=== PATIENT | male | born 1935 | race Caucasian/White ===

== ENCOUNTER 2016-12-24 08:21 | Inpatient (IN) | payer MEDICARE, BC ==
[2016-12-24] MEDS ORDERED: Lactated Ringers 1,000 ML IV ONE (09:10)
--- NOTE | 2016-12-24 09:19 | EDM.PDOC ---
ED HISTORY OF PRESENT ILLNESS - General Chief Complaint: Respiratory Problem Stated Complaint: dizzy weak Time Seen by Provider: 12/24/16 09:05 Source: Reports: Patient, RN notes reviewed History Limitations: Reports: No limitations - History of Present Illness INITIAL COMMENTS - FREE TEXT/NARRATIVE: 81-year-old gentleman presents emergency department with a complaint of shortness of breath, states this particular event has been going on for the last week or so however he was ill earlier in the month those symptoms resolved after 5 or 6 days he did well for a few days and then starting getting ill again , he denies any overt fever at home but has felt feverish with chills has not noticed any weight gain no chest pain no difficulty swallowing he does produce green yellow sputum no difficulty with bowel movements, also had a syncopal event this morning he had gotten up to a glass water felt very weak the next thing he recalls is awakening on the floor he is complaining of no pain - Related Data Allergies/ADRs: Allergies Allergy/AdvReac Type Severity Reaction Status Date / Time levofloxacin [From Levaquin] Allergy Unknown Muscle Verified 12/24/16 08:43 Weakness meropenem Allergy Swelling Verified 12/24/16 08:43 propoxyphene napsylate AdvReac Nausea and Verified 12/24/16 08:43 [From Darvocet-N] Vomiting Home Meds: Home Meds Calcium Carbonate [Tums] 200 mg PO ASDIRECTED PRN 04/17/14 [History] Omeprazole 20 mg PO BIDAC 04/17/14 [History] Past Medical History 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 Respiratory History: Reports: Pneumonia, recurrent Gastrointestinal History: Reports: Gastritis Musculoskeletal History: Reports: Fracture, Osteoarthritis Other Musculoskeletal History: ankle Oncologic (Cancer) History: Reports: Other (see below) 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[place] - Infectious Disease History Infectious Disease History: Reports: Chicken pox, Measles, Mumps - Past Surgical History HEENT Surgical History: Reports: Cataract surgery GI Surgical History: Reports: Appendectomy, Cholecystectomy Oncologic Surgical History: Reports: Other (see below) Other Oncologic Surgeries/Procedures: surgery on penis Social & Family History - Tobacco Use Smoking Status *Q: Never Smoker Years of Tobacco use: 40 Used Tobacco, but Quit: Yes Month Tobacco Last Used: 10-28-1998 Second Hand Smoke Exposure: No - Caffeine Use Caffeine Use: Reports: Soda - Alcohol Use Days Per Week of Alcohol Use: 0 - Recreational Drug Use Recreational Drug Use: No ED ROS GENERAL - Review of Systems Review Of Systems: See Below Constitutional: Reports: fever, chills HEENT: Reports: No symptoms Respiratory: Reports: shortness of breath, cough, sputum. Denies: wheezing Cardiovascular: Reports: Dyspnea on exertion. Denies: Chest pain GI/Abdominal: Reports: No symptoms : Reports: no symptoms Musculoskeletal: Reports: no symptoms Skin: Reports: no symptoms ED EXAM, GENERAL - Physical Exam Exam: See Below Free Text/Narrative:: General: Male, not in any distress, alert and oriented x3 HEENT: head is atraumatic normocephalic, eyes pupils equal round reactive to light and accommodation sclera clear no conjunctivitis appreciated. Ears blocked by cerumen bilaterally. Nose no septal deviation, nares are clear, no blood present. Mouth mucosa is dry and pink no erythema or exudate noted in soft palate, tongue is midline uvula is midline, dentition is intact. Neck: Supple no thyromegaly no tracheal deviation. Nodes: Cervical nodes subclavicular nodes nontender no palpable lymphadenopathy noted. Lungs: Breath sounds are distant, a faint expiratory wheeze can be appreciated right upper lung reyes CV: Regular rate and rhythm S1 and S2 appreciated no murmurs rubs or gallops noted. Abdomen: Soft, nontender, no palpable masses or organomegaly appreciated, no distention no guarding bowel sounds are present, . Neuro: Cranial nerves II through XII grossly intact Skin: Warm and dry, intact Extremities: No lower extremity edema appreciated, Course - Vital Signs Last Recorded V/S: Last Vital Signs Temp 98.4 F 12/24/16 09:50 Pulse 102 H 12/24/16 09:50 Resp 20 12/24/16 09:50 BP 80/59 L 12/24/16 09:50 Pulse Ox 92 L 12/24/16 09:50 - Orders/Labs/Meds Orders: Active Orders 24 hr Category Date Time Status EKG Documentation Completion [RC] ASDIRECTED Care 12/24/16 08:50 Active Peripheral IV Care [RC] . DIRECTED Care 12/24/16 09:12 Active CULTURE BLOOD [BC] Urgent Lab 12/24/16 10:25 Ordered CULTURE BLOOD [BC] Urgent Lab 12/24/16 10:25 Ordered UA W/MICROSCOPIC [URIN] Urgent Lab 12/24/16 09:10 Uncollected Azithromycin [Zithromax] 500 mg Med 12/24/16 10:25 Active Sodium Chloride 0.9% [Normal Saline] 250 ml IV ONETIME Lactated Ringers [Ringers, Lactated] 1,000 ml Med 12/24/16 09:10 Active IV ASDIRECTED Sodium Chloride 0.9% [Saline Flush] Med 12/24/16 09:10 Active 10 ml FLUSH ASDIRECTED PRN cefTRIAXone [Rocephin] 1 gm Med 12/24/16 10:25 Active Sodium Chloride 0.9% [Normal Saline] 50 ml IV ONETIME Blood Culture x2 Reflex Set [OM.PC] Urgent Oth 12/24/16 10:25 Ordered Peripheral IV Insertion Adult [OM.PC] Urgent Oth 12/24/16 09:10 Ordered EKG 12 Lead [EK] Stat Ther 12/24/16 08:50 Ordered Medication Orders Lactated Ringer's (Ringers, Lactated) 1,000 mls @ 500 mls/hr IV ASDIRECTED ONE Stop: 12/24/16 11:09 Last Admin: 12/24/16 09:28 Dose: 500 mls/hr Azithromycin 500 mg/ Sodium (Chloride) 250 mls @ 250 mls/hr IV ONETIME ONE Stop: 12/24/16 11:24 Ceftriaxone Sodium 1 gm/ (Sodium Chloride) 50 mls @ 100 mls/hr IV ONETIME ONE Stop: 12/24/16 10:54 Sodium Chloride (Saline Flush) 10 ml FLUSH ASDIRECTED PRN PRN Reason: Keep Vein Open Last Admin: 12/24/16 09:24 Dose: 10 ml Labs: Laboratory Tests 12/24/16 12/24/16 12/24/16 Range/Units 09:20 09:20 09:20 WBC 8.6 (4.5-11.0) K/uL RBC 4.94 (4.30-5.90) M/uL Hgb 15.6 H D (12.0-15.0) g/dL Hct 47.4 (40.0-54.0) % MCV 96 (80-98) fL MCH 32 H (27-31) pg MCHC 33 (32-36) % Plt Count 301 (150-400) K/uL Neut % (Auto) 74 H (36-66) % Lymph % (Auto) 11 L (24-44) % [place] % (Auto) 14 H (2-6) % Eos % (Auto) 1 L (2-4) % Baso % (Auto) 0 (0-1) % Sodium 137 L (140-148) mmol/L Potassium 4.3 (3.6-5.2) mmol/L Chloride 101 (100-108) mmol/L Carbon Dioxide 20 L (21-32) mmol/L Anion Gap 20.3 H (5.0-14.0) mmol/L BUN 30 H D (7-18) mg/dL Creatinine 1.9 H D (0.8-1.3) mg/dL Est Cr Clr Drug Dosing 32.48 mL/min Estimated GFR (MDRD) 34 L (>60) Glucose 124 H (74-106) mg/dL Calcium 9.2 (8.5-10.1) mg/dL Total Bilirubin 0.5 (0.2-1.0) mg/dL AST 59 H (15-37) U/L ALT 39 (12-78) U/L Alkaline Phosphatase 97 (46-116) U/L Troponin I < 0.017 (0.000-0.056) ng/mL Zaw-[id number]-Hufwgwznipj Pept 39 (5-450) pg/mL Total Protein 8.1 (6.4-8.2) g/dL Albumin 3.6 (3.4-5.0) g/dL Globulin 4.5 H (2.3-3.5) g/dL Albumin/Globulin Ratio 0.8 L (1.2-2.2) Meds: Medications Generic Name Dose Route Start Last Admin Trade Name Freq PRN Reason Stop Dose Admin Lactated Ringer's 1,000 mls @ 500 mls/hr 12/24/16 09:10 12/24/16 09:28 Ringers, Lactated IV 12/24/16 11:09 500 mls/hr ASDIRECTED ONE Administration Azithromycin 500 mg/ Sodium 250 mls @ 250 mls/hr 12/24/16 10:25 Chloride IV 12/24/16 11:24 ONETIME ONE Ceftriaxone Sodium 1 gm/ 50 mls @ 100 mls/hr 12/24/16 10:25 Sodium Chloride IV 12/24/16 10:54 ONETIME ONE Sodium Chloride 10 ml 12/24/16 09:10 12/24/16 09:24 Saline Flush FLUSH 10 ml ASDIRECTED PRN Administration Keep Vein Open Departure - Departure Time of Disposition: 10:30 Disposition: Admitted As Inpatient 66 Condition: fair Clinical Impression: Pneumonia Qualifiers: Pneumonia type: due to unspecified organism Laterality: left Lung location: lower lobe of lung Qualified Code(s): J18.1 - Lobar pneumonia, unspecified organism Forms: ED Department Discharge - My Orders Last 24 Hours: My Active Orders 12/24/16 08:50 EKG Documentation Completion [RC] ASDIRECTED EKG 12 Lead [EK] Stat 12/24/16 09:10 UA W/MICROSCOPIC [URIN] Urgent Lactated Ringers [Ringers, Lactated] 1,000 ml IV ASDIRECTED Sodium Chloride 0.9% [Saline Flush] 10 ml FLUSH ASDIRECTED PRN Peripheral IV Insertion Adult [OM.PC] Urgent 12/24/16 09:12 Peripheral IV Care [RC] . DIRECTED 12/24/16 10:25 CULTURE BLOOD [BC] Urgent CULTURE BLOOD [BC] Urgent Azithromycin [Zithromax] 500 mg Sodium Chloride 0.9% [Normal Saline] 250 ml IV ONETIME cefTRIAXone [Rocephin] 1 gm Sodium Chloride 0.9% [Normal Saline] 50 ml IV ONETIME Blood Culture x2 Reflex Set [OM.PC] Urgent - Assessment/Plan Last 24 Hours: My Active Orders 12/24/16 08:50 EKG Documentation Completion [RC] ASDIRECTED EKG 12 Lead [EK] Stat 12/24/16 09:10 UA W/MICROSCOPIC [URIN] Urgent Lactated Ringers [Ringers, Lactated] 1,000 ml IV ASDIRECTED Sodium Chloride 0.9% [Saline Flush] 10 ml FLUSH ASDIRECTED PRN Peripheral IV Insertion Adult [OM.PC] Urgent 12/24/16 09:12 Peripheral IV Care [RC] . DIRECTED 12/24/16 10:25 CULTURE BLOOD [BC] Urgent CULTURE BLOOD [BC] Urgent Azithromycin [Zithromax] 500 mg Sodium Chloride 0.9% [Normal Saline] 250 ml IV ONETIME cefTRIAXone [Rocephin] 1 gm Sodium Chloride 0.9% [Normal Saline] 50 ml IV ONETIME Blood Culture x2 Reflex Set [OM.PC] Urgent Plan: Assessment Acuity = acute Site and laterality = community acquired pneumonia with syncope probably related to hypotension complicated patient with recurrent pneumonias Etiology = suspicious for bacterial cause Manifestations = dyspnea Location of injury = home Lab values = CURB-65 score equal to 3, CBC unremarkable, sodium low at 137 consistent hyponatremia, BUN elevated at 30 and creatinine elevated at 1.9 consistent with a stage GIII B. acute renal failure AST elevated at 59 consistent elevated liver enzymes, troponin is negative, BNP normal at 39 chest x-ray shows questionable infiltrate in the left side official read radiology is pending EKG demonstrates a sinus rhythm Q waves appreciated in 3 and aVF Plan Call and discussed the case with hospitalist workers compensation coordinator he agreed to come and evaluate this 84 admission Patient was in agreement with the plan all questions were answered, This note was dictated using [employer] voice recognition software please call with any questions.
[2016-12-24] MEDS: Sodium Chloride 0.9% 10 ML Syringe FLUSH PRN ×2 (09:24→12:19)
--- NOTE | 2016-12-24 10:08 | CR ---
Chest 2V HISTORY: Shortness of breath COMPARISON: 04/17/2014. FINDINGS: Mild cardiomegaly. Small hiatal hernia. No acute congestive change. No dense focal infiltr ates.
[2016-12-24] MEDS ORDERED: Azithromycin 500 MG in Sodium Chloride 0.9% 250 ML IV ONE (10:25)
[2016-12-24] MEDS ORDERED: cefTRIAXone 1 GM in Sodium Chloride 0.9% 50 ML IV ONE (10:25)
--- NOTE | 2016-12-24 11:44 | PCM.HP ---
H&P History of Present Illness - General Date of Service: 12/24/16 Admit Problem/Dx: Admission Diagnosis/Problem Admission Diagnosis/Problem Pneumonia Source of Information: Patient, Provider History Limitations: Reports: No limitations - History of Present Illness Initial Comments - Free Text/Narative: Ernst presents to the emergency room today with 2 days of worsening cough with green sputum production and shortness of breath. This morning he reports that he was walking into the kitchen to get a drink of water and the next thing he remembers is laying on the floor afterwards. No report of dizziness before or after the event. He doesn't think that he lost consciousness for more than a couple of seconds. No injuries from the fall. No report of fevers or chills at home. He has noticed a decline in his energy as well as his appetite. He is now short of breath after half a flight of stairs which is much different than his baseline. No complaints of chest pain or pain with inspiration. He has had a couple of days of diarrhea as well. No complaints of abdominal pain. No change in bladder habits. No lower extremity edema or orthopnea. He does report that about 3 weeks ago he had a cough and runny nose and symptoms were getting better after a couple weeks before symptoms returned to this time his symptoms feel different with the cough and sputum as mentioned above. No complaints of sore throat at this time. he has not had much to drink in the last couple of days either. Workup in the emergency room revealed a low blood pressure, acute kidney injury and probable evidence for subtle left lung pneumonia. He'll be admitted for management of pneumonia. 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 Respiratory History: Reports: Pneumonia, recurrent Gastrointestinal History: Reports: Gastritis Musculoskeletal History: Reports: Fracture, Osteoarthritis Other Musculoskeletal History: ankle Oncologic (Cancer) History: Reports: Other (see below) 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[place] - Infectious Disease History Infectious Disease History: Reports: Chicken pox, Measles, Mumps - Past Surgical History HEENT Surgical History: Reports: Cataract surgery GI Surgical History: Reports: Appendectomy, Cholecystectomy Oncologic Surgical History: Reports: Other (see below) Other Oncologic Surgeries/Procedures: surgery on penis Social & Family History - Family History Neurological: Reports: Alzheimers disease (mother) - Tobacco Use Smoking Status *Q: Never Smoker Years of Tobacco use: 40 Used Tobacco, but Quit: Yes Month Tobacco Last Used: 10-28-1998 Second Hand Smoke Exposure: No - Caffeine Use Caffeine Use: Reports: Soda - Alcohol Use Days Per Week of Alcohol Use: 0 - Recreational Drug Use Recreational Drug Use: No H&P Review of Systems - Review of Systems: Review Of Systems: See Below Free Text/Narrative: A complete 12 point review of systems was obtained. Pertinent positives and negatives are noted in the history of present illness. All other systems were reviewed and were negative except as noted. Exam - Exam Exam: See Below - Vital Signs Vital Signs: Last Vital Signs Temp 36.9 C 12/24/16 10:50 Pulse 89 12/24/16 10:50 Resp 21 H 12/24/16 10:50 BP 80/59 L 12/24/16 09:50 Pulse Ox 92 L 12/24/16 09:50 Weight: 104 kg - Exam Quality Assessment: No: supplemental oxygen, urinary catheter General: alert, oriented, cooperative. No: mild distress HEENT: Posterior pharynx clear. No: Mucosa moist & pink (dry), Scleral icterus Neck: supple, trachea midline. No: lymphadenopathy, thyromegaly Lungs: Clear to auscultation, Normal respiratory effort, Rales (rare left lower lateral chest) Cardiovascular: regular rhythm, tachycardia. No: systolic murmur Abdomen: normal bowel sounds, soft. No: distention, tenderness Back Exam: normal inspection, full range of motion Extremities: normal inspection, normal pulses. No: cyanosis, edema Peripheral Pulses: 1+: dorsalis pedis (L), 2+: dorsalis pedis (R) Skin: warm, dry, intact Neuro Extensive - Mental Status: alert, oriented x3 Neuro Extensive - Motor, Sensory, Reflexes: CN II-XII intact. No: dysarthria, abnormal motor, tremor Psychiatric: alert, normal affect - Patient Data Lab Results last 24 hrs: Laboratory Results - last 24 hr 12/24/16 12/24/16 12/24/16 Range/Units 09:20 09:20 09:20 WBC 8.6 (4.5-11.0) K/uL RBC 4.94 (4.30-5.90) M/uL Hgb 15.6 H D (12.0-15.0) g/dL Hct 47.4 (40.0-54.0) % MCV 96 (80-98) fL MCH 32 H (27-31) pg MCHC 33 (32-36) % Plt Count 301 (150-400) K/uL Neut % (Auto) 74 H (36-66) % Lymph % (Auto) 11 L (24-44) % [place] % (Auto) 14 H (2-6) % Eos % (Auto) 1 L (2-4) % Baso % (Auto) 0 (0-1) % Sodium 137 L (140-148) mmol/L Potassium 4.3 (3.6-5.2) mmol/L Chloride 101 (100-108) mmol/L Carbon Dioxide 20 L (21-32) mmol/L Anion Gap 20.3 H (5.0-14.0) mmol/L BUN 30 H D (7-18) mg/dL Creatinine 1.9 H D (0.8-1.3) mg/dL Est Cr Clr Drug Dosing 32.48 mL/min Estimated GFR (MDRD) 34 L (>60) Glucose 124 H (74-106) mg/dL Calcium 9.2 (8.5-10.1) mg/dL Total Bilirubin 0.5 (0.2-1.0) mg/dL AST 59 H (15-37) U/L ALT 39 (12-78) U/L Alkaline Phosphatase 97 (46-116) U/L Troponin I < 0.017 (0.000-0.056) ng/mL Ojf-T-Rnnmiipdwua Pept 39 (5-450) pg/mL Total Protein 8.1 (6.4-8.2) g/dL Albumin 3.6 (3.4-5.0) g/dL Globulin 4.5 H (2.3-3.5) g/dL Albumin/Globulin Ratio 0.8 L (1.2-2.2) Result Diagrams: 12/24/16 09:20 12/24/16 09:20 Navin Results last 24 hrs: Microbiology 12/24/16 09:36 Influenza Type A Antigen Screen - Final Nasopharyngeal Swab - Nare, Left NEGATIVE INFLUENZA A VIRUS AG Influenza Type B Antigen Screen - Final NEGATIVE INFLUENZA B VIRUS AG Imaging Impressions last 24 hrs: chest x-ray - images personally reviewed - possible subtle left lung infiltrate with a mild change compared to most recent chest x-ray EKG INTERPRETATION EKG Date: 12/24/16 Rhythm: NSR Rate (beats/min): 88 [place]: normal P-wave: present QRS: normal ST-T: normal QT: normal *Q Meaningful Use (ADM) - VTE *Q VTE Criteria *Q: - Stroke *Q Stroke Criteria *Q: - AMI *Q AMI Criteria *Q: - Problem List (1) Pneumonia SNOMED Code(s): 667999129 ICD Code: J18.9 - PNEUMONIA, UNSPECIFIED ORGANISM Status: Acute Current Visit: Yes Qualifiers: Pneumonia type: due to unspecified organism Laterality: left Lung location: lower lobe of lung Qualified Code(s): J18.1 - Lobar pneumonia, unspecified organism (2) Acute kidney injury SNOMED Code(s): 85009056 ICD Code: N17.9 - ACUTE KIDNEY FAILURE, UNSPECIFIED Status: Acute Current Visit: Yes (3) Syncope SNOMED Code(s): 032020472 ICD Code: R55 - SYNCOPE AND COLLAPSE Status: Acute Current Visit: Yes Qualifiers: Syncope type: unspecified Qualified Code(s): R55 - Syncope and collapse Problem List Initiated/Reviewed/Updated: Yes Orders Last 24hrs: Active Orders 24 hr Category Date Time Status Patient Status Manage Transfer [TRANSFER] Routine ADT 12/24/16 11:35 Ordered EKG Documentation Completion [RC] ASDIRECTED Care 12/24/16 08:50 Active Peripheral IV Care [RC] . DIRECTED Care 12/24/16 09:12 Active CULTURE BLOOD [BC] Urgent Lab 12/24/16 10:44 Received CULTURE BLOOD [BC] Urgent Lab 12/24/16 10:44 Received UA W/MICROSCOPIC [URIN] Urgent Lab 12/24/16 09:10 Uncollected Sodium Chloride 0.9% [Saline Flush] Med 12/24/16 09:10 Active 10 ml FLUSH ASDIRECTED PRN Blood Culture x2 Reflex Set [OM.PC] Urgent Oth 12/24/16 10:25 Ordered Peripheral IV Insertion Adult [OM.PC] Urgent Oth 12/24/16 09:10 Ordered Resuscitation Status Routine Resus Stat 12/24/16 11:36 Ordered EKG 12 Lead [EK] Stat Ther 12/24/16 08:50 Ordered Medication Orders Sodium Chloride (Saline Flush) 10 ml FLUSH ASDIRECTED PRN PRN Reason: Keep Vein Open Last Admin: 12/24/16 09:24 Dose: 10 ml Assessment/Plan Comment:: Assessment and plan - Probable left lung pneumonia - subtle infiltrate with compatible symptoms. Examination with a few crackles in this area as well. Blood pressure is on the low side but I think this is more a component of dehydration without other strong evidence for sepsis. Could be post viral pneumonia with upper respiratory symptoms 3 weeks ago. -ceftriaxone and azithromycin -IV fluid -Nebulizers -Sputum culture if able -Supplement oxygen if needed Syncope - probably a result of dehydration and infection. No recent suspect alternative diagnosis based on history. -Cardiac Monitoring -Repeat labs in the morning after IV fluids Acute kidney injury - creatinine almost doubled from baseline. Probably related to dehydration. -IV fluids overnight and labs in the morning Maintenance issues - - DVT prophylaxis - mechanical - GI prophylaxis - PPI - Nutrition - regular diet as tolerated - Wolf catheter - not indicated CODE STATUS - full code Admission justification - This patient will be admitted for inpatient services and is medically appropriate meeting medical necessity for inpatient admission as outlined in my documentation. I reasonably expect the patient will require inpatient services that span a period time over 2 midnights. I reasonably expect this patient to be discharged or transferred within 96 hours [facility]. Disposition - anticipate discharge home after the hospital stay Victorino Kellogg M.D.
[2016-12-24] MEDS ORDERED: Ibuprofen 600 MG Tab PO PRN (13:18)
[2016-12-24] MEDS ORDERED: Acetaminophen 325 MG Tab PO PRN (13:18)
[2016-12-24] MEDS ORDERED: Ondansetron 4 MG Tab.DIS PO PRN (13:18)
[2016-12-24] MEDS ORDERED: Albuterol 0.083% 2.5 MG/3 ML Neb Soln NEB PRN (13:18)
[2016-12-24] MEDS: Pantoprazole 20 MG Tab, Delayed Release PO SCH (15:48)
[2016-12-24] MEDS ORDERED: Pantoprazole 40 MG Tab.CR PO SCH (16:30)
[2016-12-24] MEDS: Sodium Chloride 0.9% 1,000 ML IV SCH (22:00)
[2016-12-25] MEDS: Sodium Chloride 0.9% 1,000 ML IV SCH (06:00)
[2016-12-25] MEDS: Pantoprazole 20 MG Tab, Delayed Release PO SCH ×2 (07:49→17:19)
[2016-12-25] MEDS: Azithromycin 250 MG Tab PO SCH (08:46)
[2016-12-25] MEDS: cefTRIAXone 1 GM in Sodium Chloride 0.9% 50 ML IV SCH (10:50)
--- NOTE | 2016-12-25 12:53 | PCM.PN ---
- General Info Date of Service: 12/25/16 Functional Status: Reports: pain controlled, tolerating diet - Review of Systems General: Reports: fever, weakness Pulmonary: Reports: cough Systems Review Comment:: no acute events overnight. Still has a dry cough but shortness of breath has been improving. No recurrence of his syncope but has not been up and moving around. No abnormalities on cardiac monitoring overnight. No fevers. Appetite is improving. In general he is feeling better today. - Patient Data Vitals - most recent: Last Vital Signs Temp 37.0 C 12/25/16 10:29 Pulse 70 12/25/16 10:29 Resp 18 12/25/16 10:29 BP 119/70 12/25/16 10:29 Pulse Ox 90 L 12/25/16 10:29 Weight - most recent: 103.873 kg I&O - last 24 hours: Intake & Output 12/24/16 12/25/16 12/25/16 22:59 06:59 14:59 Intake Total 645 1492 410 Output Total 400 300 950 Balance 245 1192 -540 Lab Results last 24 hrs: Laboratory Results - last 24 hr 12/24/16 12/25/16 12/25/16 Range/Units 14:23 05:11 05:11 WBC 4.8 (4.5-11.0) K/uL RBC 4.41 (4.30-5.90) M/uL Hgb 13.6 D (12.0-15.0) g/dL Hct 42.7 (40.0-54.0) % MCV 97 (80-98) fL MCH 31 (27-31) pg MCHC 32 (32-36) % Plt Count 221 (150-400) K/uL Sodium 142 (140-148) mmol/L Potassium 3.9 (3.6-5.2) mmol/L Chloride 108 (100-108) mmol/L Carbon Dioxide 23 (21-32) mmol/L Anion Gap 11.0 (5.0-14.0) mmol/L BUN 25 H (7-18) mg/dL Creatinine 1.5 H (0.8-1.3) mg/dL Est Cr Clr Drug Dosing 39.88 mL/min Estimated GFR (MDRD) 45 L (>60) Glucose 97 (74-106) mg/dL Calcium 8.0 L (8.5-10.1) mg/dL Urine Color Yellow Urine Appearance Slightly cloudy Urine pH 5.0 (4.5-8.0) Ur Specific Rudolph 1.025 (1.008-1.030) Urine Protein 30 H (NEGATIVE) mg/dL Urine Glucose (UA) Normal (NEGATIVE) mg/dL Urine Ketones Negative (NEGATIVE) mg/dL Urine Occult Blood Moderate (NEGATIVE) Urine Nitrite Negative (NEGAITVE) Urine Bilirubin Small (NEGATIVE) Urine Urobilinogen Normal (NORMAL) mg/dL Ur Leukocyte Esterase Moderate (NEGATIVE) Urine RBC 5-10 H (0-5) Urine WBC 10-20 H (0-5) Ur Epithelial Cells Many Amorphous Sediment Not seen Urine Bacteria Many Urine Mucus Moderate Urine Other Med Orders - Current: Current Medications Acetaminophen (Tylenol) 650 mg PO Q4H PRN PRN Reason: Pain (Mild 1-3)/fever Albuterol (Proventil Neb Soln) 2.5 mg NEB Q4H PRN PRN Reason: Shortness Of Breath/wheezing Azithromycin (Zithromax) 500 mg PO DAILY [facility] Last Admin: 12/25/16 08:46 Dose: 500 mg Ceftriaxone Sodium 1 gm/ (Sodium Chloride) 50 mls @ 100 mls/hr IV Q24H [facility] Last Admin: 12/25/16 10:50 Dose: 100 mls/hr Ibuprofen (Motrin) 600 mg PO Q6H PRN PRN Reason: Pain/Fever Ondansetron HCl (Zofran Odt) 4 mg PO Q6H PRN PRN Reason: Nausea able to take PO Pantoprazole Sodium (Pantoprazole) 20 mg PO BIDAC [facility] Last Admin: 12/25/16 07:49 Dose: 20 mg Sodium Chloride (Saline Flush) 10 ml FLUSH ASDIRECTED PRN PRN Reason: Keep Vein Open Last Admin: 12/24/16 12:19 Dose: 10 ml Discontinued Medications Lactated Ringer's (Ringers, Lactated) 1,000 mls @ 500 mls/hr IV ASDIRECTED ONE Stop: 12/24/16 11:09 Last Admin: 12/24/16 09:28 Dose: 500 mls/hr Azithromycin 500 mg/ Sodium (Chloride) 250 mls @ 250 mls/hr IV ONETIME ONE Stop: 12/24/16 11:24 Last Admin: 12/24/16 10:40 Dose: 250 mls/hr Ceftriaxone Sodium 1 gm/ (Sodium Chloride) 50 mls @ 100 mls/hr IV ONETIME ONE Stop: 12/24/16 10:54 Last Admin: 12/24/16 11:15 Dose: 100 mls/hr Sodium Chloride (Normal Saline) 1,000 mls @ 125 mls/hr IV ASDIRECTED [facility] Last Admin: 12/25/16 06:00 Dose: 125 mls/hr - Exam Quality Assessment: No: supplemental oxygen General: alert, oriented, cooperative, no acute distress Neck: supple Lungs: Clear to auscultation, Normal respiratory effort, Rales (rare left lung base) Cardiovascular: regular rate, regular rhythm Abdomen: soft, no distension Extremities: no edema, normal pulses Skin: warm, dry - Problem List & Annotations (1) Pneumonia SNOMED Code(s): 373405577 Code(s): J18.9 - PNEUMONIA, UNSPECIFIED ORGANISM Status: Acute Current Visit: Yes Qualifiers: Pneumonia type: due to unspecified organism Laterality: left Lung location: lower lobe of lung Qualified Code(s): J18.1 - Lobar pneumonia, unspecified organism (2) Acute kidney injury SNOMED Code(s): 34042322 Code(s): N17.9 - ACUTE KIDNEY FAILURE, UNSPECIFIED Status: Acute Current Visit: Yes (3) Syncope SNOMED Code(s): 338726526 Code(s): R55 - SYNCOPE AND COLLAPSE Status: Acute Current Visit: Yes Qualifiers: Syncope type: unspecified Qualified Code(s): R55 - Syncope and collapse - Problem List Review Problem List Initiated/Reviewed/Updated: Yes - My Orders Last 24 Hours: My Active Orders 12/24/16 13:18 Patient Status [ADT] Routine Intake and Output [RC] QSHIFT Notify Provider Vital Signs [RC] ASDIRECTED Oxygen Therapy [RC] PRN RT Aerosol Therapy [RC] ASDIRECTED Up With Assistance [RC] ASDIRECTED VTE/DVT Education [RC] Per Unit Routine Vital Signs [RC] Q4H CULTURE RESPIRATORY + SMEAR [RM] Routine Acetaminophen [Tylenol] 650 mg PO Q4H PRN Albuterol [Proventil Neb Soln] 2.5 mg NEB Q4H PRN Ibuprofen [Motrin] 600 mg PO Q6H PRN Ondansetron [Zofran ODT] 4 mg PO Q6H PRN Sequential Compression Device [OM.PC] Per Unit Routine 12/24/16 16:30 Pantoprazole 20 mg PO BIDAC 12/24/16 Lunch Regular Diet [DIET] 12/25/16 09:00 Azithromycin [Zithromax] 500 mg PO DAILY 12/25/16 11:00 cefTRIAXone [Rocephin] 1 gm Sodium Chloride 0.9% [Normal Saline] 50 ml IV Q24H 12/25/16 12:51 Discontinue Telemetry Monitoring [Cardiac Monitoring Discontinue] [RC] Click to Edit Convert IV to Saline Lock [OM.PC] Routine 12/26/16 05:00 BASIC METABOLIC PANEL,BMP [CHEM] Timed - Plan Plan:: Assessment and plan - Probable left lung pneumonia - still coughing but otherwise doing better. Cultures are pending. Not requiring supplemental oxygen but is weak. -ceftriaxone and azithromycin -saline lock IV -Nebulizers -Sputum culture if able -Supplement oxygen if needed Syncope - probably a result of dehydration and infection. no recurrence.telemetry monitoring normal. Vital signs stable. -discontinue Cardiac Monitoring Acute kidney injury - creatinine almost doubled from baseline, level improving with hydration. -repeat labs in the morning Maintenance issues - - DVT prophylaxis - mechanical - GI prophylaxis - PPI - Nutrition - regular diet as tolerated Disposition - anticipate discharge home after the hospital stay. I I plan to increase his activity today and if he is stable and does well overnight he should be able to go home tomorrow assuming his labs continue to improve. Victorino Kellogg M.D.
[2016-12-26] MEDS: Pantoprazole 20 MG Tab, Delayed Release PO SCH (07:37)
[2016-12-26] MEDS: Azithromycin 250 MG Tab PO SCH (09:30)
[2016-12-26] MEDS: cefTRIAXone 1 GM in Sodium Chloride 0.9% 50 ML IV SCH (10:33)
--- NOTE | 2016-12-26 10:37 | PCM.DCSUM1 ---
Discharge Summary - Hospital Course Brief History: healthy 81-year-old male who presented with syncope, weakness and cough and was admitted for management of left lung pneumonia. - Discharge Data Discharge Date: 12/26/16 Discharge Disposition: Home, Self-Care 01 Condition: Good - Discharge Diagnosis/Problem(s) (1) Pneumonia SNOMED Code(s): 061601565 ICD Code: J18.9 - PNEUMONIA, UNSPECIFIED ORGANISM Status: Acute Qualifiers: Pneumonia type: due to unspecified organism Laterality: left Lung location: lower lobe of lung Qualified Code(s): J18.1 - Lobar pneumonia, unspecified organism (2) Acute kidney injury SNOMED Code(s): 99430373 ICD Code: N17.9 - ACUTE KIDNEY FAILURE, UNSPECIFIED Status: Acute (3) Syncope SNOMED Code(s): 879687781 ICD Code: R55 - SYNCOPE AND COLLAPSE Status: Acute Qualifiers: Syncope type: unspecified Qualified Code(s): R55 - Syncope and collapse - Patient Summary/Data Hospital Course: Ernst presented to the emergency room after an episode of syncope. Workup in the emergency room revealed evidence for left lung pneumonia, dehydration, acute kidney injury. He was admitted to the hospital for management and hydration. Broad spectrum antibiotics were initiated for the pneumonia and he received IV fluids. By the morning after admission his strength and energy have improved some. Blood pressure has normalized after being on the low side of normal during the initial part of the hospital stay. He has had low-grade temperature elevations but no true fevers. He tolerated his antibiotics well. He continues to cough a fair amount but has not been hypoxic. There has not been recurrence of syncope. Over the second 24 hours of the hospital stay he made additional impressive improvement. He's been able to improve his strength and functional status rather quickly. Appetite has returned to normal. He has not required supplemental oxygen in the past 24 hours. Cultures have all been negative. I believe at this point he safe her hospital discharge. He will continue his current antibiotics with 2 additional days of azithromycin and 4 additional days of cefdinir. Kidney function has returned to baseline. He should followup if symptoms do not continue to improve or if they get worse. - Patient Instructions Diet: Regular Diet as Tolerated Activity: As Tolerated Driving: May Drive Today Showering/Bathing: May Shower Notify Provider of: Fever, Increased Pain, Nausea and/or Vomiting Other/Special Instructions: 1. You were in the hospital for management of left lung pneumonia. I recommend 2 additional days of azithromycin taken once daily in the morning and cefdinir 300 mg taken twice daily. Your first dose for both of these medications will be due tomorrow morning. 2. Please seek medical attention if you develop fever greater than 101, worsening of shortness of breath, or chest pain. 3. Follow that if your symptoms do not continue to get better or they get worse. - Discharge Plan Prescriptions/Med Rec: Azithromycin 500 mg PO DAILY #2 tablet Cefdinir 300 mg PO BID #8 capsule Codeine/guaiFENesin [Robitussin AC] 10 ml PO Q4H #2 bottle Home Medications: Home Meds Calcium Carbonate [Tums] 200 mg PO ASDIRECTED PRN 04/17/14 [History] Omeprazole 20 mg PO BIDAC 04/17/14 [History] Azithromycin 500 mg PO DAILY #2 tablet 12/26/16 [Rx] Cefdinir 300 mg PO BID #8 capsule 12/26/16 [Rx] Codeine/guaiFENesin [Robitussin AC] 10 ml PO Q4H #2 bottle 12/26/16 [Rx] Patient Handouts: Community-Acquired Pneumonia, Adult Referrals: PCP,None [Primary Care Provider] - (followup with your primary care provider if things do not continue to get better or they get worse) - Discharge Summary/Plan Comment DC Time >30 min.: No (25) - Patient Data Vitals - Most Recent: Last Vital Signs Temp 36.9 C 12/26/16 07:40 Pulse 77 12/26/16 07:40 Resp 20 12/26/16 07:40 BP 115/87 12/26/16 07:40 Pulse Ox 91 L 12/26/16 07:40 Weight - Most Recent: 103.873 kg I&O - Last 24 hours: Intake & Output 12/25/16 12/26/16 12/26/16 22:59 06:59 14:59 Intake Total 600 480 120 Output Total 350 Balance 600 130 120 Lab Results - Last 24 hrs: Laboratory Results - last 24 hr 12/26/16 Range/Units 05:00 Sodium 141 (140-148) mmol/L Potassium 4.0 (3.6-5.2) mmol/L Chloride 108 (100-108) mmol/L Carbon Dioxide 23 (21-32) mmol/L Anion Gap 10.0 (5.0-14.0) mmol/L BUN 20 H (7-18) mg/dL Creatinine 1.3 (0.8-1.3) mg/dL Est Cr Clr Drug Dosing 46.01 mL/min Estimated GFR (MDRD) 53 L (>60) Glucose 101 (74-106) mg/dL Calcium 8.3 L (8.5-10.1) mg/dL Med Orders - Current: Current Medications Acetaminophen (Tylenol) 650 mg PO Q4H PRN PRN Reason: Pain (Mild 1-3)/fever Albuterol (Proventil Neb Soln) 2.5 mg NEB Q4H PRN PRN Reason: Shortness Of Breath/wheezing Azithromycin (Zithromax) 500 mg PO DAILY [facility] Last Admin: 12/26/16 09:30 Dose: 500 mg Ceftriaxone Sodium 1 gm/ (Sodium Chloride) 50 mls @ 100 mls/hr IV Q24H [facility] Last Admin: 12/26/16 10:33 Dose: 100 mls/hr Ibuprofen (Motrin) 600 mg PO Q6H PRN PRN Reason: Pain/Fever Ondansetron HCl (Zofran Odt) 4 mg PO Q6H PRN PRN Reason: Nausea able to take PO Pantoprazole Sodium (Pantoprazole) 20 mg PO BIDAC [facility] Last Admin: 12/26/16 07:37 Dose: 20 mg Sodium Chloride (Saline Flush) 10 ml FLUSH ASDIRECTED PRN PRN Reason: Keep Vein Open Last Admin: 12/24/16 12:19 Dose: 10 ml Discontinued Medications Lactated Ringer's (Ringers, Lactated) 1,000 mls @ 500 mls/hr IV ASDIRECTED ONE Stop: 12/24/16 11:09 Last Admin: 12/24/16 09:28 Dose: 500 mls/hr Azithromycin 500 mg/ Sodium (Chloride) 250 mls @ 250 mls/hr IV ONETIME ONE Stop: 12/24/16 11:24 Last Admin: 12/24/16 10:40 Dose: 250 mls/hr Ceftriaxone Sodium 1 gm/ (Sodium Chloride) 50 mls @ 100 mls/hr IV ONETIME ONE Stop: 12/24/16 10:54 Last Admin: 12/24/16 11:15 Dose: 100 mls/hr Sodium Chloride (Normal Saline) 1,000 mls @ 125 mls/hr IV ASDIRECTED [facility] Last Admin: 12/25/16 06:00 Dose: 125 mls/hr *Q Meaningful Use (DIS) - VTE *Q VTE Criteria *Q: - Stroke *Q Stroke Criteria *Q: - AMI *Q AMI Criteria *Q:
[2016-12-26 11:10] VITALS: BP 112/90
== END 2016-12-26 13:45 | disposition home or self-care (01) | DRG 194 ==
LOC: JP.ED 08:21 → JP.MS 11:35 → UNDOADMIN 11:35
PROVIDERS: ADMIT Internal Medicine; ATTEND Internal Medicine
DX: J18.9 Pneumonia, unspecified organism (principal); N17.9 Acute kidney failure, unspecified; R55 Syncope and collapse; E86.0 Dehydration; Z87.891 Personal history of nicotine dependence; W18.39XA Other fall on same level, initial encounter; Y93.01 Activity, walking, marching and hiking; Y92.009 Unspecified place in unspecified non-institutional (private) residence as the place of occurrence of the external cause; Z87.01 Personal history of pneumonia (recurrent); H54.7 Unspecified visual loss; Z88.1 Allergy status to other antibiotic agents; Z85.49 Personal history of malignant neoplasm of other male genital organs
CPT/HCPCS: 36415; 71020 ×2; 80053; 83880; 84484; 85025; 87040 ×2; 87804 ×2; 93005; 96361; 96365; 96368; 99285; J0456; J0696; J7050 ×3; J7120; 80048; 81001; 85027; 93010; A9270-GY; J7040

== ENCOUNTER 2017-05-24 08:37 | Emergency (ER) | payer MEDICARE, BC ==
[2017-05-24 08:49] VITALS: BP 142/75
[2017-05-24] MEDS ORDERED: Cyclobenzaprine 10 MG Tab PO ONE (09:13)
[2017-05-24] MEDS ORDERED: Ketorolac 30 MG/ML SDV IM ONE (09:13)
--- NOTE | 2017-05-24 09:15 | EDM.PDOC ---
ED HPI GENERAL MEDICAL PROBLEM - General Chief Complaint: Back Pain or Injury Stated Complaint: PAIN FROM BACK DOWN RT LEG Time Seen by Provider: 05/24/17 09:09 Source of Information: Reports: Patient, RN Notes Reviewed History Limitations: Reports: No Limitations - History of Present Illness INITIAL COMMENTS - FREE TEXT/NARRATIVE: 81-year-old gentleman presents emergency department day complaint of low back pain, he states is been going on for a couple weeks however today he was progressively worse pain was so severe was difficult for him to ambulate he denies any loss of bowel or bladder he does admit to some overexertion was painting a floor - Related Data Allergies Allergy/AdvReac Type Severity Reaction Status Date / Time meropenem Allergy Swelling Verified 12/24/16 08:43 levofloxacin [From Levaquin] AdvReac Unknown Muscle Verified 12/24/16 13:22 Weakness propoxyphene napsylate AdvReac Nausea and Verified 12/24/16 08:43 [From Darvocet-N] Vomiting Home Meds: Home Meds Omeprazole 20 mg PO BIDAC 04/17/14 [History] Past Medical History HEENT History: Reports: Impaired Vision Respiratory History: Reports: Pneumonia, Recurrent Gastrointestinal History: Reports: Gastritis Musculoskeletal History: Reports: Fracture, Osteoarthritis Other Musculoskeletal History: ankle Oncologic (Cancer) History: Reports: Other (See Below) 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[place] - Infectious Disease History Infectious Disease History: Reports: Chicken Pox, Measles, Mumps - Past Surgical History HEENT Surgical History: Reports: Cataract Surgery GI Surgical History: Reports: Appendectomy, Cholecystectomy Oncologic Surgical History: Reports: Other (See Below) Social & Family History - Family History Family Medical History: Noncontributory Neurological: Reports: Alzheimers Disease - Tobacco Use Smoking Status *Q: Never Smoker Years of Tobacco use: 40 Packs/Tins Daily: 1 Used Tobacco, but Quit: Yes Month Tobacco Last Used: 10-28-1998 Second Hand Smoke Exposure: No - Caffeine Use Caffeine Use: Reports: Soda - Alcohol Use Days Per Week of Alcohol Use: 0 - Recreational Drug Use Recreational Drug Use: No ED ROS GENERAL - Review of Systems Review Of Systems: See Below Constitutional: Reports: No Symptoms Respiratory: Reports: No Symptoms Cardiovascular: Reports: No Symptoms GI/Abdominal: Reports: No Symptoms : Reports: No Symptoms Musculoskeletal: Reports: Back Pain Neurological: Reports: Other (Shooting pain down the right leg) ED EXAM,LOWER BACK PAIN/INJURY - Physical Exam Exam: See Below Exam Limited By: No Limitations General Appearance: Alert, WD/WN, No Apparent Distress Respiratory/Chest: No Respiratory Distress Back Exam: Normal Inspection, Decreased Range of Motion, Muscle Spasm, Paraspinal Tenderness. No: CVA Tenderness (R), CVA Tenderness (L), Vertebral Tenderness Neurological: Difficulty Walking. No: Straight Leg Raise (L), Straight Leg Raise (R) Course - Vital Signs Last Recorded V/S: Last Vital Signs Temp 96.8 F 05/24/17 09:01 Pulse 66 05/24/17 09:01 Resp 15 05/24/17 09:01 BP 142/75 H 05/24/17 09:01 Pulse Ox 94 L 05/24/17 09:01 - Orders/Labs/Meds Meds: Medications Discontinued Medications Generic Name Dose Route Start Last Admin Trade Name Reginaldo PRN Reason Stop Dose Admin Cyclobenzaprine HCl 10 mg 05/24/17 09:13 05/24/17 09:30 Flexeril PO 05/24/17 09:14 10 mg ONETIME ONE Administration Ketorolac Tromethamine 30 mg 05/24/17 09:13 05/24/17 09:30 Toradol IM 05/24/17 09:14 30 mg ONETIME ONE Administration Departure - Departure Time of Disposition: 10:50 Disposition: Home, Self-Care 01 Condition: Good Clinical Impression: Back pain Qualifiers: Back pain location: low back pain Chronicity: acute Back pain laterality: right Sciatica presence: without sciatica Qualified Code(s): M54.5 - Low back pain - Discharge Information Forms: ED Department Discharge Additional Instructions: Physical therapy will call you with an appointment time, use the hydrocodone as needed in combination with ibuprofen for low back pain, call or return to the emergency department worsening of symptoms - Assessment/Plan Plan: Assessment Acuity = acute Site and laterality = low back pain Etiology = possibly related to muscle skeletal strain Manifestations = none Location of injury = Home Lab values = none Plan He had some improvement with the Toradol injection provided as well as Flexeril to try hydrocodone No. 10 with a physical therapy referral Patient was in agreement with the plan all questions were answered, they were instructed to return to the emergency department or call for worsening symptoms. This note was dictated using [employer] voice recognition software please call with any questions.
== END 2017-05-24 11:10 | disposition home or self-care (01) ==
LOC: JP.ED 08:37
DX: M54.5 Low back pain (principal); M19.90 Unspecified osteoarthritis, unspecified site; Z98.49 Cataract extraction status, unspecified eye; Z90.49 Acquired absence of other specified parts of digestive tract; Z98.890 Other specified postprocedural states; Z87.01 Personal history of pneumonia (recurrent); Z85.49 Personal history of malignant neoplasm of other male genital organs; Z88.1 Allergy status to other antibiotic agents; Z88.8 Allergy status to other drugs, medicaments and biological substances
CPT/HCPCS: 96372; 99283; A9270; J1885

== ENCOUNTER 2021-09-10 09:08 | Emergency (ER) | payer MEDICARE ==
[2021-09-10] MEDS ORDERED: Ondansetron 4 MG Tab.DIS PO ONE (09:13)
[2021-09-10] MEDS ORDERED: Bisacodyl 10 MG Supp RECTAL ONE (10:38)
[2021-09-10] MEDS ORDERED: Sodium Chloride 0.9% 10 ML Syringe FLUSH PRN (10:38)
--- NOTE | 2021-09-10 10:43 | EDM.PDOC ---
ED HPI GENERAL MEDICAL PROBLEM - General Chief Complaint: Gastrointestinal Problem Stated Complaint: CONSTIPATION/VOMITTING Time Seen by Provider: 09/10/21 10:30 Source of Information: Reports: Patient, Old Records History Limitations: Reports: No Limitations - History of Present Illness INITIAL COMMENTS - FREE TEXT/NARRATIVE: 85 yo male here with nausea and constipation. No vomiting or fever. Had a small BM yesterday otherwise none for several days. Has intermittent LLQ pain. Can't tell me the color of his urine. Has not eaten or drank today. Onset: Gradual Duration: Day(s):, Getting Worse Location: Reports: Abdomen Quality: Reports: Other (crampy, intermittently) Severity: Moderate Improves with: Reports: Other (unsure) Worsens with: Reports: Other (time) Context: Reports: Other (See HPI) Associated Symptoms: Reports: Loss of Appetite, Nausea/Vomiting (no emesis). 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) - Related Data Allergies Allergy/AdvReac Type Severity Reaction Status Date / Time meropenem Allergy Swelling Verified 09/10/21 10:25 levofloxacin [From Levaquin] AdvReac Unknown Muscle Verified 09/10/21 10:25 Weakness propoxyphene napsylate AdvReac Nausea and Verified 09/10/21 10:25 [From Darvocet-N] Vomiting Home Meds: Home Meds Omeprazole 20 mg PO BIDAC 04/17/14 [History] Ondansetron [Zofran ODT] 4 mg PO Q6H PRN #6 tab.dis 09/10/21 [Rx] Past Medical History HEENT History: Reports: Impaired Vision Respiratory History: Reports: Pneumonia, Recurrent Gastrointestinal History: Reports: Gastritis Musculoskeletal History: Reports: Fracture, Osteoarthritis Other Musculoskeletal History: ankle Oncologic (Cancer) History: Reports: Other (See Below) 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[place] - Infectious Disease History Infectious Disease History: Reports: Chicken Pox, Measles, Mumps - Past Surgical History HEENT Surgical History: Reports: Cataract Surgery GI Surgical History: Reports: Appendectomy, Cholecystectomy Oncologic Surgical History: Reports: Other (See Below) Other Oncologic Surgeries/Procedures: surgery on penis Social & Family History - Family History Family Medical History: No Pertinent Family History Neurological: Reports: Alzheimers Disease - Tobacco Use Tobacco Use Status *Q: Former Tobacco User Years of Tobacco use: 45 Packs/Tins Daily: 1 Used Tobacco, but Quit: Yes Month/Year Tobacco Last Used: 1998 Second Hand Smoke Exposure: No - Caffeine Use Caffeine Use: Reports: Soda Other Caffeine Use: 2 sodas per day - Recreational Drug Use Recreational Drug Use: No ED ROS GENERAL - Review of Systems Review Of Systems: See Below Constitutional: Reports: Malaise, Weakness, Decreased Appetite. Denies: Fever HEENT: Reports: No Symptoms Respiratory: Reports: No Symptoms Cardiovascular: Reports: No Symptoms GI/Abdominal: Reports: Abdominal Pain (intermittent LLQ), Constipation, Nausea. Denies: Black Stool, Bloody Stool, Diarrhea, Hematochezia, Melena, Vomiting : Reports: No Symptoms Musculoskeletal: Reports: No Symptoms Skin: Reports: No Symptoms Neurological: Reports: No Symptoms ED EXAM, GI/ABD - Physical Exam Exam: See Below Exam Limited By: No Limitations General Appearance: Alert, WD/WN, No Apparent Distress Eyes: Bilateral: Normal Appearance Ears: Normal External Exam, Normal Canal, Hearing Grossly Normal Nose: Normal Inspection, No Blood Throat/Mouth: Normal Inspection, Normal Lips, Normal Oropharynx, Normal Voice, No Airway Compromise Head: Atraumatic, Normocephalic Neck: Normal Inspection Respiratory/Chest: No Respiratory Distress, Lungs Clear, Normal Breath Sounds, No Accessory Muscle Use Cardiovascular: Regular Rate, Rhythm, No Edema GI/Abdominal Exam: Normal Bowel Sounds, Soft, Non-Tender, No Distention. No: Distended Back Exam: Normal Inspection. No: CVA Tenderness (R), CVA Tenderness (L) Extremities: Normal Inspection, Normal Range of Motion, Non-Tender, No Pedal Edema Neurological: Alert, Oriented, CN II-XII Intact, Normal Cognition, No Motor/Sensory Deficits Psychiatric: Normal Affect, Normal Mood Skin Exam: Warm, Dry, Intact, Normal Color, No Rash Course - Vital Signs Last Recorded V/S: Last Vital Signs Temp 36.3 C 09/10/21 10:26 Pulse 68 09/10/21 13:17 Resp 22 H 09/10/21 10:26 BP 121/45 L 09/10/21 13:17 Pulse Ox 91 L 09/10/21 10:26 - Orders/Labs/Meds Orders: Active Orders 24 hr Category Date Time Status Enema [RC] ASDIRECTED Care 09/10/21 12:35 Active UA W/MICROSCOPIC [URIN] Stat Lab 09/10/21 10:38 Ordered Sodium Chloride 0.9% [Saline Flush] Med 09/10/21 10:38 Active 10 ml FLUSH ASDIRECTED PRN Saline Lock Insert [OM.PC] Routine Oth 09/10/21 10:38 Ordered Medication Orders Sodium Chloride (Sodium Chloride 0.9% 10 Ml Syringe) 10 ml FLUSH ASDIRECTED PRN PRN Reason: Keep Vein Open Last Admin: 09/10/21 10:45 Dose: 10 ml Documented by: PATTI Labs: Laboratory Tests 09/10/21 09/10/21 Range/Units 10:45 10:45 WBC 6.5 (4.5-11.0) K/uL RBC 4.71 (4.30-5.90) M/uL Hgb 14.9 (12.0-15.0) g/dL Hct 45.3 (40.0-54.0) % MCV 96 (80-98) fL MCH 32 H (27-31) pg MCHC 33 (32-36) % Plt Count 165 (150-400) K/uL Sodium 142 (140-148) mmol/L Potassium 4.2 (3.6-5.2) mmol/L Chloride 106 (100-108) mmol/L Carbon Dioxide 26 (21-32) mmol/L Anion Gap 10.1 (5.0-14.0) mmol/L BUN 22 H (7-18) mg/dL Creatinine 1.7 H (0.8-1.3) mg/dL Est Cr Clr Drug Dosing 31.77 mL/min Estimated GFR (MDRD) 38 L (>60) Glucose 122 H (74-106) mg/dL Calcium 8.6 (8.5-10.1) mg/dL Meds: Medications Generic Name Dose Route Start Last Admin Trade Name Freq PRN Reason Stop Dose Admin Sodium Chloride 10 ml 09/10/21 10:38 09/10/21 10:45 Sodium Chloride 0.9% 10 Ml Syringe FLUSH 10 ml ASDIRECTED PRN Administration Keep Vein Open Discontinued Medications Generic Name Dose Route Start Last Admin Trade Name Freq PRN Reason Stop Dose Admin Bisacodyl 10 mg 09/10/21 10:38 09/10/21 10:45 Bisacodyl 10 Mg Supp RECTAL 09/10/21 10:39 10 mg ONETIME ONE Administration Lactated Ringer's 1,000 mls @ 1,000 mls/hr 09/10/21 12:22 09/10/21 12:35 Ringers, Lactated IV 09/10/21 13:21 1,000 mls/hr BOLUS ONE Administration Ondansetron HCl 4 mg 09/10/21 09:13 09/10/21 10:24 Ondansetron 4 Mg Tab.Dis PO 09/10/21 09:14 4 mg ONETIME ONE Administration Polyethylene Glycol 34 gm 09/10/21 13:45 Polyethylene Glycol 3350 Powder 17 Gm Packet PO 09/10/21 13:46 ONETIME ONE Departure - Departure Time of Disposition: 13:50 Disposition: Home, Self-Care 01 Condition: Fair Clinical Impression: Nausea, Mild dehydration Constipation Qualifiers: Constipation type: slow transit constipation Qualified Code(s): K59.01 - Slow transit constipation - Discharge Information *PRESCRIPTION DRUG MONITORING PROGRAM REVIEWED*: Not Applicable *COPY OF PRESCRIPTION DRUG MONITORING REPORT IN PATIENT HOLLIS: Not Applicable Prescriptions: Ondansetron [Zofran ODT] 4 mg PO Q6H PRN #6 tab.dis PRN Reason: Nausea Instructions: Constipation, Adult, [id number] Referrals: PCP,None [Primary Care Provider] - Forms: ED Department Discharge Additional Instructions: Use Zofran as needed for nausea control(Leydi). Drink ample fluids. Take a dose of Miralax every 12 hrs, morning and night, to keep your bowels moving and soft. Recheck with your provider as needed. Sepsis Event Note (ED) - Evaluation Sepsis Screening Result: No Definite Risk - Focused Exam Vital Signs: Vital Signs Temp Pulse Resp BP Pulse Ox 09/10/21 13:17 68 121/45 L 09/10/21 10:26 36.3 C 73 22 H 98/71 91 L - My Orders Last 24 Hours: My Active Orders 09/10/21 10:38 UA W/MICROSCOPIC [URIN] Stat Sodium Chloride 0.9% [Saline Flush] 10 ml FLUSH ASDIRECTED PRN Saline Lock Insert [OM.PC] Routine 09/10/21 12:35 Enema [RC] ASDIRECTED - Assessment/Plan Last 24 Hours: My Active Orders 09/10/21 10:38 UA W/MICROSCOPIC [URIN] Stat Sodium Chloride 0.9% [Saline Flush] 10 ml FLUSH ASDIRECTED PRN Saline Lock Insert [OM.PC] Routine 09/10/21 12:35 Enema [RC] ASDIRECTED
[2021-09-10] MEDS ORDERED: Lactated Ringers 1,000 ML IV ONE (12:22)
[2021-09-10 13:17] VITALS: BP 121/45; PULSE 68
[2021-09-10] MEDS ORDERED: Polyethylene Glycol 3350 Powder 17 GM Packet PO ONE (13:45)
== END 2021-09-10 14:15 | disposition home or self-care (01) ==
LOC: JP.ED 09:08
DX: E86.0 Dehydration (principal); K59.01 Slow transit constipation; Z87.891 Personal history of nicotine dependence; Z88.1 Allergy status to other antibiotic agents; Z88.8 Allergy status to other drugs, medicaments and biological substances; Z79.899 Other long term (current) drug therapy
CPT/HCPCS: 36415; 80048; 85027; 99283; A9270; J7120

== ENCOUNTER 2021-09-14 17:23 | Inpatient (IN) | payer MEDICARE ==
--- NOTE | 2021-09-14 18:10 | EDM.PDOC ---
ED HPI GENERAL MEDICAL PROBLEM - General Chief Complaint: General Stated Complaint: VERTIGO [facility]IA [facility] Time Seen by Provider: 09/14/21 18:00 Source of Information: Reports: Patient, EMS History Limitations: Reports: No Limitations - History of Present Illness INITIAL COMMENTS - FREE TEXT/NARRATIVE: 85-year-old male brought in by EMS because of persistent recurring vertigo and perceived weakness generalized. No pain, no fever. He is fully vaccinated for Covid, however he is mildly hypoxic. He has no headache but he has intermittent double vision. No recent trauma, no falls. Denies nausea or vomiting, chest pain, despite hypoxia he denies shortness of breath and "just a little bit" cough. He was evaluated in the emergency room just a few days ago with some abdominal complaints. Onset: Unknown/Unsure Location: Reports: Generalized Associated Symptoms: Reports: Malaise, Weakness. Denies: Chest Pain, Cough - Related Data Allergies Allergy/AdvReac Type Severity Reaction Status Date / Time meropenem Allergy Swelling Verified 09/14/21 17:46 levofloxacin [From Levaquin] AdvReac Unknown Muscle Verified 09/14/21 17:46 Weakness propoxyphene napsylate AdvReac Nausea and Verified 09/14/21 17:46 [From Darvocet-N] Vomiting Home Meds: Home Meds Omeprazole 20 mg PO BIDAC 04/17/14 [History] Ondansetron [Zofran ODT] 4 mg PO Q6H PRN #6 tab.dis 09/10/21 [Rx] Tamsulosin [Flomax] 0.4 mg PO BEDTIME 09/14/21 [History] Past Medical History HEENT History: Reports: Impaired Vision Respiratory History: Reports: Pneumonia, Recurrent Gastrointestinal History: Reports: Gastritis Musculoskeletal History: Reports: Fracture, Osteoarthritis Other Musculoskeletal History: ankle Oncologic (Cancer) History: Reports: Other (See Below) 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[place] - Infectious Disease History Infectious Disease History: Reports: Chicken Pox, Measles, Mumps - Past Surgical History HEENT Surgical History: Reports: Cataract Surgery GI Surgical History: Reports: Appendectomy, Cholecystectomy Oncologic Surgical History: Reports: Other (See Below) Other Oncologic Surgeries/Procedures: surgery on penis Social & Family History - Family History Family Medical History: No Pertinent Family History Neurological: Reports: Alzheimers Disease - Tobacco Use Tobacco Use Status *Q: Never Tobacco User - Caffeine Use Caffeine Use: Reports: Soda Other Caffeine Use: 2 sodas per day - Recreational Drug Use Recreational Drug Use: No ED ROS GENERAL - Review of Systems Review Of Systems: See Below Constitutional: Reports: Malaise. Denies: Fever, Chills HEENT: Reports: Vision Change (Intermittent double and blurry vision) Respiratory: Denies: Shortness of Breath Cardiovascular: Denies: Chest Pain, Palpitations GI/Abdominal: Denies: Abdominal Pain, Nausea, Vomiting : Reports: No Symptoms Musculoskeletal: Reports: No Symptoms (Denies any musculoskeletal pain) Neurological: Reports: Dizziness, Weakness, Gait Disturbance. Denies: Headache Psychiatric: Reports: No Symptoms ED EXAM, GENERAL - Physical Exam Exam: See Below Exam Limited By: No Limitations General Appearance: Alert, No Apparent Distress, Other (Somewhat unkempt, but stable appearing patient) Eye Exam: Bilateral Eye: EOMI Head: Atraumatic Neck: Supple, Non-Tender Respiratory/Chest: No Respiratory Distress, Crackles (Chronic sounding basilar crackles, no wheezing and overall good air movement) Cardiovascular: Regular Rate, Rhythm, Extra Beats (Frequent ectopic beats are heard, monitor shows bigeminy) GI/Abdominal: Soft, Non-Tender Extremities: Normal Inspection. No: Pedal Edema Neurological: Alert, Oriented, No Motor/Sensory Deficits (I cannot reproduce any neurologic deficits of the extremities, he can lift his legs and hold against gravity, grasp strength is equal) Psychiatric: Flat Affect, Other (Hard of hearing) Skin Exam: Warm, Dry Course - Vital Signs Last Recorded V/S: Last Vital Signs Temp 98.2 F 09/14/21 17:51 Pulse 76 09/14/21 20:37 Resp 18 09/14/21 20:37 BP 135/74 09/14/21 20:37 Pulse Ox 89 L 09/14/21 21:22 - Orders/Labs/Meds Orders: Active Orders 24 hr Category Date Time Status Cardiac Monitoring [RC] .As Directed Care 09/14/21 19:27 Active Positioning, Patient [RC] ASDIRECTED Care 09/14/21 19:28 Active Chest 1V Frontal [CR] Stat Exams 09/14/21 19:30 Taken CULTURE BLOOD [BC] Stat Lab 09/14/21 19:45 Received Acetaminophen [TylenoL] Med 09/14/21 19:27 Active 650 mg PO Q4H PRN Remdesivir 100 mg Med 09/15/21 09:00 Active Sodium Chloride 0.9% [Normal Saline] 100 ml IV Q24H dexAMETHasone [Decadron] Med 09/14/21 19:30 Active 6 mg IVPUSH DAILY Isolation [COMM] Stat Oth 09/14/21 19:27 Ordered Medication Orders Acetaminophen (Acetaminophen 325 Mg Tab) 650 mg PO Q4H PRN PRN Reason: Fever Greater Than 101 Bisacodyl (Bisacodyl 5 Mg Tab) 5 mg PO DAILY PRN PRN Reason: Constipation Dexamethasone (Dexamethasone 4 Mg/Ml Sdv) 6 mg IVPUSH DAILY [facility] Stop: 09/23/21 09:01 Docusate Sodium (Docusate Sodium 100 Mg Cap) 100 mg PO BID PRN PRN Reason: Constipation Enoxaparin Sodium (Enoxaparin 40 Mg/0.4 Ml Syringe) 40 mg SUBCUT DAILY [facility] Last Admin: 09/14/21 21:31 Dose: 40 mg Documented by: ARNOL Remdesivir 100 mg/ Sodium (Chloride) 100 mls @ 100 mls/hr IV Q24H [facility] Stop: 09/18/21 09:59 Lorazepam (Lorazepam 2 Mg/Ml Sdv) 1 mg IV Q6H PRN PRN Reason: Nausea/Vomiting Morphine Sulfate (Morphine 2 Mg/Ml Syringe) 2 mg IVPUSH Q2H PRN PRN Reason: Pain (severe 7-10) Ondansetron HCl (Ondansetron 4 Mg Tab.Dis) 4 mg PO Q6H PRN PRN Reason: Nausea able to take PO Oxycodone HCl (Oxycodone 5 Mg Tab) 5 mg PO Q4H PRN PRN Reason: Pain (moderate 4-6) Pantoprazole Sodium (Pantoprazole 40 Mg Vial) 40 mg IVPUSH DAILY [facility] Sodium Chloride (Sodium Chloride 0.9% 10 Ml Syringe) 10 ml FLUSH ASDIRECTED PRN PRN Reason: Keep Vein Open Tamsulosin HCl (Tamsulosin 0.4 Mg Cap.Er) 0.4 mg PO BEDTIME [facility] Labs: Laboratory Tests 09/14/21 09/14/21 09/14/21 Range/Units 18:08 18:17 18:17 WBC (4.5-11.0) K/uL RBC (4.30-5.90) M/uL Hgb (12.0-15.0) g/dL Hct (40.0-54.0) % MCV (80-98) fL MCH (27-31) pg MCHC (32-36) % Plt Count (150-400) K/uL Neut % (Auto) (36-66) % Lymph % (Auto) (24-44) % [place] % (Auto) (2-6) % Eos % (Auto) (2-4) % Baso % (Auto) (0-1) % PT (9.2-10.6) sec INR D-Dimer, Quantitative 943.48 H (0.0-500.0) ng/mL Sodium (140-148) mmol/L Potassium (3.6-5.2) mmol/L Chloride (100-108) mmol/L Carbon Dioxide (21-32) mmol/L Anion Gap (5.0-14.0) mmol/L BUN (7-18) mg/dL Creatinine (0.8-1.3) mg/dL Est Cr Clr Drug Dosing mL/min Estimated GFR (MDRD) (>60) Glucose (74-106) mg/dL Lactic Acid (0.4-2.0) mmol/L Calcium (8.5-10.1) mg/dL Ferritin 1780 H (8-388) ng/ml Total Bilirubin (0.2-1.0) mg/dL Direct Bilirubin (0.0-0.2) mg/dL Indirect Bilirubin AST (15-37) U/L ALT (12-78) U/L Alkaline Phosphatase (46-116) U/L Lactate Dehydrogenase (85-227) U/L Creatine Kinase (39-308) U/L C-Reactive Protein (0.0-0.3) mg/dL Total Protein (6.4-8.2) g/dL Albumin (3.4-5.0) g/dL Globulin (2.3-3.5) g/dL Albumin/Globulin Ratio (1.2-2.2) Procalcitonin ng/mL Influenza Type A RNA Negative (NEGATIVE) RSV RNA (INAAT) Negative (NEGATIVE) Influenza Type B RNA Negative (NEGATIVE) SARS-CoV-2 RNA (NAEL) Positive H (NEGATIVE) 1109/14/21 09/14/21 Range/Units 18:17 18:17 18:17 WBC (4.5-11.0) K/uL RBC (4.30-5.90) M/uL Hgb (12.0-15.0) g/dL Hct (40.0-54.0) % MCV (80-98) fL MCH (27-31) pg MCHC (32-36) % Plt Count (150-400) K/uL Neut % (Auto) (36-66) % Lymph % (Auto) (24-44) % [place] % (Auto) (2-6) % Eos % (Auto) (2-4) % Baso % (Auto) (0-1) % PT (9.2-10.6) sec INR D-Dimer, Quantitative (0.0-500.0) ng/mL Sodium (140-148) mmol/L Potassium (3.6-5.2) mmol/L Chloride (100-108) mmol/L Carbon Dioxide (21-32) mmol/L Anion Gap (5.0-14.0) mmol/L BUN (7-18) mg/dL Creatinine (0.8-1.3) mg/dL Est Cr Clr Drug Dosing mL/min Estimated GFR (MDRD) (>60) Glucose (74-106) mg/dL Lactic Acid 2.8 H (0.4-2.0) mmol/L Calcium (8.5-10.1) mg/dL Ferritin (8-388) ng/ml Total Bilirubin (0.2-1.0) mg/dL Direct Bilirubin (0.0-0.2) mg/dL Indirect Bilirubin AST (15-37) U/L ALT (12-78) U/L Alkaline Phosphatase (46-116) U/L Lactate Dehydrogenase 316 H (85-227) U/L Creatine Kinase 251 (39-308) U/L C-Reactive Protein 14.94 H (0.0-0.3) mg/dL Total Protein (6.4-8.2) g/dL Albumin (3.4-5.0) g/dL Globulin (2.3-3.5) g/dL Albumin/Globulin Ratio (1.2-2.2) Procalcitonin 0.26 ng/mL Influenza Type A RNA (NEGATIVE) RSV RNA (INAAT) (NEGATIVE) Influenza Type B RNA (NEGATIVE) SARS-CoV-2 RNA (NAEL) (NEGATIVE) 09/14/21 09/14/21 09/14/21 Range/Units 18:17 18:19 18:19 WBC 8.9 (4.5-11.0) K/uL RBC 4.79 (4.30-5.90) M/uL Hgb 15.1 H (12.0-15.0) g/dL Hct 45.8 (40.0-54.0) % MCV 96 (80-98) fL MCH 32 H (27-31) pg MCHC 33 (32-36) % Plt Count 183 (150-400) K/uL Neut % (Auto) 85.2 H (36-66) % Lymph % (Auto) 6.2 L (24-44) % [place] % (Auto) 8.4 H (2-6) % Eos % (Auto) 0.0 L (2-4) % Baso % (Auto) 0.2 (0-1) % PT 11.8 H (9.2-10.6) sec INR 1.2 D-Dimer, Quantitative (0.0-500.0) ng/mL Sodium 144 (140-148) mmol/L Potassium 4.3 (3.6-5.2) mmol/L Chloride 104 (100-108) mmol/L Carbon Dioxide 29 (21-32) mmol/L Anion Gap 11.3 (5.0-14.0) mmol/L BUN 30 H (7-18) mg/dL Creatinine 1.7 H (0.8-1.3) mg/dL Est Cr Clr Drug Dosing 31.77 mL/min Estimated GFR (MDRD) 38 L (>60) Glucose 124 H (74-106) mg/dL Lactic Acid (0.4-2.0) mmol/L Calcium 8.6 (8.5-10.1) mg/dL Ferritin (8-388) ng/ml Total Bilirubin 1.1 H D (0.2-1.0) mg/dL Direct Bilirubin (0.0-0.2) mg/dL Indirect Bilirubin AST 70 H (15-37) U/L ALT 44 (12-78) U/L Alkaline Phosphatase 139 H (46-116) U/L Lactate Dehydrogenase (85-227) U/L Creatine Kinase (39-308) U/L C-Reactive Protein (0.0-0.3) mg/dL Total Protein 6.7 (6.4-8.2) g/dL Albumin 2.7 L (3.4-5.0) g/dL Globulin 4.0 H (2.3-3.5) g/dL Albumin/Globulin Ratio 0.7 L (1.2-2.2) Procalcitonin ng/mL Influenza Type A RNA (NEGATIVE) RSV RNA (INAAT) (NEGATIVE) Influenza Type B RNA (NEGATIVE) SARS-CoV-2 RNA (NAEL) (NEGATIVE) 09/14/21 Range/Units 19:45 WBC (4.5-11.0) K/uL RBC (4.30-5.90) M/uL Hgb (12.0-15.0) g/dL Hct (40.0-54.0) % MCV (80-98) fL MCH (27-31) pg MCHC (32-36) % Plt Count (150-400) K/uL Neut % (Auto) (36-66) % Lymph % (Auto) (24-44) % [place] % (Auto) (2-6) % Eos % (Auto) (2-4) % Baso % (Auto) (0-1) % PT (9.2-10.6) sec INR D-Dimer, Quantitative (0.0-500.0) ng/mL Sodium (140-148) mmol/L Potassium (3.6-5.2) mmol/L Chloride (100-108) mmol/L Carbon Dioxide (21-32) mmol/L Anion Gap (5.0-14.0) mmol/L BUN (7-18) mg/dL Creatinine (0.8-1.3) mg/dL Est Cr Clr Drug Dosing mL/min Estimated GFR (MDRD) (>60) Glucose (74-106) mg/dL Lactic Acid (0.4-2.0) mmol/L Calcium (8.5-10.1) mg/dL Ferritin (8-388) ng/ml Total Bilirubin 1.2 H (0.2-1.0) mg/dL Direct Bilirubin 0.51 H (0.0-0.2) mg/dL Indirect Bilirubin 0.69 AST 73 H (15-37) U/L ALT 46 (12-78) U/L Alkaline Phosphatase 144 H (46-116) U/L Lactate Dehydrogenase (85-227) U/L Creatine Kinase (39-308) U/L C-Reactive Protein (0.0-0.3) mg/dL Total Protein 6.8 (6.4-8.2) g/dL Albumin 2.7 L (3.4-5.0) g/dL Globulin 4.1 H (2.3-3.5) g/dL Albumin/Globulin Ratio 0.7 L (1.2-2.2) Procalcitonin ng/mL Influenza Type A RNA (NEGATIVE) RSV RNA (INAAT) (NEGATIVE) Influenza Type B RNA (NEGATIVE) SARS-CoV-2 RNA (NAEL) (NEGATIVE) Meds: Medications Generic Name Dose Route Start Last Admin Trade Name Freq PRN Reason Stop Dose Admin Acetaminophen 650 mg 09/14/21 19:27 Acetaminophen 325 Mg Tab PO Q4H PRN Fever Greater Than 101 Bisacodyl 5 mg 09/14/21 20:45 Bisacodyl 5 Mg Tab PO DAILY PRN Constipation Dexamethasone 6 mg 09/14/21 19:30 Dexamethasone 4 Mg/Ml Sdv IVPUSH 09/23/21 09:01 DAILY [facility] Docusate Sodium 100 mg 09/14/21 20:45 Docusate Sodium 100 Mg Cap PO BID PRN Constipation Enoxaparin Sodium 40 mg 09/14/21 20:45 09/14/21 21:31 Enoxaparin 40 Mg/0.4 Ml Syringe SUBCUT 40 mg DAILY [facility] Administration Remdesivir 100 mg/ Sodium 100 mls @ 100 mls/hr 09/15/21 09:00 Chloride IV 09/18/21 09:59 Q24H [facility] Lorazepam 1 mg 09/14/21 20:45 Lorazepam 2 Mg/Ml Sdv IV Q6H PRN Nausea/Vomiting Morphine Sulfate 2 mg 09/14/21 20:45 Morphine 2 Mg/Ml Syringe IVPUSH Q2H PRN Pain (severe 7-10) Ondansetron HCl 4 mg 09/14/21 20:45 Ondansetron 4 Mg Tab.Dis PO Q6H PRN Nausea able to take PO Oxycodone HCl 5 mg 09/14/21 20:45 Oxycodone 5 Mg Tab PO Q4H PRN Pain (moderate 4-6) Pantoprazole Sodium 40 mg 09/14/21 20:45 Pantoprazole 40 Mg Vial IVPUSH DAILY [facility] Sodium Chloride 10 ml 09/14/21 20:45 Sodium Chloride 0.9% 10 Ml Syringe FLUSH ASDIRECTED PRN Keep Vein Open Tamsulosin HCl 0.4 mg 09/14/21 21:00 Tamsulosin 0.4 Mg Cap.Er PO BEDTIME [facility] Discontinued Medications Generic Name Dose Route Start Last Admin Trade Name Freq PRN Reason Stop Dose Admin Remdesivir 200 mg/ Sodium 250 mls @ 250 mls/hr 09/14/21 19:27 09/14/21 21:31 Chloride IV 09/14/21 19:28 250 mls/hr ONETIME ONE Administration - Re-Assessments/Exams Free Text/Narrative Re-Assessment/Exam: 09/14/21 19:12 CBC and CMP is stable from previous levels, white count is normal. Covid however is positive despite him being vaccinated. CT the head showed atrophy, no formal report is available yet. 09/14/21 19:19 Impression: No acute intracranial hemorrhage or mass. Ethmoid sinus disease. Above findings and was discussed with the hospitalist service, he will be evaluated for admission to treat for breakthrough Covid infection with weakness, hypoxia, and inability to care for himself at home. Departure - Departure Time of Disposition: 20:16 Disposition: Admitted As Inpatient 66 Clinical Impression: COVID, Hypoxia, Weakness - Discharge Information Sepsis Event Note (ED) - Evaluation Sepsis Screening Result: No Definite Risk - Focused Exam Vital Signs: Vital Signs Temp Pulse Resp BP Pulse Ox 09/14/21 18:47 84 22 H 125/72 93 L 09/14/21 18:37 43 L 26 H 129/67 94 L 09/14/21 17:51 98.2 F 85 17 125/67 93 L
[2021-09-14 18:56] LABS: CORONAVIRUS COVID-19 NAA POSITIVE (NEGATIVE)
--- NOTE | 2021-09-14 19:16 | CRLCT ---
For Patients: As a result of the Century Cures Act, medical imaging exams and procedure reports are released immediately into your electronic medical record. You may view this report before your referring provider. If you have questions, please contact your health care provider. Indication: Vertigo Technique: Noncontrast head CT Comparison: No comparison Findings: Axial noncontrast images through the brain parenchyma demonstrates generalized parenchymal volume with periventricular hypo lucencies likely reflecting chronic small vessel ischemic change. No acute intracranial hemorrhage or mass. No midline shift. No abnormal extra-axial air collections are seen. Partial opacification of the ethmoid air cells. Paranasal sinuses mastoid air cells, skull and scalp otherwise appears unremarkable. Impression: No acute intracranial hemorrhage or mass. Ethmoid sinus disease. Please note that all CT scans at this facility use dose modulation, iterative reconstruction, and/or weight-based dosing when appropriate to reduce radiation dose to as low as reasonably achievable. Dictated by Kiki Mcclain MD @ 09/14/2021 7:15:35 PM (Electronically Signed)
[2021-09-14] MEDS ORDERED: Acetaminophen 325 MG Tab PO PRN (19:27)
[2021-09-14] MEDS ORDERED: REMDESIVIR 200 MG in Sodium Chloride 0.9% 250 ML IV ONE (19:27)
[2021-09-14] MEDS ORDERED: Dexamethasone 4 MG/ML SDV IVPUSH SCH (19:30)
--- NOTE | 2021-09-14 19:58 | PCM.HP.2 ---
H&P History of Present Illness - General Date of Service: 09/14/21 Admit Problem/Dx: Admission Diagnosis/Problem Admission Diagnosis/Problem Weakness Source of Information: Patient, EMS, Provider, RN History Limitations: Reports: No Limitations - History of Present Illness Initial Comments - Free Text/Narative: copy from ER note: 85-year-old male brought in by EMS because of persistent recurring vertigo and perceived weakness generalized. No pain, no fever. He is fully vaccinated for Covid, however he is mildly hypoxic. He has no headache but he has intermittent double vision. No recent trauma, no falls. Denies nausea or vomiting, chest pain, despite hypoxia he denies shortness of breath and "just a little bit" cough. He was evaluated in the emergency room just a few days ago with some abdominal complaints. Onset: Saturday-7 days ago, last meal Saturday - 6 days ago- due to weakness-lack of appetite Location: Reports: Generalized Associated Symptoms: Reports: Malaise, Weakness. Denies: Chest Pain, Cough ER work-up includes Head CT which is negative, CBC-wbc 15.1, hgb 15.1, plts 18.3, Chemistries Na+144, K+ 4.3, Cl 104, Anion gap 11.3, BUN 30, cr 1.7, G lucose 1.7, Co2 29, alk phos 139, total protein 6.7, albumin 2.7, glob 4.0, albumin 0.7, SARS positive, urine pending. Plan- due to new diagnosis of Covid-19 with weakness, will plan to admit for [facility] care and treatment. Onset of Symptoms: Reports: Gradual Symptom Onset Date: 09/08/21 Duration of Symptoms: Reports: Getting Worse Location: Reports: Generalized Quality: Reports: Other (WEAKNESS) Severity: Moderate Improves with: Reports: Rest Worsens with: Reports: None Context: Reports: Other (Covid-19) Associated Symptoms: Reports: Cough, Loss of Appetite, Malaise, Weakness. Denies: Chest Pain, Fever/Chills, Headaches, Nausea/Vomiting, Shortness of Breath - Related Data Allergies/Adverse Reactions: Allergies Allergy/AdvReac Type Severity Reaction Status Date / Time meropenem Allergy Swelling Verified 09/14/21 17:46 levofloxacin [From Levaquin] AdvReac Unknown Muscle Verified 09/14/21 17:46 Weakness propoxyphene napsylate AdvReac Nausea and Verified 09/14/21 17:46 [From Yesy] Vomiting Home Medications: Home Meds Omeprazole 20 mg PO BIDAC 04/17/14 [History] Ondansetron [Zofran ODT] 4 mg PO Q6H PRN #6 tab.dis 09/10/21 [Rx] Tamsulosin [Flomax] 0.4 mg PO BEDTIME 09/14/21 [History] Past Medical History HEENT History: Reports: Impaired Vision Respiratory History: Reports: Pneumonia, Recurrent Gastrointestinal History: Reports: Gastritis Musculoskeletal History: Reports: Fracture, Osteoarthritis Other Musculoskeletal History: ankle Oncologic (Cancer) History: Reports: Other (See Below) 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[place] - Infectious Disease History Infectious Disease History: Reports: Chicken Pox, Measles, Mumps - Past Surgical History HEENT Surgical History: Reports: Cataract Surgery GI Surgical History: Reports: Appendectomy, Cholecystectomy Oncologic Surgical History: Reports: Other (See Below) Other Oncologic Surgeries/Procedures: surgery on penis Social & Family History - Family History Family Medical History: No Pertinent Family History Neurological: Reports: Alzheimers Disease - Tobacco Use Tobacco Use Status *Q: Never Tobacco User - Caffeine Use Caffeine Use: Reports: Soda Other Caffeine Use: 2 sodas per day - Recreational Drug Use Recreational Drug Use: No - Living Situation & Occupation Living situation: Reports: (lives alone in [place], [place]. 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) Musculoskeletal: Reports: No Symptoms Skin: Reports: No Symptoms Neurological: Reports: Dizziness, Pre-Existing Deficit (Alzheimers disease), Weakness Hematologic/Lymphatic: Reports: No Symptoms Immunologic: Reports: No Symptoms Exam - Exam Exam: See Below - Vital Signs Vital Signs: Last Vital Signs Temp 98.2 F 09/14/21 17:51 Pulse 84 09/14/21 18:47 Resp 22 H 09/14/21 18:47 BP 125/72 09/14/21 18:47 Pulse Ox 93 L 09/14/21 18:47 Weight: 228 lb - Exam Quality Assessment: Supplemental Oxygen, DVT Prophylaxis General: Alert, Oriented, Cooperative, Mild Distress, Other (elderly gentleman, pleasant and cooperative.) HEENT: PERRLA, Conjunctiva Clear, Nares Patent, Glasses. No: Mucosa Moist & [place] (mouth is dry) Neck: Supple, Trachea Midline, 2 Lungs: Clear to Auscultation, Normal Respiratory Effort, Decreased Breath Sounds Cardiovascular: Regular Rate, Regular Rhythm, Normal S1, Normal S2 GI/Abdominal Exam: Normal Bowel Sounds, Soft, Non-Tender, No Distention (Male) Exam: Deferred Rectal (Males) Exam: Deferred Back Exam: Normal Inspection, Full Range of Motion, NT Extremities: Normal Inspection, Normal Range of Motion, Non-Tender, No Pedal Edema, Normal Capillary Refill Peripheral Pulses: 1+: Radial (L), Radial (R), Dorsalis Pedis (L), Dorsalis Pedis (R) Skin: Warm, Dry, Intact, Cool (feet) Neurological: Cranial Nerves Intact, Reflexes Equal Bilateral, Strength Equal Bilateral Neuro Extensive - Mental Status: Alert, Oriented x3, Normal Mood/Affect, Normal Cognition, Memory Intact Neuro Extensive - Motor, Sensory, Reflexes: Other (weakness with walking since being ill.) Psychiatric: Alert, Normal Affect, Normal Mood - Patient Data Lab Results Last 24 hrs: Laboratory Results - last 24 hr 09/14/21 09/14/21 09/14/21 Range/Units 18:08 18:19 18:19 WBC 8.9 (4.5-11.0) K/uL RBC 4.79 (4.30-5.90) M/uL Hgb 15.1 H (12.0-15.0) g/dL Hct 45.8 (40.0-54.0) % MCV 96 (80-98) fL MCH 32 H (27-31) pg MCHC 33 (32-36) % Plt Count 183 (150-400) K/uL Neut % (Auto) 85.2 H (36-66) % Lymph % (Auto) 6.2 L (24-44) % Russell % (Auto) 8.4 H (2-6) % Eos % (Auto) 0.0 L (2-4) % Baso % (Auto) 0.2 (0-1) % Sodium 144 (140-148) mmol/L Potassium 4.3 (3.6-5.2) mmol/L Chloride 104 (100-108) mmol/L Carbon Dioxide 29 (21-32) mmol/L Anion Gap 11.3 (5.0-14.0) mmol/L BUN 30 H (7-18) mg/dL Creatinine 1.7 H (0.8-1.3) mg/dL Est Cr Clr Drug Dosing 31.77 mL/min Estimated GFR (MDRD) 38 L (>60) Glucose 124 H (74-106) mg/dL Calcium 8.6 (8.5-10.1) mg/dL Total Bilirubin 1.1 H D (0.2-1.0) mg/dL AST 70 H (15-37) U/L ALT 44 (12-78) U/L Alkaline Phosphatase 139 H (46-116) U/L Total Protein 6.7 (6.4-8.2) g/dL Albumin 2.7 L (3.4-5.0) g/dL Globulin 4.0 H (2.3-3.5) g/dL Albumin/Globulin Ratio 0.7 L (1.2-2.2) Influenza Type A RNA Negative (NEGATIVE) RSV RNA (INAAT) Negative (NEGATIVE) Influenza Type B RNA Negative (NEGATIVE) SARS-CoV-2 RNA (NAEL) Positive H (NEGATIVE) Result Diagrams: 09/14/21 18:19 09/14/21 18:19 Sepsis Event Note - Evaluation Sepsis Screening Result: No Definite Risk - Focused Exam Vital Signs: Vital Signs Temp Pulse Resp BP Pulse Ox 09/14/21 18:47 84 22 H 125/72 93 L 09/14/21 18:37 43 L 26 H 129/67 94 L 09/14/21 17:51 98.2 F 85 17 125/67 93 L - Problem List (1) COVID SNOMED Code(s): 847195443 ICD Code: U07.1 - COVID-19 Status: Acute Priority: High Current Visit: Yes (2) Weakness SNOMED Code(s): 59421074 ICD Code: R53.1 - WEAKNESS Status: Acute Priority: High Current Visit: Yes (3) History of penile cancer SNOMED Code(s): 322119315 ICD Code: Z85.49 - PERSONAL HISTORY OF MALIG NEOPLASM OF MALE GENITAL ORGANS Status: Acute Priority: Low Current Visit: Yes (4) Alzheimers disease SNOMED Code(s): 14617860 ICD Code: G30.9 - ALZHEIMER'S DISEASE, UNSPECIFIED; F02.80 - DEMENTIA IN OTH DISEASES CLASSD ELSWHR W/O BEHAVRL DISTURB Status: Acute Current Visit: Yes Problem List Initiated/Reviewed/Updated: Yes Orders Last 24hrs: Active Orders 24 hr Category Date Time Status Patient Status Manage Transfer [TRANSFER] Routine ADT 09/14/21 19:49 Ordered Cardiac Monitoring [RC] .As Directed Care 09/14/21 19:27 Active Nurse Communication: Isolation [RC] ASDIRECTED Care 09/14/21 19:28 Active Positioning, Patient [RC] ASDIRECTED Care 09/14/21 19:28 Active Chest 1V Frontal [CR] Stat Exams 09/14/21 19:30 Ordered BLOOD GAS ARTERIAL [BG] Urgent Lab 09/14/21 19:27 Ordered C-REACTIVE PROTEIN [CHEM] Stat Lab 09/14/21 18:17 Received CREATINE KINASE,CK [CHEM] Stat Lab 09/14/21 18:17 Received CULTURE BLOOD [BC] Stat Lab 09/14/21 19:45 Received D-DIMER QUANTITATIVE [COAG] Stat Lab 09/14/21 18:17 Received FERRITIN [CHEM] Routine Lab 09/14/21 18:17 Received HEPATIC FUNCTION PANEL,HFP [CHEM] Stat Lab 09/14/21 19:45 Received INR,PT,PROTHROMBIN TIME [COAG] Routine Lab 09/14/21 18:17 Received LACTATE DEHYDROGENASE,LDH [CHEM] Stat Lab 09/14/21 18:17 Received LACTIC ACID [CHEM] Stat Lab 09/14/21 18:17 Received PROCALCITONIN [CHEM] Stat Lab 09/14/21 18:17 Received Acetaminophen [TylenoL] Med 09/14/21 19:27 Active 650 mg PO Q4H PRN Remdesivir 100 mg Med 09/15/21 09:00 Active Sodium Chloride 0.9% [Normal Saline] 100 ml IV Q24H dexAMETHasone [Decadron] Med 09/14/21 19:30 Active 6 mg IVPUSH DAILY Isolation [COMM] Stat Oth 09/14/21 19:27 Ordered Resuscitation Status Routine Resus Stat 09/14/21 19:51 Ordered Medication Orders Acetaminophen (Acetaminophen 325 Mg Tab) 650 mg PO Q4H PRN PRN Reason: Fever Greater Than 101 Dexamethasone (Dexamethasone 4 Mg/Ml Sdv) 6 mg IVPUSH DAILY RAMÍREZ Stop: 09/23/21 09:01 Remdesivir 100 mg/ Sodium (Chloride) 100 mls @ 100 mls/hr IV Q24H RAMÍREZ Stop: 09/18/21 09:59 Assessment/Plan Comment:: ASSESSMENT AND PLAN - COVID-19 WITH WEAKNESS 85-year-old male brought in by EMS because of persistent recurring vertigo and perceived weakness generalized. No pain, no fever. He is fully vaccinated for Covid, however he is mildly hypoxic. He has no headache but he has intermittent double vision. No recent trauma, no falls. Denies nausea or vomiting, chest pain, despite hypoxia he denies shortness of breath and "just a little bit" cough. He was evaluated in the emergency room just a few days ago with some abdominal complaints. Onset: Saturday-7 days ago, last meal Saturday - 6 days ago- due to weakness-lack of appetite Location: Reports: Generalized Associated Symptoms: Reports: Malaise, Weakness. Denies: Chest Pain, Cough ER work-up includes Head CT which is negative, CBC-wbc 15.1, hgb 15.1, plts 18.3, Chemistries Na+144, K+ 4.3, Cl 104, Anion gap 11.3, BUN 30, cr 1.7, Glucose 1.7, Co2 29, alk phos 139, total protein 6.7, albumin 2.7, glob 4.0, albumin 0.7, SARS positive, pending-ABGS, procalcitonin, lactic acid, urine, blood culture, inr, pt , ptt Plan- admit Covid-19 with weakness for further care and treatment. COVID-19 with weakness -supplemental oxygen, currently at 2 L/min via nasal cannula -Covid precautions and isolation -Prone ventilation as possible -Dexamethasone 6 mg po daily (day 6) -Lovenox 40 mg subcut. Every 24 hours -Albuterol inhaler 2 puffs every 4 hours as needed for shortness of breath -IV Remdesivir x5 days, completed -oxygen therapy to keep oxygen saturation >90% -Intake and Output -ua pending -Repeat labs including CBC,BMP, HEPATIC, CRP and D-dimer in the morning History of Penile Cancer- 10 years ago -Flomax 0.4 mg at bedtime Alzheimers disease -fall risk -needs reminders Maintenance issues - - DVT prophylaxis - Lovenox 40 mg subcut. every 24 hours - GI prophylaxis -PPI - Nutrition - regular diet -Spiritual consult for prayers CODE STATUS - FULL Admission justification -this patient will be admitted for inpatient services and is medically appropriate meeting medical necessity for inpatient admission as outlined in my documentation. I reasonably expect the patient will require inpatient services that span a period time over 2 midnights. I reasonably expect this patient to be discharged or transferred within 96 hours [facility]. Disposition -home with family Primary care physician - no Primary Care noted Hospital - Dr. Victorino Kellogg - Mortality Measure Prognosis:: Good
[2021-09-14] MEDS ORDERED: Sodium Chloride 0.9% 10 ML Syringe FLUSH PRN (20:45)
[2021-09-14] MEDS ORDERED: LORazepam 2 MG/ML SDV IV PRN (20:45)
[2021-09-14] MEDS ORDERED: Enoxaparin 40 MG/0.4 ML Syringe SUBCUT SCH (20:45)
[2021-09-14] MEDS ORDERED: Morphine 2 MG/ML SYRINGE IVPUSH PRN (20:45)
[2021-09-14] MEDS ORDERED: oxyCODONE 5 MG Tab PO PRN (20:45)
[2021-09-14] MEDS ORDERED: Ondansetron 4 MG Tab.DIS PO PRN (20:45)
[2021-09-14] MEDS ORDERED: Pantoprazole 40 MG Vial IVPUSH SCH (20:45)
[2021-09-14] MEDS: Tamsulosin 0.4 MG Cap.ER PO SCH (22:13)
[2021-09-15] MEDS: Tamsulosin 0.4 MG Cap.ER PO SCH ×2 (03:01→20:36)
[2021-09-15] MEDS ORDERED: guaiFENesin/Dextromethorphan 100-10 MG/5 ML Soln 10 ML Cup PO PRN (08:13)
[2021-09-15] MEDS ORDERED: Benzonatate 100 MG Cap PO PRN (08:13)
[2021-09-15] MEDS ORDERED: REMDESIVIR 100 MG in Sodium Chloride 0.9% 100 ML IV SCH (09:00)
--- NOTE | 2021-09-15 09:15 | CR ---
CHEST: Portable 09/14/2020 10 8:07 PM CLINICAL HISTORY:Respiratory failure COMPARISON:2017 FINDINGS: Study is limited due to less than optimal inspiration. There is a diffuse right lung infiltrate in both upper and lower lobes. There is a left lower lobe infiltrate. Heart size and pulmonary vascularity are normal. There are atherosclerotic changes in the aorta.. IMPRESSION: Limited study Diffuse bilateral lateral pulmonary infiltrates, right greater than left.
--- NOTE | 2021-09-15 11:34 | PCM.PN ---
- General Info Date of Service: 09/15/21 Subjective Update: No acute events overnight. Patient reports that he does feel moderately short of breath but this is a little better than last night. He feels weak and fatigued. No myalgias. No fevers. No nausea or diarrhea. Supplemental oxygen requirements have increased overnight and he is now up to 15 L of supplemental oxygen. He is in good spirits. Appetite is not very good. Functional Status: Reports: Pain Controlled, Tolerating Diet - Review of Systems General: Reports: Weakness Pulmonary: Reports: Shortness of Breath - Patient Data Vitals - Most Recent: Last Vital Signs Temp 517.5 C H 09/15/21 11:07 Pulse 57 L 09/15/21 07:10 Resp 18 09/15/21 11:07 BP 133/64 09/15/21 11:07 Pulse Ox 93 L 09/15/21 11:07 Weight - Most Recent: 103.419 kg I&O - Last 24 Hours: Intake & Output 09/14/21 09/15/21 09/15/21 22:59 06:59 14:59 Intake Total 500 180 Output Total 100 Balance 500 80 Lab Results Last 24 Hours: Laboratory Results - last 24 hr 09/14/21 09/14/21 09/14/21 Range/Units 18:08 18:17 18:17 WBC (4.5-11.0) K/uL RBC (4.30-5.90) M/uL Hgb (12.0-15.0) g/dL Hct (40.0-54.0) % MCV (80-98) fL MCH (27-31) pg MCHC (32-36) % Plt Count (150-400) K/uL Neut % (Auto) (36-66) % Lymph % (Auto) (24-44) % Leake % (Auto) (2-6) % Eos % (Auto) (2-4) % Baso % (Auto) (0-1) % PT (9.2-10.6) sec INR D-Dimer, Quantitative 943.48 H (0.0-500.0) ng/mL Puncture Site ABG pH (7.350-7.450) ABG pCO2 (35.0-42.0) mmHg ABG pO2 (75.0-100.0) mmHg ABG HCO3 (22.0-26.0) mmol/L ABG Total CO2 (23.0-27.0) mmol/L ABG O2 Saturation (95.0-98.0) % ABG O2 Content (15.0-23.0) %vol ABG Base Excess mm/L ABG Hemoglobin (13.5-18.0) g/dL ABG Oxyhemoglobin % ABG Carboxyhemoglobin (0.0-1.6) % ABG Methemoglobin % Kin Test O2 Delivery Device Oxygen Flow Rate L Sodium (140-148) mmol/L Potassium (3.6-5.2) mmol/L Chloride (100-108) mmol/L Carbon Dioxide (21-32) mmol/L Anion Gap (5.0-14.0) mmol/L BUN (7-18) mg/dL Creatinine (0.8-1.3) mg/dL Est Cr Clr Drug Dosing mL/min Estimated GFR (MDRD) (>60) Glucose (74-106) mg/dL Lactic Acid (0.4-2.0) mmol/L Calcium (8.5-10.1) mg/dL Ferritin 1780 H (8-388) ng/ml Total Bilirubin (0.2-1.0) mg/dL Direct Bilirubin (0.0-0.2) mg/dL Indirect Bilirubin AST (15-37) U/L ALT (12-78) U/L Alkaline Phosphatase (46-116) U/L Lactate Dehydrogenase (85-227) U/L Creatine Kinase (39-308) U/L C-Reactive Protein (0.0-0.3) mg/dL Total Protein (6.4-8.2) g/dL Albumin (3.4-5.0) g/dL Globulin (2.3-3.5) g/dL Albumin/Globulin Ratio (1.2-2.2) Procalcitonin ng/mL Influenza Type A RNA Negative (NEGATIVE) RSV RNA (INAAT) Negative (NEGATIVE) Influenza Type B RNA Negative (NEGATIVE) SARS-CoV-2 RNA (NAEL) Positive H (NEGATIVE) 09/14/21 09/14/21 09/14/21 Range/Units 18:17 18:17 18:17 WBC (4.5-11.0) K/uL RBC (4.30-5.90) M/uL Hgb (12.0-15.0) g/dL Hct (40.0-54.0) % MCV (80-98) fL MCH (27-31) pg MCHC (32-36) % Plt Count (150-400) K/uL Neut % (Auto) (36-66) % Lymph % (Auto) (24-44) % Leake % (Auto) (2-6) % Eos % (Auto) (2-4) % Baso % (Auto) (0-1) % PT (9.2-10.6) sec INR D-Dimer, Quantitative (0.0-500.0) ng/mL Puncture Site ABG pH (7.350-7.450) ABG pCO2 (35.0-42.0) mmHg ABG pO2 (75.0-100.0) mmHg ABG HCO3 (22.0-26.0) mmol/L ABG Total CO2 (23.0-27.0) mmol/L ABG O2 Saturation (95.0-98.0) % ABG O2 Content (15.0-23.0) %vol ABG Base Excess mm/L ABG Hemoglobin (13.5-18.0) g/dL ABG Oxyhemoglobin % ABG Carboxyhemoglobin (0.0-1.6) % ABG Methemoglobin % Kin Test O2 Delivery Device Oxygen Flow Rate L Sodium (140-148) mmol/L Potassium (3.6-5.2) mmol/L Chloride (100-108) mmol/L Carbon Dioxide (21-32) mmol/L Anion Gap (5.0-14.0) mmol/L BUN (7-18) mg/dL Creatinine (0.8-1.3) mg/dL Est Cr Clr Drug Dosing mL/min Estimated GFR (MDRD) (>60) Glucose (74-106) mg/dL Lactic Acid 2.8 H (0.4-2.0) mmol/L Calcium (8.5-10.1) mg/dL Ferritin (8-388) ng/ml Total Bilirubin (0.2-1.0) mg/dL Direct Bilirubin (0.0-0.2) mg/dL Indirect Bilirubin AST (15-37) U/L ALT (12-78) U/L Alkaline Phosphatase (46-116) U/L Lactate Dehydrogenase 316 H (85-227) U/L Creatine Kinase 251 (39-308) U/L C-Reactive Protein 14.94 H (0.0-0.3) mg/dL Total Protein (6.4-8.2) g/dL Albumin (3.4-5.0) g/dL Globulin (2.3-3.5) g/dL Albumin/Globulin Ratio (1.2-2.2) Procalcitonin 0.26 ng/mL Influenza Type A RNA (NEGATIVE) RSV RNA (INAAT) (NEGATIVE) Influenza Type B RNA (NEGATIVE) SARS-CoV-2 RNA (NAEL) (NEGATIVE) 09/14/21 09/14/21 09/14/21 Range/Units 18:17 18:19 18:19 WBC 8.9 (4.5-11.0) K/uL RBC 4.79 (4.30-5.90) M/uL Hgb 15.1 H (12.0-15.0) g/dL Hct 45.8 (40.0-54.0) % MCV 96 (80-98) fL MCH 32 H (27-31) pg MCHC 33 (32-36) % Plt Count 183 (150-400) K/uL Neut % (Auto) 85.2 H (36-66) % Lymph % (Auto) 6.2 L (24-44) % Leake % (Auto) 8.4 H (2-6) % Eos % (Auto) 0.0 L (2-4) % Baso % (Auto) 0.2 (0-1) % PT 11.8 H (9.2-10.6) sec INR 1.2 D-Dimer, Quantitative (0.0-500.0) ng/mL Puncture Site ABG pH (7.350-7.450) ABG pCO2 (35.0-42.0) mmHg ABG pO2 (75.0-100.0) mmHg ABG HCO3 (22.0-26.0) mmol/L ABG Total CO2 (23.0-27.0) mmol/L ABG O2 Saturation (95.0-98.0) % ABG O2 Content (15.0-23.0) %vol ABG Base Excess mm/L ABG Hemoglobin (13.5-18.0) g/dL ABG Oxyhemoglobin % ABG Carboxyhemoglobin (0.0-1.6) % ABG Methemoglobin % Kin Test O2 Delivery Device Oxygen Flow Rate L Sodium 144 (140-148) mmol/L Potassium 4.3 (3.6-5.2) mmol/L Chloride 104 (100-108) mmol/L Carbon Dioxide 29 (21-32) mmol/L Anion Gap 11.3 (5.0-14.0) mmol/L BUN 30 H (7-18) mg/dL Creatinine 1.7 H (0.8-1.3) mg/dL Est Cr Clr Drug Dosing 31.77 mL/min Estimated GFR (MDRD) 38 L (>60) Glucose 124 H (74-106) mg/dL Lactic Acid (0.4-2.0) mmol/L Calcium 8.6 (8.5-10.1) mg/dL Ferritin (8-388) ng/ml Total Bilirubin 1.1 H D (0.2-1.0) mg/dL Direct Bilirubin (0.0-0.2) mg/dL Indirect Bilirubin AST 70 H (15-37) U/L ALT 44 (12-78) U/L Alkaline Phosphatase 139 H (46-116) U/L Lactate Dehydrogenase (85-227) U/L Creatine Kinase (39-308) U/L C-Reactive Protein (0.0-0.3) mg/dL Total Protein 6.7 (6.4-8.2) g/dL Albumin 2.7 L (3.4-5.0) g/dL Globulin 4.0 H (2.3-3.5) g/dL Albumin/Globulin Ratio 0.7 L (1.2-2.2) Procalcitonin ng/mL Influenza Type A RNA (NEGATIVE) RSV RNA (INAAT) (NEGATIVE) Influenza Type B RNA (NEGATIVE) SARS-CoV-2 RNA (NAEL) (NEGATIVE) 09/14/21 09/14/21 09/15/21 Range/Units 19:45 19:55 05:35 WBC 9.7 (4.5-11.0) K/uL RBC 4.58 (4.30-5.90) M/uL Hgb 14.6 (12.0-15.0) g/dL Hct 43.7 (40.0-54.0) % MCV 95 (80-98) fL MCH 32 H (27-31) pg MCHC 33 (32-36) % Plt Count 161 (150-400) K/uL Neut % (Auto) 89.5 H (36-66) % Lymph % (Auto) 4.6 L (24-44) % Leake % (Auto) 5.7 (2-6) % Eos % (Auto) 0.1 L (2-4) % Baso % (Auto) 0.1 (0-1) % PT (9.2-10.6) sec INR D-Dimer, Quantitative (0.0-500.0) ng/mL Puncture Site Lt radial ABG pH 7.485 H (7.350-7.450) ABG pCO2 30.4 L (35.0-42.0) mmHg ABG pO2 54.1 L (75.0-100.0) mmHg ABG HCO3 22.7 (22.0-26.0) mmol/L ABG Total CO2 19.3 L (23.0-27.0) mmol/L ABG O2 Saturation 88.7 L (95.0-98.0) % ABG O2 Content 18.4 (15.0-23.0) %vol ABG Base Excess 0.6 mm/L ABG Hemoglobin 15.1 (13.5-18.0) g/dL ABG Oxyhemoglobin 86.7 % ABG Carboxyhemoglobin 1.3 (0.0-1.6) % ABG Methemoglobin 0.9 % Kin Test Pass O2 Delivery Device Nasal cannula Oxygen Flow Rate 2.0 L Sodium (140-148) mmol/L Potassium (3.6-5.2) mmol/L Chloride (100-108) mmol/L Carbon Dioxide (21-32) mmol/L Anion Gap (5.0-14.0) mmol/L BUN (7-18) mg/dL Creatinine (0.8-1.3) mg/dL Est Cr Clr Drug Dosing mL/min Estimated GFR (MDRD) (>60) Glucose (74-106) mg/dL Lactic Acid (0.4-2.0) mmol/L Calcium (8.5-10.1) mg/dL Ferritin (8-388) ng/ml Total Bilirubin 1.2 H (0.2-1.0) mg/dL Direct Bilirubin 0.51 H (0.0-0.2) mg/dL Indirect Bilirubin 0.69 AST 73 H (15-37) U/L ALT 46 (12-78) U/L Alkaline Phosphatase 144 H (46-116) U/L Lactate Dehydrogenase (85-227) U/L Creatine Kinase (39-308) U/L C-Reactive Protein (0.0-0.3) mg/dL Total Protein 6.8 (6.4-8.2) g/dL Albumin 2.7 L (3.4-5.0) g/dL Globulin 4.1 H (2.3-3.5) g/dL Albumin/Globulin Ratio 0.7 L (1.2-2.2) Procalcitonin ng/mL Influenza Type A RNA (NEGATIVE) RSV RNA (INAAT) (NEGATIVE) Influenza Type B RNA (NEGATIVE) SARS-CoV-2 RNA (NAEL) (NEGATIVE) 09/15/21 09/15/21 Range/Units 05:35 05:35 WBC (4.5-11.0) K/uL RBC (4.30-5.90) M/uL Hgb (12.0-15.0) g/dL Hct (40.0-54.0) % MCV (80-98) fL MCH (27-31) pg MCHC (32-36) % Plt Count (150-400) K/uL Neut % (Auto) (36-66) % Lymph % (Auto) (24-44) % Leake % (Auto) (2-6) % Eos % (Auto) (2-4) % Baso % (Auto) (0-1) % PT 11.2 H (9.2-10.6) sec INR 1.1 D-Dimer, Quantitative (0.0-500.0) ng/mL Puncture Site ABG pH (7.350-7.450) ABG pCO2 (35.0-42.0) mmHg ABG pO2 (75.0-100.0) mmHg ABG HCO3 (22.0-26.0) mmol/L ABG Total CO2 (23.0-27.0) mmol/L ABG O2 Saturation (95.0-98.0) % ABG O2 Content (15.0-23.0) %vol ABG Base Excess mm/L ABG Hemoglobin (13.5-18.0) g/dL ABG Oxyhemoglobin % ABG Carboxyhemoglobin (0.0-1.6) % ABG Methemoglobin % Kin Test O2 Delivery Device Oxygen Flow Rate L Sodium 145 (140-148) mmol/L Potassium 4.5 (3.6-5.2) mmol/L Chloride 107 (100-108) mmol/L Carbon Dioxide 27 (21-32) mmol/L Anion Gap 11.5 (5.0-14.0) mmol/L BUN 30 H (7-18) mg/dL Creatinine 1.5 H (0.8-1.3) mg/dL Est Cr Clr Drug Dosing 36.00 mL/min Estimated GFR (MDRD) 44 L (>60) Glucose 116 H (74-106) mg/dL Lactic Acid (0.4-2.0) mmol/L Calcium 8.2 L (8.5-10.1) mg/dL Ferritin (8-388) ng/ml Total Bilirubin 0.7 (0.2-1.0) mg/dL Direct Bilirubin 0.37 H (0.0-0.2) mg/dL Indirect Bilirubin 0.33 AST 64 H (15-37) U/L ALT 42 (12-78) U/L Alkaline Phosphatase 134 H (46-116) U/L Lactate Dehydrogenase (85-227) U/L Creatine Kinase 217 (39-308) U/L C-Reactive Protein 16.68 H (0.0-0.3) mg/dL Total Protein 5.7 L (6.4-8.2) g/dL Albumin 2.5 L (3.4-5.0) g/dL Globulin 3.2 (2.3-3.5) g/dL Albumin/Globulin Ratio 0.8 L (1.2-2.2) Procalcitonin ng/mL Influenza Type A RNA (NEGATIVE) RSV RNA (INAAT) (NEGATIVE) Influenza Type B RNA (NEGATIVE) SARS-CoV-2 RNA (NAEL) (NEGATIVE) Med Orders - Current: Current Medications Acetaminophen (Acetaminophen 325 Mg Tab) 650 mg PO Q4H PRN PRN Reason: Fever Greater Than 101 Benzonatate (Benzonatate 100 Mg Cap) 100 mg PO Q8H PRN PRN Reason: Cough Bisacodyl (Bisacodyl 5 Mg Tab) 5 mg PO DAILY PRN PRN Reason: Constipation Dexamethasone (Dexamethasone 4 Mg/Ml Sdv) 6 mg IVPUSH BEDTIME COUNT INCLUDES THE [facility] Stop: 09/23/21 21:01 Docusate Sodium (Docusate Sodium 100 Mg Cap) 100 mg PO BID PRN PRN Reason: Constipation Enoxaparin Sodium (Enoxaparin 40 Mg/0.4 Ml Syringe) 40 mg SUBCUT BEDTIME COUNT INCLUDES THE [facility] Guaifenesin/Dextromethorphan (Guaifenesin/Dextromethorphan 100-10 Mg/5 Ml Soln 10 Ml Cup) 10 ml PO Q4H PRN PRN Reason: Cough Remdesivir 100 mg/ Sodium (Chloride) 100 mls @ 100 mls/hr IV BEDTIME COUNT INCLUDES THE [facility] Stop: 09/18/21 21:59 Lorazepam (Lorazepam 2 Mg/Ml Sdv) 1 mg IV Q6H PRN PRN Reason: Nausea/Vomiting Morphine Sulfate (Morphine 2 Mg/Ml Syringe) 2 mg IVPUSH Q2H PRN PRN Reason: Pain (severe 7-10) Ondansetron HCl (Ondansetron 4 Mg Tab.Dis) 4 mg PO Q6H PRN PRN Reason: Nausea able to take PO Oxycodone HCl (Oxycodone 5 Mg Tab) 5 mg PO Q4H PRN PRN Reason: Pain (moderate 4-6) Pantoprazole Sodium (Pantoprazole 40 Mg Tab.Cr) 40 mg PO BEDTIME COUNT INCLUDES THE [facility] Sodium Chloride (Sodium Chloride 0.9% 10 Ml Syringe) 10 ml FLUSH ASDIRECTED PRN PRN Reason: Keep Vein Open Tamsulosin HCl (Tamsulosin 0.4 Mg Cap.Er) 0.4 mg PO BEDTIME COUNT INCLUDES THE [facility] Last Admin: 09/15/21 03:01 Dose: Not Given Documented by: Discontinued Medications Dexamethasone (Dexamethasone 4 Mg/Ml Sdv) 6 mg IVPUSH DAILY COUNT INCLUDES THE [facility] Stop: 09/23/21 09:01 Last Admin: 09/14/21 22:13 Dose: 6 mg Documented by: Enoxaparin Sodium (Enoxaparin 40 Mg/0.4 Ml Syringe) 40 mg SUBCUT DAILY COUNT INCLUDES THE [facility] Last Admin: 09/14/21 21:31 Dose: 40 mg Documented by: Remdesivir 200 mg/ Sodium (Chloride) 250 mls @ 250 mls/hr IV ONETIME ONE Stop: 09/14/21 19:28 Last Admin: 09/14/21 21:31 Dose: 250 mls/hr Documented by: Remdesivir 100 mg/ Sodium (Chloride) 100 mls @ 100 mls/hr IV Q24H RAMÍREZ Stop: 09/18/21 09:59 Influenza Virus Vaccine (Pharmacy To Dose - Influenza Vaccine) 1 each IM ONETIME ONE Stop: 09/14/21 21:57 Influenza Virus Vaccine (Flu Vacc [id number](65yr Up)/Pf 240 Mcg/0.7 Ml Syringe) 240 mcg IM .ONCE ONE Stop: 09/15/21 10:01 Last Admin: 09/15/21 10:52 Dose: Not Given Documented by: Pantoprazole Sodium (Pantoprazole 40 Mg Vial) 40 mg IVPUSH DAILY COUNT INCLUDES THE [facility] Last Admin: 09/14/21 22:13 Dose: 40 mg Documented by: - Exam Quality Assessment: Supplemental Oxygen General: Alert, Oriented, Cooperative, No Acute Distress Lungs: Normal Respiratory Effort, Crackles (few on the left, moderate right mid and lower lung ) Cardiovascular: Regular Rate, Regular Rhythm GI/Abdominal Exam: Soft, No Distention Extremities: No Pedal Edema. No: Increased Warmth Skin: Warm, Dry Psy/Mental Status: Alert, Normal Affect - Patient Data Lab Results Last 24 hrs: Laboratory Results - last 24 hr 09/14/21 09/14/21 09/14/21 Range/Units 18:08 18:17 18:17 WBC (4.5-11.0) K/uL RBC (4.30-5.90) M/uL Hgb (12.0-15.0) g/dL Hct (40.0-54.0) % MCV (80-98) fL MCH (27-31) pg MCHC (32-36) % Plt Count (150-400) K/uL Neut % (Auto) (36-66) % Lymph % (Auto) (24-44) % Leake % (Auto) (2-6) % Eos % (Auto) (2-4) % Baso % (Auto) (0-1) % PT (9.2-10.6) sec INR D-Dimer, Quantitative 943.48 H (0.0-500.0) ng/mL Puncture Site ABG pH (7.350-7.450) ABG pCO2 (35.0-42.0) mmHg ABG pO2 (75.0-100.0) mmHg ABG HCO3 (22.0-26.0) mmol/L ABG Total CO2 (23.0-27.0) mmol/L ABG O2 Saturation (95.0-98.0) % ABG O2 Content (15.0-23.0) %vol ABG Base Excess mm/L ABG Hemoglobin (13.5-18.0) g/dL ABG Oxyhemoglobin % ABG Carboxyhemoglobin (0.0-1.6) % ABG Methemoglobin % Kin Test O2 Delivery Device Oxygen Flow Rate L Sodium (140-148) mmol/L Potassium (3.6-5.2) mmol/L Chloride (100-108) mmol/L Carbon Dioxide (21-32) mmol/L Anion Gap (5.0-14.0) mmol/L BUN (7-18) mg/dL Creatinine (0.8-1.3) mg/dL Est Cr Clr Drug Dosing mL/min Estimated GFR (MDRD) (>60) Glucose (74-106) mg/dL Lactic Acid (0.4-2.0) mmol/L Calcium (8.5-10.1) mg/dL Ferritin 1780 H (8-388) ng/ml Total Bilirubin (0.2-1.0) mg/dL Direct Bilirubin (0.0-0.2) mg/dL Indirect Bilirubin AST (15-37) U/L ALT (12-78) U/L Alkaline Phosphatase (46-116) U/L Lactate Dehydrogenase (85-227) U/L Creatine Kinase (39-308) U/L C-Reactive Protein (0.0-0.3) mg/dL Total Protein (6.4-8.2) g/dL Albumin (3.4-5.0) g/dL Globulin (2.3-3.5) g/dL Albumin/Globulin Ratio (1.2-2.2) Procalcitonin ng/mL Influenza Type A RNA Negative (NEGATIVE) RSV RNA (INAAT) Negative (NEGATIVE) Influenza Type B RNA Negative (NEGATIVE) SARS-CoV-2 RNA (NAEL) Positive H (NEGATIVE) 09/14/21 09/14/21 09/14/21 Range/Units 18:17 18:17 18:17 WBC (4.5-11.0) K/uL RBC (4.30-5.90) M/uL Hgb (12.0-15.0) g/dL Hct (40.0-54.0) % MCV (80-98) fL MCH (27-31) pg MCHC (32-36) % Plt Count (150-400) K/uL Neut % (Auto) (36-66) % Lymph % (Auto) (24-44) % Leake % (Auto) (2-6) % Eos % (Auto) (2-4) % Baso % (Auto) (0-1) % PT (9.2-10.6) sec INR D-Dimer, Quantitative (0.0-500.0) ng/mL Puncture Site ABG pH (7.350-7.450) ABG pCO2 (35.0-42.0) mmHg ABG pO2 (75.0-100.0) mmHg ABG HCO3 (22.0-26.0) mmol/L ABG Total CO2 (23.0-27.0) mmol/L ABG O2 Saturation (95.0-98.0) % ABG O2 Content (15.0-23.0) %vol ABG Base Excess mm/L ABG Hemoglobin (13.5-18.0) g/dL ABG Oxyhemoglobin % ABG Carboxyhemoglobin (0.0-1.6) % ABG Methemoglobin % Kin Test O2 Delivery Device Oxygen Flow Rate L Sodium (140-148) mmol/L Potassium (3.6-5.2) mmol/L Chloride (100-108) mmol/L Carbon Dioxide (21-32) mmol/L Anion Gap (5.0-14.0) mmol/L BUN (7-18) mg/dL Creatinine (0.8-1.3) mg/dL Est Cr Clr Drug Dosing mL/min Estimated GFR (MDRD) (>60) Glucose (74-106) mg/dL Lactic Acid 2.8 H (0.4-2.0) mmol/L Calcium (8.5-10.1) mg/dL Ferritin (8-388) ng/ml Total Bilirubin (0.2-1.0) mg/dL Direct Bilirubin (0.0-0.2) mg/dL Indirect Bilirubin AST (15-37) U/L ALT (12-78) U/L Alkaline Phosphatase (46-116) U/L Lactate Dehydrogenase 316 H (85-227) U/L Creatine Kinase 251 (39-308) U/L C-Reactive Protein 14.94 H (0.0-0.3) mg/dL Total Protein (6.4-8.2) g/dL Albumin (3.4-5.0) g/dL Globulin (2.3-3.5) g/dL Albumin/Globulin Ratio (1.2-2.2) Procalcitonin 0.26 ng/mL Influenza Type A RNA (NEGATIVE) RSV RNA (INAAT) (NEGATIVE) Influenza Type B RNA (NEGATIVE) SARS-CoV-2 RNA (NAEL) (NEGATIVE) 09/14/21 09/14/21 09/14/21 Range/Units 18:17 18:19 18:19 WBC 8.9 (4.5-11.0) K/uL RBC 4.79 (4.30-5.90) M/uL Hgb 15.1 H (12.0-15.0) g/dL Hct 45.8 (40.0-54.0) % MCV 96 (80-98) fL MCH 32 H (27-31) pg MCHC 33 (32-36) % Plt Count 183 (150-400) K/uL Neut % (Auto) 85.2 H (36-66) % Lymph % (Auto) 6.2 L (24-44) % Leake % (Auto) 8.4 H (2-6) % Eos % (Auto) 0.0 L (2-4) % Baso % (Auto) 0.2 (0-1) % PT 11.8 H (9.2-10.6) sec INR 1.2 D-Dimer, Quantitative (0.0-500.0) ng/mL Puncture Site ABG pH (7.350-7.450) ABG pCO2 (35.0-42.0) mmHg ABG pO2 (75.0-100.0) mmHg ABG HCO3 (22.0-26.0) mmol/L ABG Total CO2 (23.0-27.0) mmol/L ABG O2 Saturation (95.0-98.0) % ABG O2 Content (15.0-23.0) %vol ABG Base Excess mm/L ABG Hemoglobin (13.5-18.0) g/dL ABG Oxyhemoglobin % ABG Carboxyhemoglobin (0.0-1.6) % ABG Methemoglobin % Kin Test O2 Delivery Device Oxygen Flow Rate L Sodium 144 (140-148) mmol/L Potassium 4.3 (3.6-5.2) mmol/L Chloride 104 (100-108) mmol/L Carbon Dioxide 29 (21-32) mmol/L Anion Gap 11.3 (5.0-14.0) mmol/L BUN 30 H (7-18) mg/dL Creatinine 1.7 H (0.8-1.3) mg/dL Est Cr Clr Drug Dosing 31.77 mL/min Estimated GFR (MDRD) 38 L (>60) Glucose 124 H (74-106) mg/dL Lactic Acid (0.4-2.0) mmol/L Calcium 8.6 (8.5-10.1) mg/dL Ferritin (8-388) ng/ml Total Bilirubin 1.1 H D (0.2-1.0) mg/dL Direct Bilirubin (0.0-0.2) mg/dL Indirect Bilirubin AST 70 H (15-37) U/L ALT 44 (12-78) U/L Alkaline Phosphatase 139 H (46-116) U/L Lactate Dehydrogenase (85-227) U/L Creatine Kinase (39-308) U/L C-Reactive Protein (0.0-0.3) mg/dL Total Protein 6.7 (6.4-8.2) g/dL Albumin 2.7 L (3.4-5.0) g/dL Globulin 4.0 H (2.3-3.5) g/dL Albumin/Globulin Ratio 0.7 L (1.2-2.2) Procalcitonin ng/mL Influenza Type A RNA (NEGATIVE) RSV RNA (INAAT) (NEGATIVE) Influenza Type B RNA (NEGATIVE) SARS-CoV-2 RNA (NAEL) (NEGATIVE) 09/14/21 09/14/21 09/15/21 Range/Units 19:45 19:55 05:35 WBC 9.7 (4.5-11.0) K/uL RBC 4.58 (4.30-5.90) M/uL Hgb 14.6 (12.0-15.0) g/dL Hct 43.7 (40.0-54.0) % MCV 95 (80-98) fL MCH 32 H (27-31) pg MCHC 33 (32-36) % Plt Count 161 (150-400) K/uL Neut % (Auto) 89.5 H (36-66) % Lymph % (Auto) 4.6 L (24-44) % Leake % (Auto) 5.7 (2-6) % Eos % (Auto) 0.1 L (2-4) % Baso % (Auto) 0.1 (0-1) % PT (9.2-10.6) sec INR D-Dimer, Quantitative (0.0-500.0) ng/mL Puncture Site Lt radial ABG pH 7.485 H (7.350-7.450) ABG pCO2 30.4 L (35.0-42.0) mmHg ABG pO2 54.1 L (75.0-100.0) mmHg ABG HCO3 22.7 (22.0-26.0) mmol/L ABG Total CO2 19.3 L (23.0-27.0) mmol/L ABG O2 Saturation 88.7 L (95.0-98.0) % ABG O2 Content 18.4 (15.0-23.0) %vol ABG Base Excess 0.6 mm/L ABG Hemoglobin 15.1 (13.5-18.0) g/dL ABG Oxyhemoglobin 86.7 % ABG Carboxyhemoglobin 1.3 (0.0-1.6) % ABG Methemoglobin 0.9 % Kin Test Pass O2 Delivery Device Nasal cannula Oxygen Flow Rate 2.0 L Sodium (140-148) mmol/L Potassium (3.6-5.2) mmol/L Chloride (100-108) mmol/L Carbon Dioxide (21-32) mmol/L Anion Gap (5.0-14.0) mmol/L BUN (7-18) mg/dL Creatinine (0.8-1.3) mg/dL Est Cr Clr Drug Dosing mL/min Estimated GFR (MDRD) (>60) Glucose (74-106) mg/dL Lactic Acid (0.4-2.0) mmol/L Calcium (8.5-10.1) mg/dL Ferritin (8-388) ng/ml Total Bilirubin 1.2 H (0.2-1.0) mg/dL Direct Bilirubin 0.51 H (0.0-0.2) mg/dL Indirect Bilirubin 0.69 AST 73 H (15-37) U/L ALT 46 (12-78) U/L Alkaline Phosphatase 144 H (46-116) U/L Lactate Dehydrogenase (85-227) U/L Creatine Kinase (39-308) U/L C-Reactive Protein (0.0-0.3) mg/dL Total Protein 6.8 (6.4-8.2) g/dL Albumin 2.7 L (3.4-5.0) g/dL Globulin 4.1 H (2.3-3.5) g/dL Albumin/Globulin Ratio 0.7 L (1.2-2.2) Procalcitonin ng/mL Influenza Type A RNA (NEGATIVE) RSV RNA (INAAT) (NEGATIVE) Influenza Type B RNA (NEGATIVE) SARS-CoV-2 RNA (NAEL) (NEGATIVE) 09/15/21 09/15/21 Range/Units 05:35 05:35 WBC (4.5-11.0) K/uL RBC (4.30-5.90) M/uL Hgb (12.0-15.0) g/dL Hct (40.0-54.0) % MCV (80-98) fL MCH (27-31) pg MCHC (32-36) % Plt Count (150-400) K/uL Neut % (Auto) (36-66) % Lymph % (Auto) (24-44) % Leake % (Auto) (2-6) % Eos % (Auto) (2-4) % Baso % (Auto) (0-1) % PT 11.2 H (9.2-10.6) sec INR 1.1 D-Dimer, Quantitative (0.0-500.0) ng/mL Puncture Site ABG pH (7.350-7.450) ABG pCO2 (35.0-42.0) mmHg ABG pO2 (75.0-100.0) mmHg ABG HCO3 (22.0-26.0) mmol/L ABG Total CO2 (23.0-27.0) mmol/L ABG O2 Saturation (95.0-98.0) % ABG O2 Content (15.0-23.0) %vol ABG Base Excess mm/L ABG Hemoglobin (13.5-18.0) g/dL ABG Oxyhemoglobin % ABG Carboxyhemoglobin (0.0-1.6) % ABG Methemoglobin % Kin Test O2 Delivery Device Oxygen Flow Rate L Sodium 145 (140-148) mmol/L Potassium 4.5 (3.6-5.2) mmol/L Chloride 107 (100-108) mmol/L Carbon Dioxide 27 (21-32) mmol/L Anion Gap 11.5 (5.0-14.0) mmol/L BUN 30 H (7-18) mg/dL Creatinine 1.5 H (0.8-1.3) mg/dL Est Cr Clr Drug Dosing 36.00 mL/min Estimated GFR (MDRD) 44 L (>60) Glucose 116 H (74-106) mg/dL Lactic Acid (0.4-2.0) mmol/L Calcium 8.2 L (8.5-10.1) mg/dL Ferritin (8-388) ng/ml Total Bilirubin 0.7 (0.2-1.0) mg/dL Direct Bilirubin 0.37 H (0.0-0.2) mg/dL Indirect Bilirubin 0.33 AST 64 H (15-37) U/L ALT 42 (12-78) U/L Alkaline Phosphatase 134 H (46-116) U/L Lactate Dehydrogenase (85-227) U/L Creatine Kinase 217 (39-308) U/L C-Reactive Protein 16.68 H (0.0-0.3) mg/dL Total Protein 5.7 L (6.4-8.2) g/dL Albumin 2.5 L (3.4-5.0) g/dL Globulin 3.2 (2.3-3.5) g/dL Albumin/Globulin Ratio 0.8 L (1.2-2.2) Procalcitonin ng/mL Influenza Type A RNA (NEGATIVE) RSV RNA (INAAT) (NEGATIVE) Influenza Type B RNA (NEGATIVE) SARS-CoV-2 RNA (NAEL) (NEGATIVE) Result Diagrams: 09/15/21 05:35 09/15/21 05:35 Sepsis Event Note - Evaluation Sepsis Screening Result: Possible Sepsis Risk - Focused Exam Vital Signs: Vital Signs Temp Pulse Resp BP Pulse Ox Pulse Ox 09/15/21 11:07 517.5 C H 18 133/64 93 L 09/15/21 07:28 90 L 09/15/21 07:10 35.4 C L 57 L 18 117/46 L 92 L 09/15/21 04:11 90 L 09/15/21 04:10 90 L 09/15/21 04:00 36.0 C L 73 18 104/62 87 L 09/15/21 01:00 88 L 09/15/21 00:45 68 90 L - Problem List Review Problem List Initiated/Reviewed/Updated: Yes - My Orders Last 24 Hours: My Active Orders 09/15/21 08:13 Discontinue Telemetry Monitoring [Cardiac Monitoring Discontinue] [RC] Click to Edit Benzonatate [Tessalon Perles] 100 mg PO Q8H PRN Dextromethorphan/guaiFENesin [Robitussin DM] 10 ml PO Q4H PRN 09/15/21 11:45 Baricitinib [Olumiant] 2 mg PO DAILY 09/16/21 05:00 COMPREHENSIVE METABOLIC PN,CMP [CHEM] Timed CRP [C-REACTIVE PROTEIN] [CHEM] Timed D-DIMER QUANTITATIVE [COAG] Timed - Plan Plan:: ASSESSMENT AND PLAN - COVID-19 pneumonia-complicated by acute respiratory failure with hypoxia and weakness. Progressive oxygen requirements overnight. Moderate elevation of CRP and D-dimer. -supplemental oxygen, he may need to transition to heated/high flow -Covid precautions and isolation -Prone ventilation as possible -Dexamethasone 6 mg po daily (day 2) -Start baricitinib (day 1) -Enoxaparin 40 mg subcut. Every 24 hours -Albuterol inhaler 2 puffs every 4 hours as needed for shortness of breath -IV Remdesivir x5 days -Labs every couple of days -oxygen therapy to keep oxygen saturation >90% -Goal of negative fluid balance CKD 3-kidney function slightly better than at the time of admission. Evidence for dehydration based on urinalysis. 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 -fall risk -needs reminders Maintenance issues - - DVT prophylaxis - Lovenox 40 mg subcut. every 24 hours - GI prophylaxis -PPI - Nutrition - regular diet Disposition -anticipate discharge home with family unless he requires subacute rehab Victorino Kellogg MD
[2021-09-15] MEDS: Pantoprazole 40 MG Tab.CR PO SCH (20:36)
[2021-09-15] MEDS: Dexamethasone 4 MG/ML SDV IVPUSH SCH (20:36)
[2021-09-15] MEDS: Enoxaparin 40 MG/0.4 ML Syringe SUBCUT SCH (20:36)
[2021-09-15] MEDS: REMDESIVIR 100 MG in Sodium Chloride 0.9% 100 ML IV SCH (20:37)
--- NOTE | 2021-09-16 11:53 | PCM.PN ---
- General Info Date of Service: 09/16/21 Subjective Update: No acute events overnight. No fevers. Symptomatically he is feeling better with less shortness of breath. Appetite is improving. Intermittent cough. Weak and requiring assistance. No confusion. Still requiring 15 L of oxygen at this level has been stable. D-dimer and CRP have decreased in the past 48 hours. Functional Status: Reports: Pain Controlled, Tolerating Diet - Review of Systems General: Reports: Weakness - Patient Data Vitals - Most Recent: Last Vital Signs Temp 35.4 C L 09/16/21 10:24 Pulse 80 09/16/21 10:24 Resp 18 09/16/21 10:24 BP 97/56 L 09/16/21 10:24 Pulse Ox 91 L 09/16/21 10:24 Weight - Most Recent: 103.419 kg I&O - Last 24 Hours: Intake & Output 09/15/21 09/16/21 09/16/21 22:59 06:59 14:59 Intake Total 100 120 Output Total 350 200 Balance -250 -200 120 Lab Results Last 24 Hours: Laboratory Results - last 24 hr 09/16/21 09/16/21 Range/Units 04:15 04:15 D-Dimer, Quantitative 907.31 H (0.0-500.0) ng/mL Sodium 146 (140-148) mmol/L Potassium 4.9 (3.6-5.2) mmol/L Chloride 108 (100-108) mmol/L Carbon Dioxide 29 (21-32) mmol/L Anion Gap 9.0 (5.0-14.0) mmol/L BUN 36 H (7-18) mg/dL Creatinine 1.4 H (0.8-1.3) mg/dL Est Cr Clr Drug Dosing 38.58 mL/min Estimated GFR (MDRD) 48 L (>60) Glucose 117 H (74-106) mg/dL Calcium 8.6 (8.5-10.1) mg/dL Total Bilirubin 0.5 (0.2-1.0) mg/dL AST 52 H (15-37) U/L ALT 36 (12-78) U/L Alkaline Phosphatase 125 H (46-116) U/L C-Reactive Protein 13.52 H (0.0-0.3) mg/dL Total Protein 6.0 L (6.4-8.2) g/dL Albumin 2.3 L (3.4-5.0) g/dL Globulin 3.7 H (2.3-3.5) g/dL Albumin/Globulin Ratio 0.6 L (1.2-2.2) Navin Results Last 24 Hours: Microbiology 09/14/21 19:45 Aerobic Blood Culture - Preliminary Blood - Arm, Left NO GROWTH AFTER 1 DAY Anaerobic Blood Culture - Preliminary NO GROWTH AFTER 1 DAY Med Orders - Current: Current Medications Acetaminophen (Acetaminophen 325 Mg Tab) 650 mg PO Q4H PRN PRN Reason: Fever Greater Than 101 Baricitinib (Baricitinib 2 Mg Tab) 2 mg PO DAILY [facility] Stop: 09/28/21 09:01 Last Admin: 09/16/21 09:56 Dose: 2 mg Documented by: Benzonatate (Benzonatate 100 Mg Cap) 100 mg PO Q8H PRN PRN Reason: Cough Bisacodyl (Bisacodyl 5 Mg Tab) 5 mg PO DAILY PRN PRN Reason: Constipation Dexamethasone (Dexamethasone 4 Mg/Ml Sdv) 6 mg IVPUSH BEDTIME [facility] Stop: 09/23/21 21:01 Last Admin: 09/15/21 20:36 Dose: 6 mg Documented by: Docusate Sodium (Docusate Sodium 100 Mg Cap) 100 mg PO BID PRN PRN Reason: Constipation Enoxaparin Sodium (Enoxaparin 40 Mg/0.4 Ml Syringe) 40 mg SUBCUT BEDTIME [facility] Last Admin: 09/15/21 20:36 Dose: 40 mg Documented by: Guaifenesin/Dextromethorphan (Guaifenesin/Dextromethorphan 100-10 Mg/5 Ml Soln 10 Ml Cup) 10 ml PO Q4H PRN PRN Reason: Cough Remdesivir 100 mg/ Sodium (Chloride) 100 mls @ 100 mls/hr IV BEDTIME [facility] Stop: 09/18/21 21:59 Last Admin: 09/15/21 20:37 Dose: 100 mls/hr Documented by: Lorazepam (Lorazepam 2 Mg/Ml Sdv) 1 mg IV Q6H PRN PRN Reason: Nausea/Vomiting Morphine Sulfate (Morphine 2 Mg/Ml Syringe) 2 mg IVPUSH Q2H PRN PRN Reason: Pain (severe 7-10) Ondansetron HCl (Ondansetron 4 Mg Tab.Dis) 4 mg PO Q6H PRN PRN Reason: Nausea able to take PO Oxycodone HCl (Oxycodone 5 Mg Tab) 5 mg PO Q4H PRN PRN Reason: Pain (moderate 4-6) Pantoprazole Sodium (Pantoprazole 40 Mg Tab.Cr) 40 mg PO BEDTIME [facility] Last Admin: 09/15/21 20:36 Dose: 40 mg Documented by: Sodium Chloride (Sodium Chloride 0.9% 10 Ml Syringe) 10 ml FLUSH ASDIRECTED PRN PRN Reason: Keep Vein Open Tamsulosin HCl (Tamsulosin 0.4 Mg Cap.Er) 0.4 mg PO BEDTIME [facility] Last Admin: 09/15/21 20:36 Dose: 0.4 mg Documented by: Discontinued Medications Dexamethasone (Dexamethasone 4 Mg/Ml Sdv) 6 mg IVPUSH DAILY [facility] Stop: 09/23/21 09:01 Last Admin: 09/14/21 22:13 Dose: 6 mg Documented by: Enoxaparin Sodium (Enoxaparin 40 Mg/0.4 Ml Syringe) 40 mg SUBCUT DAILY [facility] Last Admin: 09/14/21 21:31 Dose: 40 mg Documented by: Remdesivir 200 mg/ Sodium (Chloride) 250 mls @ 250 mls/hr IV ONETIME ONE Stop: 09/14/21 19:28 Last Admin: 09/14/21 21:31 Dose: 250 mls/hr Documented by: Remdesivir 100 mg/ Sodium (Chloride) 100 mls @ 100 mls/hr IV Q24H [facility] Stop: 09/18/21 09:59 Influenza Virus Vaccine (Pharmacy To Dose - Influenza Vaccine) 1 each IM ONETIME ONE Stop: 09/14/21 21:57 Influenza Virus Vaccine (Flu Vacc [id number](65yr Up)/Pf 240 Mcg/0.7 Ml Syringe) 240 mcg IM .ONCE ONE Stop: 09/15/21 10:01 Last Admin: 09/15/21 10:52 Dose: Not Given Documented by: Pantoprazole Sodium (Pantoprazole 40 Mg Vial) 40 mg IVPUSH DAILY [facility] Last Admin: 09/14/21 22:13 Dose: 40 mg Documented by: - Exam Quality Assessment: Supplemental Oxygen General: Alert, Oriented, Cooperative, No Acute Distress Lungs: Normal Respiratory Effort. No: Wheezing GI/Abdominal Exam: Soft, No Distention Extremities: No Pedal Edema. No: Increased Warmth Psy/Mental Status: Alert, Normal Affect - Patient Data Lab Results Last 24 hrs: Laboratory Results - last 24 hr 09/16/21 09/16/21 Range/Units 04:15 04:15 D-Dimer, Quantitative 907.31 H (0.0-500.0) ng/mL Sodium 146 (140-148) mmol/L Potassium 4.9 (3.6-5.2) mmol/L Chloride 108 (100-108) mmol/L Carbon Dioxide 29 (21-32) mmol/L Anion Gap 9.0 (5.0-14.0) mmol/L BUN 36 H (7-18) mg/dL Creatinine 1.4 H (0.8-1.3) mg/dL Est Cr Clr Drug Dosing 38.58 mL/min Estimated GFR (MDRD) 48 L (>60) Glucose 117 H (74-106) mg/dL Calcium 8.6 (8.5-10.1) mg/dL Total Bilirubin 0.5 (0.2-1.0) mg/dL AST 52 H (15-37) U/L ALT 36 (12-78) U/L Alkaline Phosphatase 125 H (46-116) U/L C-Reactive Protein 13.52 H (0.0-0.3) mg/dL Total Protein 6.0 L (6.4-8.2) g/dL Albumin 2.3 L (3.4-5.0) g/dL Globulin 3.7 H (2.3-3.5) g/dL Albumin/Globulin Ratio 0.6 L (1.2-2.2) Result Diagrams: 09/15/21 05:35 09/16/21 04:15 Navin Results Last 24 hrs: Microbiology 09/14/21 19:45 Aerobic Blood Culture - Preliminary Blood - Arm, Left NO GROWTH AFTER 1 DAY Anaerobic Blood Culture - Preliminary NO GROWTH AFTER 1 DAY Sepsis Event Note - Evaluation Sepsis Screening Result: No Definite Risk - Focused Exam Vital Signs: Vital Signs Temp Pulse Resp BP Pulse Ox 09/16/21 10:24 35.4 C L 80 18 97/56 L 91 L 09/16/21 07:14 90 L 09/16/21 06:00 35.4 C L 59 L 18 103/56 L 93 L 09/16/21 02:03 36.8 C 66 18 128/56 L 92 L - Problem List Review Problem List Initiated/Reviewed/Updated: Yes - My Orders Last 24 Hours: My Active Orders 09/15/21 11:45 Baricitinib [Olumiant] 2 mg PO DAILY 09/16/21 11:52 Up With Assistance [RC] ASDIRECTED 09/17/21 05:00 CBC W/O DIFF,HEMOGRAM [HEME] Timed (1) COMPREHENSIVE METABOLIC PN,CMP [CHEM] Timed - Plan Plan:: ASSESSMENT AND PLAN - COVID-19 pneumonia-complicated by acute respiratory failure with hypoxia and weakness. Supplemental oxygen requirements stable over the past 24 hours. CRP and D-dimer have improved some since they were last checked couple of days ago. Symptomatically feeling better. -supplemental oxygen, he may need to transition to heated/high flow -Covid precautions and isolation -Prone ventilation as possible -Dexamethasone 6 mg po daily (day 3) -Continue baricitinib (day 2) -Enoxaparin 40 mg every 24 hours -Albuterol inhaler 2 puffs every 4 hours as needed for shortness of breath -IV Remdesivir x5 days -Labs every couple of days -oxygen therapy to keep oxygen saturation >90% -Goal of negative fluid balance CKD 3-kidney function slowly improving. 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 -fall risk -Melatonin at bedtime Maintenance issues - - DVT prophylaxis - Lovenox 40 mg subcut. every 24 hours - GI prophylaxis -PPI - Nutrition - regular diet Disposition -anticipate discharge home with family unless he requires subacute rehab Victorino Kellogg MD
[2021-09-16] MEDS: REMDESIVIR 100 MG in Sodium Chloride 0.9% 100 ML IV SCH (20:09)
[2021-09-16] MEDS: Dexamethasone 4 MG/ML SDV IVPUSH SCH (20:09)
[2021-09-16] MEDS: Tamsulosin 0.4 MG Cap.ER PO SCH (20:11)
[2021-09-16] MEDS: Enoxaparin 40 MG/0.4 ML Syringe SUBCUT SCH (20:11)
[2021-09-16] MEDS: Pantoprazole 40 MG Tab.CR PO SCH (20:12)
[2021-09-16] MEDS: Melatonin 3 MG Tab PO SCH (20:12)
--- NOTE | 2021-09-17 15:15 | PCM.PN ---
- General Info Date of Service: 09/17/21 Subjective Update: No acute events overnight. Patient reports that he feels better today. Appetite is improving. He feels a little less short of breath today. No significant cough. No abdominal pain or nausea. No fevers. Tolerating medications well so far. Weak and requires assistance just to get from laying to sitting in bed. Functional Status: Reports: Pain Controlled, Tolerating Diet - Review of Systems General: Reports: Weakness - Patient Data Vitals - Most Recent: Last Vital Signs Temp 35.3 C L 09/17/21 14:36 Pulse 63 09/17/21 14:36 Resp 18 09/17/21 14:36 BP 114/51 L 09/17/21 14:36 Pulse Ox 90 L 09/17/21 14:36 Weight - Most Recent: 103.419 kg I&O - Last 24 Hours: Intake & Output 09/17/21 09/17/21 09/17/21 06:59 14:59 22:59 Intake Total 240 Output Total 450 150 Balance -450 90 Lab Results Last 24 Hours: Laboratory Results - last 24 hr 09/17/21 09/17/21 Range/Units 04:10 04:10 WBC 6.8 (4.5-11.0) K/uL RBC 4.43 (4.30-5.90) M/uL Hgb 14.2 (12.0-15.0) g/dL Hct 42.7 (40.0-54.0) % MCV 96 (80-98) fL MCH 32 H (27-31) pg MCHC 33 (32-36) % Plt Count 187 (150-400) K/uL Sodium 142 (140-148) mmol/L Potassium 4.6 (3.6-5.2) mmol/L Chloride 108 (100-108) mmol/L Carbon Dioxide 25 (21-32) mmol/L Anion Gap 9.4 (5.0-14.0) mmol/L BUN 37 H (7-18) mg/dL Creatinine 1.2 (0.8-1.3) mg/dL Est Cr Clr Drug Dosing 45.01 mL/min Estimated GFR (MDRD) 58 L (>60) Glucose 120 H (74-106) mg/dL Calcium 8.4 L (8.5-10.1) mg/dL Total Bilirubin 0.5 (0.2-1.0) mg/dL AST 61 H (15-37) U/L ALT 41 (12-78) U/L Alkaline Phosphatase 128 H (46-116) U/L Total Protein 5.8 L (6.4-8.2) g/dL Albumin 2.2 L (3.4-5.0) g/dL Globulin 3.6 H (2.3-3.5) g/dL Albumin/Globulin Ratio 0.6 L (1.2-2.2) Navin Results Last 24 Hours: Microbiology 09/14/21 19:45 Aerobic Blood Culture - Preliminary Blood - Arm, Left NO GROWTH AFTER 2 DAYS Anaerobic Blood Culture - Preliminary NO GROWTH AFTER 2 DAYS Med Orders - Current: Current Medications Acetaminophen (Acetaminophen 325 Mg Tab) 650 mg PO Q4H PRN PRN Reason: Fever Greater Than 101 Baricitinib (Baricitinib 2 Mg Tab) 2 mg PO DAILY [facility] Stop: 09/28/21 09:01 Last Admin: 09/17/21 08:23 Dose: 2 mg Documented by: Benzonatate (Benzonatate 100 Mg Cap) 100 mg PO Q8H PRN PRN Reason: Cough Bisacodyl (Bisacodyl 5 Mg Tab) 5 mg PO DAILY PRN PRN Reason: Constipation Dexamethasone (Dexamethasone 4 Mg/Ml Sdv) 6 mg IVPUSH BEDTIME [facility] Stop: 09/23/21 21:01 Last Admin: 09/16/21 20:09 Dose: 6 mg Documented by: Docusate Sodium (Docusate Sodium 100 Mg Cap) 100 mg PO BID PRN PRN Reason: Constipation Enoxaparin Sodium (Enoxaparin 40 Mg/0.4 Ml Syringe) 40 mg SUBCUT BEDTIME [facility] Last Admin: 09/16/21 20:11 Dose: 40 mg Documented by: Guaifenesin/Dextromethorphan (Guaifenesin/Dextromethorphan 100-10 Mg/5 Ml Soln 10 Ml Cup) 10 ml PO Q4H PRN PRN Reason: Cough Remdesivir 100 mg/ Sodium (Chloride) 100 mls @ 100 mls/hr IV BEDTIME [facility] Stop: 09/18/21 21:59 Last Admin: 09/16/21 20:09 Dose: 100 mls/hr Documented by: Lorazepam (Lorazepam 2 Mg/Ml Sdv) 1 mg IV Q6H PRN PRN Reason: Nausea/Vomiting Melatonin (Melatonin 3 Mg Tab) 9 mg PO BEDTIME [facility] Last Admin: 09/16/21 20:12 Dose: 9 mg Documented by: Morphine Sulfate (Morphine 2 Mg/Ml Syringe) 2 mg IVPUSH Q2H PRN PRN Reason: Pain (severe 7-10) Ondansetron HCl (Ondansetron 4 Mg Tab.Dis) 4 mg PO Q6H PRN PRN Reason: Nausea able to take PO Oxycodone HCl (Oxycodone 5 Mg Tab) 5 mg PO Q4H PRN PRN Reason: Pain (moderate 4-6) Pantoprazole Sodium (Pantoprazole 40 Mg Tab.Cr) 40 mg PO BEDTIME [facility] Last Admin: 09/16/21 20:12 Dose: 40 mg Documented by: Sodium Chloride (Sodium Chloride 0.9% 10 Ml Syringe) 10 ml FLUSH ASDIRECTED PRN PRN Reason: Keep Vein Open Tamsulosin HCl (Tamsulosin 0.4 Mg Cap.Er) 0.4 mg PO BEDTIME [facility] Last Admin: 09/16/21 20:11 Dose: 0.4 mg Documented by: Discontinued Medications Dexamethasone (Dexamethasone 4 Mg/Ml Sdv) 6 mg IVPUSH DAILY [facility] Stop: 09/23/21 09:01 Last Admin: 09/14/21 22:13 Dose: 6 mg Documented by: Enoxaparin Sodium (Enoxaparin 40 Mg/0.4 Ml Syringe) 40 mg SUBCUT DAILY [facility] Last Admin: 09/14/21 21:31 Dose: 40 mg Documented by: Remdesivir 200 mg/ Sodium (Chloride) 250 mls @ 250 mls/hr IV ONETIME ONE Stop: 09/14/21 19:28 Last Admin: 09/14/21 21:31 Dose: 250 mls/hr Documented by: Remdesivir 100 mg/ Sodium (Chloride) 100 mls @ 100 mls/hr IV Q24H [facility] Stop: 09/18/21 09:59 Influenza Virus Vaccine (Pharmacy To Dose - Influenza Vaccine) 1 each IM O NETIME ONE Stop: 09/14/21 21:57 Influenza Virus Vaccine (Flu Vacc [id number](65yr Up)/Pf 240 Mcg/0.7 Ml Syringe) 240 mcg IM .ONCE ONE Stop: 09/15/21 10:01 Last Admin: 09/15/21 10:52 Dose: Not Given Documented by: Pantoprazole Sodium (Pantoprazole 40 Mg Vial) 40 mg IVPUSH DAILY [facility] Last Admin: 09/14/21 22:13 Dose: 40 mg Documented by: - Exam Quality Assessment: Supplemental Oxygen General: Alert, Oriented, Cooperative, No Acute Distress Lungs: Clear to Auscultation, Normal Respiratory Effort Cardiovascular: Regular Rate, Regular Rhythm GI/Abdominal Exam: Soft, No Distention Extremities: No Pedal Edema. No: Increased Warmth Skin: Warm, Dry Psy/Mental Status: Alert, Normal Affect - Patient Data Lab Results Last 24 hrs: Laboratory Results - last 24 hr 09/17/21 09/17/21 Range/Units 04:10 04:10 WBC 6.8 (4.5-11.0) K/uL RBC 4.43 (4.30-5.90) M/uL Hgb 14.2 (12.0-15.0) g/dL Hct 42.7 (40.0-54.0) % MCV 96 (80-98) fL MCH 32 H (27-31) pg MCHC 33 (32-36) % Plt Count 187 (150-400) K/uL Sodium 142 (140-148) mmol/L Potassium 4.6 (3.6-5.2) mmol/L Chloride 108 (100-108) mmol/L Carbon Dioxide 25 (21-32) mmol/L Anion Gap 9.4 (5.0-14.0) mmol/L BUN 37 H (7-18) mg/dL Creatinine 1.2 (0.8-1.3) mg/dL Est Cr Clr Drug Dosing 45.01 mL/min Estimated GFR (MDRD) 58 L (>60) Glucose 120 H (74-106) mg/dL Calcium 8.4 L (8.5-10.1) mg/dL Total Bilirubin 0.5 (0.2-1.0) mg/dL AST 61 H (15-37) U/L ALT 41 (12-78) U/L Alkaline Phosphatase 128 H (46-116) U/L Total Protein 5.8 L (6.4-8.2) g/dL Albumin 2.2 L (3.4-5.0) g/dL Globulin 3.6 H (2.3-3.5) g/dL Albumin/Globulin Ratio 0.6 L (1.2-2.2) Result Diagrams: 09/17/21 04:10 09/17/21 04:10 Navin Results Last 24 hrs: Microbiology 09/14/21 19:45 Aerobic Blood Culture - Preliminary Blood - Arm, Left NO GROWTH AFTER 2 DAYS Anaerobic Blood Culture - Preliminary NO GROWTH AFTER 2 DAYS Sepsis Event Note - Evaluation Sepsis Screening Result: Sepsis Risk - Focused Exam Vital Signs: Vital Signs Temp Pulse Resp BP Pulse Ox 09/17/21 14:36 35.3 C L 63 18 114/51 L 90 L 09/17/21 12:55 93 L 09/17/21 10:57 35.6 C L 60 18 112/63 92 L 09/17/21 07:02 98 09/17/21 06:23 35.9 C L 59 L 18 109/63 87 L - Problem List Review Problem List Initiated/Reviewed/Updated: Yes - My Orders Last 24 Hours: My Active Orders 09/16/21 21:00 Melatonin 9 mg PO BEDTIME 09/18/21 05:00 COMPREHENSIVE METABOLIC PN,CMP [CHEM] Timed CRP [C-REACTIVE PROTEIN] [CHEM] Timed D-DIMER QUANTITATIVE [COAG] Timed - Plan Plan:: ASSESSMENT AND PLAN - COVID-19 pneumonia-complicated by acute respiratory failure with hypoxia and weakness. Supplemental oxygen requirements stable but requiring 15 L via high flow nasal cannula. Symptomatically feeling better. -supplemental oxygen as needed, wean as able -Covid precautions and isolation -Prone ventilation as possible -Dexamethasone 6 mg po daily (day 4) -Continue baricitinib (day 3) -Enoxaparin 40 mg every 24 hours -Albuterol inhaler 2 puffs every 4 hours as needed for shortness of breath -IV Remdesivir x5 days -Labs every couple of days -oxygen therapy to keep oxygen saturation >90% -Goal of negative fluid balance CKD 3-kidney function slowly improving. 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 -fall risk -Melatonin at bedtime Maintenance issues - - DVT prophylaxis -enoxaparin - GI prophylaxis -PPI - Nutrition - regular diet Disposition -anticipate discharge to subacute rehab after the hospital stay Victorino Kellogg MD
[2021-09-17] MEDS: Dexamethasone 4 MG/ML SDV IVPUSH SCH (20:17)
[2021-09-17] MEDS: Melatonin 3 MG Tab PO SCH (20:17)
[2021-09-17] MEDS: Pantoprazole 40 MG Tab.CR PO SCH (20:17)
[2021-09-17] MEDS: Tamsulosin 0.4 MG Cap.ER PO SCH (20:17)
[2021-09-17] MEDS: Enoxaparin 40 MG/0.4 ML Syringe SUBCUT SCH (20:20)
[2021-09-17] MEDS: REMDESIVIR 100 MG in Sodium Chloride 0.9% 100 ML IV SCH (20:20)
--- NOTE | 2021-09-18 16:48 | PCM.PN ---
- General Info Date of Service: 09/18/21 Subjective Update: Mr. Woods has remained stable since yesterday, still requires 15 L of oxygen per minute via high flow nasal cannula. Oxygen requirements have been stable ov er the past few days. Still feels very weak and lethargic, appetite seems to be improving. Functional Status: Reports: Tolerating Diet, Urinating. Denies: Ambulating - Review of Systems General: Reports: Weakness, Fatigue. Denies: Fever, Chills Pulmonary: Reports: Shortness of Breath, Cough. Denies: Pleuritic Chest Pain, Sputum, Hemoptysis, Wheezing Cardiovascular: Reports: Dyspnea on Exertion. Denies: Chest Pain, Palpitations, Orthopnea, PND, Edema, Lightheadedness Gastrointestinal: Reports: No Symptoms Genitourinary: Reports: No Symptoms - Patient Data Vitals - Most Recent: Last Vital Signs Temp 96.8 F L 09/18/21 16:38 Pulse 65 09/18/21 16:38 Resp 20 09/18/21 16:38 BP 131/60 09/18/21 16:38 Pulse Ox 91 L 09/18/21 16:38 Weight - Most Recent: 228 lb I&O - Last 24 Hours: Intake & Output 09/18/21 09/18/21 09/18/21 06:59 14:59 22:59 Intake Total 570 Output Total 350 575 Balance -350 -5 Lab Results Last 24 Hours: Laboratory Results - last 24 hr 09/18/21 09/18/21 Range/Units 04:40 04:40 D-Dimer, Quantitative 1246.92 H (0.0-500.0) ng/mL Sodium 144 (140-148) mmol/L Potassium 4.5 (3.6-5.2) mmol/L Chloride 108 (100-108) mmol/L Carbon Dioxide 28 (21-32) mmol/L Anion Gap 7.6 (5.0-14.0) mmol/L BUN 37 H (7-18) mg/dL Creatinine 1.2 (0.8-1.3) mg/dL Est Cr Clr Drug Dosing 45.01 mL/min Estimated GFR (MDRD) 58 L (>60) Glucose 123 H (74-106) mg/dL Calcium 8.3 L (8.5-10.1) mg/dL Total Bilirubin 0.6 (0.2-1.0) mg/dL AST 65 H (15-37) U/L ALT 50 (12-78) U/L Alkaline Phosphatase 128 H (46-116) U/L C-Reactive Protein 3.41 H (0.0-0.3) mg/dL Total Protein 5.6 L (6.4-8.2) g/dL Albumin 2.2 L (3.4-5.0) g/dL Globulin 3.4 (2.3-3.5) g/dL Albumin/Globulin Ratio 0.7 L (1.2-2.2) Navin Results Last 24 Hours: Microbiology 09/14/21 19:45 Aerobic Blood Culture - Preliminary Blood - Arm, Left NO GROWTH AFTER 3 DAYS Anaerobic Blood Culture - Preliminary NO GROWTH AFTER 3 DAYS Med Orders - Current: Current Medications Acetaminophen (Acetaminophen 325 Mg Tab) 650 mg PO Q4H PRN PRN Reason: Fever Greater Than 101 Baricitinib (Baricitinib 2 Mg Tab) 2 mg PO DAILY [facility] Stop: 09/28/21 09:01 Last Admin: 09/18/21 08:19 Dose: 2 mg Documented by: Benzonatate (Benzonatate 100 Mg Cap) 100 mg PO Q8H PRN PRN Reason: Cough Bisacodyl (Bisacodyl 5 Mg Tab) 5 mg PO DAILY PRN PRN Reason: Constipation Dexamethasone (Dexamethasone 4 Mg/Ml Sdv) 6 mg IVPUSH BEDTIME [facility] Stop: 09/23/21 21:01 Last Admin: 09/17/21 20:17 Dose: 6 mg Documented by: Docusate Sodium (Docusate Sodium 100 Mg Cap) 100 mg PO BID PRN PRN Reason: Constipation Enoxaparin Sodium (Enoxaparin 40 Mg/0.4 Ml Syringe) 40 mg SUBCUT BEDTIME [facility] Last Admin: 09/17/21 20:20 Dose: 40 mg Documented by: Guaifenesin/Dextromethorphan (Guaifenesin/Dextromethorphan 100-10 Mg/5 Ml Soln 10 Ml Cup) 10 ml PO Q4H PRN PRN Reason: Cough Remdesivir 100 mg/ Sodium (Chloride) 100 mls @ 100 mls/hr IV BEDTIME [facility] Stop: 09/18/21 21:59 Last Admin: 09/17/21 20:20 Dose: 100 mls/hr Documented by: Lorazepam (Lorazepam 2 Mg/Ml Sdv) 1 mg IV Q6H PRN PRN Reason: Nausea/Vomiting Melatonin (Melatonin 3 Mg Tab) 9 mg PO BEDTIME [facility] Last Admin: 09/17/21 20:17 Dose: 9 mg Documented by: Morphine Sulfate (Morphine 2 Mg/Ml Syringe) 2 mg IVPUSH Q2H PRN PRN Reason: Pain (severe 7-10) Ondansetron HCl (Ondansetron 4 Mg Tab.Dis) 4 mg PO Q6H PRN PRN Reason: Nausea able to take PO Oxycodone HCl (Oxycodone 5 Mg Tab) 5 mg PO Q4H PRN PRN Reason: Pain (moderate 4-6) Pantoprazole Sodium (Pantoprazole 40 Mg Tab.Cr) 40 mg PO BEDTIME [facility] Last Admin: 09/17/21 20:17 Dose: 40 mg Documented by: Sodium Chloride (Sodium Chloride 0.9% 10 Ml Syringe) 10 ml FLUSH ASDIRECTED PRN PRN Reason: Keep Vein Open Tamsulosin HCl (Tamsulosin 0.4 Mg Cap.Er) 0.4 mg PO BEDTIME [facility] Last Admin: 09/17/21 20:17 Dose: 0.4 mg Documented by: Discontinued Medications Dexamethasone (Dexamethasone 4 Mg/Ml Sdv) 6 mg IVPUSH DAILY [facility] Stop: 09/23/21 09:01 Last Admin: 09/14/21 22:13 Dose: 6 mg Documented by: Enoxaparin Sodium (Enoxaparin 40 Mg/0.4 Ml Syringe) 40 mg SUBCUT DAILY [facility] Last Admin: 09/14/21 21:31 Dose: 40 mg Documented by: Remdesivir 200 mg/ Sodium (Chloride) 250 mls @ 250 mls/hr IV ONETIME ONE Stop: 09/14/21 19:28 Last Admin: 09/14/21 21:31 Dose: 250 mls/hr Documented by: Remdesivir 100 mg/ Sodium (Chloride) 100 mls @ 100 mls/hr IV Q24H [facility] Stop: 09/18/21 09:59 Influenza Virus Vaccine (Pharmacy To Dose - Influenza Vaccine) 1 each IM ONETIME ONE Stop: 09/14/21 21:57 Influenza Virus Vaccine (Flu Vacc [id number](65yr Up)/Pf 240 Mcg/0.7 Ml Syringe) 240 mcg IM .ONCE ONE Stop: 09/15/21 10:01 Last Admin: 09/15/21 10:52 Dose: Not Given Documented by: Pantoprazole Sodium (Pantoprazole 40 Mg Vial) 40 mg IVPUSH DAILY [facility] Last Admin: 09/14/21 22:13 Dose: 40 mg Documented by: - Exam Quality Assessment: Supplemental Oxygen, DVT Prophylaxis General: Alert, Oriented, Cooperative, Moderate Distress Lungs: Decreased Breath Sounds, Crackles. No: Rales, Rhonchi, Wheezing Cardiovascular: Regular Rate, Regular Rhythm, No Murmurs GI/Abdominal Exam: Soft, Non-Tender, No Organomegaly, No Distention Extremities: Non-Tender, No Pedal Edema - Patient Data Lab Results Last 24 hrs: Laboratory Results - last 24 hr 09/18/21 09/18/21 Range/Units 04:40 04:40 D-Dimer, Quantitative 1246.92 H (0.0-500.0) ng/mL Sodium 144 (140-148) mmol/L Potassium 4.5 (3.6-5.2) mmol/L Chloride 108 (100-108) mmol/L Carbon Dioxide 28 (21-32) mmol/L Anion Gap 7.6 (5.0-14.0) mmol/L BUN 37 H (7-18) mg/dL Creatinine 1.2 (0.8-1.3) mg/dL Est Cr Clr Drug Dosing 45.01 mL/min Estimated GFR (MDRD) 58 L (>60) Glucose 123 H (74-106) mg/dL Calcium 8.3 L (8.5-10.1) mg/dL Total Bilirubin 0.6 (0.2-1.0) mg/dL AST 65 H (15-37) U/L ALT 50 (12-78) U/L Alkaline Phosphatase 128 H (46-116) U/L C-Reactive Protein 3.41 H (0.0-0.3) mg/dL Total Protein 5.6 L (6.4-8.2) g/dL Albumin 2.2 L (3.4-5.0) g/dL Globulin 3.4 (2.3-3.5) g/dL Albumin/Globulin Ratio 0.7 L (1.2-2.2) Result Diagrams: 09/17/21 04:10 09/18/21 04:40 Navin Results Last 24 hrs: Microbiology 09/14/21 19:45 Aerobic Blood Culture - Preliminary Blood - Arm, Left NO GROWTH AFTER 3 DAYS Anaerobic Blood Culture - Preliminary NO GROWTH AFTER 3 DAYS Sepsis Event Note - Evaluation Sepsis Screening Result: No Definite Risk - Focused Exam Vital Signs: Vital Signs Temp Temp Pulse Resp BP Pulse Ox 09/18/21 16:38 96.8 F L 65 20 131/60 91 L 09/18/21 14:28 90 L 09/18/21 11:11 95.4 F L 61 18 120/70 94 L 09/18/21 07:45 91 L 09/18/21 07:25 95.6 F L 63 18 123/73 90 L - Problem List Review Problem List Initiated/Reviewed/Updated: Yes - Plan Plan:: ASSESSMENT AND PLAN - COVID-19 pneumonia-complicated by acute respiratory failure with hypoxia and weakness. Supplemental oxygen requirements stable but requiring 15 L via high flow nasal cannula. Symptomatically feeling better. -supplemental oxygen as needed, wean as able -Covid precautions and isolation -Prone ventilation as possible -Dexamethasone 6 mg po daily (day 5) -Continue baricitinib (day 4) -Enoxaparin 40 mg every 24 hours -Albuterol inhaler 2 puffs every 4 hours as needed for shortness of breath -IV Remdesivir x5 days -Labs every couple of days -oxygen therapy to keep oxygen saturation >90% -Goal of negative fluid balance CKD 3-kidney function slowly improving. 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 -fall risk -Melatonin at bedtime Maintenance issues - - DVT prophylaxis -enoxaparin - GI prophylaxis -PPI - Nutrition - regular diet Disposition -anticipate discharge to subacute rehab after the hospital stay
[2021-09-18] MEDS: REMDESIVIR 100 MG in Sodium Chloride 0.9% 100 ML IV SCH (22:21)
[2021-09-18] MEDS: Tamsulosin 0.4 MG Cap.ER PO SCH (22:22)
[2021-09-18] MEDS: Dexamethasone 4 MG/ML SDV IVPUSH SCH (22:22)
[2021-09-18] MEDS: Melatonin 3 MG Tab PO SCH (22:22)
[2021-09-18] MEDS: Enoxaparin 40 MG/0.4 ML Syringe SUBCUT SCH (22:22)
[2021-09-18] MEDS: Pantoprazole 40 MG Tab.CR PO SCH (22:23)
--- NOTE | 2021-09-19 14:59 | PCM.PN ---
- General Info Date of Service: 09/19/21 Subjective Update: Mr. Woods stable since yesterday. Continues to require 15 L/min of oxygen via high flow nasal cannula. Subjectively does feel improved with less shortness of breath and improved energy level. Functional Status: Reports: Tolerating Diet, Urinating - Review of Systems General: Reports: Weakness, Fatigue. Denies: Fever, Chills Pulmonary: Reports: Shortness of Breath, Cough. Denies: Pleuritic Chest Pain, Sputum, Hemoptysis, Wheezing Cardiovascular: Reports: Dyspnea on Exertion. Denies: Chest Pain, Palpitations, Orthopnea, PND, Edema, Lightheadedness Gastrointestinal: Reports: No Symptoms Genitourinary: Reports: No Symptoms - Patient Data Vitals - Most Recent: Last Vital Signs Temp 97.7 F 09/19/21 14:37 Pulse 82 09/19/21 14:37 Resp 20 09/19/21 14:37 BP 131/70 09/19/21 14:37 Pulse Ox 92 L 09/19/21 14:37 Weight - Most Recent: 228 lb I&O - Last 24 Hours: Intake & Output 09/18/21 09/19/21 09/19/21 22:59 06:59 14:59 Intake Total 390 100 300 Output Total 200 700 350 Balance 190 -600 -50 Navin Results Last 24 Hours: Microbiology 09/14/21 19:45 Aerobic Blood Culture - Preliminary Blood - Arm, Left NO GROWTH AFTER 4 DAYS Anaerobic Blood Culture - Preliminary NO GROWTH AFTER 4 DAYS Med Orders - Current: Current Medications Acetaminophen (Acetaminophen 325 Mg Tab) 650 mg PO Q4H PRN PRN Reason: Fever Greater Than 101 Baricitinib (Baricitinib 2 Mg Tab) 2 mg PO DAILY [facility] Stop: 09/28/21 09:01 Last Admin: 09/19/21 08:29 Dose: 2 mg Documented by: Benzonatate (Benzonatate 100 Mg Cap) 100 mg PO Q8H PRN PRN Reason: Cough Bisacodyl (Bisacodyl 5 Mg Tab) 5 mg PO DAILY PRN PRN Reason: Constipation Dexamethasone (Dexamethasone 4 Mg/Ml Sdv) 6 mg IVPUSH BEDTIME [facility] Stop: 09/23/21 21:01 Last Admin: 09/18/21 22:22 Dose: 6 mg Documented by: Docusate Sodium (Docusate Sodium 100 Mg Cap) 100 mg PO BID PRN PRN Reason: Constipation Enoxaparin Sodium (Enoxaparin 40 Mg/0.4 Ml Syringe) 40 mg SUBCUT BEDTIME [facility] Last Admin: 09/18/21 22:22 Dose: 40 mg Documented by: Guaifenesin/Dextromethorphan (Guaifenesin/Dextromethorphan 100-10 Mg/5 Ml Soln 10 Ml Cup) 10 ml PO Q4H PRN PRN Reason: Cough Lorazepam (Lorazepam 2 Mg/Ml Sdv) 1 mg IV Q6H PRN PRN Reason: Nausea/Vomiting Melatonin (Melatonin 3 Mg Tab) 9 mg PO BEDTIME [facility] Last Admin: 09/18/21 22:22 Dose: 9 mg Documented by: Morphine Sulfate (Morphine 2 Mg/Ml Syringe) 2 mg IVPUSH Q2H PRN PRN Reason: Pain (severe 7-10) Ondansetron HCl (Ondansetron 4 Mg Tab.Dis) 4 mg PO Q6H PRN PRN Reason: Nausea able to take PO Oxycodone HCl (Oxycodone 5 Mg Tab) 5 mg PO Q4H PRN PRN Reason: Pain (moderate 4-6) Pantoprazole Sodium (Pantoprazole 40 Mg Tab.Cr) 40 mg PO BEDTIME [facility] Last Admin: 09/18/21 22:23 Dose: 40 mg Documented by: Sodium Chloride (Sodium Chloride 0.9% 10 Ml Syringe) 10 ml FLUSH ASDIRECTED PRN PRN Reason: Keep Vein Open Tamsulosin HCl (Tamsulosin 0.4 Mg Cap.Er) 0.4 mg PO BEDTIME [facility] Last Admin: 09/18/21 22:22 Dose: 0.4 mg Documented by: Discontinued Medications Dexamethasone (Dexamethasone 4 Mg/Ml Sdv) 6 mg IVPUSH DAILY [facility] Stop: 09/23/21 09:01 Last Admin: 09/14/21 22:13 Dose: 6 mg Documented by: Enoxaparin Sodium (Enoxaparin 40 Mg/0.4 Ml Syringe) 40 mg SUBCUT DAILY [facility] Last Admin: 09/14/21 21:31 Dose: 40 mg Documented by: Remdesivir 200 mg/ Sodium (Chloride) 250 mls @ 250 mls/hr IV ONETIME ONE Stop: 09/14/21 19:28 Last Admin: 09/14/21 21:31 Dose: 250 mls/hr Documented by: Remdesivir 100 mg/ Sodium (Chloride) 100 mls @ 100 mls/hr IV Q24H [facility] Stop: 09/18/21 09:59 Remdesivir 100 mg/ Sodium (Chloride) 100 mls @ 100 mls/hr IV BEDTIME [facility] Stop: 09/18/21 21:59 Last Admin: 09/18/21 22:21 Dose: 100 mls/hr Documented by: Influenza Virus Vaccine (Pharmacy To Dose - Influenza Vaccine) 1 each IM ONETIME ONE Stop: 09/14/21 21:57 Influenza Virus Vaccine (Flu Vacc [id number](65yr Up)/Pf 240 Mcg/0.7 Ml Syringe) 240 mcg IM .ONCE ONE Stop: 09/15/21 10:01 Last Admin: 09/15/21 10:52 Dose: Not Given Documented by: Pantoprazole Sodium (Pantoprazole 40 Mg Vial) 40 mg IVPUSH DAILY [facility] Last Admin: 09/14/21 22:13 Dose: 40 mg Documented by: - Exam Quality Assessment: Supplemental Oxygen, DVT Prophylaxis General: Alert, Oriented, Cooperative, Moderate Distress Lungs: Decreased Breath Sounds, Crackles. No: Rales, Rhonchi, Wheezing Cardiovascular: Regular Rate, Regular Rhythm, No Murmurs GI/Abdominal Exam: Soft, Non-Tender, No Organomegaly, No Distention Extremities: Non-Tender, No Pedal Edema - Patient Data Result Diagrams: 09/17/21 04:10 09/18/21 04:40 Navin Results Last 24 hrs: Microbiology 09/14/21 19:45 Aerobic Blood Culture - Preliminary Blood - Arm, Left NO GROWTH AFTER 4 DAYS Anaerobic Blood Culture - Preliminary NO GROWTH AFTER 4 DAYS Sepsis Event Note - Evaluation Sepsis Screening Result: No Definite Risk - Focused Exam Vital Signs: Vital Signs Temp Pulse Resp BP Pulse Ox 09/19/21 14:37 97.7 F 82 20 131/70 92 L 09/19/21 11:00 97.5 F 56 L 20 136/64 90 L 09/19/21 07:00 98.7 F 55 L 20 130/64 92 L - Problem List Review Problem List Initiated/Reviewed/Updated: Yes - My Orders Last 24 Hours: My Active Orders 09/20/21 05:00 CBC WITH AUTO DIFF [HEME] Timed COMPREHENSIVE METABOLIC PN,CMP [CHEM] Timed 09/20/21 05:11 CRP [C-REACTIVE PROTEIN] [CHEM] AM D Dimer [D-DIMER QUANTITATIVE] [COAG] AM - Plan Plan:: ASSESSMENT AND PLAN - COVID-19 pneumonia-complicated by acute respiratory failure with hypoxia and weakness. Supplemental oxygen requirements stable but requiring 15 L via high flow nasal cannula. Symptomatically feeling better. -supplemental oxygen as needed, wean as able -Covid precautions and isolation -Prone ventilation as possible -Dexamethasone 6 mg po daily (day 6) -Continue baricitinib (day 5) -Enoxaparin 40 mg every 24 hours -Albuterol inhaler 2 puffs every 4 hours as needed for shortness of breath -IV Remdesivir x5 days, completed -Labs every couple of days -oxygen therapy to keep oxygen saturation >90% -Goal of negative fluid balance CKD 3-kidney function slowly improving. 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 -fall risk -Melatonin at bedtime Maintenance issues - - DVT prophylaxis -enoxaparin - GI prophylaxis -PPI - Nutrition - regular diet Disposition -anticipate discharge to subacute rehab after the hospital stay
[2021-09-19] MEDS: Dexamethasone 4 MG/ML SDV IVPUSH SCH (20:43)
[2021-09-19] MEDS: Enoxaparin 40 MG/0.4 ML Syringe SUBCUT SCH (20:43)
[2021-09-19] MEDS: Tamsulosin 0.4 MG Cap.ER PO SCH (20:43)
[2021-09-19] MEDS: Melatonin 3 MG Tab PO SCH (20:44)
[2021-09-19] MEDS: Pantoprazole 40 MG Tab.CR PO SCH (20:44)
--- NOTE | 2021-09-20 14:04 | PCM.PN ---
- General Info Date of Service: 09/20/21 Subjective Update: Mr. Woods has remained stable since yesterday continues to require high flow oxygen at 15 L/min. Respiratory status has not changed significantly over the p ast several days. He feels modestly stronger and reports that his appetite is slightly improved. CRP has improved significantly over the past few days, D- dimer stable from last check. Functional Status: Reports: Tolerating Diet, Urinating. Denies: Ambulating - Review of Systems General: Reports: Weakness, Fatigue. Denies: Fever, Chills Pulmonary: Reports: Shortness of Breath, Cough. Denies: Pleuritic Chest Pain, Sputum, Hemoptysis, Wheezing Cardiovascular: Reports: Dyspnea on Exertion. Denies: Chest Pain, Palpitations, Orthopnea, PND, Edema, Lightheadedness Gastrointestinal: Reports: No Symptoms Genitourinary: Reports: No Symptoms - Patient Data Vitals - Most Recent: Last Vital Signs Temp 95.4 F L 09/20/21 10:27 Pulse 101 H 09/20/21 10:27 Resp 18 09/20/21 10:27 BP 126/65 09/20/21 10:27 Pulse Ox 93 L 09/20/21 10:27 Weight - Most Recent: 228 lb I&O - Last 24 Hours: Intake & Output 09/19/21 09/20/21 09/20/21 22:59 06:59 14:59 Intake Total 250 300 Output Total 225 300 250 Balance 25 -300 50 Lab Results Last 24 Hours: Laboratory Results - last 24 hr 09/20/21 09/20/21 09/20/21 Range/Units 04:42 04:42 04:42 WBC 6.8 (4.5-11.0) K/uL RBC 4.51 (4.30-5.90) M/uL Hgb 14.6 (12.0-15.0) g/dL Hct 42.9 (40.0-54.0) % MCV 95 (80-98) fL MCH 32 H (27-31) pg MCHC 34 (32-36) % Plt Count 218 (150-400) K/uL Neut % (Auto) 85.3 H (36-66) % Lymph % (Auto) 4.8 L (24-44) % [place] % (Auto) 9.7 H (2-6) % Eos % (Auto) 0.1 L (2-4) % Baso % (Auto) 0.1 (0-1) % D-Dimer, Quantitative 1242.11 H (0.0-500.0) ng/mL Sodium 143 (140-148) mmol/L Potassium 4.9 (3.6-5.2) mmol/L Chloride 108 (100-108) mmol/L Carbon Dioxide 27 (21-32) mmol/L Anion Gap 7.9 (5.0-14.0) mmol/L BUN 30 H (7-18) mg/dL Creatinine 1.1 (0.8-1.3) mg/dL Est Cr Clr Drug Dosing 49.10 mL/min Estimated GFR (MDRD) > 60 (>60) Glucose 137 H (74-106) mg/dL Calcium 8.3 L (8.5-10.1) mg/dL Total Bilirubin 0.9 (0.2-1.0) mg/dL AST 43 H (15-37) U/L ALT 43 (12-78) U/L Alkaline Phosphatase 135 H (46-116) U/L C-Reactive Protein (0.0-0.3) mg/dL Total Protein 5.6 L (6.4-8.2) g/dL Albumin 2.3 L (3.4-5.0) g/dL Globulin 3.3 (2.3-3.5) g/dL Albumin/Globulin Ratio 0.7 L (1.2-2.2) 09/20/21 Range/Units 04:42 WBC (4.5-11.0) K/uL RBC (4.30-5.90) M/uL Hgb (12.0-15.0) g/dL Hct (40.0-54.0) % MCV (80-98) fL MCH (27-31) pg MCHC (32-36) % Plt Count (150-400) K/uL Neut % (Auto) (36-66) % Lymph % (Auto) (24-44) % [place] % (Auto) (2-6) % Eos % (Auto) (2-4) % Baso % (Auto) (0-1) % D-Dimer, Quantitative (0.0-500.0) ng/mL Sodium (140-148) mmol/L Potassium (3.6-5.2) mmol/L Chloride (100-108) mmol/L Carbon Dioxide (21-32) mmol/L Anion Gap (5.0-14.0) mmol/L BUN (7-18) mg/dL Creatinine (0.8-1.3) mg/dL Est Cr Clr Drug Dosing mL/min Estimated GFR (MDRD) (>60) Glucose (74-106) mg/dL Calcium (8.5-10.1) mg/dL Total Bilirubin (0.2-1.0) mg/dL AST (15-37) U/L ALT (12-78) U/L Alkaline Phosphatase (46-116) U/L C-Reactive Protein 1.82 H (0.0-0.3) mg/dL Total Protein (6.4-8.2) g/dL Albumin (3.4-5.0) g/dL Globulin (2.3-3.5) g/dL Albumin/Globulin Ratio (1.2-2.2) Navin Results Last 24 Hours: Microbiology 09/14/21 19:45 Aerobic Blood Culture - Final Blood - Arm, Left NO GROWTH AFTER 5 DAYS Anaerobic Blood Culture - Final NO GROWTH AFTER 5 DAYS Med Orders - Current: Current Medications Acetaminophen (Acetaminophen 325 Mg Tab) 650 mg PO Q4H PRN PRN Reason: Fever Greater Than 101 Baricitinib (Baricitinib 2 Mg Tab) 2 mg PO DAILY [facility] Stop: 09/28/21 09:01 Last Admin: 09/20/21 09:12 Dose: 2 mg Documented by: Benzonatate (Benzonatate 100 Mg Cap) 100 mg PO Q8H PRN PRN Reason: Cough Bisacodyl (Bisacodyl 5 Mg Tab) 5 mg PO DAILY PRN PRN Reason: Constipation Dexamethasone (Dexamethasone 4 Mg/Ml Sdv) 6 mg IVPUSH BEDTIME [facility] Stop: 09/23/21 21:01 Last Admin: 09/19/21 20:43 Dose: 6 mg Documented by: Docusate Sodium (Docusate Sodium 100 Mg Cap) 100 mg PO BID PRN PRN Reason: Constipation Enoxaparin Sodium (Enoxaparin 40 Mg/0.4 Ml Syringe) 40 mg SUBCUT BEDTIME [facility] Last Admin: 09/19/21 20:43 Dose: 40 mg Documented by: Guaifenesin/Dextromethorphan (Guaifenesin/Dextromethorphan 100-10 Mg/5 Ml Soln 10 Ml Cup) 10 ml PO Q4H PRN PRN Reason: Cough Lorazepam (Lorazepam 2 Mg/Ml Sdv) 1 mg IV Q6H PRN PRN Reason: Nausea/Vomiting Melatonin (Melatonin 3 Mg Tab) 9 mg PO BEDTIME [facility] Last Admin: 09/19/21 20:44 Dose: 9 mg Documented by: Morphine Sulfate (Morphine 2 Mg/Ml Syringe) 2 mg IVPUSH Q2H PRN PRN Reason: Pain (severe 7-10) Ondansetron HCl (Ondansetron 4 Mg Tab.Dis) 4 mg PO Q6H PRN PRN Reason: Nausea able to take PO Oxycodone HCl (Oxycodone 5 Mg Tab) 5 mg PO Q4H PRN PRN Reason: Pain (moderate 4-6) Pantoprazole Sodium (Pantoprazole 40 Mg Tab.Cr) 40 mg PO BEDTIME [facility] Last Admin: 09/19/21 20:44 Dose: 40 mg Documented by: Sodium Chloride (Sodium Chloride 0.9% 10 Ml Syringe) 10 ml FLUSH ASDIRECTED PRN PRN Reason: Keep Vein Open Tamsulosin HCl (Tamsulosin 0.4 Mg Cap.Er) 0.4 mg PO BEDTIME [facility] Last Admin: 09/19/21 20:43 Dose: 0.4 mg Documented by: Discontinued Medications Dexamethasone (Dexamethasone 4 Mg/Ml Sdv) 6 mg IVPUSH DAILY [facility] Stop: 09/23/21 09:01 Last Admin: 09/14/21 22:13 Dose: 6 mg Documented by: Enoxaparin Sodium (Enoxaparin 40 Mg/0.4 Ml Syringe) 40 mg SUBCUT DAILY [facility] Last Admin: 09/14/21 21:31 Dose: 40 mg Documented by: Remdesivir 200 mg/ Sodium (Chloride) 250 mls @ 250 mls/hr IV ONETIME ONE Stop: 09/14/21 19:28 Last Admin: 09/14/21 21:31 Dose: 250 mls/hr Documented by: Remdesivir 100 mg/ Sodium (Chloride) 100 mls @ 100 mls/hr IV Q24H [facility] Stop: 09/18/21 09:59 Remdesivir 100 mg/ Sodium (Chloride) 100 mls @ 100 mls/hr IV BEDTIME [facility] Stop: 09/18/21 21:59 Last Admin: 09/18/21 22:21 Dose: 100 mls/hr Documented by: Influenza Virus Vaccine (Pharmacy To Dose - Influenza Vaccine) 1 each IM ONETIME ONE Stop: 09/14/21 21:57 Influenza Virus Vaccine (Flu Vacc [id number](65yr Up)/Pf 240 Mcg/0.7 Ml Syringe) 240 mcg IM .ONCE ONE Stop: 09/15/21 10:01 Last Admin: 09/15/21 10:52 Dose: Not Given Documented by: Pantoprazole Sodium (Pantoprazole 40 Mg Vial) 40 mg IVPUSH DAILY [facility] Last Admin: 09/14/21 22:13 Dose: 40 mg Documented by: - Exam Quality Assessment: Supplemental Oxygen, DVT Prophylaxis General: Alert, Oriented, Cooperative, Moderate Distress Lungs: Decreased Breath Sounds, Crackles. No: Rales, Rhonchi, Wheezing Cardiovascular: Regular Rate, Regular Rhythm, No Murmurs GI/Abdominal Exam: Soft, Non-Tender, No Organomegaly, No Distention Extremities: Non-Tender, No Pedal Edema - Patient Data Lab Results Last 24 hrs: Laboratory Results - last 24 hr 09/20/21 09/20/21 09/20/21 Range/Units 04:42 04:42 04:42 WBC 6.8 (4.5-11.0) K/uL RBC 4.51 (4.30-5.90) M/uL Hgb 14.6 (12.0-15.0) g/dL Hct 42.9 (40.0-54.0) % MCV 95 (80-98) fL MCH 32 H (27-31) pg MCHC 34 (32-36) % Plt Count 218 (150-400) K/uL Neut % (Auto) 85.3 H (36-66) % Lymph % (Auto) 4.8 L (24-44) % [place] % (Auto) 9.7 H (2-6) % Eos % (Auto) 0.1 L (2-4) % Baso % (Auto) 0.1 (0-1) % D-Dimer, Quantitative 1242.11 H (0.0-500.0) ng/mL Sodium 143 (140-148) mmol/L Potassium 4.9 (3.6-5.2) mmol/L Chloride 108 (100-108) mmol/L Carbon Dioxide 27 (21-32) mmol/L Anion Gap 7.9 (5.0-14.0) mmol/L BUN 30 H (7-18) mg/dL Creatinine 1.1 (0.8-1.3) mg/dL Est Cr Clr Drug Dosing 49.10 mL/min Estimated GFR (MDRD) > 60 (>60) Glucose 137 H (74-106) mg/dL Calcium 8.3 L (8.5-10.1) mg/dL Total Bilirubin 0.9 (0.2-1.0) mg/dL AST 43 H (15-37) U/L ALT 43 (12-78) U/L Alkaline Phosphatase 135 H (46-116) U/L C-Reactive Protein (0.0-0.3) mg/dL Total Protein 5.6 L (6.4-8.2) g/dL Albumin 2.3 L (3.4-5.0) g/dL Globulin 3.3 (2.3-3.5) g/dL Albumin/Globulin Ratio 0.7 L (1.2-2.2) 09/20/21 Range/Units 04:42 WBC (4.5-11.0) K/uL RBC (4.30-5.90) M/uL Hgb (12.0-15.0) g/dL Hct (40.0-54.0) % MCV (80-98) fL MCH (27-31) pg MCHC (32-36) % Plt Count (150-400) K/uL Neut % (Auto) (36-66) % Lymph % (Auto) (24-44) % [place] % (Auto) (2-6) % Eos % (Auto) (2-4) % Baso % (Auto) (0-1) % D-Dimer, Quantitative (0.0-500.0) ng/mL Sodium (140-148) mmol/L Potassium (3.6-5.2) mmol/L Chloride (100-108) mmol/L Carbon Dioxide (21-32) mmol/L Anion Gap (5.0-14.0) mmol/L BUN (7-18) mg/dL Creatinine (0.8-1.3) mg/dL Est Cr Clr Drug Dosing mL/min Estimated GFR (MDRD) (>60) Glucose (74-106) mg/dL Calcium (8.5-10.1) mg/dL Total Bilirubin (0.2-1.0) mg/dL AST (15-37) U/L ALT (12-78) U/L Alkaline Phosphatase (46-116) U/L C-Reactive Protein 1.82 H (0.0-0.3) mg/dL Total Protein (6.4-8.2) g/dL Albumin (3.4-5.0) g/dL Globulin (2.3-3.5) g/dL Albumin/Globulin Ratio (1.2-2.2) Result Diagrams: 09/20/21 04:42 09/20/21 04:42 Navin Results Last 24 hrs: Microbiology 09/14/21 19:45 Aerobic Blood Culture - Final Blood - Arm, Left NO GROWTH AFTER 5 DAYS Anaerobic Blood Culture - Final NO GROWTH AFTER 5 DAYS Sepsis Event Note - Evaluation Sepsis Screening Result: No Definite Risk - Focused Exam Vital Signs: Vital Signs Temp Pulse Resp BP BP Pulse Ox 09/20/21 10:27 95.4 F L 101 H 18 126/65 93 L 09/20/21 07:19 86 L 09/20/21 06:45 96.5 F L 68 18 122/49 L 88 L 09/20/21 02:33 96.6 F L 56 L 18 119/62 92 L - Problem List Review Problem List Initiated/Reviewed/Updated: Yes - Plan Plan:: ASSESSMENT AND PLAN - COVID-19 pneumonia-complicated by acute respiratory failure with hypoxia and weakness. Supplemental oxygen requirements stable but requiring 15 L via high flow nasal cannula. Symptomatically feeling better. 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 -fall risk -Melatonin at bedtime Maintenance issues - - DVT prophylaxis -enoxaparin - GI prophylaxis -PPI - Nutrition - regular diet Disposition -anticipate discharge to subacute rehab after the hospital stay
[2021-09-20] MEDS: Melatonin 3 MG Tab PO SCH (20:36)
[2021-09-20] MEDS: Pantoprazole 40 MG Tab.CR PO SCH (20:36)
[2021-09-20] MEDS: Tamsulosin 0.4 MG Cap.ER PO SCH (20:37)
[2021-09-20] MEDS: Enoxaparin 40 MG/0.4 ML Syringe SUBCUT SCH (20:37)
[2021-09-20] MEDS: Dexamethasone 4 MG/ML SDV IVPUSH SCH (20:37)
[2021-09-21] MEDS ORDERED: Morphine 2 MG/ML SYRINGE IVPUSH PRN (05:47)
--- NOTE | 2021-09-21 13:21 | PCM.PN ---
- General Info Date of Service: 09/21/21 Subjective Update: Mr. Woods level of supplemental oxygen at 15 L/min via high flow nasal cannula. Subjectively feels somewhat stronger with slowly improving appetite. He does get short of breath with fairly minimal exertion but is otherwise relatively comfortable. Functional Status: Reports: Tolerating Diet, Urinating. Denies: Ambulating - Review of Systems General: Reports: Weakness, Fatigue. Denies: Fever, Chills Pulmonary: Reports: Shortness of Breath, Cough. Denies: Pleuritic Chest Pain, Sputum, Hemoptysis, Wheezing Cardiovascular: Reports: Dyspnea on Exertion. Denies: Chest Pain, Palpitations, Orthopnea, PND, Edema, Lightheadedness Gastrointestinal: Reports: No Symptoms Genitourinary: Reports: No Symptoms - Patient Data Vitals - Most Recent: Last Vital Signs Temp 96.4 F L 09/21/21 11:39 Pulse 85 09/21/21 11:39 Resp 18 09/21/21 11:39 BP 120/77 09/21/21 11:39 Pulse Ox 96 09/21/21 11:39 Weight - Most Recent: 228 lb I&O - Last 24 Hours: Intake & Output 09/20/21 09/21/21 09/21/21 22:59 06:59 14:59 Intake Total 250 250 Output Total 200 180 130 Balance -200 70 120 Med Orders - Current: Current Medications Acetaminophen (Acetaminophen 325 Mg Tab) 650 mg PO Q4H PRN PRN Reason: Fever Greater Than 101 Baricitinib (Baricitinib 2 Mg Tab) 2 mg PO DAILY [facility] Stop: 09/28/21 09:01 Last Admin: 09/21/21 08:24 Dose: 2 mg Documented by: Benzonatate (Benzonatate 100 Mg Cap) 100 mg PO Q8H PRN PRN Reason: Cough Bisacodyl (Bisacodyl 5 Mg Tab) 5 mg PO DAILY PRN PRN Reason: Constipation Dexamethasone (Dexamethasone 4 Mg/Ml Sdv) 6 mg IVPUSH BEDTIME [facility] Stop: 09/23/21 21:01 Last Admin: 09/20/21 20:37 Dose: 6 mg Documented by: Docusate Sodium (Docusate Sodium 100 Mg Cap) 100 mg PO BID PRN PRN Reason: Constipation Enoxaparin Sodium (Enoxaparin 40 Mg/0.4 Ml Syringe) 40 mg SUBCUT BEDTIME [facility] Last Admin: 09/20/21 20:37 Dose: 40 mg Documented by: Guaifenesin/Dextromethorphan (Guaifenesin/Dextromethorphan 100-10 Mg/5 Ml Soln 10 Ml Cup) 10 ml PO Q4H PRN PRN Reason: Cough Lorazepam (Lorazepam 2 Mg/Ml Sdv) 1 mg IV Q6H PRN PRN Reason: Nausea/Vomiting Melatonin (Melatonin 3 Mg Tab) 9 mg PO BEDTIME [facility] Last Admin: 09/20/21 20:36 Dose: 9 mg Documented by: Morphine Sulfate (Morphine 2 Mg/Ml Syringe) 2 mg IVPUSH Q2H PRN PRN Reason: Pain (rohit 7-10) or Air Hunger Ondansetron HCl (Ondansetron 4 Mg Tab.Dis) 4 mg PO Q6H PRN PRN Reason: Nausea able to take PO Oxycodone HCl (Oxycodone 5 Mg Tab) 5 mg PO Q4H PRN PRN Reason: Pain (moderate 4-6) Pantoprazole Sodium (Pantoprazole 40 Mg Tab.Cr) 40 mg PO BEDTIME [facility] Last Admin: 09/20/21 20:36 Dose: 40 mg Documented by: Sodium Chloride (Sodium Chloride 0.9% 10 Ml Syringe) 10 ml FLUSH ASDIRECTED PRN PRN Reason: Keep Vein Open Tamsulosin HCl (Tamsulosin 0.4 Mg Cap.Er) 0.4 mg PO BEDTIME [facility] Last Admin: 09/20/21 20:37 Dose: 0.4 mg Documented by: Discontinued Medications Dexamethasone (Dexamethasone 4 Mg/Ml Sdv) 6 mg IVPUSH DAILY [facility] Stop: 09/23/21 09:01 Last Admin: 09/14/21 22:13 Dose: 6 mg Documented by: Enoxaparin Sodium (Enoxaparin 40 Mg/0.4 Ml Syringe) 40 mg SUBCUT DAILY [facility] Last Admin: 09/14/21 21:31 Dose: 40 mg Documented by: Remdesivir 200 mg/ Sodium (Chloride) 250 mls @ 250 mls/hr IV ONETIME ONE Stop: 09/14/21 19:28 Last Admin: 09/14/21 21:31 Dose: 250 mls/hr Documented by: Remdesivir 100 mg/ Sodium (Chloride) 100 mls @ 100 mls/hr IV Q24H [facility] Stop: 09/18/21 09:59 Remdesivir 100 mg/ Sodium (Chloride) 100 mls @ 100 mls/hr IV BEDTIME [facility] Stop: 09/18/21 21:59 Last Admin: 09/18/21 22:21 Dose: 100 mls/hr Documented by: Influenza Virus Vaccine (Pharmacy To Dose - Influenza Vaccine) 1 each IM ONETIME ONE Stop: 09/14/21 21:57 Influenza Virus Vaccine (Flu Vacc [id number](65yr Up)/Pf 240 Mcg/0.7 Ml Syringe) 240 mcg IM .ONCE ONE Stop: 09/15/21 10:01 Last Admin: 09/15/21 10:52 Dose: Not Given Documented by: Morphine Sulfate (Morphine 2 Mg/Ml Syringe) 2 mg IVPUSH Q2H PRN PRN Reason: AIR HUNGER Pantoprazole Sodium (Pantoprazole 40 Mg Vial) 40 mg IVPUSH DAILY [facility] Last Admin: 09/14/21 22:13 Dose: 40 mg Documented by: - Exam Quality Assessment: Supplemental Oxygen, DVT Prophylaxis General: Alert, Oriented, Cooperative, Moderate Distress Lungs: Decreased Breath Sounds, Crackles. No: Rales, Rhonchi, Wheezing Cardiovascular: Regular Rate, Regular Rhythm, No Murmurs GI/Abdominal Exam: Soft, Non-Tender, No Organomegaly, No Distention Extremities: Non-Tender, No Pedal Edema - Patient Data Result Diagrams: 09/20/21 04:42 09/20/21 04:42 Sepsis Event Note - Evaluation Sepsis Screening Result: No Definite Risk - Focused Exam Vital Signs: Vital Signs Temp Pulse Resp BP BP Pulse Ox 09/21/21 11:39 96.4 F L 85 18 120/77 96 09/21/21 10:07 95.5 F L 85 18 112/66 95 09/21/21 08:04 96.6 F L 70 18 125/69 90 L 09/21/21 03:00 97.7 F 80 20 108/84 88 L - Problem List Review Problem List Initiated/Reviewed/Updated: Yes - My Orders Last 24 Hours: My Active Orders 09/22/21 05:00 CBC WITH AUTO DIFF [HEME] Timed COMPREHENSIVE METABOLIC PN,CMP [CHEM] Timed 09/22/21 05:11 CRP [C-REACTIVE PROTEIN] [CHEM] AM D Dimer [D-DIMER QUANTITATIVE] [COAG] AM - Plan Plan:: ASSESSMENT AND PLAN - COVID-19 pneumonia-complicated by acute respiratory failure with hypoxia and weakness. Supplemental oxygen requirements stable but requiring 15 L via high flow nasal cannula. Symptomatically feeling better. 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 -fall risk -Melatonin at bedtime Maintenance issues - - DVT prophylaxis -enoxaparin - GI prophylaxis -PPI - Nutrition - regular diet Disposition -anticipate discharge to subacute rehab after the hospital stay
[2021-09-21] MEDS: Pantoprazole 40 MG Tab.CR PO SCH (21:15)
[2021-09-21] MEDS: Melatonin 3 MG Tab PO SCH (21:16)
[2021-09-21] MEDS: Dexamethasone 4 MG/ML SDV IVPUSH SCH (21:16)
[2021-09-21] MEDS: Tamsulosin 0.4 MG Cap.ER PO SCH (21:16)
[2021-09-21] MEDS: Enoxaparin 40 MG/0.4 ML Syringe SUBCUT SCH (21:16)
--- NOTE | 2021-09-22 13:40 | PCM.PN ---
- General Info Date of Service: 09/22/21 Subjective Update: Mr. Woods has felt improved over the last 24 hours with increased strength. Oxygen requirements have remained unchanged since yesterday, currently at 15 L/m in via high flow nasal cannula. Functional Status: Reports: Tolerating Diet, Urinating. Denies: Ambulating - Review of Systems General: Reports: Weakness, Fatigue. Denies: Fever, Chills Pulmonary: Reports: Shortness of Breath, Cough. Denies: Pleuritic Chest Pain, Sputum, Hemoptysis, Wheezing Cardiovascular: Reports: Dyspnea on Exertion. Denies: Chest Pain, Palpitations, Orthopnea, PND, Edema, Lightheadedness Gastrointestinal: Reports: No Symptoms Genitourinary: Reports: No Symptoms - Patient Data Vitals - Most Recent: Last Vital Signs Temp 95.6 F L 09/22/21 10:19 Pulse 75 09/22/21 10:19 Resp 30 H 09/22/21 10:19 BP 116/64 09/22/21 10:19 Pulse Ox 22 L 09/22/21 10:19 Weight - Most Recent: 228 lb I&O - Last 24 Hours: Intake & Output 09/21/21 09/22/21 09/22/21 22:59 06:59 14:59 Intake Total 360 500 120 Output Total 325 125 200 Balance 35 375 -80 Lab Results Last 24 Hours: Laboratory Results - last 24 hr 09/22/21 09/22/21 09/22/21 Range/Units 05:30 05:30 05:30 WBC 7.9 (4.5-11.0) K/uL RBC 4.58 (4.30-5.90) M/uL Hgb 14.7 (12.0-15.0) g/dL Hct 43.8 (40.0-54.0) % MCV 96 (80-98) fL MCH 32 H (27-31) pg MCHC 34 (32-36) % Plt Count 278 (150-400) K/uL Neut % (Auto) 85.3 H (36-66) % Lymph % (Auto) 3.5 L (24-44) % Saunders % (Auto) 11.1 H (2-6) % Eos % (Auto) 0.1 L (2-4) % Baso % (Auto) 0.0 (0-1) % D-Dimer, Quantitative 947.39 H (0.0-500.0) ng/mL Sodium 143 (140-148) mmol/L Potassium 5.0 (3.6-5.2) mmol/L Chloride 108 (100-108) mmol/L Carbon Dioxide 28 (21-32) mmol/L Anion Gap 7.5 (5.0-14.0) mmol/L BUN 30 H (7-18) mg/dL Creatinine 1.2 (0.8-1.3) mg/dL Est Cr Clr Drug Dosing 45.01 mL/min Estimated GFR (MDRD) 58 L (>60) Glucose 138 H (74-106) mg/dL Calcium 8.2 L (8.5-10.1) mg/dL Total Bilirubin 0.9 (0.2-1.0) mg/dL AST 28 (15-37) U/L ALT 36 (12-78) U/L Alkaline Phosphatase 146 H (46-116) U/L C-Reactive Protein (0.0-0.3) mg/dL Total Protein 5.5 L (6.4-8.2) g/dL Albumin 2.3 L (3.4-5.0) g/dL Globulin 3.2 (2.3-3.5) g/dL Albumin/Globulin Ratio 0.7 L (1.2-2.2) 09/22/21 Range/Units 05:30 WBC (4.5-11.0) K/uL RBC (4.30-5.90) M/uL Hgb (12.0-15.0) g/dL Hct (40.0-54.0) % MCV (80-98) fL MCH (27-31) pg MCHC (32-36) % Plt Count (150-400) K/uL Neut % (Auto) (36-66) % Lymph % (Auto) (24-44) % Saunders % (Auto) (2-6) % Eos % (Auto) (2-4) % Baso % (Auto) (0-1) % D-Dimer, Quantitative (0.0-500.0) ng/mL Sodium (140-148) mmol/L Potassium (3.6-5.2) mmol/L Chloride (100-108) mmol/L Carbon Dioxide (21-32) mmol/L Anion Gap (5.0-14.0) mmol/L BUN (7-18) mg/dL Creatinine (0.8-1.3) mg/dL Est Cr Clr Drug Dosing mL/min Estimated GFR (MDRD) (>60) Glucose (74-106) mg/dL Calcium (8.5-10.1) mg/dL Total Bilirubin (0.2-1.0) mg/dL AST (15-37) U/L ALT (12-78) U/L Alkaline Phosphatase (46-116) U/L C-Reactive Protein 2.40 H (0.0-0.3) mg/dL Total Protein (6.4-8.2) g/dL Albumin (3.4-5.0) g/dL Globulin (2.3-3.5) g/dL Albumin/Globulin Ratio (1.2-2.2) Med Orders - Current: Current Medications Acetaminophen (Acetaminophen 325 Mg Tab) 650 mg PO Q4H PRN PRN Reason: Fever Greater Than 101 Baricitinib (Baricitinib 2 Mg Tab) 2 mg PO DAILY [facility] Stop: 09/28/21 09:01 Last Admin: 09/22/21 08:29 Dose: 2 mg Documented by: Benzonatate (Benzonatate 100 Mg Cap) 100 mg PO Q8H PRN PRN Reason: Cough Bisacodyl (Bisacodyl 5 Mg Tab) 5 mg PO DAILY PRN PRN Reason: Constipation Dexamethasone (Dexamethasone 4 Mg/Ml Sdv) 6 mg IVPUSH BEDTIME [facility] Stop: 09/23/21 21:01 Last Admin: 09/21/21 21:16 Dose: 6 mg Documented by: Docusate Sodium (Docusate Sodium 100 Mg Cap) 100 mg PO BID PRN PRN Reason: Constipation Enoxaparin Sodium (Enoxaparin 40 Mg/0.4 Ml Syringe) 40 mg SUBCUT BEDTIME [facility] Last Admin: 09/21/21 21:16 Dose: 40 mg Documented by: Guaifenesin/Dextromethorphan (Guaifenesin/Dextromethorphan 100-10 Mg/5 Ml Soln 10 Ml Cup) 10 ml PO Q4H PRN PRN Reason: Cough Lorazepam (Lorazepam 2 Mg/Ml Sdv) 1 mg IV Q6H PRN PRN Reason: Nausea/Vomiting Melatonin (Melatonin 3 Mg Tab) 9 mg PO BEDTIME [facility] Last Admin: 09/21/21 21:16 Dose: 9 mg Documented by: Morphine Sulfate (Morphine 2 Mg/Ml Syringe) 2 mg IVPUSH Q2H PRN PRN Reason: Pain (rohit 7-10) or Air Hunger Ondansetron HCl (Ondansetron 4 Mg Tab.Dis) 4 mg PO Q6H PRN PRN Reason: Nausea able to take PO Oxycodone HCl (Oxycodone 5 Mg Tab) 5 mg PO Q4H PRN PRN Reason: Pain (moderate 4-6) Pantoprazole Sodium (Pantoprazole 40 Mg Tab.Cr) 40 mg PO BEDTIME [facility] Last Admin: 09/21/21 21:15 Dose: 40 mg Documented by: Sodium Chloride (Sodium Chloride 0.9% 10 Ml Syringe) 10 ml FLUSH ASDIRECTED PRN PRN Reason: Keep Vein Open Tamsulosin HCl (Tamsulosin 0.4 Mg Cap.Er) 0.4 mg PO BEDTIME [facility] Last Admin: 09/21/21 21:16 Dose: 0.4 mg Documented by: Discontinued Medications Dexamethasone (Dexamethasone 4 Mg/Ml Sdv) 6 mg IVPUSH DAILY [facility] Stop: 09/23/21 09:01 Last Admin: 09/14/21 22:13 Dose: 6 mg Documented by: Enoxaparin Sodium (Enoxaparin 40 Mg/0.4 Ml Syringe) 40 mg SUBCUT DAILY [facility] Last Admin: 09/14/21 21:31 Dose: 40 mg Documented by: Remdesivir 200 mg/ Sodium (Chloride) 250 mls @ 250 mls/hr IV ONETIME ONE Stop: 09/14/21 19:28 Last Admin: 09/14/21 21:31 Dose: 250 mls/hr Documented by: Remdesivir 100 mg/ Sodium (Chloride) 100 mls @ 100 mls/hr IV Q24H [facility] Stop: 09/18/21 09:59 Remdesivir 100 mg/ Sodium (Chloride) 100 mls @ 100 mls/hr IV BEDTIME [facility] Stop: 09/18/21 21:59 Last Admin: 09/18/21 22:21 Dose: 100 mls/hr Documented by: Influenza Virus Vaccine (Pharmacy To Dose - Influenza Vaccine) 1 each IM ONETIME ONE Stop: 09/14/21 21:57 Influenza Virus Vaccine (Flu Vacc [id number](65yr Up)/Pf 240 Mcg/0.7 Ml Syringe) 240 mcg IM .ONCE ONE Stop: 09/15/21 10:01 Last Admin: 09/15/21 10:52 Dose: Not Given Documented by: Morphine Sulfate (Morphine 2 Mg/Ml Syringe) 2 mg IVPUSH Q2H PRN PRN Reason: AIR HUNGER Pantoprazole Sodium (Pantoprazole 40 Mg Vial) 40 mg IVPUSH DAILY [facility] Last Admin: 09/14/21 22:13 Dose: 40 mg Documented by: - Exam Quality Assessment: Supplemental Oxygen, DVT Prophylaxis General: Alert, Oriented, Cooperative, Moderate Distress Lungs: Decreased Breath Sounds, Crackles. No: Rales, Rhonchi, Wheezing Cardiovascular: Regular Rate, Regular Rhythm, No Murmurs GI/Abdominal Exam: Soft, Non-Tender, No Organomegaly, No Distention Extremities: Non-Tender, No Pedal Edema - Patient Data Lab Results Last 24 hrs: Laboratory Results - last 24 hr 09/22/21 09/22/21 09/22/21 Range/Units 05:30 05:30 05:30 WBC 7.9 (4.5-11.0) K/uL RBC 4.58 (4.30-5.90) M/uL Hgb 14.7 (12.0-15.0) g/dL Hct 43.8 (40.0-54.0) % MCV 96 (80-98) fL MCH 32 H (27-31) pg MCHC 34 (32-36) % Plt Count 278 (150-400) K/uL Neut % (Auto) 85.3 H (36-66) % Lymph % (Auto) 3.5 L (24-44) % Saunders % (Auto) 11.1 H (2-6) % Eos % (Auto) 0.1 L (2-4) % Baso % (Auto) 0.0 (0-1) % D-Dimer, Quantitative 947.39 H (0.0-500.0) ng/mL Sodium 143 (140-148) mmol/L Potassium 5.0 (3.6-5.2) mmol/L Chloride 108 (100-108) mmol/L Carbon Dioxide 28 (21-32) mmol/L Anion Gap 7.5 (5.0-14.0) mmol/L BUN 30 H (7-18) mg/dL Creatinine 1.2 (0.8-1.3) mg/dL Est Cr Clr Drug Dosing 45.01 mL/min Estimated GFR (MDRD) 58 L (>60) Glucose 138 H (74-106) mg/dL Calcium 8.2 L (8.5-10.1) mg/dL Total Bilirubin 0.9 (0.2-1.0) mg/dL AST 28 (15-37) U/L ALT 36 (12-78) U/L Alkaline Phosphatase 146 H (46-116) U/L C-Reactive Protein (0.0-0.3) mg/dL Total Protein 5.5 L (6.4-8.2) g/dL Albumin 2.3 L (3.4-5.0) g/dL Globulin 3.2 (2.3-3.5) g/dL Albumin/Globulin Ratio 0.7 L (1.2-2.2) 09/22/21 Range/Units 05:30 WBC (4.5-11.0) K/uL RBC (4.30-5.90) M/uL Hgb (12.0-15.0) g/dL Hct (40.0-54.0) % MCV (80-98) fL MCH (27-31) pg MCHC (32-36) % Plt Count (150-400) K/uL Neut % (Auto) (36-66) % Lymph % (Auto) (24-44) % Saunders % (Auto) (2-6) % Eos % (Auto) (2-4) % Baso % (Auto) (0-1) % D-Dimer, Quantitative (0.0-500.0) ng/mL Sodium (140-148) mmol/L Potassium (3.6-5.2) mmol/L Chloride (100-108) mmol/L Carbon Dioxide (21-32) mmol/L Anion Gap (5.0-14.0) mmol/L BUN (7-18) mg/dL Creatinine (0.8-1.3) mg/dL Est Cr Clr Drug Dosing mL/min Estimated GFR (MDRD) (>60) Glucose (74-106) mg/dL Calcium (8.5-10.1) mg/dL Total Bilirubin (0.2-1.0) mg/dL AST (15-37) U/L ALT (12-78) U/L Alkaline Phosphatase (46-116) U/L C-Reactive Protein 2.40 H (0.0-0.3) mg/dL Total Protein (6.4-8.2) g/dL Albumin (3.4-5.0) g/dL Globulin (2.3-3.5) g/dL Albumin/Globulin Ratio (1.2-2.2) Result Diagrams: 09/22/21 05:30 09/22/21 05:30 Sepsis Event Note - Evaluation Sepsis Screening Result: No Definite Risk - Focused Exam Vital Signs: Vital Signs Temp Pulse Resp BP BP Pulse Ox 09/22/21 10:19 95.6 F L 75 30 H 116/64 22 L 09/22/21 08:43 88 L 09/22/21 07:47 95.4 F L 80 20 147/66 H 95 09/22/21 03:52 96.8 F L 66 20 102/55 L 96 - Problem List Review Problem List Initiated/Reviewed/Updated: Yes - Plan Plan:: ASSESSMENT AND PLAN - COVID-19 pneumonia-complicated by acute respiratory failure with hypoxia and weakness. Supplemental oxygen requirements stable but requiring 15 L via high flow nasal cannula. Symptomatically feeling better. 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 -fall risk -Melatonin at bedtime Maintenance issues - - DVT prophylaxis -enoxaparin - GI prophylaxis -PPI - Nutrition - regular diet Disposition -anticipate discharge to subacute rehab after the hospital stay
[2021-09-22] MEDS: Enoxaparin 40 MG/0.4 ML Syringe SUBCUT SCH (19:59)
[2021-09-22] MEDS: Dexamethasone 4 MG/ML SDV IVPUSH SCH (20:01)
[2021-09-22] MEDS: Melatonin 3 MG Tab PO SCH (20:06)
[2021-09-22] MEDS: Tamsulosin 0.4 MG Cap.ER PO SCH (20:06)
[2021-09-22] MEDS: Pantoprazole 40 MG Tab.CR PO SCH (20:08)
--- NOTE | 2021-09-23 11:02 | PCM.PN ---
- General Info Date of Service: 09/23/21 Subjective Update: Mr. Woods wire high level of supplemental oxygen, unchanged over the past several days. Although he is not experienced significant improvement in respiratory status there has been no significant worsening. Saturations are adequate at rest but he does desaturate with activity. Continues to experience cough although it is much better than it had been previously. Functional Status: Reports: Urinating. Denies: Tolerating Diet - Review of Systems General: Reports: Weakness, Fatigue. Denies: Fever, Chills Pulmonary: Reports: Shortness of Breath, Cough. Denies: Pleuritic Chest Pain, Sputum, Hemoptysis, Wheezing Cardiovascular: Reports: Dyspnea on Exertion. Denies: Chest Pain, Palpitations, Orthopnea, PND, Edema, Lightheadedness Gastrointestinal: Reports: No Symptoms Genitourinary: Reports: No Symptoms - Patient Data Vitals - Most Recent: Last Vital Signs Temp 95.4 F L 09/23/21 10:55 Pulse 72 09/23/21 08:46 Resp 20 09/23/21 10:55 BP 97/61 09/23/21 10:55 Pulse Ox 91 L 09/23/21 10:55 Weight - Most Recent: 228 lb I&O - Last 24 Hours: Intake & Output 09/22/21 09/23/21 09/23/21 22:59 06:59 14:59 Intake Total 320 120 Output Total 400 150 75 Balance -80 -150 45 Med Orders - Current: Current Medications Acetaminophen (Acetaminophen 325 Mg Tab) 650 mg PO Q4H PRN PRN Reason: Fever Greater Than 101 Baricitinib (Baricitinib 2 Mg Tab) 2 mg PO DAILY [facility] Stop: 09/28/21 09:01 Last Admin: 09/23/21 08:51 Dose: 2 mg Documented by: Benzonatate (Benzonatate 100 Mg Cap) 100 mg PO Q8H PRN PRN Reason: Cough Bisacodyl (Bisacodyl 5 Mg Tab) 5 mg PO DAILY PRN PRN Reason: Constipation Dexamethasone (Dexamethasone 4 Mg/Ml Sdv) 6 mg IVPUSH BEDTIME [facility] Stop: 09/23/21 21:01 Last Admin: 09/22/21 20:01 Dose: 6 mg Documented by: Docusate Sodium (Docusate Sodium 100 Mg Cap) 100 mg PO BID PRN PRN Reason: Constipation Enoxaparin Sodium (Enoxaparin 40 Mg/0.4 Ml Syringe) 40 mg SUBCUT BEDTIME [facility] Last Admin: 09/22/21 19:59 Dose: 40 mg Documented by: Guaifenesin/Dextromethorphan (Guaifenesin/Dextromethorphan 100-10 Mg/5 Ml Soln 10 Ml Cup) 10 ml PO Q4H PRN PRN Reason: Cough Lorazepam (Lorazepam 2 Mg/Ml Sdv) 1 mg IV Q6H PRN PRN Reason: Nausea/Vomiting Melatonin (Melatonin 3 Mg Tab) 9 mg PO BEDTIME [facility] Last Admin: 09/22/21 20:06 Dose: 9 mg Documented by: Morphine Sulfate (Morphine 2 Mg/Ml Syringe) 2 mg IVPUSH Q2H PRN PRN Reason: Pain (rohit 7-10) or Air Hunger Ondansetron HCl (Ondansetron 4 Mg Tab.Dis) 4 mg PO Q6H PRN PRN Reason: Nausea able to take PO Oxycodone HCl (Oxycodone 5 Mg Tab) 5 mg PO Q4H PRN PRN Reason: Pain (moderate 4-6) Pantoprazole Sodium (Pantoprazole 40 Mg Tab.Cr) 40 mg PO BEDTIME [facility] Last Admin: 09/22/21 20:08 Dose: 40 mg Documented by: Sodium Chloride (Sodium Chloride 0.9% 10 Ml Syringe) 10 ml FLUSH ASDIRECTED PRN PRN Reason: Keep Vein Open Tamsulosin HCl (Tamsulosin 0.4 Mg Cap.Er) 0.4 mg PO BEDTIME [facility] Last Admin: 09/22/21 20:06 Dose: 0.4 mg Documented by: Discontinued Medications Dexamethasone (Dexamethasone 4 Mg/Ml Sdv) 6 mg IVPUSH DAILY [facility] Stop: 09/23/21 09:01 Last Admin: 09/14/21 22:13 Dose: 6 mg Documented by: Enoxaparin Sodium (Enoxaparin 40 Mg/0.4 Ml Syringe) 40 mg SUBCUT DAILY [facility] Last Admin: 09/14/21 21:31 Dose: 40 mg Documented by: Remdesivir 200 mg/ Sodium (Chloride) 250 mls @ 250 mls/hr IV ONETIME ONE Stop: 09/14/21 19:28 Last Admin: 09/14/21 21:31 Dose: 250 mls/hr Documented by: Remdesivir 100 mg/ Sodium (Chloride) 100 mls @ 100 mls/hr IV Q24H [facility] Stop: 09/18/21 09:59 Remdesivir 100 mg/ Sodium (Chloride) 100 mls @ 100 mls/hr IV BEDTIME [facility] Stop: 09/18/21 21:59 Last Admin: 09/18/21 22:21 Dose: 100 mls/hr Documented by: Influenza Virus Vaccine (Pharmacy To Dose - Influenza Vaccine) 1 each IM ONETIM E ONE Stop: 09/14/21 21:57 Influenza Virus Vaccine (Flu Vacc [id number](65yr Up)/Pf 240 Mcg/0.7 Ml Syringe) 240 mcg IM .ONCE ONE Stop: 09/15/21 10:01 Last Admin: 09/15/21 10:52 Dose: Not Given Documented by: Morphine Sulfate (Morphine 2 Mg/Ml Syringe) 2 mg IVPUSH Q2H PRN PRN Reason: AIR HUNGER Pantoprazole Sodium (Pantoprazole 40 Mg Vial) 40 mg IVPUSH DAILY [facility] Last Admin: 09/14/21 22:13 Dose: 40 mg Documented by: - Exam Quality Assessment: Supplemental Oxygen, DVT Prophylaxis General: Alert, Oriented, Cooperative, Moderate Distress Lungs: Decreased Breath Sounds, Crackles. No: Rales, Rhonchi, Wheezing Cardiovascular: Regular Rate, Regular Rhythm, No Murmurs GI/Abdominal Exam: Soft, Non-Tender, No Organomegaly, No Distention Extremities: Non-Tender, No Pedal Edema - Patient Data Result Diagrams: 09/22/21 05:30 09/22/21 05:30 Sepsis Event Note - Evaluation Sepsis Screening Result: Possible Sepsis Risk - Focused Exam Vital Signs: Vital Signs Temp Pulse Resp BP Pulse Ox 09/23/21 10:55 95.4 F L 20 97/61 91 L 09/23/21 08:46 95.7 F L 72 18 139/91 H 89 L 09/23/21 08:00 92 L 09/23/21 06:48 95 09/23/21 03:00 97.8 F 74 18 123/81 88 L 09/22/21 23:39 97.5 F 69 16 123/56 L 88 L - Problem List Review Problem List Initiated/Reviewed/Updated: Yes - My Orders Last 24 Hours: My Active Orders 09/23/21 10:56 Furosemide [Lasix] 20 mg IVPUSH NOW ONE 09/24/21 05:00 CBC WITH AUTO DIFF [HEME] Timed COMPREHENSIVE METABOLIC PN,CMP [CHEM] Timed 09/24/21 05:11 CRP [C-REACTIVE PROTEIN] [CHEM] AM D Dimer [D-DIMER QUANTITATIVE] [COAG] AM - Plan Plan:: ASSESSMENT AND PLAN - COVID-19 pneumonia-complicated by acute respiratory failure with hypoxia and weakness. Supplemental oxygen requirements stable but requiring 15 L via high flow nasal cannula. Symptomatically feeling better. -supplemental oxygen as needed, wean as able -Covid precautions and isolation -Prone ventilation as possible -Dexamethasone 6 mg po daily (day 10) -Continue baricitinib (day 9) -Enoxaparin 40 mg every 24 hours -Albuterol inhaler 2 puffs every 4 hours as needed for shortness of breath -IV Remdesivir x5 days, completed -Labs every couple of days -oxygen therapy to keep oxygen saturation >90% -Furosemide 20 mg IV today, reassess in a.m. 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 -fall risk -Melatonin at bedtime Maintenance issues - - DVT prophylaxis -enoxaparin - GI prophylaxis -PPI - Nutrition - regular diet Disposition -anticipate discharge to subacute rehab after the hospital stay
[2021-09-23] MEDS ORDERED: Furosemide 20 MG/2 ML VIAL IVPUSH ONE (11:15)
[2021-09-23] MEDS: Dexamethasone 4 MG/ML SDV IVPUSH SCH (21:30)
[2021-09-23] MEDS: Pantoprazole 40 MG Tab.CR PO SCH (21:32)
[2021-09-23] MEDS: Tamsulosin 0.4 MG Cap.ER PO SCH (21:32)
[2021-09-23] MEDS: Enoxaparin 40 MG/0.4 ML Syringe SUBCUT SCH (21:32)
[2021-09-23] MEDS: Melatonin 3 MG Tab PO SCH (21:32)
[2021-09-24] MEDS ORDERED: Furosemide 40 MG/4 ML VIAL IVPUSH ONE (13:37)
--- NOTE | 2021-09-24 13:37 | PCM.PN ---
- General Info Date of Service: 09/24/21 Subjective Update: Mr. Woods has finally shown some improvement in oxygenation, he is now down to 12 L/min via high flow nasal cannula. CRP and D-dimer have shown further improvement on labs this a.m. He is feeling somewhat stronger and has noted slow improvement in appetite. Functional Status: Reports: Tolerating Diet, Urinating. Denies: Ambulating - Review of Systems General: Reports: Weakness, Fatigue. Denies: Fever, Chills Pulmonary: Reports: Shortness of Breath. Denies: Pleuritic Chest Pain, Cough, Sputum, Hemoptysis, Wheezing Cardiovascular: Reports: Dyspnea on Exertion. Denies: Chest Pain, Palpitations, Orthopnea, PND, Edema, Lightheadedness Gastrointestinal: Reports: No Symptoms Genitourinary: Reports: No Symptoms - Patient Data Vitals - Most Recent: Last Vital Signs Temp 97.4 F 09/24/21 08:05 Pulse 65 09/24/21 08:05 Resp 22 H 09/24/21 08:05 BP 125/75 09/24/21 08:05 Pulse Ox 93 L 09/24/21 11:20 Weight - Most Recent: 228 lb I&O - Last 24 Hours: Intake & Output 09/23/21 09/24/21 09/24/21 22:59 06:59 14:59 Intake Total 320 120 240 Output Total 200 100 Balance 320 -80 140 Lab Results Last 24 Hours: Laboratory Results - last 24 hr 09/24/21 09/24/21 09/24/21 Range/Units 04:35 04:35 04:35 WBC 9.7 (4.5-11.0) K/uL RBC 4.48 (4.30-5.90) M/uL Hgb 14.3 (12.0-15.0) g/dL Hct 43.0 (40.0-54.0) % MCV 96 (80-98) fL MCH 32 H (27-31) pg MCHC 33 (32-36) % Plt Count 276 (150-400) K/uL Neut % (Auto) 89.2 H (36-66) % Lymph % (Auto) 3.9 L (24-44) % Bacon % (Auto) 6.7 H (2-6) % Eos % (Auto) 0.2 L (2-4) % Baso % (Auto) 0.0 (0-1) % D-Dimer, Quantitative 843.86 H (0.0-500.0) ng/mL Sodium 141 (140-148) mmol/L Potassium 4.7 (3.6-5.2) mmol/L Chloride 107 (100-108) mmol/L Carbon Dioxide 30 (21-32) mmol/L Anion Gap 4.5 L (5.0-14.0) mmol/L BUN 29 H (7-18) mg/dL Creatinine 1.4 H (0.8-1.3) mg/dL Est Cr Clr Drug Dosing 38.58 mL/min Estimated GFR (MDRD) 48 L (>60) Glucose 141 H (74-106) mg/dL Calcium 8.2 L (8.5-10.1) mg/dL Total Bilirubin 0.8 (0.2-1.0) mg/dL AST 30 (15-37) U/L ALT 28 (12-78) U/L Alkaline Phosphatase 143 H (46-116) U/L C-Reactive Protein (0.0-0.3) mg/dL Total Protein 5.7 L (6.4-8.2) g/dL Albumin 2.2 L (3.4-5.0) g/dL Globulin 3.5 (2.3-3.5) g/dL Albumin/Globulin Ratio 0.6 L (1.2-2.2) 09/24/21 Range/Units 04:35 WBC (4.5-11.0) K/uL RBC (4.30-5.90) M/uL Hgb (12.0-15.0) g/dL Hct (40.0-54.0) % MCV (80-98) fL MCH (27-31) pg MCHC (32-36) % Plt Count (150-400) K/uL Neut % (Auto) (36-66) % Lymph % (Auto) (24-44) % Bacon % (Auto) (2-6) % Eos % (Auto) (2-4) % Baso % (Auto) (0-1) % D-Dimer, Quantitative (0.0-500.0) ng/mL Sodium (140-148) mmol/L Potassium (3.6-5.2) mmol/L Chloride (100-108) mmol/L Carbon Dioxide (21-32) mmol/L Anion Gap (5.0-14.0) mmol/L BUN (7-18) mg/dL Creatinine (0.8-1.3) mg/dL Est Cr Clr Drug Dosing mL/min Estimated GFR (MDRD) (>60) Glucose (74-106) mg/dL Calcium (8.5-10.1) mg/dL Total Bilirubin (0.2-1.0) mg/dL AST (15-37) U/L ALT (12-78) U/L Alkaline Phosphatase (46-116) U/L C-Reactive Protein 1.29 H (0.0-0.3) mg/dL Total Protein (6.4-8.2) g/dL Albumin (3.4-5.0) g/dL Globulin (2.3-3.5) g/dL Albumin/Globulin Ratio (1.2-2.2) Med Orders - Current: Current Medications Acetaminophen (Acetaminophen 325 Mg Tab) 650 mg PO Q4H PRN PRN Reason: Fever Greater Than 101 Baricitinib (Baricitinib 2 Mg Tab) 2 mg PO DAILY [facility] Stop: 09/28/21 09:01 Last Admin: 09/24/21 08:05 Dose: 2 mg Documented by: Benzonatate (Benzonatate 100 Mg Cap) 100 mg PO Q8H PRN PRN Reason: Cough Bisacodyl (Bisacodyl 5 Mg Tab) 5 mg PO DAILY PRN PRN Reason: Constipation Docusate Sodium (Docusate Sodium 100 Mg Cap) 100 mg PO BID PRN PRN Reason: Constipation Enoxaparin Sodium (Enoxaparin 40 Mg/0.4 Ml Syringe) 40 mg SUBCUT BEDTIME [facility] Last Admin: 09/23/21 21:32 Dose: 40 mg Documented by: Guaifenesin/Dextromethorphan (Guaifenesin/Dextromethorphan 100-10 Mg/5 Ml Soln 10 Ml Cup) 10 ml PO Q4H PRN PRN Reason: Cough Lorazepam (Lorazepam 2 Mg/Ml Sdv) 1 mg IV Q6H PRN PRN Reason: Nausea/Vomiting Melatonin (Melatonin 3 Mg Tab) 9 mg PO BEDTIME [facility] Last Admin: 09/23/21 21:32 Dose: 9 mg Documented by: Morphine Sulfate (Morphine 2 Mg/Ml Syringe) 2 mg IVPUSH Q2H PRN PRN Reason: Pain (rohit 7-10) or Air Hunger Ondansetron HCl (Ondansetron 4 Mg Tab.Dis) 4 mg PO Q6H PRN PRN Reason: Nausea able to take PO Oxycodone HCl (Oxycodone 5 Mg Tab) 5 mg PO Q4H PRN PRN Reason: Pain (moderate 4-6) Pantoprazole Sodium (Pantoprazole 40 Mg Tab.Cr) 40 mg PO BEDTIME [facility] Last Admin: 09/23/21 21:32 Dose: 40 mg Documented by: Sodium Chloride (Sodium Chloride 0.9% 10 Ml Syringe) 10 ml FLUSH ASDIRECTED PRN PRN Reason: Keep Vein Open Tamsulosin HCl (Tamsulosin 0.4 Mg Cap.Er) 0.4 mg PO BEDTIME [facility] Last Admin: 09/23/21 21:32 Dose: 0.4 mg Documented by: Discontinued Medications Dexamethasone (Dexamethasone 4 Mg/Ml Sdv) 6 mg IVPUSH DAILY [facility] Stop: 09/23/21 09:01 Last Admin: 09/14/21 22:13 Dose: 6 mg Documented by: Dexamethasone (Dexamethasone 4 Mg/Ml Sdv) 6 mg IVPUSH BEDTIME [facility] Stop: 09/23/21 21:01 Last Admin: 09/23/21 21:30 Dose: 6 mg Documented by: Enoxaparin Sodium (Enoxaparin 40 Mg/0.4 Ml Syringe) 40 mg SUBCUT DAILY [facility] Last Admin: 09/14/21 21:31 Dose: 40 mg Documented by: Furosemide (Furosemide 20 Mg/2 Ml Vial) 20 mg IVPUSH NOW ONE Stop: 09/23/21 11:16 Last Admin: 09/23/21 11:48 Dose: 20 mg Documented by: Remdesivir 200 mg/ Sodium (Chloride) 250 mls @ 250 mls/hr IV ONETIME ONE Stop: 09/14/21 19:28 Last Admin: 09/14/21 21:31 Dose: 250 mls/hr Documented by: Remdesivir 100 mg/ Sodium (Chloride) 100 mls @ 100 mls/hr IV Q24H [facility] Stop: 09/18/21 09:59 Remdesivir 100 mg/ Sodium (Chloride) 100 mls @ 100 mls/hr IV BEDTIME [facility] Stop: 09/18/21 21:59 Last Admin: 09/18/21 22:21 Dose: 100 mls/hr Documented by: Influenza Virus Vaccine (Pharmacy To Dose - Influenza Vaccine) 1 each IM ONETIME ONE Stop: 09/14/21 21:57 Influenza Virus Vaccine (Flu Vacc [id number](65yr Up)/Pf 240 Mcg/0.7 Ml Syringe) 240 mcg IM .ONCE ONE Stop: 09/15/21 10:01 Last Admin: 09/15/21 10:52 Dose: Not Given Documented by: Morphine Sulfate (Morphine 2 Mg/Ml Syringe) 2 mg IVPUSH Q2H PRN PRN Reason: AIR HUNGER Pantoprazole Sodium (Pantoprazole 40 Mg Vial) 40 mg IVPUSH DAILY [facility] Last Admin: 09/14/21 22:13 Dose: 40 mg Documented by: - Exam Quality Assessment: Supplemental Oxygen, DVT Prophylaxis General: Alert, Oriented, Cooperative, Moderate Distress Lungs: Decreased Breath Sounds, Crackles. No: Rales, Rhonchi, Wheezing Cardiovascular: Regular Rate, Regular Rhythm, No Murmurs GI/Abdominal Exam: Soft, Non-Tender, No Organomegaly, No Distention Extremities: Non-Tender, No Pedal Edema - Patient Data Lab Results Last 24 hrs: Laboratory Results - last 24 hr 09/24/21 09/24/21 09/24/21 Range/Units 04:35 04:35 04:35 WBC 9.7 (4.5-11.0) K/uL RBC 4.48 (4.30-5.90) M/uL Hgb 14.3 (12.0-15.0) g/dL Hct 43.0 (40.0-54.0) % MCV 96 (80-98) fL MCH 32 H (27-31) pg MCHC 33 (32-36) % Plt Count 276 (150-400) K/uL Neut % (Auto) 89.2 H (36-66) % Lymph % (Auto) 3.9 L (24-44) % Bacon % (Auto) 6.7 H (2-6) % Eos % (Auto) 0.2 L (2-4) % Baso % (Auto) 0.0 (0-1) % D-Dimer, Quantitative 843.86 H (0.0-500.0) ng/mL Sodium 141 (140-148) mmol/L Potassium 4.7 (3.6-5.2) mmol/L Chloride 107 (100-108) mmol/L Carbon Dioxide 30 (21-32) mmol/L Anion Gap 4.5 L (5.0-14.0) mmol/L BUN 29 H (7-18) mg/dL Creatinine 1.4 H (0.8-1.3) mg/dL Est Cr Clr Drug Dosing 38.58 mL/min Estimated GFR (MDRD) 48 L (>60) Glucose 141 H (74-106) mg/dL Calcium 8.2 L (8.5-10.1) mg/dL Total Bilirubin 0.8 (0.2-1.0) mg/dL AST 30 (15-37) U/L ALT 28 (12-78) U/L Alkaline Phosphatase 143 H (46-116) U/L C-Reactive Protein (0.0-0.3) mg/dL Total Protein 5.7 L (6.4-8.2) g/dL Albumin 2.2 L (3.4-5.0) g/dL Globulin 3.5 (2.3-3.5) g/dL Albumin/Globulin Ratio 0.6 L (1.2-2.2) 09/24/21 Range/Units 04:35 WBC (4.5-11.0) K/uL RBC (4.30-5.90) M/uL Hgb (12.0-15.0) g/dL Hct (40.0-54.0) % MCV (80-98) fL MCH (27-31) pg MCHC (32-36) % Plt Count (150-400) K/uL Neut % (Auto) (36-66) % Lymph % (Auto) (24-44) % Bacon % (Auto) (2-6) % Eos % (Auto) (2-4) % Baso % (Auto) (0-1) % D-Dimer, Quantitative (0.0-500.0) ng/mL Sodium (140-148) mmol/L Potassium (3.6-5.2) mmol/L Chloride (100-108) mmol/L Carbon Dioxide (21-32) mmol/L Anion Gap (5.0-14.0) mmol/L BUN (7-18) mg/dL Creatinine (0.8-1.3) mg/dL Est Cr Clr Drug Dosing mL/min Estimated GFR (MDRD) (>60) Glucose (74-106) mg/dL Calcium (8.5-10.1) mg/dL Total Bilirubin (0.2-1.0) mg/dL AST (15-37) U/L ALT (12-78) U/L Alkaline Phosphatase (46-116) U/L C-Reactive Protein 1.29 H (0.0-0.3) mg/dL Total Protein (6.4-8.2) g/dL Albumin (3.4-5.0) g/dL Globulin (2.3-3.5) g/dL Albumin/Globulin Ratio (1.2-2.2) Result Diagrams: 09/24/21 04:35 09/24/21 04:35 Sepsis Event Note - Evaluation Sepsis Screening Result: No Definite Risk - Focused Exam Vital Signs: Vital Signs Temp Pulse Resp BP BP Pulse Ox Pulse Ox 09/24/21 11:20 93 L 09/24/21 11:10 86 L 09/24/21 08:05 97.4 F 65 22 H 125/75 96 09/24/21 05:58 93 L 09/24/21 02:55 97.4 F 71 18 106/73 94 L - Problem List Review Problem List Initiated/Reviewed/Updated: Yes - Plan Plan:: ASSESSMENT AND PLAN - COVID-19 pneumonia-complicated by acute respiratory failure with hypoxia and weakness. Oxygenation has improved modestly since yesterday, he is tolerating 12 L/min of oxygen via high flow nasal cannula -supplemental oxygen as needed, wean as able -Covid precautions and isolation -Prone ventilation as possible -Dexamethasone 6 mg po daily (day 11) -Continue baricitinib (day 10) -Enoxaparin 40 mg every 24 hours -Albuterol inhaler 2 puffs every 4 hours as needed for shortness of breath -IV Remdesivir x5 days, completed -Labs every couple of days -oxygen therapy to keep oxygen saturation >90% -Furosemide 20 mg IV today, reassess in a.m. 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 -fall risk -Melatonin at bedtime Maintenance issues - - DVT prophylaxis -enoxaparin - GI prophylaxis -PPI - Nutrition - regular diet Disposition -anticipate discharge to subacute rehab after the hospital stay
[2021-09-24] MEDS: Melatonin 3 MG Tab PO SCH (21:21)
[2021-09-24] MEDS: Tamsulosin 0.4 MG Cap.ER PO SCH (21:21)
[2021-09-24] MEDS: Pantoprazole 40 MG Tab.CR PO SCH (21:22)
[2021-09-24] MEDS: Enoxaparin 40 MG/0.4 ML Syringe SUBCUT SCH (21:23)
--- NOTE | 2021-09-25 14:46 | PCM.PN ---
- General Info Date of Service: 09/25/21 Subjective Update: No acute events overnight. Patient does not feel short of breath today as long as he is resting but does get short of breath with activity. He has significant desaturations with activity. Still requiring 12 L of oxygen. Appetite has been good. Strength is slowly improving but still quite weak. No fevers. Functional Status: Reports: Pain Controlled, Tolerating Diet - Review of Systems General: Reports: Weakness - Patient Data Vitals - Most Recent: Last Vital Signs Temp 35.9 C L 09/25/21 14:33 Pulse 84 09/25/21 14:33 Resp 20 09/25/21 14:33 BP 117/90 09/25/21 14:33 Pulse Ox 99 09/25/21 14:33 Weight - Most Recent: 103.419 kg I&O - Last 24 Hours: Intake & Output 09/24/21 09/25/21 09/25/21 22:59 06:59 14:59 Intake Total 50 120 Output Total 1125 100 100 Balance -1075 20 -100 Med Orders - Current: Current Medications Acetaminophen (Acetaminophen 325 Mg Tab) 650 mg PO Q4H PRN PRN Reason: Fever Greater Than 101 Baricitinib (Baricitinib 2 Mg Tab) 2 mg PO DAILY [facility] Stop: 09/28/21 09:01 Last Admin: 09/25/21 09:07 Dose: 2 mg Documented by: Benzonatate (Benzonatate 100 Mg Cap) 100 mg PO Q8H PRN PRN Reason: Cough Bisacodyl (Bisacodyl 5 Mg Tab) 5 mg PO DAILY PRN PRN Reason: Constipation Docusate Sodium (Docusate Sodium 100 Mg Cap) 100 mg PO BID PRN PRN Reason: Constipation Enoxaparin Sodium (Enoxaparin 40 Mg/0.4 Ml Syringe) 40 mg SUBCUT BEDTIME [facility] Last Admin: 09/24/21 21:23 Dose: 40 mg Documented by: Guaifenesin/Dextromethorphan (Guaifenesin/Dextromethorphan 100-10 Mg/5 Ml Soln 10 Ml Cup) 10 ml PO Q4H PRN PRN Reason: Cough Lorazepam (Lorazepam 2 Mg/Ml Sdv) 1 mg IV Q6H PRN PRN Reason: Nausea/Vomiting Melatonin (Melatonin 3 Mg Tab) 9 mg PO BEDTIME [facility] Last Admin: 09/24/21 21:21 Dose: 9 mg Documented by: Morphine Sulfate (Morphine 2 Mg/Ml Syringe) 2 mg IVPUSH Q2H PRN PRN Reason: Pain (rohit 7-10) or Air Hunger Ondansetron HCl (Ondansetron 4 Mg Tab.Dis) 4 mg PO Q6H PRN PRN Reason: Nausea able to take PO Oxycodone HCl (Oxycodone 5 Mg Tab) 5 mg PO Q4H PRN PRN Reason: Pain (moderate 4-6) Pantoprazole Sodium (Pantoprazole 40 Mg Tab.Cr) 40 mg PO BEDTIME [facility] Last Admin: 09/24/21 21:22 Dose: 40 mg Documented by: Sodium Chloride (Sodium Chloride 0.9% 10 Ml Syringe) 10 ml FLUSH ASDIRECTED PRN PRN Reason: Keep Vein Open Tamsulosin HCl (Tamsulosin 0.4 Mg Cap.Er) 0.4 mg PO BEDTIME [facility] Last Admin: 09/24/21 21:21 Dose: 0.4 mg Documented by: Discontinued Medications Dexamethasone (Dexamethasone 4 Mg/Ml Sdv) 6 mg IVPUSH DAILY [facility] Stop: 09/23/21 09:01 Last Admin: 09/14/21 22:13 Dose: 6 mg Documented by: Dexamethasone (Dexamethasone 4 Mg/Ml Sdv) 6 mg IVPUSH BEDTIME [facility] Stop: 09/23/21 21:01 Last Admin: 09/23/21 21:30 Dose: 6 mg Documented by: Enoxaparin Sodium (Enoxaparin 40 Mg/0.4 Ml Syringe) 40 mg SUBCUT DAILY [facility] Last Admin: 09/14/21 21:31 Dose: 40 mg Documented by: Furosemide (Furosemide 20 Mg/2 Ml Vial) 20 mg IVPUSH NOW ONE Stop: 09/23/21 11:16 Last Admin: 09/23/21 11:48 Dose: 20 mg Documented by: Furosemide (Furosemide 40 Mg/4 Ml Vial) 20 mg IVPUSH NOW ONE Stop: 09/24/21 13:38 Last Admin: 09/24/21 15:42 Dose: 20 mg Documented by: Remdesivir 200 mg/ Sodium (Chloride) 250 mls @ 250 mls/hr IV ONETIME ONE Stop: 09/14/21 19:28 Last Admin: 09/14/21 21:31 Dose: 250 mls/hr Documented by: Remdesivir 100 mg/ Sodium (Chloride) 100 mls @ 100 mls/hr IV Q24H [facility] Stop: 09/18/21 09:59 Remdesivir 100 mg/ Sodium (Chloride) 100 mls @ 100 mls/hr IV BEDTIME [facility] Stop: 09/18/21 21:59 Last Admin: 09/18/21 22:21 Dose: 100 mls/hr Documented by: Influenza Virus Vaccine (Pharmacy To Dose - Influenza Vaccine) 1 each IM ONETIME ONE Stop: 09/14/21 21:57 Influenza Virus Vaccine (Flu Vacc [id number](65yr Up)/Pf 240 Mcg/0.7 Ml Syringe) 240 mcg IM .ONCE ONE Stop: 09/15/21 10:01 Last Admin: 09/15/21 10:52 Dose: Not Given Documented by: Morphine Sulfate (Morphine 2 Mg/Ml Syringe) 2 mg IVPUSH Q2H PRN PRN Reason: AIR HUNGER Pantoprazole Sodium (Pantoprazole 40 Mg Vial) 40 mg IVPUSH DAILY [facility] Last Admin: 09/14/21 22:13 Dose: 40 mg Documented by: - Exam Quality Assessment: Supplemental Oxygen General: Alert, Oriented, Cooperative, No Acute Distress Lungs: Normal Respiratory Effort, Crackles (rare both bases) Cardiovascular: Regular Rate, Regular Rhythm GI/Abdominal Exam: Soft, No Distention Extremities: No Pedal Edema. No: Increased Warmth Skin: Warm, Dry Psy/Mental Status: Alert, Normal Affect - Patient Data Result Diagrams: 09/24/21 04:35 09/24/21 04:35 Sepsis Event Note - Evaluation Sepsis Screening Result: No Definite Risk - Focused Exam Vital Signs: Vital Signs Temp Pulse Resp BP BP Pulse Ox 09/25/21 14:33 35.9 C L 84 20 117/90 99 09/25/21 10:17 35.4 C L 107 H 18 112/69 92 L 09/25/21 08:06 36.2 C 85 16 92/64 91 L 09/25/21 03:00 36.4 C 72 18 116/78 96 - Problem List Review Problem List Initiated/Reviewed/Updated: Yes - My Orders Last 24 Hours: My Active Orders 09/26/21 05:00 BASIC METABOLIC PANEL,BMP [CHEM] Timed CRP [C-REACTIVE PROTEIN] [CHEM] Timed D-DIMER QUANTITATIVE [COAG] Timed - Plan Plan:: ASSESSMENT AND PLAN - COVID-19 pneumonia-complicated by acute respiratory failure with hypoxia and weakness. Oxygenation slowly improving. Weakness slowly improving. -supplemental oxygen as needed, wean as able -Covid precautions and isolation -Prone ventilation as possible -Dexamethasone 4 mg po daily (starting taper) -Continue baricitinib (day 11) -Enoxaparin 40 mg every 24 hours -Albuterol inhaler 2 puffs every 4 hours as needed for shortness of breath -IV Remdesivir x5 days, completed -Labs every couple of days -oxygen therapy to keep oxygen saturation >90% -Hold on diuresis today CKD 3-kidney function stable. 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 -fall risk -Melatonin at bedtime Maintenance issues - - DVT prophylaxis -enoxaparin - GI prophylaxis -PPI - Nutrition - regular diet Disposition -anticipate discharge to subacute rehab after the hospital stay. He has at least several days left in the hospital weaning oxygen. Victorino Kellogg MD
[2021-09-25] MEDS: Dexamethasone 2 MG Tab PO SCH (20:38)
[2021-09-25] MEDS: Tamsulosin 0.4 MG Cap.ER PO SCH (20:38)
[2021-09-25] MEDS: Enoxaparin 40 MG/0.4 ML Syringe SUBCUT SCH (20:38)
[2021-09-25] MEDS: Pantoprazole 40 MG Tab.CR PO SCH (20:38)
[2021-09-25] MEDS: Melatonin 3 MG Tab PO SCH (20:38)
--- NOTE | 2021-09-26 14:52 | PCM.PN ---
- General Info Date of Service: 09/26/21 Subjective Update: No acute events overnight. Supplemental oxygen has been weaned down to 10 L/min. Symptomatically he is feeling well. No complaints of shortness of breath. He does still feel weak and activity is quite tiring for him. Appetite has been okay. Sleeping well. No fevers. Tolerating medications well. Functional Status: Reports: Pain Controlled, Tolerating Diet - Review of Systems General: Reports: Weakness Pulmonary: Denies: Shortness of Breath - Patient Data Vitals - Most Recent: Last Vital Signs Temp 35.1 C L 09/26/21 10:10 Pulse 75 09/26/21 10:10 Resp 20 09/26/21 10:10 BP 125/77 09/26/21 10:10 Pulse Ox 92 L 09/26/21 10:10 Weight - Most Recent: 103.419 kg I&O - Last 24 Hours: Intake & Output 09/25/21 09/26/21 09/26/21 22:59 06:59 14:59 Intake Total 580 130 Output Total 350 100 125 Balance 230 -100 5 Lab Results Last 24 Hours: Laboratory Results - last 24 hr 09/26/21 09/26/21 Range/Units 04:40 04:40 D-Dimer, Quantitative 693.52 H (0.0-500.0) ng/mL Sodium 139 L (140-148) mmol/L Potassium 4.6 (3.6-5.2) mmol/L Chloride 105 (100-108) mmol/L Carbon Dioxide 28 (21-32) mmol/L Anion Gap 10.6 (5.0-14.0) mmol/L BUN 32 H (7-18) mg/dL Creatinine 1.4 H (0.8-1.3) mg/dL Est Cr Clr Drug Dosing 38.58 mL/min Estimated GFR (MDRD) 48 L (>60) Glucose 133 H (74-106) mg/dL Calcium 8.3 L (8.5-10.1) mg/dL C-Reactive Protein 2.55 H (0.0-0.3) mg/dL Med Orders - Current: Current Medications Acetaminophen (Acetaminophen 325 Mg Tab) 650 mg PO Q4H PRN PRN Reason: Fever Greater Than 101 Baricitinib (Baricitinib 2 Mg Tab) 2 mg PO DAILY [facility] Stop: 09/28/21 09:01 Last Admin: 09/26/21 08:55 Dose: 2 mg Documented by: Benzonatate (Benzonatate 100 Mg Cap) 100 mg PO Q8H PRN PRN Reason: Cough Bisacodyl (Bisacodyl 5 Mg Tab) 5 mg PO DAILY PRN PRN Reason: Constipation Dexamethasone (Dexamethasone 2 Mg Tab) 4 mg PO BEDTIME [facility] Last Admin: 09/25/21 20:38 Dose: 4 mg Documented by: Docusate Sodium (Docusate Sodium 100 Mg Cap) 100 mg PO BID PRN PRN Reason: Constipation Enoxaparin Sodium (Enoxaparin 40 Mg/0.4 Ml Syringe) 40 mg SUBCUT BEDTIME [facility] Last Admin: 09/25/21 20:38 Dose: 40 mg Documented by: Guaifenesin/Dextromethorphan (Guaifenesin/Dextromethorphan 100-10 Mg/5 Ml Soln 10 Ml Cup) 10 ml PO Q4H PRN PRN Reason: Cough Lorazepam (Lorazepam 2 Mg/Ml Sdv) 1 mg IV Q6H PRN PRN Reason: Nausea/Vomiting Melatonin (Melatonin 3 Mg Tab) 9 mg PO BEDTIME [facility] Last Admin: 09/25/21 20:38 Dose: 9 mg Documented by: Morphine Sulfate (Morphine 2 Mg/Ml Syringe) 2 mg IVPUSH Q2H PRN PRN Reason: Pain (rohit 7-10) or Air Hunger Ondansetron HCl (Ondansetron 4 Mg Tab.Dis) 4 mg PO Q6H PRN PRN Reason: Nausea able to take PO Oxycodone HCl (Oxycodone 5 Mg Tab) 5 mg PO Q4H PRN PRN Reason: Pain (moderate 4-6) Pantoprazole Sodium (Pantoprazole 40 Mg Tab.Cr) 40 mg PO BEDTIME [facility] Last Admin: 09/25/21 20:38 Dose: 40 mg Documented by: Sodium Chloride (Sodium Chloride 0.9% 10 Ml Syringe) 10 ml FLUSH ASDIRECTED PRN PRN Reason: Keep Vein Open Tamsulosin HCl (Tamsulosin 0.4 Mg Cap.Er) 0.4 mg PO BEDTIME [facility] Last Admin: 09/25/21 20:38 Dose: 0.4 mg Documented by: Discontinued Medications Dexamethasone (Dexamethasone 4 Mg/Ml Sdv) 6 mg IVPUSH DAILY [facility] Stop: 09/23/21 09:01 Last Admin: 09/14/21 22:13 Dose: 6 mg Documented by: Dexamethasone (Dexamethasone 4 Mg/Ml Sdv) 6 mg IVPUSH BEDTIME [facility] Stop: 09/23/21 21:01 Last Admin: 09/23/21 21:30 Dose: 6 mg Documented by: Enoxaparin Sodium (Enoxaparin 40 Mg/0.4 Ml Syringe) 40 mg SUBCUT DAILY [facility] Last Admin: 09/14/21 21:31 Dose: 40 mg Documented by: Furosemide (Furosemide 20 Mg/2 Ml Vial) 20 mg IVPUSH NOW ONE Stop: 09/23/21 11:16 Last Admin: 09/23/21 11:48 Dose: 20 mg Documented by: Furosemide (Furosemide 40 Mg/4 Ml Vial) 20 mg IVPUSH NOW ONE Stop: 09/24/21 13:38 Last Admin: 09/24/21 15:42 Dose: 20 mg Documented by: Remdesivir 200 mg/ Sodium (Chloride) 250 mls @ 250 mls/hr IV ONETIME ONE Stop: 09/14/21 19:28 Last Admin: 09/14/21 21:31 Dose: 250 mls/hr Documented by: Remdesivir 100 mg/ Sodium (Chloride) 100 mls @ 100 mls/hr IV Q24H [facility] Stop: 09/18/21 09:59 Remdesivir 100 mg/ Sodium (Chloride) 100 mls @ 100 mls/hr IV BEDTIME [facility] Stop: 09/18/21 21:59 Last Admin: 09/18/21 22:21 Dose: 100 mls/hr Documented by: Influenza Virus Vaccine (Pharmacy To Dose - Influenza Vaccine) 1 each IM ONETIME ONE Stop: 09/14/21 21:57 Influenza Virus Vaccine (Flu Vacc [id number](65yr Up)/Pf 240 Mcg/0.7 Ml Syringe) 240 mcg IM .ONCE ONE Stop: 09/15/21 10:01 Last Admin: 09/15/21 10:52 Dose: Not Given Documented by: Morphine Sulfate (Morphine 2 Mg/Ml Syringe) 2 mg IVPUSH Q2H PRN PRN Reason: AIR HUNGER Pantoprazole Sodium (Pantoprazole 40 Mg Vial) 40 mg IVPUSH DAILY [facility] Last Admin: 09/14/21 22:13 Dose: 40 mg Documented by: - Exam Quality Assessment: Supplemental Oxygen General: Alert, Oriented, Cooperative, No Acute Distress Lungs: Normal Respiratory Effort. No: Wheezing GI/Abdominal Exam: Soft, No Distention Extremities: No Pedal Edema. No: Increased Warmth Skin: Warm, Dry Psy/Mental Status: Alert, Normal Affect - Patient Data Lab Results Last 24 hrs: Laboratory Results - last 24 hr 09/26/21 09/26/21 Range/Units 04:40 04:40 D-Dimer, Quantitative 693.52 H (0.0-500.0) ng/mL Sodium 139 L (140-148) mmol/L Potassium 4.6 (3.6-5.2) mmol/L Chloride 105 (100-108) mmol/L Carbon Dioxide 28 (21-32) mmol/L Anion Gap 10.6 (5.0-14.0) mmol/L BUN 32 H (7-18) mg/dL Creatinine 1.4 H (0.8-1.3) mg/dL Est Cr Clr Drug Dosing 38.58 mL/min Estimated GFR (MDRD) 48 L (>60) Glucose 133 H (74-106) mg/dL Calcium 8.3 L (8.5-10.1) mg/dL C-Reactive Protein 2.55 H (0.0-0.3) mg/dL Result Diagrams: 09/24/21 04:35 09/26/21 04:40 Sepsis Event Note - Evaluation Sepsis Screening Result: No Definite Risk - Focused Exam Vital Signs: Vital Signs Temp Pulse Resp BP Pulse Ox 09/26/21 10:10 35.1 C L 75 20 125/77 92 L 09/26/21 07:45 35.1 C L 84 18 119/73 88 L 09/26/21 03:00 35.4 C L 98 16 135/83 92 L - Problem List Review Problem List Initiated/Reviewed/Updated: Yes - My Orders Last 24 Hours: My Active Orders 09/25/21 21:00 dexAMETHasone 4 mg PO BEDTIME - Plan Plan:: ASSESSMENT AND PLAN - COVID-19 pneumonia-complicated by acute respiratory failure with hypoxia and weakness. Oxygenation slowly improving. Weakness slowly improving. Down to 10 L of supplemental oxygen. -supplemental oxygen as needed, wean as able -Covid precautions and isolation -Prone ventilation as possible -Dexamethasone 4 mg po daily (starting taper, day 2) -Continue baricitinib (day 12) -Enoxaparin 40 mg every 24 hours -Albuterol inhaler 2 puffs every 4 hours as needed for shortness of breath -IV Remdesivir x5 days, completed -Labs every couple of days -oxygen therapy to keep oxygen saturation >90% -Hold on diuresis today CKD 3-kidney function stable. 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 -fall risk -Melatonin at bedtime Maintenance issues - - DVT prophylaxis -enoxaparin - GI prophylaxis -PPI - Nutrition - regular diet Disposition -anticipate discharge to subacute rehab after the hospital stay. He has at least several days left in the hospital weaning oxygen. Victorino Kellogg MD
[2021-09-26] MEDS: Pantoprazole 40 MG Tab.CR PO SCH (20:22)
[2021-09-26] MEDS: Tamsulosin 0.4 MG Cap.ER PO SCH (20:22)
[2021-09-26] MEDS: Dexamethasone 2 MG Tab PO SCH (20:22)
[2021-09-26] MEDS: Melatonin 3 MG Tab PO SCH (20:22)
[2021-09-26] MEDS: Enoxaparin 40 MG/0.4 ML Syringe SUBCUT SCH (20:22)
--- NOTE | 2021-09-27 12:07 | PCM.PN ---
- General Info Date of Service: 09/27/21 Subjective Update: No acute events overnight. No fevers. Patient feels a little bit better each day. Able to make the transition from bed to chair a little bit easier. Appetite has been good. No fevers. Down to 8 L of oxygen. He is in good spirits. Functional Status: Reports: Pain Controlled, Tolerating Diet - Review of Systems Cardiovascular: Reports: Dyspnea on Exertion - Patient Data Vitals - Most Recent: Last Vital Signs Temp 36.6 C 09/27/21 10:33 Pulse 105 H 09/27/21 10:33 Resp 18 09/27/21 10:33 BP 101/87 09/27/21 10:33 Pulse Ox 100 09/27/21 10:33 Weight - Most Recent: 103.419 kg I&O - Last 24 Hours: Intake & Output 09/26/21 09/27/21 09/27/21 22:59 06:59 14:59 Output Total 150 Balance -150 Med Orders - Current: Current Medications Acetaminophen (Acetaminophen 325 Mg Tab) 650 mg PO Q4H PRN PRN Reason: Fever Greater Than 101 Baricitinib (Baricitinib 2 Mg Tab) 2 mg PO DAILY [facility] Stop: 09/28/21 09:01 Last Admin: 09/27/21 08:55 Dose: 2 mg Documented by: Benzonatate (Benzonatate 100 Mg Cap) 100 mg PO Q8H PRN PRN Reason: Cough Bisacodyl (Bisacodyl 5 Mg Tab) 5 mg PO DAILY PRN PRN Reason: Constipation Dexamethasone (Dexamethasone 2 Mg Tab) 4 mg PO BEDTIME [facility] Last Admin: 09/26/21 20:22 Dose: 4 mg Documented by: Docusate Sodium (Docusate Sodium 100 Mg Cap) 100 mg PO BID PRN PRN Reason: Constipation Enoxaparin Sodium (Enoxaparin 40 Mg/0.4 Ml Syringe) 40 mg SUBCUT BEDTIME [facility] Last Admin: 09/26/21 20:22 Dose: 40 mg Documented by: Guaifenesin/Dextromethorphan (Guaifenesin/Dextromethorphan 100-10 Mg/5 Ml Soln 10 Ml Cup) 10 ml PO Q4H PRN PRN Reason: Cough Lorazepam (Lorazepam 2 Mg/Ml Sdv) 1 mg IV Q6H PRN PRN Reason: Nausea/Vomiting Melatonin (Melatonin 3 Mg Tab) 9 mg PO BEDTIME [facility] Last Admin: 09/26/21 20:22 Dose: 9 mg Documented by: Morphine Sulfate (Morphine 2 Mg/Ml Syringe) 2 mg IVPUSH Q2H PRN PRN Reason: Pain (rohit 7-10) or Air Hunger Ondansetron HCl (Ondansetron 4 Mg Tab.Dis) 4 mg PO Q6H PRN PRN Reason: Nausea able to take PO Oxycodone HCl (Oxycodone 5 Mg Tab) 5 mg PO Q4H PRN PRN Reason: Pain (moderate 4-6) Pantoprazole Sodium (Pantoprazole 40 Mg Tab.Cr) 40 mg PO BEDTIME [facility] Last Admin: 09/26/21 20:22 Dose: 40 mg Documented by: Sodium Chloride (Sodium Chloride 0.9% 10 Ml Syringe) 10 ml FLUSH ASDIRECTED PRN PRN Reason: Keep Vein Open Tamsulosin HCl (Tamsulosin 0.4 Mg Cap.Er) 0.4 mg PO BEDTIME [facility] Last Admin: 09/26/21 20:22 Dose: 0.4 mg Documented by: Discontinued Medications Dexamethasone (Dexamethasone 4 Mg/Ml Sdv) 6 mg IVPUSH DAILY [facility] Stop: 09/23/21 09:01 Last Admin: 09/14/21 22:13 Dose: 6 mg Documented by: Dexamethasone (Dexamethasone 4 Mg/Ml Sdv) 6 mg IVPUSH BEDTIME [facility] Stop: 09/23/21 21:01 Last Admin: 09/23/21 21:30 Dose: 6 mg Documented by: Enoxaparin Sodium (Enoxaparin 40 Mg/0.4 Ml Syringe) 40 mg SUBCUT DAILY [facility] Last Admin: 09/14/21 21:31 Dose: 40 mg Documented by: Furosemide (Furosemide 20 Mg/2 Ml Vial) 20 mg IVPUSH NOW ONE Stop: 09/23/21 11:16 Last Admin: 09/23/21 11:48 Dose: 20 mg Documented by: Furosemide (Furosemide 40 Mg/4 Ml Vial) 20 mg IVPUSH NOW ONE Stop: 09/24/21 13:38 Last Admin: 09/24/21 15:42 Dose: 20 mg Documented by: Remdesivir 200 mg/ Sodium (Chloride) 250 mls @ 250 mls/hr IV ONETIME ONE Stop: 09/14/21 19:28 Last Admin: 09/14/21 21:31 Dose: 250 mls/hr Documented by: Remdesivir 100 mg/ Sodium (Chloride) 100 mls @ 100 mls/hr IV Q24H [facility] Stop: 09/18/21 09:59 Remdesivir 100 mg/ Sodium (Chloride) 100 mls @ 100 mls/hr IV BEDTIME [facility] Stop: 09/18/21 21:59 Last Admin: 09/18/21 22:21 Dose: 100 mls/hr Documented by: Influenza Virus Vaccine (Pharmacy To Dose - Influenza Vaccine) 1 each IM ONETIME ONE Stop: 09/14/21 21:57 Influenza Virus Vaccine (Flu Vacc [id number](65yr Up)/Pf 240 Mcg/0.7 Ml Syringe) 240 mcg IM .ONCE ONE Stop: 09/15/21 10:01 Last Admin: 09/15/21 10:52 Dose: Not Given Documented by: Morphine Sulfate (Morphine 2 Mg/Ml Syringe) 2 mg IVPUSH Q2H PRN PRN Reason: AIR HUNGER Pantoprazole Sodium (Pantoprazole 40 Mg Vial) 40 mg IVPUSH DAILY [facility] Last Admin: 09/14/21 22:13 Dose: 40 mg Documented by: - Exam Quality Assessment: Supplemental Oxygen General: Alert, Oriented, Cooperative, No Acute Distress Lungs: Normal Respiratory Effort. No: Wheezing GI/Abdominal Exam: Soft, No Distention Extremities: No Pedal Edema. No: Increased Warmth Psy/Mental Status: Alert, Normal Affect - Patient Data Result Diagrams: 09/24/21 04:35 09/26/21 04:40 Sepsis Event Note - Evaluation Sepsis Screening Result: No Definite Risk - Focused Exam Vital Signs: Vital Signs Temp Pulse Resp BP BP Pulse Ox 09/27/21 10:33 36.6 C 105 H 18 101/87 100 09/27/21 07:00 36.6 C 67 16 106/57 L 92 L 09/27/21 06:25 35.6 C L 72 16 110/68 90 L 09/27/21 03:00 35.6 C L 92 16 100/50 L 100 09/27/21 02:52 96 - Problem List Review Problem List Initiated/Reviewed/Updated: Yes - My Orders Last 24 Hours: My Active Orders 09/28/21 05:00 BASIC METABOLIC PANEL,BMP [CHEM] Timed CRP [C-REACTIVE PROTEIN] [CHEM] Timed D-DIMER QUANTITATIVE [COAG] Timed - Plan Plan:: ASSESSMENT AND PLAN - COVID-19 pneumonia-complicated by acute respiratory failure with hypoxia and weakness. Oxygenation slowly improving. Weakness slowly improving. Down to 8 L of supplemental oxygen. -supplemental oxygen as needed, wean as able -Covid precautions and isolation, discontinue starting tomorrow morning -Prone ventilation as possible -Dexamethasone 4 mg po daily (taper, day 3) -Continue baricitinib (day 13) -Enoxaparin 40 mg every 24 hours -Albuterol inhaler 2 puffs every 4 hours as needed for shortness of breath -IV Remdesivir x5 days, completed -Labs every couple of days -oxygen therapy to keep oxygen saturation >90% -Hold on diuresis today CKD 3-kidney function stable. 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 -fall risk -Melatonin at bedtime Maintenance issues - - DVT prophylaxis -enoxaparin - GI prophylaxis -PPI - Nutrition - regular diet Disposition -anticipate discharge to subacute rehab after the hospital stay. He has at least several days left in the hospital weaning oxygen. Victorino Kellogg MD
[2021-09-27] MEDS: Melatonin 3 MG Tab PO SCH (20:05)
[2021-09-27] MEDS: Dexamethasone 2 MG Tab PO SCH (20:05)
[2021-09-27] MEDS: Tamsulosin 0.4 MG Cap.ER PO SCH (20:06)
[2021-09-27] MEDS: Pantoprazole 40 MG Tab.CR PO SCH (20:06)
[2021-09-27] MEDS: Enoxaparin 40 MG/0.4 ML Syringe SUBCUT SCH (20:07)
--- NOTE | 2021-09-28 15:14 | PCM.PN ---
- General Info Date of Service: 09/28/21 Subjective Update: No acute events overnight. Patient feels well. Strength is improving and he was able to walk about 15 feet today though he did have to stop a few times to catch his breath. No headaches. No muscle aches. Appetite is good. Sleeping well. D-dimer close to normal and stable. CRP better again today. Functional Status: Reports: Pain Controlled, Tolerating Diet - Review of Systems General: Reports: Weakness - Patient Data Vitals - Most Recent: Last Vital Signs Temp 35 C L 09/28/21 13:00 Pulse 101 H 09/28/21 13:00 Resp 16 09/28/21 13:00 BP 122/73 09/28/21 13:00 Pulse Ox 90 L 09/28/21 13:00 Weight - Most Recent: 103.419 kg I&O - Last 24 Hours: Intake & Output 09/28/21 09/28/21 09/28/21 06:59 14:59 22:59 Intake Total 400 Output Total 200 300 Balance 200 -300 Lab Results Last 24 Hours: Laboratory Results - last 24 hr 09/28/21 09/28/21 Range/Units 05:30 05:30 D-Dimer, Quantitative 701.76 H (0.0-500.0) ng/mL Sodium 140 (140-148) mmol/L Potassium 5.7 H (3.6-5.2) mmol/L Chloride 106 (100-108) mmol/L Carbon Dioxide 31 (21-32) mmol/L Anion Gap 8.7 (5.0-14.0) mmol/L BUN 35 H (7-18) mg/dL Creatinine 1.4 H (0.8-1.3) mg/dL Est Cr Clr Drug Dosing 38.58 mL/min Estimated GFR (MDRD) 48 L (>60) Glucose 118 H (74-106) mg/dL Calcium 8.9 (8.5-10.1) mg/dL C-Reactive Protein 0.78 H (0.0-0.3) mg/dL Med Orders - Current: Current Medications Acetaminophen (Acetaminophen 325 Mg Tab) 650 mg PO Q4H PRN PRN Reason: Fever Greater Than 101 Benzonatate (Benzonatate 100 Mg Cap) 100 mg PO Q8H PRN PRN Reason: Cough Bisacodyl (Bisacodyl 5 Mg Tab) 5 mg PO DAILY PRN PRN Reason: Constipation Dexamethasone (Dexamethasone 2 Mg Tab) 4 mg PO BEDTIME [facility] Last Admin: 09/27/21 20:05 Dose: 4 mg Documented by: Docusate Sodium (Docusate Sodium 100 Mg Cap) 100 mg PO BID PRN PRN Reason: Constipation Enoxaparin Sodium (Enoxaparin 40 Mg/0.4 Ml Syringe) 40 mg SUBCUT BEDTIME [facility] Last Admin: 09/27/21 20:07 Dose: 40 mg Documented by: Guaifenesin/Dextromethorphan (Guaifenesin/Dextromethorphan 100-10 Mg/5 Ml Soln 10 Ml Cup) 10 ml PO Q4H PRN PRN Reason: Cough Lorazepam (Lorazepam 2 Mg/Ml Sdv) 1 mg IV Q6H PRN PRN Reason: Nausea/Vomiting Melatonin (Melatonin 3 Mg Tab) 9 mg PO BEDTIME [facility] Last Admin: 09/27/21 20:05 Dose: 9 mg Documented by: Morphine Sulfate (Morphine 2 Mg/Ml Syringe) 2 mg IVPUSH Q2H PRN PRN Reason: Pain (rohit 7-10) or Air Hunger Ondansetron HCl (Ondansetron 4 Mg Tab.Dis) 4 mg PO Q6H PRN PRN Reason: Nausea able to take PO Oxycodone HCl (Oxycodone 5 Mg Tab) 5 mg PO Q4H PRN PRN Reason: Pain (moderate 4-6) Pantoprazole Sodium (Pantoprazole 40 Mg Tab.Cr) 40 mg PO BEDTIME [facility] Last Admin: 09/27/21 20:06 Dose: 40 mg Documented by: Sodium Chloride (Sodium Chloride 0.9% 10 Ml Syringe) 10 ml FLUSH ASDIRECTED PRN PRN Reason: Keep Vein Open Tamsulosin HCl (Tamsulosin 0.4 Mg Cap.Er) 0.4 mg PO BEDTIME [facility] Last Admin: 09/27/21 20:06 Dose: 0.4 mg Documented by: Discontinued Medications Baricitinib (Baricitinib 2 Mg Tab) 2 mg PO DAILY [facility] Stop: 09/28/21 09:01 Last Admin: 09/28/21 08:15 Dose: 2 mg Documented by: Dexamethasone (Dexamethasone 4 Mg/Ml Sdv) 6 mg IVPUSH DAILY [facility] Stop: 09/23/21 09:01 Last Admin: 09/14/21 22:13 Dose: 6 mg Documented by: Dexamethasone (Dexamethasone 4 Mg/Ml Sdv) 6 mg IVPUSH BEDTIME [facility] Stop: 09/23/21 21:01 Last Admin: 09/23/21 21:30 Dose: 6 mg Documented by: Enoxaparin Sodium (Enoxaparin 40 Mg/0.4 Ml Syringe) 40 mg SUBCUT DAILY [facility] Last Admin: 09/14/21 21:31 Dose: 40 mg Documented by: Furosemide (Furosemide 20 Mg/2 Ml Vial) 20 mg IVPUSH NOW ONE Stop: 09/23/21 11:16 Last Admin: 09/23/21 11:48 Dose: 20 mg Documented by: Furosemide (Furosemide 40 Mg/4 Ml Vial) 20 mg IVPUSH NOW ONE Stop: 09/24/21 13:38 Last Admin: 09/24/21 15:42 Dose: 20 mg Documented by: Remdesivir 200 mg/ Sodium (Chloride) 250 mls @ 250 mls/hr IV ONETIME ONE Stop: 09/14/21 19:28 Last Admin: 09/14/21 21:31 Dose: 250 mls/hr Documented by: Remdesivir 100 mg/ Sodium (Chloride) 100 mls @ 100 mls/hr IV Q24H [facility] Stop: 09/18/21 09:59 Remdesivir 100 mg/ Sodium (Chloride) 100 mls @ 100 mls/hr IV BEDTIME [facility] Stop: 09/18/21 21:59 Last Admin: 09/18/21 22:21 Dose: 100 mls/hr Documented by: Influenza Virus Vaccine (Pharmacy To Dose - Influenza Vaccine) 1 each IM ONETIME ONE Stop: 09/14/21 21:57 Influenza Virus Vaccine (Flu Vacc [id number](65yr Up)/Pf 240 Mcg/0.7 Ml Syringe) 240 mcg IM .ONCE ONE Stop: 09/15/21 10:01 Last Admin: 09/15/21 10:52 Dose: Not Given Documented by: Morphine Sulfate (Morphine 2 Mg/Ml Syringe) 2 mg IVPUSH Q2H PRN PRN Reason: AIR HUNGER Pantoprazole Sodium (Pantoprazole 40 Mg Vial) 40 mg IVPUSH DAILY [facility] Last Admin: 09/14/21 22:13 Dose: 40 mg Documented by: - Exam Quality Assessment: Supplemental Oxygen General: Alert, Oriented, Cooperative, No Acute Distress Lungs: Normal Respiratory Effort GI/Abdominal Exam: Soft, No Distention Extremities: No Pedal Edema Skin: Warm, Dry Psy/Mental Status: Alert, Normal Affect - Patient Data Lab Results Last 24 hrs: Laboratory Results - last 24 hr 09/28/21 09/28/21 Range/Units 05:30 05:30 D-Dimer, Quantitative 701.76 H (0.0-500.0) ng/mL Sodium 140 (140-148) mmol/L Potassium 5.7 H (3.6-5.2) mmol/L Chloride 106 (100-108) mmol/L Carbon Dioxide 31 (21-32) mmol/L Anion Gap 8.7 (5.0-14.0) mmol/L BUN 35 H (7-18) mg/dL Creatinine 1.4 H (0.8-1.3) mg/dL Est Cr Clr Drug Dosing 38.58 mL/min Estimated GFR (MDRD) 48 L (>60) Glucose 118 H (74-106) mg/dL Calcium 8.9 (8.5-10.1) mg/dL C-Reactive Protein 0.78 H (0.0-0.3) mg/dL Result Diagrams: 09/24/21 04:35 09/28/21 05:30 Sepsis Event Note - Evaluation Sepsis Screening Result: No Definite Risk - Focused Exam Vital Signs: Vital Signs Temp Pulse Resp BP Pulse Ox 09/28/21 13:00 35 C L 101 H 16 122/73 90 L 09/28/21 08:00 35.7 C L 66 16 127/91 H 95 - Problem List Review Problem List Initiated/Reviewed/Updated: Yes - Plan Plan:: ASSESSMENT AND PLAN - COVID-19 pneumonia-complicated by acute respiratory failure with hypoxia and weakness. Oxygenation slowly but steadily improving. Down to 7 L via high flow nasal cannula. 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 -fall risk -Melatonin at bedtime Maintenance issues - - DVT prophylaxis -enoxaparin - GI prophylaxis -PPI - Nutrition - regular diet Disposition -anticipate discharge to subacute rehab after the hospital stay. He has at least several days left in the hospital weaning oxygen. iVctorino Kellogg MD
[2021-09-28] MEDS: Enoxaparin 40 MG/0.4 ML Syringe SUBCUT SCH (22:00)
[2021-09-28] MEDS: Dexamethasone 2 MG Tab PO SCH (22:01)
[2021-09-28] MEDS: Melatonin 3 MG Tab PO SCH (22:01)
[2021-09-28] MEDS: Pantoprazole 40 MG Tab.CR PO SCH (22:01)
[2021-09-28] MEDS: Tamsulosin 0.4 MG Cap.ER PO SCH (22:01)
--- NOTE | 2021-09-29 10:59 | PCM.PN ---
- General Info Date of Service: 09/29/21 Subjective Update: No acute events overnight. Respiratory status stable. He is down to 5 L of oxygen currently. Short of breath with activity but comfortable at rest. Did a little bit better with physical therapy but still very limited with both strength and endurance. He is in good spirits and out of isolation precautions. - Review of Systems General: Reports: Weakness. Denies: Fever - Patient Data Vitals - Most Recent: Last Vital Signs Temp 36.1 C 09/29/21 10:00 Pulse 85 09/29/21 10:00 Resp 20 09/29/21 10:00 BP 118/77 09/29/21 10:00 Pulse Ox 95 09/29/21 10:00 Weight - Most Recent: 103.419 kg I&O - Last 24 Hours: Intake & Output 09/28/21 09/29/21 09/29/21 22:59 06:59 14:59 Intake Total 200 Output Total 250 Balance -250 200 Med Orders - Current: Current Medications Acetaminophen (Acetaminophen 325 Mg Tab) 650 mg PO Q4H PRN PRN Reason: Fever Greater Than 101 Benzonatate (Benzonatate 100 Mg Cap) 100 mg PO Q8H PRN PRN Reason: Cough Bisacodyl (Bisacodyl 5 Mg Tab) 5 mg PO DAILY PRN PRN Reason: Constipation Dexamethasone (Dexamethasone 2 Mg Tab) 4 mg PO BEDTIME [facility] Stop: 09/29/21 23:00 Last Admin: 09/28/21 22:01 Dose: 4 mg Documented by: Dexamethasone (Dexamethasone 2 Mg Tab) 2 mg PO DAILY [facility] Stop: 10/04/21 09:01 Docusate Sodium (Docusate Sodium 100 Mg Cap) 100 mg PO BID PRN PRN Reason: Constipation Enoxaparin Sodium (Enoxaparin 40 Mg/0.4 Ml Syringe) 40 mg SUBCUT BEDTIME [facility] Last Admin: 09/28/21 22:00 Dose: 40 mg Documented by: Guaifenesin/Dextromethorphan (Guaifenesin/Dextromethorphan 100-10 Mg/5 Ml Soln 10 Ml Cup) 10 ml PO Q4H PRN PRN Reason: Cough Lorazepam (Lorazepam 2 Mg/Ml Sdv) 1 mg IV Q6H PRN PRN Reason: Nausea/Vomiting Magnesium Hydroxide (Magnesium Hydroxide 400 Mg/5 Ml Susp 30 Ml Cup) 30 ml PO Q8H PRN PRN Reason: Constipation Melatonin (Melatonin 3 Mg Tab) 9 mg PO BEDTIME [facility] Last Admin: 09/28/21 22:01 Dose: 9 mg Documented by: Morphine Sulfate (Morphine 2 Mg/Ml Syringe) 2 mg IVPUSH Q2H PRN PRN Reason: Pain (rohit 7-10) or Air Hunger Ondansetron HCl (Ondansetron 4 Mg Tab.Dis) 4 mg PO Q6H PRN PRN Reason: Nausea able to take PO Oxycodone HCl (Oxycodone 5 Mg Tab) 5 mg PO Q4H PRN PRN Reason: Pain (moderate 4-6) Pantoprazole Sodium (Pantoprazole 40 Mg Tab.Cr) 40 mg PO BEDTIME [facility] Last Admin: 09/28/21 22:01 Dose: 40 mg Documented by: Sodium Chloride (Sodium Chloride 0.9% 10 Ml Syringe) 10 ml FLUSH ASDIRECTED PRN PRN Reason: Keep Vein Open Tamsulosin HCl (Tamsulosin 0.4 Mg Cap.Er) 0.4 mg PO BEDTIME [facility] Last Admin: 09/28/21 22:01 Dose: 0.4 mg Documented by: Discontinued Medications Baricitinib (Baricitinib 2 Mg Tab) 2 mg PO DAILY [facility] Stop: 09/28/21 09:01 Last Admin: 09/28/21 08:15 Dose: 2 mg Documented by: Dexamethasone (Dexamethasone 4 Mg/Ml Sdv) 6 mg IVPUSH DAILY [facility] Stop: 09/23/21 09:01 Last Admin: 09/14/21 22:13 Dose: 6 mg Documented by: Dexamethasone (Dexamethasone 4 Mg/Ml Sdv) 6 mg IVPUSH BEDTIME [facility] Stop: 09/23/21 21:01 Last Admin: 09/23/21 21:30 Dose: 6 mg Documented by: Enoxaparin Sodium (Enoxaparin 40 Mg/0.4 Ml Syringe) 40 mg SUBCUT DAILY [facility] Last Admin: 09/14/21 21:31 Dose: 40 mg Documented by: Furosemide (Furosemide 20 Mg/2 Ml Vial) 20 mg IVPUSH NOW ONE Stop: 09/23/21 11:16 Last Admin: 09/23/21 11:48 Dose: 20 mg Documented by: Furosemide (Furosemide 40 Mg/4 Ml Vial) 20 mg IVPUSH NOW ONE Stop: 09/24/21 13:38 Last Admin: 09/24/21 15:42 Dose: 20 mg Documented by: Remdesivir 200 mg/ Sodium (Chloride) 250 mls @ 250 mls/hr IV ONETIME ONE Stop: 09/14/21 19:28 Last Admin: 09/14/21 21:31 Dose: 250 mls/hr Documented by: Remdesivir 100 mg/ Sodium (Chloride) 100 mls @ 100 mls/hr IV Q24H [facility] Stop: 09/18/21 09:59 Remdesivir 100 mg/ Sodium (Chloride) 100 mls @ 100 mls/hr IV BEDTIME [facility] Stop: 09/18/21 21:59 Last Admin: 09/18/21 22:21 Dose: 100 mls/hr Documented by: Influenza Virus Vaccine (Pharmacy To Dose - Influenza Vaccine) 1 each IM ONETIME [facility] Stop: 09/14/21 21:57 Influenza Virus Vaccine (Flu Vacc [id number](65yr Up)/Pf 240 Mcg/0.7 Ml Syringe) 240 mcg IM .ONCE ONE Stop: 09/15/21 10:01 Last Admin: 09/15/21 10:52 Dose: Not Given Documented by: Morphine Sulfate (Morphine 2 Mg/Ml Syringe) 2 mg IVPUSH Q2H PRN PRN Reason: AIR HUNGER Pantoprazole Sodium (Pantoprazole 40 Mg Vial) 40 mg IVPUSH DAILY [facility] Last Admin: 09/14/21 22:13 Dose: 40 mg Documented by: - Exam Quality Assessment: Supplemental Oxygen General: Alert, Oriented, Cooperative, No Acute Distress Lungs: Normal Respiratory Effort GI/Abdominal Exam: Soft, No Distention Extremities: No Pedal Edema Skin: Warm, Dry Psy/Mental Status: Alert, Normal Affect - Patient Data Result Diagrams: 09/24/21 04:35 09/28/21 05:30 Sepsis Event Note - Evaluation Sepsis Screening Result: No Definite Risk - Focused Exam Vital Signs: Vital Signs Temp Pulse Resp BP BP Pulse Ox 09/29/21 10:00 36.1 C 85 20 118/77 95 09/29/21 07:13 35.3 C L 75 18 104/66 97 09/29/21 03:00 35.6 C L 75 16 94/63 94 L - Problem List Review Problem List Initiated/Reviewed/Updated: Yes - My Orders Last 24 Hours: My Active Orders 09/29/21 07:55 Magnesium Hydroxide [Milk of Magnesia] 30 ml PO Q8H PRN 09/30/21 05:00 BASIC METABOLIC PANEL,BMP [CHEM] Timed CRP [C-REACTIVE PROTEIN] [CHEM] Timed D-DIMER QUANTITATIVE [COAG] Timed 09/30/21 09:00 dexAMETHasone 2 mg PO DAILY - Plan Plan:: ASSESSMENT AND PLAN - COVID-19 pneumonia-complicated by acute respiratory failure with hypoxia and weakness. Oxygenation slowly but steadily improving. Down to 5 L via high flow nasal cannula. 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 He has at least several days left in the hospital weaning oxygen. He should be ready for retirement discharge early next week. Victorino Kellogg MD
[2021-09-29] MEDS: Dexamethasone 2 MG Tab PO SCH (20:56)
[2021-09-29] MEDS: Melatonin 3 MG Tab PO SCH (20:56)
[2021-09-29] MEDS: Pantoprazole 40 MG Tab.CR PO SCH (20:56)
[2021-09-29] MEDS: Enoxaparin 40 MG/0.4 ML Syringe SUBCUT SCH (20:57)
[2021-09-29] MEDS: Tamsulosin 0.4 MG Cap.ER PO SCH (20:57)
[2021-09-30] MEDS: Dexamethasone 2 MG Tab PO SCH (08:01)
--- NOTE | 2021-09-30 11:28 | PCM.PN ---
- General Info Date of Service: 09/30/21 Subjective Update: No acute events overnight. Oxygenation has improved a little bit further from yesterday. No complaints of shortness of breath. He does endorse feeling bloated and full in the abdomen. Last bowel movement was a couple of days ago. No nausea or vomiting. Not much of an appetite today. No fevers. Other than the bloating he is doing well. D-dimer and CRP have both improved over the past 48 hours. Functional Status: Reports: Pain Controlled, Tolerating Diet - Review of Systems Gastrointestinal: Reports: Other (bloating) - Patient Data Vitals - Most Recent: Last Vital Signs Temp 36.0 C L 09/30/21 07:54 Pulse 74 09/30/21 07:54 Resp 16 09/30/21 07:54 BP 111/75 09/30/21 07:54 Pulse Ox 89 L 09/30/21 07:54 Weight - Most Recent: 103.419 kg I&O - Last 24 Hours: Intake & Output 09/29/21 09/30/21 09/30/21 22:59 06:59 14:59 Intake Total 120 400 360 Output Total 250 150 Balance 120 150 210 Lab Results Last 24 Hours: Laboratory Results - last 24 hr 09/30/21 09/30/21 Range/Units 06:47 06:47 D-Dimer, Quantitative 551.08 H (0.0-500.0) ng/mL Sodium 139 L (140-148) mmol/L Potassium 4.7 (3.6-5.2) mmol/L Chloride 104 (100-108) mmol/L Carbon Dioxide 30 (21-32) mmol/L Anion Gap 9.7 (5.0-14.0) mmol/L BUN 30 H (7-18) mg/dL Creatinine 1.4 H (0.8-1.3) mg/dL Est Cr Clr Drug Dosing 38.58 mL/min Estimated GFR (MDRD) 48 L (>60) Glucose 140 H (74-106) mg/dL Calcium 8.8 (8.5-10.1) mg/dL C-Reactive Protein 0.61 H (0.0-0.3) mg/dL Med Orders - Current: Current Medications Acetaminophen (Acetaminophen 325 Mg Tab) 650 mg PO Q4H PRN PRN Reason: Fever Greater Than 101 Benzonatate (Benzonatate 100 Mg Cap) 100 mg PO Q8H PRN PRN Reason: Cough Bisacodyl (Bisacodyl 5 Mg Tab) 5 mg PO DAILY PRN PRN Reason: Constipation Dexamethasone (Dexamethasone 2 Mg Tab) 2 mg PO DAILY [facility] Stop: 10/04/21 09:01 Last Admin: 09/30/21 08:01 Dose: 2 mg Documented by: Docusate Sodium (Docusate Sodium 100 Mg Cap) 100 mg PO BID PRN PRN Reason: Constipation Enoxaparin Sodium (Enoxaparin 40 Mg/0.4 Ml Syringe) 40 mg SUBCUT BEDTIME [facility] Last Admin: 09/29/21 20:57 Dose: 40 mg Documented by: Guaifenesin/Dextromethorphan (Guaifenesin/Dextromethorphan 100-10 Mg/5 Ml Soln 10 Ml Cup) 10 ml PO Q4H PRN PRN Reason: Cough Lorazepam (Lorazepam 2 Mg/Ml Sdv) 1 mg IV Q6H PRN PRN Reason: Nausea/Vomiting Magnesium Hydroxide (Magnesium Hydroxide 400 Mg/5 Ml Susp 30 Ml Cup) 30 ml PO Q8H PRN PRN Reason: Constipation Melatonin (Melatonin 3 Mg Tab) 9 mg PO BEDTIME [facility] Last Admin: 09/29/21 20:56 Dose: 9 mg Documented by: Morphine Sulfate (Morphine 2 Mg/Ml Syringe) 2 mg IVPUSH Q2H PRN PRN Reason: Pain (rohit 7-10) or Air Hunger Ondansetron HCl (Ondansetron 4 Mg Tab.Dis) 4 mg PO Q6H PRN PRN Reason: Nausea able to take PO Oxycodone HCl (Oxycodone 5 Mg Tab) 5 mg PO Q4H PRN PRN Reason: Pain (moderate 4-6) Pantoprazole Sodium (Pantoprazole 40 Mg Tab.Cr) 40 mg PO BEDTIME [facility] Last Admin: 09/29/21 20:56 Dose: 40 mg Documented by: Sodium Chloride (Sodium Chloride 0.9% 10 Ml Syringe) 10 ml FLUSH ASDIRECTED PRN PRN Reason: Keep Vein Open Tamsulosin HCl (Tamsulosin 0.4 Mg Cap.Er) 0.4 mg PO BEDTIME [facility] Last Admin: 09/29/21 20:57 Dose: 0.4 mg Documented by: Discontinued Medications Baricitinib (Baricitinib 2 Mg Tab) 2 mg PO DAILY [facility] Stop: 09/28/21 09:01 Last Admin: 09/28/21 08:15 Dose: 2 mg Documented by: Dexamethasone (Dexamethasone 4 Mg/Ml Sdv) 6 mg IVPUSH DAILY [facility] Stop: 09/23/21 09:01 Last Admin: 09/14/21 22:13 Dose: 6 mg Documented by: Dexamethasone (Dexamethasone 4 Mg/Ml Sdv) 6 mg IVPUSH BEDTIME [facility] Stop: 09/23/21 21:01 Last Admin: 09/23/21 21:30 Dose: 6 mg Documented by: Dexamethasone (Dexamethasone 2 Mg Tab) 4 mg PO BEDTIME [facility] Stop: 09/29/21 23:00 Last Admin: 09/29/21 20:56 Dose: 4 mg Documented by: Enoxaparin Sodium (Enoxaparin 40 Mg/0.4 Ml Syringe) 40 mg SUBCUT DAILY [facility] Last Admin: 09/14/21 21:31 Dose: 40 mg Documented by: Furosemide (Furosemide 20 Mg/2 Ml Vial) 20 mg IVPUSH NOW ONE Stop: 09/23/21 11:16 Last Admin: 09/23/21 11:48 Dose: 20 mg Documented by: Furosemide (Furosemide 40 Mg/4 Ml Vial) 20 mg IVPUSH NOW ONE Stop: 09/24/21 13:38 Last Admin: 09/24/21 15:42 Dose: 20 mg Documented by: Remdesivir 200 mg/ Sodium (Chloride) 250 mls @ 250 mls/hr IV ONETIME ONE Stop: 09/14/21 19:28 Last Admin: 09/14/21 21:31 Dose: 250 mls/hr Documented by: Remdesivir 100 mg/ Sodium (Chloride) 100 mls @ 100 mls/hr IV Q24H [facility] Stop: 09/18/21 09:59 Remdesivir 100 mg/ Sodium (Chloride) 100 mls @ 100 mls/hr IV BEDTIME [facility] Stop: 09/18/21 21:59 Last Admin: 09/18/21 22:21 Dose: 100 mls/hr Documented by: Influenza Virus Vaccine (Pharmacy To Dose - Influenza Vaccine) 1 each IM ONETIME ONE Stop: 09/14/21 21:57 Influenza Virus Vaccine (Flu Vacc [id number](65yr Up)/Pf 240 Mcg/0.7 Ml Syringe) 240 mcg IM .ONCE ONE Stop: 09/15/21 10:01 Last Admin: 09/15/21 10:52 Dose: Not Given Documented by: Morphine Sulfate (Morphine 2 Mg/Ml Syringe) 2 mg IVPUSH Q2H PRN PRN Reason: AIR HUNGER Pantoprazole Sodium (Pantoprazole 40 Mg Vial) 40 mg IVPUSH DAILY [facility] Last Admin: 09/14/21 22:13 Dose: 40 mg Documented by: - Exam Quality Assessment: Supplemental Oxygen General: Alert, Oriented, Cooperative, No Acute Distress Lungs: Normal Respiratory Effort. No: Wheezing GI/Abdominal Exam: Normal Bowel Sounds, Soft, Non-Tender, No Distention Extremities: No Pedal Edema. No: Increased Warmth Skin: Warm, Dry Psy/Mental Status: Alert, Normal Affect - Patient Data Lab Results Last 24 hrs: Laboratory Results - last 24 hr 09/30/21 09/30/21 Range/Units 06:47 06:47 D-Dimer, Quantitative 551.08 H (0.0-500.0) ng/mL Sodium 139 L (140-148) mmol/L Potassium 4.7 (3.6-5.2) mmol/L Chloride 104 (100-108) mmol/L Carbon Dioxide 30 (21-32) mmol/L Anion Gap 9.7 (5.0-14.0) mmol/L BUN 30 H (7-18) mg/dL Creatinine 1.4 H (0.8-1.3) mg/dL Est Cr Clr Drug Dosing 38.58 mL/min Estimated GFR (MDRD) 48 L (>60) Glucose 140 H (74-106) mg/dL Calcium 8.8 (8.5-10.1) mg/dL C-Reactive Protein 0.61 H (0.0-0.3) mg/dL Result Diagrams: 09/24/21 04:35 09/30/21 06:47 Sepsis Event Note - Evaluation Sepsis Screening Result: No Definite Risk - Focused Exam Vital Signs: Vital Signs Temp Pulse Resp BP Pulse Ox 09/30/21 07:54 36.0 C L 74 16 111/75 89 L 09/30/21 04:00 36.3 C 65 16 117/77 96 - Problem List Review Problem List Initiated/Reviewed/Updated: Yes - My Orders Last 24 Hours: My Active Orders 09/30/21 09:00 dexAMETHasone 2 mg PO DAILY - Plan Plan:: ASSESSMENT AND PLAN - COVID-19 pneumonia-complicated by acute respiratory failure with hypoxia and weakness. Oxygenation slowly but steadily improving. Down to 4 L of supplemental oxygen. 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 He has at least several days left in the hospital weaning oxygen. He should be ready for [facility] discharge early next week. Victorino Kellogg MD
[2021-09-30] MEDS: Magnesium Hydroxide 400 MG/5 ML Susp 30 ML Cup PO PRN (14:38)
[2021-09-30] MEDS ORDERED: Bisacodyl 10 MG Supp RECTAL ONE (16:16)
[2021-09-30] MEDS: Enoxaparin 40 MG/0.4 ML Syringe SUBCUT SCH (20:38)
[2021-09-30] MEDS: Melatonin 3 MG Tab PO SCH (20:38)
[2021-09-30] MEDS: Pantoprazole 40 MG Tab.CR PO SCH (20:38)
[2021-09-30] MEDS: Tamsulosin 0.4 MG Cap.ER PO SCH (20:38)
[2021-10-01] MEDS: Dexamethasone 2 MG Tab PO SCH (08:08)
--- NOTE | 2021-10-01 11:16 | PCM.PN ---
- General Info Date of Service: 10/01/21 Subjective Update: No acute events overnight. Patient had a good bowel movement yesterday after a suppository. Feels much better today. No pain or bloating in the abdomen. Appetite good. No fevers. Still on 4 L of oxygen. Functional Status: Reports: Pain Controlled, Tolerating Diet - Review of Systems General: Reports: Weakness - Patient Data Vitals - Most Recent: Last Vital Signs Temp 36.2 C 10/01/21 10:36 Pulse 66 10/01/21 10:36 Resp 18 10/01/21 10:36 BP 111/63 10/01/21 10:41 Pulse Ox 98 10/01/21 10:36 Weight - Most Recent: 103.419 kg I&O - Last 24 Hours: Intake & Output 09/30/21 10/01/21 10/01/21 22:59 06:59 14:59 Intake Total 120 Output Total 150 Balance 120 -150 Med Orders - Current: Current Medications Acetaminophen (Acetaminophen 325 Mg Tab) 650 mg PO Q4H PRN PRN Reason: Fever Greater Than 101 Benzonatate (Benzonatate 100 Mg Cap) 100 mg PO Q8H PRN PRN Reason: Cough Bisacodyl (Bisacodyl 5 Mg Tab) 5 mg PO DAILY PRN PRN Reason: Constipation Dexamethasone (Dexamethasone 2 Mg Tab) 2 mg PO DAILY [facility] Stop: 10/04/21 09:01 Last Admin: 10/01/21 08:08 Dose: 2 mg Documented by: Docusate Sodium (Docusate Sodium 100 Mg Cap) 100 mg PO BID PRN PRN Reason: Constipation Enoxaparin Sodium (Enoxaparin 40 Mg/0.4 Ml Syringe) 40 mg SUBCUT BEDTIME [facility] Last Admin: 09/30/21 20:38 Dose: 40 mg Documented by: Guaifenesin/Dextromethorphan (Guaifenesin/Dextromethorphan 100-10 Mg/5 Ml Soln 10 Ml Cup) 10 ml PO Q4H PRN PRN Reason: Cough Lorazepam (Lorazepam 2 Mg/Ml Sdv) 1 mg IV Q6H PRN PRN Reason: Nausea/Vomiting Magnesium Hydroxide (Magnesium Hydroxide 400 Mg/5 Ml Susp 30 Ml Cup) 30 ml PO Q8H PRN PRN Reason: Constipation Last Admin: 09/30/21 14:38 Dose: 30 ml Documented by: Melatonin (Melatonin 3 Mg Tab) 9 mg PO BEDTIME [facility] Last Admin: 09/30/21 20:38 Dose: 9 mg Documented by: Morphine Sulfate (Morphine 2 Mg/Ml Syringe) 2 mg IVPUSH Q2H PRN PRN Reason: Pain (rohit 7-10) or Air Hunger Ondansetron HCl (Ondansetron 4 Mg Tab.Dis) 4 mg PO Q6H PRN PRN Reason: Nausea able to take PO Oxycodone HCl (Oxycodone 5 Mg Tab) 5 mg PO Q4H PRN PRN Reason: Pain (moderate 4-6) Pantoprazole Sodium (Pantoprazole 40 Mg Tab.Cr) 40 mg PO BEDTIME [facility] Last Admin: 09/30/21 20:38 Dose: 40 mg Documented by: Sodium Chloride (Sodium Chloride 0.9% 10 Ml Syringe) 10 ml FLUSH ASDIRECTED PRN PRN Reason: Keep Vein Open Tamsulosin HCl (Tamsulosin 0.4 Mg Cap.Er) 0.4 mg PO BEDTIME [facility] Last Admin: 09/30/21 20:38 Dose: 0.4 mg Documented by: Discontinued Medications Baricitinib (Baricitinib 2 Mg Tab) 2 mg PO DAILY [facility] Stop: 09/28/21 09:01 Last Admin: 09/28/21 08:15 Dose: 2 mg Documented by: Bisacodyl (Bisacodyl 10 Mg Supp) 10 mg RECTAL ONETIME ONE Stop: 09/30/21 16:17 Last Admin: 09/30/21 16:58 Dose: 10 mg Documented by: Dexamethasone (Dexamethasone 4 Mg/Ml Sdv) 6 mg IVPUSH DAILY [facility] Stop: 09/23/21 09:01 Last Admin: 09/14/21 22:13 Dose: 6 mg Documented by: Dexamethasone (Dexamethasone 4 Mg/Ml Sdv) 6 mg IVPUSH BEDTIME [facility] Stop: 09/23/21 21:01 Last Admin: 09/23/21 21:30 Dose: 6 mg Documented by: Dexamethasone (Dexamethasone 2 Mg Tab) 4 mg PO BEDTIME [facility] Stop: 09/29/21 23:00 Last Admin: 09/29/21 20:56 Dose: 4 mg Documented by: Enoxaparin Sodium (Enoxaparin 40 Mg/0.4 Ml Syringe) 40 mg SUBCUT DAILY [facility] Last Admin: 09/14/21 21:31 Dose: 40 mg Documented by: Furosemide (Furosemide 20 Mg/2 Ml Vial) 20 mg IVPUSH NOW ONE Stop: 09/23/21 11:16 Last Admin: 09/23/21 11:48 Dose: 20 mg Documented by: Furosemide (Furosemide 40 Mg/4 Ml Vial) 20 mg IVPUSH NOW ONE Stop: 09/24/21 13:38 Last Admin: 09/24/21 15:42 Dose: 20 mg Documented by: Remdesivir 200 mg/ Sodium (Chloride) 250 mls @ 250 mls/hr IV ONETIME ONE Stop: 09/14/21 19:28 Last Admin: 09/14/21 21:31 Dose: 250 mls/hr Documented by: Remdesivir 100 mg/ Sodium (Chloride) 100 mls @ 100 mls/hr IV Q24H [facility] Stop: 09/18/21 09:59 Remdesivir 100 mg/ Sodium (Chloride) 100 mls @ 100 mls/hr IV BEDTIME [facility] Stop: 09/18/21 21:59 Last Admin: 09/18/21 22:21 Dose: 100 mls/hr Documented by: Influenza Virus Vaccine (Pharmacy To Dose - Influenza Vaccine) 1 each IM ONETIME ONE Stop: 09/14/21 21:57 Influenza Virus Vaccine (Flu Vacc [id number](65yr Up)/Pf 240 Mcg/0.7 Ml Syringe) 240 mcg IM .ONCE ONE Stop: 09/15/21 10:01 Last Admin: 09/15/21 10:52 Dose: Not Given Documented by: Morphine Sulfate (Morphine 2 Mg/Ml Syringe) 2 mg IVPUSH Q2H PRN PRN Reason: AIR HUNGER Pantoprazole Sodium (Pantoprazole 40 Mg Vial) 40 mg IVPUSH DAILY [facility] Last Admin: 09/14/21 22:13 Dose: 40 mg Documented by: - Exam Quality Assessment: Supplemental Oxygen General: Alert, Oriented, Cooperative, No Acute Distress Lungs: Normal Respiratory Effort GI/Abdominal Exam: Soft, No Distention Extremities: No Pedal Edema Skin: Warm, Dry Psy/Mental Status: Alert, Normal Affect - Patient Data Result Diagrams: 09/24/21 04:35 09/30/21 06:47 Sepsis Event Note - Evaluation Sepsis Screening Result: No Definite Risk - Focused Exam Vital Signs: Vital Signs Temp Pulse Resp BP BP Pulse Ox 12/05/21 10:41 111/63 10/01/21 10:36 36.2 C 66 18 77/49 L 98 10/01/21 07:40 35.9 C L 72 18 103/72 92 L 10/01/21 03:07 36.2 C 73 16 107/60 94 L - Problem List Review Problem List Initiated/Reviewed/Updated: Yes - My Orders Last 24 Hours: My Active Orders 10/01/21 11:15 Peripheral IV Discontinue [OM.PC] Routine - Plan Plan:: ASSESSMENT AND PLAN - COVID-19 pneumonia-complicated by acute respiratory failure with hypoxia and weakness. Oxygenation slowly but steadily improving. 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 He has at least several days left in the hospital weaning oxygen. He should be ready for [facility] discharge as soon as a bed is available. Victorino Kellogg MD
[2021-10-01] MEDS: Enoxaparin 40 MG/0.4 ML Syringe SUBCUT SCH (21:08)
[2021-10-01] MEDS: Melatonin 3 MG Tab PO SCH (21:08)
[2021-10-01] MEDS: Pantoprazole 40 MG Tab.CR PO SCH (21:08)
[2021-10-01] MEDS: Tamsulosin 0.4 MG Cap.ER PO SCH (21:08)
[2021-10-02] MEDS: Dexamethasone 2 MG Tab PO SCH (08:54)
--- NOTE | 2021-10-02 13:58 | PCM.PN ---
- General Info Date of Service: 10/02/21 Subjective Update: Mr. Woods has experienced good improvement in oxygenation over the past several days, now down to 4 L/min of oxygen via nasal cannula. Slowly regaining strength and appetite. Cough has significantly improved over the past week. Currently awaiting assisted placement for restorative physical therapy and Occupational Therapy. Functional Status: Reports: Urinating - Review of Systems General: Reports: Weakness, Fatigue. Denies: Fever, Chills Pulmonary: Reports: Shortness of Breath. Denies: Pleuritic Chest Pain, Cough, Sputum, Hemoptysis, Wheezing Cardiovascular: Reports: Dyspnea on Exertion. Denies: Chest Pain, Palpitations, Orthopnea, PND, Edema, Lightheadedness Gastrointestinal: Reports: No Symptoms Genitourinary: Reports: No Symptoms - Patient Data Vitals - Most Recent: Last Vital Signs Temp 96.6 F L 10/02/21 11:24 Pulse 94 10/02/21 11:24 Resp 32 H 10/02/21 11:24 BP 94/65 10/02/21 11:24 Pulse Ox 91 L 10/02/21 11:24 Weight - Most Recent: 228 lb I&O - Last 24 Hours: Intake & Output 10/01/21 10/02/21 10/02/21 22:59 06:59 14:59 Intake Total 380 120 760 Output Total 125 Balance 380 -5 760 Med Orders - Current: Current Medications Acetaminophen (Acetaminophen 325 Mg Tab) 650 mg PO Q4H PRN PRN Reason: Fever Greater Than 101 Benzonatate (Benzonatate 100 Mg Cap) 100 mg PO Q8H PRN PRN Reason: Cough Bisacodyl (Bisacodyl 5 Mg Tab) 5 mg PO DAILY PRN PRN Reason: Constipation Dexamethasone (Dexamethasone 2 Mg Tab) 2 mg PO DAILY [facility] Stop: 10/04/21 09:01 Last Admin: 10/02/21 08:54 Dose: 2 mg Documented by: Docusate Sodium (Docusate Sodium 100 Mg Cap) 100 mg PO BID PRN PRN Reason: Constipation Enoxaparin Sodium (Enoxaparin 40 Mg/0.4 Ml Syringe) 40 mg SUBCUT BEDTIME [facility] Last Admin: 10/01/21 21:08 Dose: 40 mg Documented by: Guaifenesin/Dextromethorphan (Guaifenesin/Dextromethorphan 100-10 Mg/5 Ml Soln 10 Ml Cup) 10 ml PO Q4H PRN PRN Reason: Cough Lorazepam (Lorazepam 2 Mg/Ml Sdv) 1 mg IV Q6H PRN PRN Reason: Nausea/Vomiting Magnesium Hydroxide (Magnesium Hydroxide 400 Mg/5 Ml Susp 30 Ml Cup) 30 ml PO Q8H PRN PRN Reason: Constipation Last Admin: 09/30/21 14:38 Dose: 30 ml Documented by: Melatonin (Melatonin 3 Mg Tab) 9 mg PO BEDTIME [facility] Last Admin: 10/01/21 21:08 Dose: 9 mg Documented by: Morphine Sulfate (Morphine 2 Mg/Ml Syringe) 2 mg IVPUSH Q2H PRN PRN Reason: Pain (rohit 7-10) or Air Hunger Ondansetron HCl (Ondansetron 4 Mg Tab.Dis) 4 mg PO Q6H PRN PRN Reason: Nausea able to take PO Oxycodone HCl (Oxycodone 5 Mg Tab) 5 mg PO Q4H PRN PRN Reason: Pain (moderate 4-6) Pantoprazole Sodium (Pantoprazole 40 Mg Tab.Cr) 40 mg PO BEDTIME [facility] Last Admin: 10/01/21 21:08 Dose: 40 mg Documented by: Sodium Chloride (Sodium Chloride 0.9% 10 Ml Syringe) 10 ml FLUSH ASDIRECTED PRN PRN Reason: Keep Vein Open Tamsulosin HCl (Tamsulosin 0.4 Mg Cap.Er) 0.4 mg PO BEDTIME [facility] Last Admin: 10/01/21 21:08 Dose: 0.4 mg Documented by: Discontinued Medications Baricitinib (Baricitinib 2 Mg Tab) 2 mg PO DAILY [facility] Stop: 09/28/21 09:01 Last Admin: 09/28/21 08:15 Dose: 2 mg Documented by: Bisacodyl (Bisacodyl 10 Mg Supp) 10 mg RECTAL ONETIME ONE Stop: 09/30/21 16:17 Last Admin: 09/30/21 16:58 Dose: 10 mg Documented by: Dexamethasone (Dexamethasone 4 Mg/Ml Sdv) 6 mg IVPUSH DAILY [facility] Stop: 09/23/21 09:01 Last Admin: 09/14/21 22:13 Dose: 6 mg Documented by: Dexamethasone (Dexamethasone 4 Mg/Ml Sdv) 6 mg IVPUSH BEDTIME [facility] Stop: 09/23/21 21:01 Last Admin: 09/23/21 21:30 Dose: 6 mg Documented by: Dexamethasone (Dexamethasone 2 Mg Tab) 4 mg PO BEDTIME [facility] Stop: 09/29/21 23:00 Last Admin: 09/29/21 20:56 Dose: 4 mg Documented by: Enoxaparin Sodium (Enoxaparin 40 Mg/0.4 Ml Syringe) 40 mg SUBCUT DAILY [facility] Last Admin: 09/14/21 21:31 Dose: 40 mg Documented by: Furosemide (Furosemide 20 Mg/2 Ml Vial) 20 mg IVPUSH NOW ONE Stop: 09/23/21 11:16 Last Admin: 09/23/21 11:48 Dose: 20 mg Documented by: Furosemide (Furosemide 40 Mg/4 Ml Vial) 20 mg IVPUSH NOW ONE Stop: 09/24/21 13:38 Last Admin: 09/24/21 15:42 Dose: 20 mg Documented by: Remdesivir 200 mg/ Sodium (Chloride) 250 mls @ 250 mls/hr IV ONETIME ONE Stop: 09/14/21 19:28 Last Admin: 09/14/21 21:31 Dose: 250 mls/hr Documented by: Remdesivir 100 mg/ Sodium (Chloride) 100 mls @ 100 mls/hr IV Q24H [facility] Stop: 09/18/21 09:59 Remdesivir 100 mg/ Sodium (Chloride) 100 mls @ 100 mls/hr IV BEDTIME [facility] Stop: 09/18/21 21:59 Last Admin: 09/18/21 22:21 Dose: 100 mls/hr Documented by: Influenza Virus Vaccine (Pharmacy To Dose - Influenza Vaccine) 1 each IM ONETIME ONE Stop: 09/14/21 21:57 Influenza Virus Vaccine (Flu Vacc [id number](65yr Up)/Pf 240 Mcg/0.7 Ml Syringe) 240 mcg IM .ONCE ONE Stop: 09/15/21 10:01 Last Admin: 09/15/21 10:52 Dose: Not Given Documented by: Morphine Sulfate (Morphine 2 Mg/Ml Syringe) 2 mg IVPUSH Q2H PRN PRN Reason: AIR HUNGER Pantoprazole Sodium (Pantoprazole 40 Mg Vial) 40 mg IVPUSH DAILY [facility] Last Admin: 09/14/21 22:13 Dose: 40 mg Documented by: - Exam Quality Assessment: Supplemental Oxygen, DVT Prophylaxis General: Alert, Oriented, Cooperative, Mild Distress Lungs: Decreased Breath Sounds. No: Crackles, Rales, Rhonchi, Wheezing Cardiovascular: Regular Rate, Regular Rhythm, No Murmurs GI/Abdominal Exam: Soft, Non-Tender, No Organomegaly, No Distention Extremities: Non-Tender, No Pedal Edema - Patient Data Result Diagrams: 09/24/21 04:35 09/30/21 06:47 Sepsis Event Note - Evaluation Sepsis Screening Result: No Definite Risk - Focused Exam Vital Signs: Vital Signs Temp Pulse Resp BP Pulse Ox 10/02/21 11:24 96.6 F L 94 32 H 94/65 91 L 10/02/21 07:30 98.1 F 87 26 H 98/68 91 L 10/02/21 03:54 96.8 F L 65 20 101/50 L 98 - Problem List Review Problem List Initiated/Reviewed/Updated: Yes - Plan Plan:: ASSESSMENT AND PLAN - COVID-19 pneumonia-complicated by acute respiratory failure with hypoxia and weakness. Oxygenation slowly but steadily improving. 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 He has at least several days left in the hospital weaning oxygen. He should be ready for assisted discharge as soon as a bed is available.
[2021-10-02] MEDS: Pantoprazole 40 MG Tab.CR PO SCH (20:16)
[2021-10-02] MEDS: Enoxaparin 40 MG/0.4 ML Syringe SUBCUT SCH (20:16)
[2021-10-02] MEDS: Tamsulosin 0.4 MG Cap.ER PO SCH (20:16)
[2021-10-02] MEDS: Melatonin 3 MG Tab PO SCH (20:16)
[2021-10-03] MEDS: Dexamethasone 2 MG Tab PO SCH (08:41)
--- NOTE | 2021-10-03 16:15 | PCM.PN ---
- General Info Date of Service: 10/03/21 Subjective Update: Mr. Woods is not feeling as well today, more shortness of breath with activity. He remains on 4 L of oxygen via nasal cannula while at rest but does continue to experience desaturation with activity requiring higher flow oxygen to recover. He feels somewhat more weak and tired today, appetite remains fairly good. Functional Status: Reports: Tolerating Diet, Urinating. Denies: Ambulating - Review of Systems General: Reports: Weakness, Fatigue. Denies: Fever, Chills Pulmonary: Reports: Shortness of Breath. Denies: Pleuritic Chest Pain, Cough, Sputum, Hemoptysis, Wheezing Cardiovascular: Reports: Dyspnea on Exertion. Denies: Chest Pain, Palpitations, Orthopnea, PND, Edema, Lightheadedness Gastrointestinal: Reports: No Symptoms Genitourinary: Reports: No Symptoms - Patient Data Vitals - Most Recent: Last Vital Signs Temp 98.1 F 10/03/21 14:35 Pulse 87 10/03/21 14:35 Resp 16 10/03/21 14:35 BP 99/63 10/03/21 16:08 Pulse Ox 95 10/03/21 16:08 Weight - Most Recent: 228 lb I&O - Last 24 Hours: Intake & Output 10/03/21 10/03/21 10/03/21 06:59 14:59 22:59 Intake Total 300 180 Output Total 100 100 Balance 200 80 Med Orders - Current: Current Medications Acetaminophen (Acetaminophen 325 Mg Tab) 650 mg PO Q4H PRN PRN Reason: Fever Greater Than 101 Benzonatate (Benzonatate 100 Mg Cap) 100 mg PO Q8H PRN PRN Reason: Cough Bisacodyl (Bisacodyl 5 Mg Tab) 5 mg PO DAILY PRN PRN Reason: Constipation Dexamethasone (Dexamethasone 2 Mg Tab) 2 mg PO DAILY [facility] Stop: 10/04/21 09:01 Last Admin: 10/03/21 08:41 Dose: 2 mg Documented by: Docusate Sodium (Docusate Sodium 100 Mg Cap) 100 mg PO BID PRN PRN Reason: Constipation Enoxaparin Sodium (Enoxaparin 40 Mg/0.4 Ml Syringe) 40 mg SUBCUT BEDTIME [facility] Last Admin: 10/02/21 20:16 Dose: 40 mg Documented by: Furosemide (Furosemide 40 Mg Tab) 40 mg PO ONETIME ONE Stop: 10/03/21 16:11 Guaifenesin/Dextromethorphan (Guaifenesin/Dextromethorphan 100-10 Mg/5 Ml Soln 10 Ml Cup) 10 ml PO Q4H PRN PRN Reason: Cough Lorazepam (Lorazepam 2 Mg/Ml Sdv) 1 mg IV Q6H PRN PRN Reason: Nausea/Vomiting Magnesium Hydroxide (Magnesium Hydroxide 400 Mg/5 Ml Susp 30 Ml Cup) 30 ml PO Q8H PRN PRN Reason: Constipation Last Admin: 09/30/21 14:38 Dose: 30 ml Documented by: Melatonin (Melatonin 3 Mg Tab) 9 mg PO BEDTIME [facility] Last Admin: 10/02/21 20:16 Dose: 9 mg Documented by: Morphine Sulfate (Morphine 2 Mg/Ml Syringe) 2 mg IVPUSH Q2H PRN PRN Reason: Pain (rohit 7-10) or Air Hunger Ondansetron HCl (Ondansetron 4 Mg Tab.Dis) 4 mg PO Q6H PRN PRN Reason: Nausea able to take PO Oxycodone HCl (Oxycodone 5 Mg Tab) 5 mg PO Q4H PRN PRN Reason: Pain (moderate 4-6) Pantoprazole Sodium (Pantoprazole 40 Mg Tab.Cr) 40 mg PO BEDTIME [facility] Last Admin: 10/02/21 20:16 Dose: 40 mg Documented by: Sodium Chloride (Sodium Chloride 0.9% 10 Ml Syringe) 10 ml FLUSH ASDIRECTED PRN PRN Reason: Keep Vein Open Tamsulosin HCl (Tamsulosin 0.4 Mg Cap.Er) 0.4 mg PO BEDTIME [facility] Last Admin: 10/02/21 20:16 Dose: 0.4 mg Documented by: Discontinued Medications Baricitinib (Baricitinib 2 Mg Tab) 2 mg PO DAILY [facility] Stop: 09/28/21 09:01 Last Admin: 09/28/21 08:15 Dose: 2 mg Documented by: Bisacodyl (Bisacodyl 10 Mg Supp) 10 mg RECTAL ONETIME ONE Stop: 09/30/21 16:17 Last Admin: 09/30/21 16:58 Dose: 10 mg Documented by: Dexamethasone (Dexamethasone 4 Mg/Ml Sdv) 6 mg IVPUSH DAILY [facility] Stop: 09/23/21 09:01 Last Admin: 09/14/21 22:13 Dose: 6 mg Documented by: Dexamethasone (Dexamethasone 4 Mg/Ml Sdv) 6 mg IVPUSH BEDTIME [facility] Stop: 09/23/21 21:01 Last Admin: 09/23/21 21:30 Dose: 6 mg Documented by: Dexamethasone (Dexamethasone 2 Mg Tab) 4 mg PO BEDTIME [facility] Stop: 09/29/21 23:00 Last Admin: 09/29/21 20:56 Dose: 4 mg Documented by: Enoxaparin Sodium (Enoxaparin 40 Mg/0.4 Ml Syringe) 40 mg SUBCUT DAILY [facility] Last Admin: 09/14/21 21:31 Dose: 40 mg Documented by: Furosemide (Furosemide 20 Mg/2 Ml Vial) 20 mg IVPUSH NOW ONE Stop: 09/23/21 11:16 Last Admin: 09/23/21 11:48 Dose: 20 mg Documented by: Furosemide (Furosemide 40 Mg/4 Ml Vial) 20 mg IVPUSH NOW ONE Stop: 09/24/21 13:38 Last Admin: 09/24/21 15:42 Dose: 20 mg Documented by: Remdesivir 200 mg/ Sodium (Chloride) 250 mls @ 250 mls/hr IV ONETIME ONE Stop: 09/14/21 19:28 Last Admin: 09/14/21 21:31 Dose: 250 mls/hr Documented by: Remdesivir 100 mg/ Sodium (Chloride) 100 mls @ 100 mls/hr IV Q24H [facility] Stop: 09/18/21 09:59 Remdesivir 100 mg/ Sodium (Chloride) 100 mls @ 100 mls/hr IV BEDTIME [facility] Stop: 09/18/21 21:59 Last Admin: 09/18/21 22:21 Dose: 100 mls/hr Documented by: Influenza Virus Vaccine (Pharmacy To Dose - Influenza Vaccine) 1 each IM ONE TIME ONE Stop: 09/14/21 21:57 Influenza Virus Vaccine (Flu Vacc [id number](65yr Up)/Pf 240 Mcg/0.7 Ml Syringe) 240 mcg IM .ONCE ONE Stop: 09/15/21 10:01 Last Admin: 09/15/21 10:52 Dose: Not Given Documented by: Morphine Sulfate (Morphine 2 Mg/Ml Syringe) 2 mg IVPUSH Q2H PRN PRN Reason: AIR HUNGER Pantoprazole Sodium (Pantoprazole 40 Mg Vial) 40 mg IVPUSH DAILY [facility] Last Admin: 09/14/21 22:13 Dose: 40 mg Documented by: - Exam Quality Assessment: Supplemental Oxygen, DVT Prophylaxis General: Alert, Oriented, Cooperative, Mild Distress Lungs: Decreased Breath Sounds. No: Crackles, Rales, Rhonchi, Wheezing Cardiovascular: Regular Rate, Regular Rhythm, No Murmurs GI/Abdominal Exam: Soft, Non-Tender, No Organomegaly, No Distention Extremities: Non-Tender, No Pedal Edema - Patient Data Result Diagrams: 09/24/21 04:35 09/30/21 06:47 Sepsis Event Note - Evaluation Sepsis Screening Result: No Definite Risk - Focused Exam Vital Signs: Vital Signs Temp Pulse Resp BP BP Pulse Ox 10/03/21 16:08 99/63 95 10/03/21 14:35 98.1 F 87 16 88/61 L 100 10/03/21 11:00 97.3 F 73 16 108/66 94 L 10/03/21 06:35 96.8 F L 46 L 18 114/61 96 - Problem List Review Problem List Initiated/Reviewed/Updated: Yes - My Orders Last 24 Hours: My Active Orders 10/03/21 16:10 Furosemide [Lasix] 40 mg PO ONETIME ONE 10/04/21 05:00 BASIC METABOLIC PANEL,BMP [CHEM] Timed CBC WITH AUTO DIFF [HEME] Timed - Plan Plan:: ASSESSMENT AND PLAN - COVID-19 pneumonia-complicated by acute respiratory failure with hypoxia and weakness. Oxygenation slowly but steadily improving. Down to 4 L of supplemental oxygen but stable there for the past 3 days. 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 He has at least several days left in the hospital weaning oxygen. He should be ready for [facility] discharge as soon as a bed is available.
[2021-10-03] MEDS ORDERED: Furosemide 40 MG Tab PO ONE (16:30)
[2021-10-03] MEDS: Bisacodyl 5 MG Tab PO PRN (19:48)
[2021-10-03] MEDS: Docusate Sodium 100 MG Cap PO PRN (19:48)
[2021-10-03] MEDS: Pantoprazole 40 MG Tab.CR PO SCH (20:00)
[2021-10-03] MEDS: Enoxaparin 40 MG/0.4 ML Syringe SUBCUT SCH (20:01)
[2021-10-03] MEDS: Melatonin 3 MG Tab PO SCH (20:01)
[2021-10-03] MEDS: Tamsulosin 0.4 MG Cap.ER PO SCH (20:01)
[2021-10-04] MEDS: Dexamethasone 2 MG Tab PO SCH (08:04)
[2021-10-04] MEDS: Magnesium Hydroxide 400 MG/5 ML Susp 30 ML Cup PO PRN (08:04)
[2021-10-04] MEDS ORDERED: Bisacodyl 10 MG Supp RECTAL ONE (12:47)
[2021-10-04] MEDS ORDERED: Sodium Phosphate,Monobasic/Sodium Phosphate,Dibasic Enema 133 ML Bottle RECTAL PRN (12:53)
[2021-10-04] MEDS ORDERED: Furosemide 40 MG Tab PO ONE (15:00)
--- NOTE | 2021-10-04 15:47 | PCM.PN ---
- General Info Date of Service: 10/04/21 Subjective Update: Mr. Woods feels improved today compared to yesterday with more energy and less shortness of breath. He feels as though he is able to do more today and recovers more quickly after exertion. Functional Status: Reports: Tolerating Diet, Ambulating, Urinating - Review of Systems General: Reports: Weakness, Fatigue. Denies: Fever, Chills Pulmonary: Reports: Shortness of Breath. Denies: Pleuritic Chest Pain, Cough, Sputum, Hemoptysis, Wheezing Cardiovascular: Reports: Dyspnea on Exertion. Denies: Chest Pain, Palpitations, Orthopnea, PND, Edema, Lightheadedness Gastrointestinal: Reports: No Symptoms - Patient Data Vitals - Most Recent: Last Vital Signs Temp 97.5 F 10/04/21 15:05 Pulse 80 10/04/21 15:05 Resp 18 10/04/21 15:05 BP 100/66 10/04/21 15:05 Pulse Ox 97 10/04/21 15:05 Weight - Most Recent: 228 lb I&O - Last 24 Hours: Intake & Output 10/04/21 10/04/21 10/04/21 06:59 14:59 22:59 Intake Total 400 120 Output Total 225 150 Balance 175 -30 Lab Results Last 24 Hours: Laboratory Results - last 24 hr 10/04/21 10/04/21 Range/Units 05:35 05:35 WBC 9.6 (4.5-11.0) K/uL RBC 4.52 (4.30-5.90) M/uL Hgb 14.5 (12.0-15.0) g/dL Hct 44.1 (40.0-54.0) % MCV 98 (80-98) fL MCH 32 H (27-31) pg MCHC 33 (32-36) % Plt Count 146 L (150-400) K/uL Neut % (Auto) 70.6 H (36-66) % Lymph % (Auto) 12.8 L (24-44) % [place] % (Auto) 13.1 H (2-6) % Eos % (Auto) 3.3 (2-4) % Baso % (Auto) 0.2 (0-1) % Sodium 140 (140-148) mmol/L Potassium 4.4 (3.6-5.2) mmol/L Chloride 104 (100-108) mmol/L Carbon Dioxide 33 H (21-32) mmol/L Anion Gap 7.4 (5.0-14.0) mmol/L BUN 20 H (7-18) mg/dL Creatinine 1.4 H (0.8-1.3) mg/dL Est Cr Clr Drug Dosing 38.58 mL/min Estimated GFR (MDRD) 48 L (>60) Glucose 84 (74-106) mg/dL Calcium 8.8 (8.5-10.1) mg/dL Med Orders - Current: Current Medications Acetaminophen (Acetaminophen 325 Mg Tab) 650 mg PO Q4H PRN PRN Reason: Fever Greater Than 101 Benzonatate (Benzonatate 100 Mg Cap) 100 mg PO Q8H PRN PRN Reason: Cough Bisacodyl (Bisacodyl 5 Mg Tab) 5 mg PO DAILY PRN PRN Reason: Constipation Last Admin: 10/03/21 19:48 Dose: 5 mg Documented by: Dexamethasone (Dexamethasone 2 Mg Tab) 1 mg PO DAILY [facility] Last Admin: 10/04/21 08:04 Dose: 1 mg Documented by: Docusate Sodium (Docusate Sodium 100 Mg Cap) 100 mg PO BID PRN PRN Reason: Constipation Last Admin: 10/03/21 19:48 Dose: 100 mg Documented by: Enoxaparin Sodium (Enoxaparin 40 Mg/0.4 Ml Syringe) 40 mg SUBCUT BEDTIME [facility] Last Admin: 10/03/21 20:01 Dose: 40 mg Documented by: Guaifenesin/Dextromethorphan (Guaifenesin/Dextromethorphan 100-10 Mg/5 Ml Soln 10 Ml Cup) 10 ml PO Q4H PRN PRN Reason: Cough Lorazepam (Lorazepam 2 Mg/Ml Sdv) 1 mg IV Q6H PRN PRN Reason: Nausea/Vomiting Magnesium Hydroxide (Magnesium Hydroxide 400 Mg/5 Ml Susp 30 Ml Cup) 30 ml PO Q8H PRN PRN Reason: Constipation Last Admin: 10/04/21 08:04 Dose: 30 ml Documented by: Melatonin (Melatonin 3 Mg Tab) 9 mg PO BEDTIME [facility] Last Admin: 10/03/21 20:01 Dose: 9 mg Documented by: Morphine Sulfate (Morphine 2 Mg/Ml Syringe) 2 mg IVPUSH Q2H PRN PRN Reason: Pain (rohit 7-10) or Air Hunger Ondansetron HCl (Ondansetron 4 Mg Tab.Dis) 4 mg PO Q6H PRN PRN Reason: Nausea able to take PO Oxycodone HCl (Oxycodone 5 Mg Tab) 5 mg PO Q4H PRN PRN Reason: Pain (moderate 4-6) Pantoprazole Sodium (Pantoprazole 40 Mg Tab.Cr) 40 mg PO BEDTIME [facility] Last Admin: 10/03/21 20:00 Dose: 40 mg Documented by: Sodium Biphosphate/Sodium Phosphate (Sodium Phosphate,Monobasic/Sodium Phosphate,Dibasic Enema 133 Ml Bottle) 133 ml RECTAL ONETIME PRN PRN Reason: Constipation Sodium Chloride (Sodium Chloride 0.9% 10 Ml Syringe) 10 ml FLUSH ASDIRECTED PRN PRN Reason: Keep Vein Open Tamsulosin HCl (Tamsulosin 0.4 Mg Cap.Er) 0.4 mg PO BEDTIME [facility] Last Admin: 10/03/21 20:01 Dose: 0.4 mg Documented by: Discontinued Medications Baricitinib (Baricitinib 2 Mg Tab) 2 mg PO DAILY [facility] Stop: 09/28/21 09:01 Last Admin: 09/28/21 08:15 Dose: 2 mg Documented by: Bisacodyl (Bisacodyl 10 Mg Supp) 10 mg RECTAL ONETIME ONE Stop: 09/30/21 16:17 Last Admin: 09/30/21 16:58 Dose: 10 mg Documented by: Bisacodyl (Bisacodyl 10 Mg Supp) 10 mg RECTAL ONETIME ONE Stop: 10/04/21 12:48 Last Admin: 10/04/21 13:31 Dose: 10 mg Documented by: Dexamethasone (Dexamethasone 4 Mg/Ml Sdv) 6 mg IVPUSH DAILY [facility] Stop: 09/23/21 09:01 Last Admin: 09/14/21 22:13 Dose: 6 mg Documented by: Dexamethasone (Dexamethasone 4 Mg/Ml Sdv) 6 mg IVPUSH BEDTIME [facility] Stop: 09/23/21 21:01 Last Admin: 09/23/21 21:30 Dose: 6 mg Documented by: Dexamethasone (Dexamethasone 2 Mg Tab) 4 mg PO BEDTIME [facility] Stop: 09/29/21 23:00 Last Admin: 09/29/21 20:56 Dose: 4 mg Documented by: Dexamethasone (Dexamethasone 2 Mg Tab) 2 mg PO DAILY [facility] Stop: 10/04/21 09:01 Last Admin: 10/03/21 08:41 Dose: 2 mg Documented by: Enoxaparin Sodium (Enoxaparin 40 Mg/0.4 Ml Syringe) 40 mg SUBCUT DAILY [facility] Last Admin: 09/14/21 21:31 Dose: 40 mg Documented by: Furosemide (Furosemide 20 Mg/2 Ml Vial) 20 mg IVPUSH NOW ONE Stop: 09/23/21 11:16 Last Admin: 09/23/21 11:48 Dose: 20 mg Documented by: Furosemide (Furosemide 40 Mg/4 Ml Vial) 20 mg IVPUSH NOW ONE Stop: 09/24/21 13:38 Last Admin: 09/24/21 15:42 Dose: 20 mg Documented by: Furosemide (Furosemide 40 Mg Tab) 40 mg PO ONETIME ONE Stop: 10/03/21 16:31 Last Admin: 10/03/21 17:14 Dose: 40 mg Documented by: Furosemide (Furosemide 40 Mg Tab) 40 mg PO ONETIME ONE Stop: 10/04/21 15:01 Remdesivir 200 mg/ Sodium (Chloride) 250 mls @ 250 mls/hr IV ONETIME ONE Stop: 09/14/21 19:28 Last Admin: 09/14/21 21:31 Dose: 250 mls/hr Documented by: Remdesivir 100 mg/ Sodium (Chloride) 100 mls @ 100 mls/hr IV Q24H [facility] Stop: 09/18/21 09:59 Remdesivir 100 mg/ Sodium (Chloride) 100 mls @ 100 mls/hr IV BEDTIME [facility] Stop: 09/18/21 21:59 Last Admin: 09/18/21 22:21 Dose: 100 mls/hr Documented by: Influenza Virus Vaccine (Pharmacy To Dose - Influenza Vaccine) 1 each IM ONETIME ONE Stop: 09/14/21 21:57 Influenza Virus Vaccine (Flu Vacc [id number](65yr Up)/Pf 240 Mcg/0.7 Ml Syringe) 240 mcg IM .ONCE ONE Stop: 09/15/21 10:01 Last Admin: 09/15/21 10:52 Dose: Not Given Documented by: Morphine Sulfate (Morphine 2 Mg/Ml Syringe) 2 mg IVPUSH Q2H PRN PRN Reason: AIR HUNGER Pantoprazole Sodium (Pantoprazole 40 Mg Vial) 40 mg IVPUSH DAILY [facility] Last Admin: 09/14/21 22:13 Dose: 40 mg Documented by: - Exam Quality Assessment: Supplemental Oxygen, DVT Prophylaxis General: Alert, Oriented, Cooperative, Mild Distress Lungs: Decreased Breath Sounds. No: Crackles, Rales, Rhonchi, Wheezing Cardiovascular: Regular Rate, Regular Rhythm, No Murmurs GI/Abdominal Exam: Soft, Non-Tender, No Organomegaly, No Distention Extremities: Non-Tender, No Pedal Edema - Patient Data Lab Results Last 24 hrs: Laboratory Results - last 24 hr 10/04/21 10/04/21 Range/Units 05:35 05:35 WBC 9.6 (4.5-11.0) K/uL RBC 4.52 (4.30-5.90) M/uL Hgb 14.5 (12.0-15.0) g/dL Hct 44.1 (40.0-54.0) % MCV 98 (80-98) fL MCH 32 H (27-31) pg MCHC 33 (32-36) % Plt Count 146 L (150-400) K/uL Neut % (Auto) 70.6 H (36-66) % Lymph % (Auto) 12.8 L (24-44) % [place] % (Auto) 13.1 H (2-6) % Eos % (Auto) 3.3 (2-4) % Baso % (Auto) 0.2 (0-1) % Sodium 140 (140-148) mmol/L Potassium 4.4 (3.6-5.2) mmol/L Chloride 104 (100-108) mmol/L Carbon Dioxide 33 H (21-32) mmol/L Anion Gap 7.4 (5.0-14.0) mmol/L BUN 20 H (7-18) mg/dL Creatinine 1.4 H (0.8-1.3) mg/dL Est Cr Clr Drug Dosing 38.58 mL/min Estimated GFR (MDRD) 48 L (>60) Glucose 84 (74-106) mg/dL Calcium 8.8 (8.5-10.1) mg/dL Result Diagrams: 10/04/21 05:35 10/04/21 05:35 Sepsis Event Note - Evaluation Sepsis Screening Result: No Definite Risk - Focused Exam Vital Signs: Vital Signs Temp Pulse Resp BP BP Pulse Ox 10/04/21 15:05 97.5 F 80 18 100/66 97 10/04/21 10:52 97.0 F 83 18 106/84 98 10/04/21 07:53 97.5 F 88 18 118/79 94 L - Problem List Review Problem List Initiated/Reviewed/Updated: Yes - My Orders Last 24 Hours: My Active Orders 10/04/21 09:00 dexAMETHasone 1 mg PO DAILY 10/04/21 12:53 Na Phos,M-B/Na Phos,DI-B [Fleet Enema] 133 ml RECTAL ONETIME PRN - Plan Plan:: ASSESSMENT AND PLAN - COVID-19 pneumonia-complicated by acute respiratory failure with hypoxia and weakness. He feels improved today compared to yesterday with less shortness of breath and improved strength. 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 He has at least several days left in the hospital weaning oxygen. He should be ready for [facility] as soon as a bed is available.
[2021-10-04] MEDS: Tamsulosin 0.4 MG Cap.ER PO SCH (20:41)
[2021-10-04] MEDS: Enoxaparin 40 MG/0.4 ML Syringe SUBCUT SCH (20:41)
[2021-10-04] MEDS: Melatonin 3 MG Tab PO SCH (20:41)
[2021-10-04] MEDS: Pantoprazole 40 MG Tab.CR PO SCH (20:41)
[2021-10-05] MEDS: Dexamethasone 2 MG Tab PO SCH (09:07)
--- NOTE | 2021-10-05 17:48 | PCM.PN ---
- General Info Date of Service: 10/05/21 Subjective Update: Mr. Woods's not feeling as well today, somewhat weaker and more short of breath. He had felt better during the day yesterday. Appetite has been somewhat poor through the day today. Level of oxygen usage has remained stable. Functional Status: Reports: Tolerating Diet, Urinating - Review of Systems General: Reports: Weakness, Fatigue. Denies: Fever, Chills Pulmonary: Reports: Shortness of Breath, Cough. Denies: Pleuritic Chest Pain, Sputum, Hemoptysis, Wheezing Cardiovascular: Reports: Dyspnea on Exertion. Denies: Chest Pain, Palpitations, Orthopnea, PND, Edema, Lightheadedness Gastrointestinal: Reports: No Symptoms Genitourinary: Reports: No Symptoms - Patient Data Vitals - Most Recent: Last Vital Signs Temp 97.0 F 10/05/21 14:21 Pulse 95 10/05/21 14:45 Resp 18 10/05/21 14:21 BP 111/78 10/05/21 14:45 Pulse Ox 93 L 10/05/21 14:21 Weight - Most Recent: 228 lb I&O - Last 24 Hours: Intake & Output 10/05/21 10/05/21 10/05/21 06:59 14:59 22:59 Intake Total 120 Output Total 200 125 Balance -80 -125 Med Orders - Current: Current Medications Acetaminophen (Acetaminophen 325 Mg Tab) 650 mg PO Q4H PRN PRN Reason: Fever Greater Than 101 Benzonatate (Benzonatate 100 Mg Cap) 100 mg PO Q8H PRN PRN Reason: Cough Bisacodyl (Bisacodyl 5 Mg Tab) 5 mg PO DAILY PRN PRN Reason: Constipation Last Admin: 10/03/21 19:48 Dose: 5 mg Documented by: Dexamethasone (Dexamethasone 2 Mg Tab) 1 mg PO DAILY [facility] Last Admin: 10/05/21 09:07 Dose: 1 mg Documented by: Docusate Sodium (Docusate Sodium 100 Mg Cap) 100 mg PO BID PRN PRN Reason: Constipation Last Admin: 10/03/21 19:48 Dose: 100 mg Documented by: Enoxaparin Sodium (Enoxaparin 40 Mg/0.4 Ml Syringe) 40 mg SUBCUT BEDTIME [facility] Last Admin: 10/04/21 20:41 Dose: 40 mg Documented by: Guaifenesin/Dextromethorphan (Guaifenesin/Dextromethorphan 100-10 Mg/5 Ml Soln 10 Ml Cup) 10 ml PO Q4H PRN PRN Reason: Cough Lorazepam (Lorazepam 2 Mg/Ml Sdv) 1 mg IV Q6H PRN PRN Reason: Nausea/Vomiting Magnesium Hydroxide (Magnesium Hydroxide 400 Mg/5 Ml Susp 30 Ml Cup) 30 ml PO Q8H PRN PRN Reason: Constipation Last Admin: 10/04/21 08:04 Dose: 30 ml Documented by: Melatonin (Melatonin 3 Mg Tab) 9 mg PO BEDTIME [facility] Last Admin: 10/04/21 20:41 Dose: 9 mg Documented by: Morphine Sulfate (Morphine 2 Mg/Ml Syringe) 2 mg IVPUSH Q2H PRN PRN Reason: Pain (rohit 7-10) or Air Hunger Ondansetron HCl (Ondansetron 4 Mg Tab.Dis) 4 mg PO Q6H PRN PRN Reason: Nausea able to take PO Oxycodone HCl (Oxycodone 5 Mg Tab) 5 mg PO Q4H PRN PRN Reason: Pain (moderate 4-6) Pantoprazole Sodium (Pantoprazole 40 Mg Tab.Cr) 40 mg PO BEDTIME [facility] Last Admin: 10/04/21 20:41 Dose: 40 mg Documented by: Sodium Biphosphate/Sodium Phosphate (Sodium Phosphate,Monobasic/Sodium Phosphate,Dibasic Enema 133 Ml Bottle) 133 ml RECTAL ONETIME PRN PRN Reason: Constipation Sodium Chloride (Sodium Chloride 0.9% 10 Ml Syringe) 10 ml FLUSH ASDIRECTED PRN PRN Reason: Keep Vein Open Tamsulosin HCl (Tamsulosin 0.4 Mg Cap.Er) 0.4 mg PO BEDTIME [facility] Last Admin: 10/04/21 20:41 Dose: 0.4 mg Documented by: Discontinued Medications Baricitinib (Baricitinib 2 Mg Tab) 2 mg PO DAILY [facility] Stop: 09/28/21 09:01 Last Admin: 09/28/21 08:15 Dose: 2 mg Documented by: Bisacodyl (Bisacodyl 10 Mg Supp) 10 mg RECTAL ONETIME ONE Stop: 09/30/21 16:17 Last Admin: 09/30/21 16:58 Dose: 10 mg Documented by: Bisacodyl (Bisacodyl 10 Mg Supp) 10 mg RECTAL ONETIME ONE Stop: 10/04/21 12:48 Last Admin: 10/04/21 13:31 Dose: 10 mg Documented by: Dexamethasone (Dexamethasone 4 Mg/Ml Sdv) 6 mg IVPUSH DAILY [facility] Stop: 09/23/21 09:01 Last Admin: 09/14/21 22:13 Dose: 6 mg Documented by: Dexamethasone (Dexamethasone 4 Mg/Ml Sdv) 6 mg IVPUSH BEDTIME [facility] Stop: 09/23/21 21:01 Last Admin: 09/23/21 21:30 Dose: 6 mg Documented by: Dexamethasone (Dexamethasone 2 Mg Tab) 4 mg PO BEDTIME [facility] Stop: 09/29/21 23:00 Last Admin: 09/29/21 20:56 Dose: 4 mg Documented by: Dexamethasone (Dexamethasone 2 Mg Tab) 2 mg PO DAILY [facility] Stop: 10/04/21 09:01 Last Admin: 10/03/21 08:41 Dose: 2 mg Documented by: Enoxaparin Sodium (Enoxaparin 40 Mg/0.4 Ml Syringe) 40 mg SUBCUT DAILY [facility] Last Admin: 09/14/21 21:31 Dose: 40 mg Documented by: Furosemide (Furosemide 20 Mg/2 Ml Vial) 20 mg IVPUSH NOW ONE Stop: 09/23/21 11:16 Last Admin: 09/23/21 11:48 Dose: 20 mg Documented by: Furosemide (Furosemide 40 Mg/4 Ml Vial) 20 mg IVPUSH NOW ONE Stop: 09/24/21 13:38 Last Admin: 09/24/21 15:42 Dose: 20 mg Documented by: Furosemide (Furosemide 40 Mg Tab) 40 mg PO ONETIME ONE Stop: 10/03/21 16:31 Last Admin: 10/03/21 17:14 Dose: 40 mg Documented by: Furosemide (Furosemide 40 Mg Tab) 40 mg PO ONETIME ONE Stop: 10/04/21 15:01 Last Admin: 10/04/21 15:49 Dose: 40 mg Documented by: Remdesivir 200 mg/ Sodium (Chloride) 250 mls @ 250 mls/hr IV ONETIME ONE Stop: 09/14/21 19:28 Last Admin: 09/14/21 21:31 Dose: 250 mls/hr Documented by: Remdesivir 100 mg/ Sodium (Chloride) 100 mls @ 100 mls/hr IV Q24H [facility] Stop: 09/18/21 09:59 Remdesivir 100 mg/ Sodium (Chloride) 100 mls @ 100 mls/hr IV BEDTIME [facility] Stop: 09/18/21 21:59 Last Admin: 09/18/21 22:21 Dose: 100 mls/hr Documented by: Influenza Virus Vaccine (Pharmacy To Dose - Influenza Vaccine) 1 each IM ONETIME ONE Stop: 09/14/21 21:57 Influenza Virus Vaccine (Flu Vacc [id number](65yr Up)/Pf 240 Mcg/0.7 Ml Syringe) 240 mcg IM .ONCE ONE Stop: 09/15/21 10:01 Last Admin: 09/15/21 10:52 Dose: Not Given Documented by: Morphine Sulfate (Morphine 2 Mg/Ml Syringe) 2 mg IVPUSH Q2H PRN PRN Reason: AIR HUNGER Pantoprazole Sodium (Pantoprazole 40 Mg Vial) 40 mg IVPUSH DAILY [facility] Last Admin: 09/14/21 22:13 Dose: 40 mg Documented by: - Exam Quality Assessment: Supplemental Oxygen, DVT Prophylaxis General: Alert, Oriented, Cooperative, Mild Distress Lungs: Decreased Breath Sounds. No: Crackles, Rales, Rhonchi, Wheezing Cardiovascular: Regular Rate, Regular Rhythm, No Murmurs GI/Abdominal Exam: Soft, Non-Tender, No Organomegaly, No Distention Extremities: Non-Tender, No Pedal Edema - Patient Data Result Diagrams: 10/04/21 05:35 10/04/21 05:35 Sepsis Event Note - Evaluation Sepsis Screening Result: No Definite Risk - Focused Exam Vital Signs: Vital Signs Temp Pulse Resp BP BP Pulse Ox 10/05/21 14:45 95 111/78 10/05/21 14:21 97.0 F 49 L 18 87/51 L 93 L 10/05/21 10:41 96.3 F L 83 18 103/67 93 L 10/05/21 07:00 96.6 F L 85 18 102/54 L 93 L - Problem List Review Problem List Initiated/Reviewed/Updated: Yes - My Orders Last 24 Hours: My Active Orders 10/06/21 05:00 BASIC METABOLIC PANEL,BMP [CHEM] Timed CBC WITH AUTO DIFF [HEME] Timed - Plan Plan:: ASSESSMENT AND PLAN - COVID-19 pneumonia-complicated by acute respiratory failure with hypoxia and weakness. Not feeling as well today with more shortness of breath and weakness -supplemental oxygen as needed, wean as able -Dexamethasone 1 mg daily (day 2) -Enoxaparin 40 mg every 24 hours -Albuterol inhaler 2 puffs every 4 hours as needed for shortness of breath -He has completed treatment with baricitinib and remdesivir -oxygen therapy to keep oxygen saturation >90% CKD 3-kidney function stable. 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 He has at least several days left in the hospital weaning oxygen. He should be ready for [facility] discharge as soon as a bed is available.
[2021-10-05] MEDS: Tamsulosin 0.4 MG Cap.ER PO SCH (21:00)
[2021-10-05] MEDS: Pantoprazole 40 MG Tab.CR PO SCH (21:00)
[2021-10-05] MEDS: Melatonin 3 MG Tab PO SCH (21:01)
[2021-10-05] MEDS: Enoxaparin 40 MG/0.4 ML Syringe SUBCUT SCH (21:01)
[2021-10-06] MEDS: Dexamethasone 2 MG Tab PO SCH (08:04)
[2021-10-06] MEDS ORDERED: Furosemide 40 MG Tab PO ONE (13:00)
--- NOTE | 2021-10-06 14:15 | PCM.PN ---
- General Info Date of Service: 10/06/21 Subjective Update: Mr. Woods has been stable since yesterday. He is having a better day today with more energy and improved appetite. Continues to require 4 L/min of supplemental oxygen, he does seem to be recovering more quickly with activity. Functional Status: Reports: Tolerating Diet, Urinating - Review of Systems General: Reports: Weakness, Fatigue. Denies: Fever, Chills Pulmonary: Reports: Shortness of Breath. Denies: Pleuritic Chest Pain, Cough, Sputum, Hemoptysis, Wheezing Cardiovascular: Reports: Dyspnea on Exertion. Denies: Chest Pain, Palpitations, Orthopnea, PND, Edema, Lightheadedness Gastrointestinal: Reports: No Symptoms Genitourinary: Reports: No Symptoms - Patient Data Vitals - Most Recent: Last Vital Signs Temp 96.8 F L 10/06/21 14:07 Pulse 106 H 10/06/21 14:07 Resp 18 10/06/21 14:07 BP 109/69 10/06/21 14:07 Pulse Ox 97 10/06/21 14:07 Weight - Most Recent: 228 lb I&O - Last 24 Hours: Intake & Output 10/05/21 10/06/21 10/06/21 22:59 06:59 14:59 Intake Total 400 600 440 Output Total 100 300 Balance 300 300 440 Lab Results Last 24 Hours: Laboratory Results - last 24 hr 10/06/21 10/06/21 Range/Units 04:52 04:52 WBC 7.5 (4.5-11.0) K/uL RBC 4.42 (4.30-5.90) M/uL Hgb 14.2 (12.0-15.0) g/dL Hct 43.0 (40.0-54.0) % MCV 97 (80-98) fL MCH 32 H (27-31) pg MCHC 33 (32-36) % Plt Count 145 L (150-400) K/uL Neut % (Auto) 63.7 (36-66) % Lymph % (Auto) 19.1 L (24-44) % [place] % (Auto) 12.8 H (2-6) % Eos % (Auto) 4.1 H (2-4) % Baso % (Auto) 0.3 (0-1) % Sodium 138 L (140-148) mmol/L Potassium 4.4 (3.6-5.2) mmol/L Chloride 99 L (100-108) mmol/L Carbon Dioxide 36 H (21-32) mmol/L Anion Gap 7.4 (5.0-14.0) mmol/L BUN 21 H (7-18) mg/dL Creatinine 1.4 H (0.8-1.3) mg/dL Est Cr Clr Drug Dosing 38.58 mL/min Estimated GFR (MDRD) 48 L (>60) Glucose 89 (74-106) mg/dL Calcium 8.8 (8.5-10.1) mg/dL Med Orders - Current: Current Medications Acetaminophen (Acetaminophen 325 Mg Tab) 650 mg PO Q4H PRN PRN Reason: Fever Greater Than 101 Benzonatate (Benzonatate 100 Mg Cap) 100 mg PO Q8H PRN PRN Reason: Cough Bisacodyl (Bisacodyl 5 Mg Tab) 5 mg PO DAILY PRN PRN Reason: Constipation Last Admin: 10/03/21 19:48 Dose: 5 mg Documented by: Dexamethasone (Dexamethasone 2 Mg Tab) 1 mg PO DAILY REPLACED BY [facility] Last Admin: 10/06/21 08:04 Dose: 1 mg Documented by: Docusate Sodium (Docusate Sodium 100 Mg Cap) 100 mg PO BID PRN PRN Reason: Constipation Last Admin: 10/03/21 19:48 Dose: 100 mg Documented by: Enoxaparin Sodium (Enoxaparin 40 Mg/0.4 Ml Syringe) 40 mg SUBCUT BEDTIME REPLACED BY [facility] Last Admin: 10/05/21 21:01 Dose: 40 mg Documented by: Guaifenesin/Dextromethorphan (Guaifenesin/Dextromethorphan 100-10 Mg/5 Ml Soln 10 Ml Cup) 10 ml PO Q4H PRN PRN Reason: Cough Lorazepam (Lorazepam 2 Mg/Ml Sdv) 1 mg IV Q6H PRN PRN Reason: Nausea/Vomiting Magnesium Hydroxide (Magnesium Hydroxide 400 Mg/5 Ml Susp 30 Ml Cup) 30 ml PO Q8H PRN PRN Reason: Constipation Last Admin: 10/04/21 08:04 Dose: 30 ml Documented by: Melatonin (Melatonin 3 Mg Tab) 9 mg PO BEDTIME REPLACED BY [facility] Last Admin: 10/05/21 21:01 Dose: 9 mg Documented by: Morphine Sulfate (Morphine 2 Mg/Ml Syringe) 2 mg IVPUSH Q2H PRN PRN Reason: Pain (rohit 7-10) or Air Hunger Ondansetron HCl (Ondansetron 4 Mg Tab.Dis) 4 mg PO Q6H PRN PRN Reason: Nausea able to take PO Oxycodone HCl (Oxycodone 5 Mg Tab) 5 mg PO Q4H PRN PRN Reason: Pain (moderate 4-6) Pantoprazole Sodium (Pantoprazole 40 Mg Tab.Cr) 40 mg PO BEDTIME REPLACED BY [facility] Last Admin: 10/05/21 21:00 Dose: 40 mg Documented by: Sodium Biphosphate/Sodium Phosphate (Sodium Phosphate,Monobasic/Sodium Phosphate,Dibasic Enema 133 Ml Bottle) 133 ml RECTAL ONETIME PRN PRN Reason: Constipation Sodium Chloride (Sodium Chloride 0.9% 10 Ml Syringe) 10 ml FLUSH ASDIRECTED PRN PRN Reason: Keep Vein Open Tamsulosin HCl (Tamsulosin 0.4 Mg Cap.Er) 0.4 mg PO BEDTIME REPLACED BY [facility] Last Admin: 10/05/21 21:00 Dose: 0.4 mg Documented by: Discontinued Medications Baricitinib (Baricitinib 2 Mg Tab) 2 mg PO DAILY [facility] Stop: 09/28/21 09:01 Last Admin: 09/28/21 08:15 Dose: 2 mg Documented by: Bisacodyl (Bisacodyl 10 Mg Supp) 10 mg RECTAL ONETIME ONE Stop: 09/30/21 16:17 Last Admin: 09/30/21 16:58 Dose: 10 mg Documented by: Bisacodyl (Bisacodyl 10 Mg Supp) 10 mg RECTAL ONETIME ONE Stop: 10/04/21 12:48 Last Admin: 10/04/21 13:31 Dose: 10 mg Documented by: Dexamethasone (Dexamethasone 4 Mg/Ml Sdv) 6 mg IVPUSH DAILY [facility] Stop: 09/23/21 09:01 Last Admin: 09/14/21 22:13 Dose: 6 mg Documented by: Dexamethasone (Dexamethasone 4 Mg/Ml Sdv) 6 mg IVPUSH BEDTIME [facility] Stop: 09/23/21 21:01 Last Admin: 09/23/21 21:30 Dose: 6 mg Documented by: Dexamethasone (Dexamethasone 2 Mg Tab) 4 mg PO BEDTIME [facility] Stop: 09/29/21 23:00 Last Admin: 09/29/21 20:56 Dose: 4 mg Documented by: Dexamethasone (Dexamethasone 2 Mg Tab) 2 mg PO DAILY [facility] Stop: 10/04/21 09:01 Last Admin: 10/03/21 08:41 Dose: 2 mg Documented by: Enoxaparin Sodium (Enoxaparin 40 Mg/0.4 Ml Syringe) 40 mg SUBCUT DAILY REPLACED BY [facility] Last Admin: 09/14/21 21:31 Dose: 40 mg Documented by: Furosemide (Furosemide 20 Mg/2 Ml Vial) 20 mg IVPUSH NOW ONE Stop: 09/23/21 11:16 Last Admin: 09/23/21 11:48 Dose: 20 mg Documented by: Furosemide (Furosemide 40 Mg/4 Ml Vial) 20 mg IVPUSH NOW ONE Stop: 09/24/21 13:38 Last Admin: 09/24/21 15:42 Dose: 20 mg Documented by: Furosemide (Furosemide 40 Mg Tab) 40 mg PO ONETIME ONE Stop: 10/03/21 16:31 Last Admin: 10/03/21 17:14 Dose: 40 mg Documented by: Furosemide (Furosemide 40 Mg Tab) 40 mg PO ONETIME ONE Stop: 10/04/21 15:01 Last Admin: 10/04/21 15:49 Dose: 40 mg Documented by: Furosemide (Furosemide 40 Mg Tab) 40 mg PO ONETIME ONE Stop: 10/06/21 13:01 Last Admin: 10/06/21 14:03 Dose: 40 mg Documented by: Remdesivir 200 mg/ Sodium (Chloride) 250 mls @ 250 mls/hr IV ONETIME ONE Stop: 09/14/21 19:28 Last Admin: 09/14/21 21:31 Dose: 250 mls/hr Documented by: Remdesivir 100 mg/ Sodium (Chloride) 100 mls @ 100 mls/hr IV Q24H [facility] Stop: 09/18/21 09:59 Remdesivir 100 mg/ Sodium (Chloride) 100 mls @ 100 mls/hr IV BEDTIME [facility] Stop: 09/18/21 21:59 Last Admin: 09/18/21 22:21 Dose: 100 mls/hr Documented by: Influenza Virus Vaccine (Pharmacy To Dose - Influenza Vaccine) 1 each IM ONETIME ONE Stop: 09/14/21 21:57 Influenza Virus Vaccine (Flu Vacc [id number](65yr Up)/Pf 240 Mcg/0.7 Ml Syringe) 240 mcg IM .ONCE ONE Stop: 09/15/21 10:01 Last Admin: 09/15/21 10:52 Dose: Not Given Documented by: Morphine Sulfate (Morphine 2 Mg/Ml Syringe) 2 mg IVPUSH Q2H PRN PRN Reason: AIR HUNGER Pantoprazole Sodium (Pantoprazole 40 Mg Vial) 40 mg IVPUSH DAILY [facility] Last Admin: 09/14/21 22:13 Dose: 40 mg Documented by: - Exam Quality Assessment: Supplemental Oxygen, DVT Prophylaxis General: Alert, Oriented, Cooperative, Mild Distress Lungs: Clear to Auscultation, Normal Respiratory Effort, Decreased Breath Sounds Cardiovascular: Regular Rate, Regular Rhythm, No Murmurs GI/Abdominal Exam: Soft, Non-Tender, No Organomegaly, No Distention Extremities: Non-Tender, No Pedal Edema - Patient Data Lab Results Last 24 hrs: Laboratory Results - last 24 hr 10/06/21 10/06/21 Range/Units 04:52 04:52 WBC 7.5 (4.5-11.0) K/uL RBC 4.42 (4.30-5.90) M/uL Hgb 14.2 (12.0-15.0) g/dL Hct 43.0 (40.0-54.0) % MCV 97 (80-98) fL MCH 32 H (27-31) pg MCHC 33 (32-36) % Plt Count 145 L (150-400) K/uL Neut % (Auto) 63.7 (36-66) % Lymph % (Auto) 19.1 L (24-44) % [place] % (Auto) 12.8 H (2-6) % Eos % (Auto) 4.1 H (2-4) % Baso % (Auto) 0.3 (0-1) % Sodium 138 L (140-148) mmol/L Potassium 4.4 (3.6-5.2) mmol/L Chloride 99 L (100-108) mmol/L Carbon Dioxide 36 H (21-32) mmol/L Anion Gap 7.4 (5.0-14.0) mmol/L BUN 21 H (7-18) mg/dL Creatinine 1.4 H (0.8-1.3) mg/dL Est Cr Clr Drug Dosing 38.58 mL/min Estimated GFR (MDRD) 48 L (>60) Glucose 89 (74-106) mg/dL Calcium 8.8 (8.5-10.1) mg/dL Result Diagrams: 10/06/21 04:52 10/06/21 04:52 Sepsis Event Note - Evaluation Sepsis Screening Result: No Definite Risk - Focused Exam Vital Signs: Vital Signs Temp Pulse Resp BP BP Pulse Ox 10/06/21 14:07 96.8 F L 106 H 18 109/69 97 10/06/21 09:54 97.0 F 92 18 97/56 L 97 10/06/21 07:40 97.3 F 97 18 99/65 90 L 10/06/21 02:24 98.0 F 91 18 159/54 H 92 L - Problem List Review Problem List Initiated/Reviewed/Updated: Yes - Plan Plan:: ASSESSMENT AND PLAN - COVID-19 pneumonia-complicated by acute respiratory failure with hypoxia and weakness. Doing better today, less short of breath and fatigued -supplemental oxygen as needed, wean as able -Dexamethasone 1 mg daily (day 3) -Enoxaparin 40 mg every 24 hours -Albuterol inhaler 2 puffs every 4 hours as needed for shortness of breath -He has completed treatment with baricitinib and remdesivir -oxygen therapy to keep oxygen saturation >90% CKD 3-kidney function stable. 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 He has at least several days left in the hospital weaning oxygen. He should be ready for long-term discharge as soon as a bed is available.
[2021-10-06] MEDS: Enoxaparin 40 MG/0.4 ML Syringe SUBCUT SCH (20:49)
[2021-10-06] MEDS: Tamsulosin 0.4 MG Cap.ER PO SCH (20:49)
[2021-10-06] MEDS: Pantoprazole 40 MG Tab.CR PO SCH (20:49)
[2021-10-06] MEDS: Melatonin 3 MG Tab PO SCH (20:49)
[2021-10-07] MEDS: Dexamethasone 2 MG Tab PO SCH (09:22)
--- NOTE | 2021-10-07 14:04 | PCM.PN ---
- General Info Date of Service: 10/07/21 Subjective Update: Mr. Woods has remained stable since yesterday, continues to require 3 to 5 L/min of supplemental oxygen via nasal cannula. Blood pressure at times has been somewhat borderline but he is asymptomatic with this, diuretic therapy with furosemide has been discontinued. Currently on no other medications which would affect pressure other than the Flomax which he needs for urination. He seems to be slowly improving from a respiratory standpoint, with slow improvement in appetite and strength. Functional Status: Reports: Tolerating Diet, Urinating - Review of Systems General: Reports: Weakness, Fatigue. Denies: Fever, Chills Pulmonary: Reports: Shortness of Breath. Denies: Pleuritic Chest Pain, Cough, Sputum, Hemoptysis, Wheezing Cardiovascular: Reports: Dyspnea on Exertion. Denies: Chest Pain, Palpitations, Orthopnea, PND, Edema, Lightheadedness Gastrointestinal: Reports: No Symptoms Genitourinary: Reports: No Symptoms - Patient Data Vitals - Most Recent: Last Vital Signs Temp 96.4 F L 10/07/21 10:00 Pulse 56 L 10/07/21 11:00 Resp 20 10/07/21 11:00 BP 89/50 L 10/07/21 10:00 Pulse Ox 91 L 10/07/21 11:00 Weight - Most Recent: 228 lb I&O - Last 24 Hours: Intake & Output 10/06/21 10/07/21 10/07/21 22:59 06:59 14:59 Intake Total 380 300 840 Output Total 100 225 100 Balance 280 75 740 Med Orders - Current: Current Medications Acetaminophen (Acetaminophen 325 Mg Tab) 650 mg PO Q4H PRN PRN Reason: Fever Greater Than 101 Benzonatate (Benzonatate 100 Mg Cap) 100 mg PO Q8H PRN PRN Reason: Cough Bisacodyl (Bisacodyl 5 Mg Tab) 5 mg PO DAILY PRN PRN Reason: Constipation Last Admin: 10/03/21 19:48 Dose: 5 mg Documented by: Dexamethasone (Dexamethasone 2 Mg Tab) 1 mg PO DAILY [facility] Last Admin: 10/07/21 09:22 Dose: 1 mg Documented by: Docusate Sodium (Docusate Sodium 100 Mg Cap) 100 mg PO BID PRN PRN Reason: Constipation Last Admin: 10/03/21 19:48 Dose: 100 mg Documented by: Enoxaparin Sodium (Enoxaparin 40 Mg/0.4 Ml Syringe) 40 mg SUBCUT BEDTIME [facility] Last Admin: 10/06/21 20:49 Dose: 40 mg Documented by: Guaifenesin/Dextromethorphan (Guaifenesin/Dextromethorphan 100-10 Mg/5 Ml Soln 10 Ml Cup) 10 ml PO Q4H PRN PRN Reason: Cough Lorazepam (Lorazepam 2 Mg/Ml Sdv) 1 mg IV Q6H PRN PRN Reason: Nausea/Vomiting Magnesium Hydroxide (Magnesium Hydroxide 400 Mg/5 Ml Susp 30 Ml Cup) 30 ml PO Q 8H PRN PRN Reason: Constipation Last Admin: 10/04/21 08:04 Dose: 30 ml Documented by: Melatonin (Melatonin 3 Mg Tab) 9 mg PO BEDTIME [facility] Last Admin: 10/06/21 20:49 Dose: 9 mg Documented by: Morphine Sulfate (Morphine 2 Mg/Ml Syringe) 2 mg IVPUSH Q2H PRN PRN Reason: Pain (rohit 7-10) or Air Hunger Ondansetron HCl (Ondansetron 4 Mg Tab.Dis) 4 mg PO Q6H PRN PRN Reason: Nausea able to take PO Oxycodone HCl (Oxycodone 5 Mg Tab) 5 mg PO Q4H PRN PRN Reason: Pain (moderate 4-6) Pantoprazole Sodium (Pantoprazole 40 Mg Tab.Cr) 40 mg PO BEDTIME [facility] Last Admin: 10/06/21 20:49 Dose: 40 mg Documented by: Sodium Biphosphate/Sodium Phosphate (Sodium Phosphate,Monobasic/Sodium Phosphate,Dibasic Enema 133 Ml Bottle) 133 ml RECTAL ONETIME PRN PRN Reason: Constipation Sodium Chloride (Sodium Chloride 0.9% 10 Ml Syringe) 10 ml FLUSH ASDIRECTED PRN PRN Reason: Keep Vein Open Tamsulosin HCl (Tamsulosin 0.4 Mg Cap.Er) 0.4 mg PO BEDTIME [facility] Last Admin: 10/06/21 20:49 Dose: 0.4 mg Documented by: Discontinued Medications Baricitinib (Baricitinib 2 Mg Tab) 2 mg PO DAILY [facility] Stop: 09/28/21 09:01 Last Admin: 09/28/21 08:15 Dose: 2 mg Documented by: Bisacodyl (Bisacodyl 10 Mg Supp) 10 mg RECTAL ONETIME ONE Stop: 09/30/21 16:17 Last Admin: 09/30/21 16:58 Dose: 10 mg Documented by: Bisacodyl (Bisacodyl 10 Mg Supp) 10 mg RECTAL ONETIME ONE Stop: 10/04/21 12:48 Last Admin: 10/04/21 13:31 Dose: 10 mg Documented by: Dexamethasone (Dexamethasone 4 Mg/Ml Sdv) 6 mg IVPUSH DAILY [facility] Stop: 09/23/21 09:01 Last Admin: 09/14/21 22:13 Dose: 6 mg Documented by: Dexamethasone (Dexamethasone 4 Mg/Ml Sdv) 6 mg IVPUSH BEDTIME [facility] Stop: 09/23/21 21:01 Last Admin: 09/23/21 21:30 Dose: 6 mg Documented by: Dexamethasone (Dexamethasone 2 Mg Tab) 4 mg PO BEDTIME [facility] Stop: 09/29/21 23:00 Last Admin: 09/29/21 20:56 Dose: 4 mg Documented by: Dexamethasone (Dexamethasone 2 Mg Tab) 2 mg PO DAILY [facility] Stop: 10/04/21 09:01 Last Admin: 10/03/21 08:41 Dose: 2 mg Documented by: Enoxaparin Sodium (Enoxaparin 40 Mg/0.4 Ml Syringe) 40 mg SUBCUT DAILY [facility] Last Admin: 09/14/21 21:31 Dose: 40 mg Documented by: Furosemide (Furosemide 20 Mg/2 Ml Vial) 20 mg IVPUSH NOW ONE Stop: 09/23/21 11:16 Last Admin: 09/23/21 11:48 Dose: 20 mg Documented by: Furosemide (Furosemide 40 Mg/4 Ml Vial) 20 mg IVPUSH NOW ONE Stop: 09/24/21 13:38 Last Admin: 09/24/21 15:42 Dose: 20 mg Documented by: Furosemide (Furosemide 40 Mg Tab) 40 mg PO ONETIME ONE Stop: 10/03/21 16:31 Last Admin: 10/03/21 17:14 Dose: 40 mg Documented by: Furosemide (Furosemide 40 Mg Tab) 40 mg PO ONETIME ONE Stop: 10/04/21 15:01 Last Admin: 10/04/21 15:49 Dose: 40 mg Documented by: Furosemide (Furosemide 40 Mg Tab) 40 mg PO ONETIME ONE Stop: 10/06/21 13:01 Last Admin: 10/06/21 14:03 Dose: 40 mg Documented by: Remdesivir 200 mg/ Sodium (Chloride) 250 mls @ 250 mls/hr IV ONETIME ONE Stop: 09/14/21 19:28 Last Admin: 09/14/21 21:31 Dose: 250 mls/hr Documented by: Remdesivir 100 mg/ Sodium (Chloride) 100 mls @ 100 mls/hr IV Q24H [facility] Stop: 09/18/21 09:59 Remdesivir 100 mg/ Sodium (Chloride) 100 mls @ 100 mls/hr IV BEDTIME [facility] Stop: 09/18/21 21:59 Last Admin: 09/18/21 22:21 Dose: 100 mls/hr Documented by: Influenza Virus Vaccine (Pharmacy To Dose - Influenza Vaccine) 1 each IM ONETIME ONE Stop: 09/14/21 21:57 Influenza Virus Vaccine (Flu Vacc [id number](65yr Up)/Pf 240 Mcg/0.7 Ml Syringe) 240 mcg IM .ONCE ONE Stop: 09/15/21 10:01 Last Admin: 09/15/21 10:52 Dose: Not Given Documented by: Morphine Sulfate (Morphine 2 Mg/Ml Syringe) 2 mg IVPUSH Q2H PRN PRN Reason: AIR HUNGER Pantoprazole Sodium (Pantoprazole 40 Mg Vial) 40 mg IVPUSH DAILY [facility] Last Admin: 09/14/21 22:13 Dose: 40 mg Documented by: - Exam Quality Assessment: Supplemental Oxygen, DVT Prophylaxis General: Alert, Oriented, Cooperative, Mild Distress Lungs: Clear to Auscultation, Normal Respiratory Effort, Decreased Breath Sounds. No: Crackles, Rales, Rhonchi, Wheezing Cardiovascular: Regular Rate, Regular Rhythm, No Murmurs GI/Abdominal Exam: Soft, Non-Tender, No Organomegaly, No Distention Extremities: Non-Tender, No Pedal Edema - Patient Data Result Diagrams: 10/06/21 04:52 10/06/21 04:52 Sepsis Event Note - Evaluation Sepsis Screening Result: No Definite Risk - Focused Exam Vital Signs: Vital Signs Temp Pulse Resp BP BP Pulse Ox 10/07/21 11:00 56 L 20 91 L 10/07/21 10:00 96.4 F L 37 L 19 89/50 L 90 L 10/07/21 02:36 97.0 F 80 18 98/55 L 93 L - Problem List Review Problem List Initiated/Reviewed/Updated: Yes - Plan Plan:: ASSESSMENT AND PLAN - COVID-19 pneumonia-complicated by acute respiratory failure with hypoxia and weakness. Doing better today, less short of breath and fatigued -supplemental oxygen as needed, wean as able -Dexamethasone 1 mg daily (day 4) -Enoxaparin 40 mg every 24 hours -Albuterol inhaler 2 puffs every 4 hours as needed for shortness of breath -He has completed treatment with baricitinib and remdesivir -oxygen therapy to keep oxygen saturation >90% CKD 3-kidney function stable. 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 He has at least several days left in the hospital weaning oxygen. He should be ready for intermediate discharge as soon as a bed is available.
[2021-10-07] MEDS: Pantoprazole 40 MG Tab.CR PO SCH (20:12)
[2021-10-07] MEDS: Enoxaparin 40 MG/0.4 ML Syringe SUBCUT SCH (20:12)
[2021-10-07] MEDS: Melatonin 3 MG Tab PO SCH (20:12)
[2021-10-07] MEDS: Tamsulosin 0.4 MG Cap.ER PO SCH (20:12)
[2021-10-08] MEDS: Dexamethasone 2 MG Tab PO SCH (08:38)
[2021-10-08] MEDS: Docusate Sodium 100 MG Cap PO PRN (08:51)
--- NOTE | 2021-10-08 12:09 | PCM.PN ---
- General Info Date of Service: 10/08/21 Subjective Update: Mr. Woods remained fairly stable over the last 24 hours, continues to require 3 to 4 L/min of supplemental oxygen. Blood pressures been somewhat better since yesterday and he denies any symptoms of lightheadedness. Functional Status: Reports: Tolerating Diet, Ambulating, Urinating - Review of Systems General: Reports: Weakness, Fatigue. Denies: Fever, Chills Pulmonary: Reports: Shortness of Breath. Denies: Pleuritic Chest Pain, Cough, Sputum, Hemoptysis, Wheezing Cardiovascular: Reports: Dyspnea on Exertion. Denies: Chest Pain, Palpitations, Orthopnea, PND, Edema, Lightheadedness Gastrointestinal: Reports: No Symptoms Genitourinary: Reports: No Symptoms - Patient Data Vitals - Most Recent: Last Vital Signs Temp 96.8 F L 10/08/21 10:39 Pulse 76 10/08/21 10:39 Resp 16 10/08/21 10:39 BP 116/62 10/08/21 10:39 Pulse Ox 94 L 10/08/21 10:39 Weight - Most Recent: 228 lb I&O - Last 24 Hours: Intake & Output 10/07/21 10/08/21 10/08/21 22:59 06:59 14:59 Intake Total 300 Output Total 220 200 Balance -220 -200 300 Med Orders - Current: Current Medications Acetaminophen (Acetaminophen 325 Mg Tab) 650 mg PO Q4H PRN PRN Reason: Fever Greater Than 101 Benzonatate (Benzonatate 100 Mg Cap) 100 mg PO Q8H PRN PRN Reason: Cough Bisacodyl (Bisacodyl 5 Mg Tab) 5 mg PO DAILY PRN PRN Reason: Constipation Last Admin: 10/03/21 19:48 Dose: 5 mg Documented by: Dexamethasone (Dexamethasone 2 Mg Tab) 0.5 mg PO DAILY [facility] Last Admin: 10/08/21 08:38 Dose: 0.5 mg Documented by: Docusate Sodium (Docusate Sodium 100 Mg Cap) 100 mg PO BID PRN PRN Reason: Constipation Last Admin: 10/08/21 08:51 Dose: 100 mg Documented by: Enoxaparin Sodium (Enoxaparin 40 Mg/0.4 Ml Syringe) 40 mg SUBCUT BEDTIME [facility] Last Admin: 10/07/21 20:12 Dose: 40 mg Documented by: Guaifenesin/Dextromethorphan (Guaifenesin/Dextromethorphan 100-10 Mg/5 Ml Soln 10 Ml Cup) 10 ml PO Q4H PRN PRN Reason: Cough Lorazepam (Lorazepam 2 Mg/Ml Sdv) 1 mg IV Q6H PRN PRN Reason: Nausea/Vomiting Magnesium Hydroxide (Magnesium Hydroxide 400 Mg/5 Ml Susp 30 Ml Cup) 30 ml PO Q8H PRN PRN Reason: Constipation Last Admin: 10/04/21 08:04 Dose: 30 ml Documented by: Melatonin (Melatonin 3 Mg Tab) 9 mg PO BEDTIME [facility] Last Admin: 10/07/21 20:12 Dose: 9 mg Documented by: Morphine Sulfate (Morphine 2 Mg/Ml Syringe) 2 mg IVPUSH Q2H PRN PRN Reason: Pain (rohit 7-10) or Air Hunger Ondansetron HCl (Ondansetron 4 Mg Tab.Dis) 4 mg PO Q6H PRN PRN Reason: Nausea able to take PO Oxycodone HCl (Oxycodone 5 Mg Tab) 5 mg PO Q4H PRN PRN Reason: Pain (moderate 4-6) Pantoprazole Sodium (Pantoprazole 40 Mg Tab.Cr) 40 mg PO BEDTIME [facility] Last Admin: 10/07/21 20:12 Dose: 40 mg Documented by: Sodium Biphosphate/Sodium Phosphate (Sodium Phosphate,Monobasic/Sodium Phosphate,Dibasic Enema 133 Ml Bottle) 133 ml RECTAL ONETIME PRN PRN Reason: Constipation Sodium Chloride (Sodium Chloride 0.9% 10 Ml Syringe) 10 ml FLUSH ASDIRECTED PRN PRN Reason: Keep Vein Open Tamsulosin HCl (Tamsulosin 0.4 Mg Cap.Er) 0.4 mg PO BEDTIME [facility] Last Admin: 10/07/21 20:12 Dose: 0.4 mg Documented by: Discontinued Medications Baricitinib (Baricitinib 2 Mg Tab) 2 mg PO DAILY [facility] Stop: 09/28/21 09:01 Last Admin: 09/28/21 08:15 Dose: 2 mg Documented by: Bisacodyl (Bisacodyl 10 Mg Supp) 10 mg RECTAL ONETIME ONE Stop: 09/30/21 16:17 Last Admin: 09/30/21 16:58 Dose: 10 mg Documented by: Bisacodyl (Bisacodyl 10 Mg Supp) 10 mg RECTAL ONETIME ONE Stop: 10/04/21 12:48 Last Admin: 10/04/21 13:31 Dose: 10 mg Documented by: Dexamethasone (Dexamethasone 4 Mg/Ml Sdv) 6 mg IVPUSH DAILY [facility] Stop: 09/23/21 09:01 Last Admin: 09/14/21 22:13 Dose: 6 mg Documented by: Dexamethasone (Dexamethasone 4 Mg/Ml Sdv) 6 mg IVPUSH BEDTIME [facility] Stop: 09/23/21 21:01 Last Admin: 09/23/21 21:30 Dose: 6 mg Documented by: Dexamethasone (Dexamethasone 2 Mg Tab) 4 mg PO BEDTIME [facility] Stop: 09/29/21 23:00 Last Admin: 09/29/21 20:56 Dose: 4 mg Documented by: Dexamethasone (Dexamethasone 2 Mg Tab) 2 mg PO DAILY [facility] Stop: 10/04/21 09:01 Last Admin: 10/03/21 08:41 Dose: 2 mg Documented by: Dexamethasone (Dexamethasone 2 Mg Tab) 1 mg PO DAILY [facility] Last Admin: 10/07/21 09:22 Dose: 1 mg Documented by: Enoxaparin Sodium (Enoxaparin 40 Mg/0.4 Ml Syringe) 40 mg SUBCUT DAILY [facility] Last Admin: 09/14/21 21:31 Dose: 40 mg Documented by: Furosemide (Furosemide 20 Mg/2 Ml Vial) 20 mg IVPUSH NOW ONE Stop: 09/23/21 11:16 Last Admin: 09/23/21 11:48 Dose: 20 mg Documented by: Furosemide (Furosemide 40 Mg/4 Ml Vial) 20 mg IVPUSH NOW ONE Stop: 09/24/21 13:38 Last Admin: 09/24/21 15:42 Dose: 20 mg Documented by: Furosemide (Furosemide 40 Mg Tab) 40 mg PO ONETIME ONE Stop: 10/03/21 16:31 Last Admin: 10/03/21 17:14 Dose: 40 mg Documented by: Furosemide (Furosemide 40 Mg Tab) 40 mg PO ONETIME ONE Stop: 10/04/21 15:01 Last Admin: 10/04/21 15:49 Dose: 40 mg Documented by: Furosemide (Furosemide 40 Mg Tab) 40 mg PO ONETIME ONE Stop: 10/06/21 13:01 Last Admin: 10/06/21 14:03 Dose: 40 mg Documented by: Remdesivir 200 mg/ Sodium (Chloride) 250 mls @ 250 mls/hr IV ONETIME ONE Stop: 09/14/21 19:28 Last Admin: 09/14/21 21:31 Dose: 250 mls/hr Documented by: Remdesivir 100 mg/ Sodium (Chloride) 100 mls @ 100 mls/hr IV Q24H [facility] Stop: 09/18/21 09:59 Remdesivir 100 mg/ Sodium (Chloride) 100 mls @ 100 mls/hr IV BEDTIME [facility] Stop: 09/18/21 21:59 Last Admin: 09/18/21 22:21 Dose: 100 mls/hr Documented by: Influenza Virus Vaccine (Pharmacy To Dose - Influenza Vaccine) 1 each IM ONETIME ONE Stop: 09/14/21 21:57 Influenza Virus Vaccine (Flu Vacc [id number](65yr Up)/Pf 240 Mcg/0.7 Ml Syringe) 240 mcg IM .ONCE ONE Stop: 09/15/21 10:01 Last Admin: 09/15/21 10:52 Dose: Not Given Documented by: Morphine Sulfate (Morphine 2 Mg/Ml Syringe) 2 mg IVPUSH Q2H PRN PRN Reason: AIR HUNGER Pantoprazole Sodium (Pantoprazole 40 Mg Vial) 40 mg IVPUSH DAILY [facility] Last Admin: 09/14/21 22:13 Dose: 40 mg Documented by: - Exam Quality Assessment: Supplemental Oxygen, DVT Prophylaxis General: Alert, Oriented, Cooperative, Mild Distress Lungs: Clear to Auscultation, Normal Respiratory Effort, Decreased Breath Sounds . No: Crackles, Rales, Rhonchi, Wheezing Cardiovascular: Regular Rate, Regular Rhythm, No Murmurs GI/Abdominal Exam: Soft, Non-Tender, No Organomegaly, No Distention Extremities: Non-Tender, No Pedal Edema - Patient Data Result Diagrams: 10/06/21 04:52 10/06/21 04:52 Sepsis Event Note - Evaluation Sepsis Screening Result: No Definite Risk - Focused Exam Vital Signs: Vital Signs Temp Temp Pulse Resp BP Pulse Ox 10/08/21 10:39 96.8 F L 76 16 116/62 94 L 10/08/21 08:19 96.5 F L 82 16 108/73 97 10/08/21 04:16 97 F 48 L 16 102/48 L 94 L - Problem List Review Problem List Initiated/Reviewed/Updated: Yes - My Orders Last 24 Hours: My Active Orders 10/08/21 09:00 dexAMETHasone 0.5 mg PO DAILY - Plan Plan:: ASSESSMENT AND PLAN - COVID-19 pneumonia-complicated by acute respiratory failure with hypoxia and weakness. Doing better today, less short of breath and fatigued -supplemental oxygen as needed, wean as able -Dexamethasone 0.5 mg daily (day 1) -Enoxaparin 40 mg every 24 hours -Albuterol inhaler 2 puffs every 4 hours as needed for shortness of breath -He has completed treatment with baricitinib and remdesivir -oxygen therapy to keep oxygen saturation >90% CKD 3-kidney function stable. 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 He has at least several days left in the hospital weaning oxygen. He should be ready for care home discharge as soon as a bed is available.
--- NOTE | 2021-10-08 12:15 | PCM.DCSUM1 ---
Discharge Summary - Hospital Course Brief History: Mr. Woods is an 85-year-old gentleman who was admitted through the emergency department with weakness, shortness of breath, and hypoxia, secondary to COVID-19 with bilateral pneumonia. - Discharge Data Discharge Date: 10/09/21 Discharge Disposition: DC/Tfer to SNF 03 Condition: Fair - Referral to Home Health Primary Care Physician: PCP None - Discharge Diagnosis/Problem(s) (1) Pneumonia due to COVID-19 virus SNOMED Code(s): 995820646780038084 ICD Code: U07.1 - COVID-19; J12.82 - PNEUMONIA DUE TO CORONAVIRUS DISEASE 2018 Status: Acute Current Visit: Yes (2) Alzheimers disease SNOMED Code(s): 90957443 ICD Code: G30.9 - ALZHEIMER'S DISEASE, UNSPECIFIED; F02.80 - DEMENTIA IN OTH DISEASES CLASSD ELSWHR W/O BEHAVRL DISTURB Status: Acute Current Visit: Yes (3) Acute respiratory failure with hypoxia SNOMED Code(s): 48191240, 078760291 ICD Code: J96.01 - ACUTE RESPIRATORY FAILURE WITH HYPOXIA Status: Acute Current Visit: Yes (4) Weakness SNOMED Code(s): 31243160 ICD Code: R53.1 - WEAKNESS Status: Acute Priority: High Current Visit: Yes - Patient Summary/Data Consults: Consultations 09/14/21 20:45 Consult to Spiritual Care [CONS] Routine 09/18/21 07:00 PT Evaluation and Treatment [CONS] Routine Please Evaluate and Treat. PT Reason for Consult: Strengthening This query below is only for informational purposes and is not editable. Admission Diagnosis/Problem: Weakness Hospital Course: Mr. Woods is an 85-year-old male brought in by EMS because of persistent recurring vertigo and perceived weakness generalized. No pain, no fever. He is fully vaccinated for Covid, however he is mildly hypoxic. He has no headache but he has intermittent double vision. No recent trauma, no falls. Has lived for Covid while in the emergency department and because of his hypoxia was started on dexamethasone. Remdesivir was held 1 day because of kidney function and creatinine clearance. Remdesivir was initiated after renal function had improved. During the first portion of his hospital stay his oxygenation worsened to the point that he was requiring 15 L of oxygen per minute via high flow nasal cannula. At that time he was started on a course of baricitinib. By the time of discharge he had completed the full course of baricitinib as well as remdesivir. Renal function otherwise remained stable and he was treated intermittently with diuretic therapy, to prevent fluid overload. He slowly improved through the rest of his hospital stay and by the time of discharge was down to 3 to 4 L of oxygen via nasal cannula. On the day of discharge he will have completed his dexamethasone taper. Appetite slowly improved as well as overall strength. After oxygenation improved he was seen daily by physical t hersandra. He does continue to experience some desaturation with activity. Blood pressures had been somewhat borderline in the week prior to discharge, this did seem to improve after his daily dose of diuretic was discontinued. Activity will be as tolerated and he will resume his usual diet. Follow-up with primary care will be as needed [facility]. - Patient Instructions Diet: Usual Diet as Tolerated Activity: As Tolerated Other/Special Instructions: Daily physical therapy and Occupational Therapy while at the [facility] - Discharge Plan *PRESCRIPTION DRUG MONITORING PROGRAM REVIEWED*: Not Applicable *COPY OF PRESCRIPTION DRUG MONITORING REPORT IN PATIENT HOLLIS: Not Applicable Home Medications: Home Meds Omeprazole 20 mg PO BIDAC 04/17/14 [History] Tamsulosin [Flomax] 0.4 mg PO BEDTIME 09/14/21 [History] Oxygen Therapy Mode: Nasal Cannula Oxygen Flow Rate (L/min): 4 Patient Handouts: Hypoxia, COVID-19 - Discharge Summary/Plan Comment DC Time >30 min.: No Total # of Minutes for Discharge Time: 20 - Patient Data Vitals - Most Recent: Last Vital Signs Temp 96.8 F L 10/08/21 10:39 Pulse 76 10/08/21 10:39 Resp 16 10/08/21 10:39 BP 116/62 10/08/21 10:39 Pulse Ox 94 L 10/08/21 10:39 Weight - Most Recent: 228 lb I&O - Last 24 hours: Intake & Output 10/07/21 10/08/21 10/08/21 22:59 06:59 14:59 Intake Total 300 Output Total 220 200 Balance -220 -200 300 Med Orders - Current: Current Medications Acetaminophen (Acetaminophen 325 Mg Tab) 650 mg PO Q4H PRN PRN Reason: Fever Greater Than 101 Benzonatate (Benzonatate 100 Mg Cap) 100 mg PO Q8H PRN PRN Reason: Cough Bisacodyl (Bisacodyl 5 Mg Tab) 5 mg PO DAILY PRN PRN Reason: Constipation Last Admin: 10/03/21 19:48 Dose: 5 mg Documented by: Dexamethasone (Dexamethasone 2 Mg Tab) 0.5 mg PO DAILY [facility] Last Admin: 10/08/21 08:38 Dose: 0.5 mg Documented by: Docusate Sodium (Docusate Sodium 100 Mg Cap) 100 mg PO BID PRN PRN Reason: Constipation Last Admin: 10/08/21 08:51 Dose: 100 mg Documented by: Enoxaparin Sodium (Enoxaparin 40 Mg/0.4 Ml Syringe) 40 mg SUBCUT BEDTIME [facility] Last Admin: 10/07/21 20:12 Dose: 40 mg Documented by: Guaifenesin/Dextromethorphan (Guaifenesin/Dextromethorphan 100-10 Mg/5 Ml Soln 10 Ml Cup) 10 ml PO Q4H PRN PRN Reason: Cough Lorazepam (Lorazepam 2 Mg/Ml Sdv) 1 mg IV Q6H PRN PRN Reason: Nausea/Vomiting Magnesium Hydroxide (Magnesium Hydroxide 400 Mg/5 Ml Susp 30 Ml Cup) 30 ml PO Q8H PRN PRN Reason: Constipation Last Admin: 10/04/21 08:04 Dose: 30 ml Documented by: Melatonin (Melatonin 3 Mg Tab) 9 mg PO BEDTIME [facility] Last Admin: 10/07/21 20:12 Dose: 9 mg Documented by: Morphine Sulfate (Morphine 2 Mg/Ml Syringe) 2 mg IVPUSH Q2H PRN PRN Reason: Pain (rohit 7-10) or Air Hunger Ondansetron HCl (Ondansetron 4 Mg Tab.Dis) 4 mg PO Q6H PRN PRN Reason: Nausea able to take PO Oxycodone HCl (Oxycodone 5 Mg Tab) 5 mg PO Q4H PRN PRN Reason: Pain (moderate 4-6) Pantoprazole Sodium (Pantoprazole 40 Mg Tab.Cr) 40 mg PO BEDTIME [facility] Last Admin: 10/07/21 20:12 Dose: 40 mg Documented by: Sodium Biphosphate/Sodium Phosphate (Sodium Phosphate,Monobasic/Sodium Phosphate,Dibasic Enema 133 Ml Bottle) 133 ml RECTAL ONETIME PRN PRN Reason: Constipation Sodium Chloride (Sodium Chloride 0.9% 10 Ml Syringe) 10 ml FLUSH ASDIRECTED PRN PRN Reason: Keep Vein Open Tamsulosin HCl (Tamsulosin 0.4 Mg Cap.Er) 0.4 mg PO BEDTIME [facility] Last Admin: 10/07/21 20:12 Dose: 0.4 mg Documented by: Discontinued Medications Baricitinib (Baricitinib 2 Mg Tab) 2 mg PO DAILY [facility] Stop: 09/28/21 09:01 Last Admin: 09/28/21 08:15 Dose: 2 mg Documented by: Bisacodyl (Bisacodyl 10 Mg Supp) 10 mg RECTAL ONETIME ONE Stop: 09/30/21 16:17 Last Admin: 09/30/21 16:58 Dose: 10 mg Documented by: Bisacodyl (Bisacodyl 10 Mg Supp) 10 mg RECTAL ONETIME ONE Stop: 10/04/21 12:48 Last Admin: 10/04/21 13:31 Dose: 10 mg Documented by: Dexamethasone (Dexamethasone 4 Mg/Ml Sdv) 6 mg IVPUSH DAILY [facility] Stop: 09/23/21 09:01 Last Admin: 09/14/21 22:13 Dose: 6 mg Documented by: Dexamethasone (Dexamethasone 4 Mg/Ml Sdv) 6 mg IVPUSH BEDTIME [facility] Stop: 09/23/21 21:01 Last Admin: 09/23/21 21:30 Dose: 6 mg Documented by: Dexamethasone (Dexamethasone 2 Mg Tab) 4 mg PO BEDTIME [facility] Stop: 09/29/21 23:00 Last Admin: 09/29/21 20:56 Dose: 4 mg Documented by: Dexamethasone (Dexamethasone 2 Mg Tab) 2 mg PO DAILY [facility] Stop: 10/04/21 09:01 Last Admin: 10/03/21 08:41 Dose: 2 mg Documented by: Dexamethasone (Dexamethasone 2 Mg Tab) 1 mg PO DAILY [facility] Last Admin: 10/07/21 09:22 Dose: 1 mg Documented by: Enoxaparin Sodium (Enoxaparin 40 Mg/0.4 Ml Syringe) 40 mg SUBCUT DAILY [facility] Last Admin: 09/14/21 21:31 Dose: 40 mg Documented by: Furosemide (Furosemide 20 Mg/2 Ml Vial) 20 mg IVPUSH NOW ONE Stop: 09/23/21 11:16 Last Admin: 09/23/21 11:48 Dose: 20 mg Documented by: Furosemide (Furosemide 40 Mg/4 Ml Vial) 20 mg IVPUSH NOW ONE Stop: 09/24/21 13:38 Last Admin: 09/24/21 15:42 Dose: 20 mg Documented by: Furosemide (Furosemide 40 Mg Tab) 40 mg PO ONETIME ONE Stop: 10/03/21 16:31 Last Admin: 10/03/21 17:14 Dose: 40 mg Documented by: Furosemide (Furosemide 40 Mg Tab) 40 mg PO ONETIME ONE Stop: 10/04/21 15:01 Last Admin: 10/04/21 15:49 Dose: 40 mg Documented by: Furosemide (Furosemide 40 Mg Tab) 40 mg PO ONETIME ONE Stop: 10/06/21 13:01 Last Admin: 10/06/21 14:03 Dose: 40 mg Documented by: Remdesivir 200 mg/ Sodium (Chloride) 250 mls @ 250 mls/hr IV ONETIME ONE Stop: 09/14/21 19:28 Last Admin: 09/14/21 21:31 Dose: 250 mls/hr Documented by: Remdesivir 100 mg/ Sodium (Chloride) 100 mls @ 100 mls/hr IV Q24H [facility] Stop: 09/18/21 09:59 Remdesivir 100 mg/ Sodium (Chloride) 100 mls @ 100 mls/hr IV BEDTIME [facility] Stop: 09/18/21 21:59 Last Admin: 09/18/21 22:21 Dose: 100 mls/hr Documented by: Influenza Virus Vaccine (Pharmacy To Dose - Influenza Vaccine) 1 each IM ONETIME ONE Stop: 09/14/21 21:57 Influenza Virus Vaccine (Flu Vacc [id number](65yr Up)/Pf 240 Mcg/0.7 Ml Syringe) 240 mcg IM .ONCE ONE Stop: 09/15/21 10:01 Last Admin: 09/15/21 10:52 Dose: Not Given Documented by: Morphine Sulfate (Morphine 2 Mg/Ml Syringe) 2 mg IVPUSH Q2H PRN PRN Reason: AIR HUNGER Pantoprazole Sodium (Pantoprazole 40 Mg Vial) 40 mg IVPUSH DAILY [facility] Last Admin: 09/14/21 22:13 Dose: 40 mg Documented by: - Exam General: Reports: Alert, Oriented, Cooperative, Mild Distress Lungs: Reports: Clear to Auscultation, Normal Respiratory Effort, Decreased Breath Sounds Cardiovascular: Reports: Regular Rate, Regular Rhythm, No Murmurs GI/Abdominal Exam: Soft, Non-Tender, No Organomegaly, No Distention Extremities: Non-Tender, No Pedal Edema
[2021-10-08] MEDS: Magnesium Hydroxide 400 MG/5 ML Susp 30 ML Cup PO PRN (16:21)
[2021-10-08] MEDS: Melatonin 3 MG Tab PO SCH (20:23)
[2021-10-08] MEDS: Enoxaparin 40 MG/0.4 ML Syringe SUBCUT SCH (20:23)
[2021-10-08] MEDS: Tamsulosin 0.4 MG Cap.ER PO SCH (20:23)
[2021-10-08] MEDS: Pantoprazole 40 MG Tab.CR PO SCH (20:24)
[2021-10-09] MEDS: Bisacodyl 5 MG Tab PO PRN (06:00)
[2021-10-09 07:34] VITALS: BP 114/72; PULSE 60
[2021-10-09] MEDS: Dexamethasone 2 MG Tab PO SCH (07:34)
== END 2021-10-09 07:56 | DRG 177 ==
LOC: JP.ED 17:23 → JP.2SS 19:49 → JP.MS 09-29 10:00
PROVIDERS: ADMIT Internal Medicine; ATTEND Hospitalist
PROC: 5A0955A Assistance with Respiratory Ventilation, Greater than 96 Consecutive Hours, High Flow/Velocity Cannula (ICD-10-PCS; principal; 2021-09-14)
PROC: 3E0DX3Z Introduction of Anti-inflammatory into Mouth and Pharynx, External Approach (ICD-10-PCS; 2021-09-14)
PROC: XW0DXM6 Introduction of Baricitinib into Mouth and Pharynx, External Approach, New Technology Group 6 (ICD-10-PCS; 2021-09-28)
PROC: 8E0ZXY6 Isolation (ICD-10-PCS; 2021-09-28)
PROC: XW033E5 Introduction of Remdesivir Anti-infective into Peripheral Vein, Percutaneous Approach, New Technology Group 5 (ICD-10-PCS; 2021-09-28)
DX: U07.1 COVID-19 (principal); R09.02 Hypoxemia; J12.82 Pneumonia due to coronavirus disease 2019; J96.01 Acute respiratory failure with hypoxia; G30.9 Alzheimer's disease, unspecified; F02.80 Dementia in other diseases classified elsewhere, unspecified severity, without behavioral disturbance, psychotic disturbance, mood disturbance, and anxiety; Z85.89 Personal history of malignant neoplasm of other organs and systems; H53.2 Diplopia; Z88.8 Allergy status to other drugs, medicaments and biological substances; Z88.5 Allergy status to narcotic agent; Z88.1 Allergy status to other antibiotic agents; Z79.899 Other long term (current) drug therapy; H54.7 Unspecified visual loss; Z87.01 Personal history of pneumonia (recurrent); M19.90 Unspecified osteoarthritis, unspecified site; Z86.19 Personal history of other infectious and parasitic diseases; Z90.49 Acquired absence of other specified parts of digestive tract; Z98.49 Cataract extraction status, unspecified eye; Z85.49 Personal history of malignant neoplasm of other male genital organs; N18.30 Chronic kidney disease, stage 3 unspecified
CPT/HCPCS: 0241U; 36415; 36600; 70450; 71045; 80048; 80053; 80076; 81001; 82550; 82728; 82803; 83605; 83615; 84145; 85025; 85027; 85379; 85610; 86140; 87040; 94762; 97110; 97140; 97162; 97530; 99285; A9270-GY; C9113; J1100; J1650; J1940; J7050; J8540

== ENCOUNTER 2021-11-04 12:19 | Emergency (ER) | payer MEDICARE ==
--- NOTE | 2021-11-04 12:59 | EDM.PDOC ---
ED HPI GENERAL MEDICAL PROBLEM - General Chief Complaint: Respiratory Problem Stated Complaint: LOW O2 Time Seen by Provider: 11/04/21 12:51 Source of Information: Reports: Patient, Police, RN Notes Reviewed History Limitations: Reports: No Limitations - History of Present Illness INITIAL COMMENTS - FREE TEXT/NARRATIVE: 85-year-old gentleman presents emergency department today concerns about oxygen saturation, he is post COVID was a resident of the [facility] the [facility] facility however family took him out would like to to care for him at home. However he does not have an order for oxygen he was hypoxic during his COVID infection. And he has remained hypoxic in the [facility]. At this time he complains of shortness of breath with any amount of exertion he states he is okay at rest. He continues to be very weak has to use a walker to ambulate does have a history of Alzheimer's disease as well - Related Data Allergies Allergy/AdvReac Type Severity Reaction Status Date / Time meropenem Allergy Swelling Verified 11/04/21 12:32 levofloxacin [From Levaquin] AdvReac Unknown Muscle Verified 11/04/21 12:32 Weakness propoxyphene napsylate AdvReac Nausea and Verified 11/04/21 12:32 [From Darvocet-N] Vomiting Home Meds: Home Meds Omeprazole 20 mg PO BIDAC 04/17/14 [History] Tamsulosin [Flomax] 0.4 mg PO BEDTIME 09/14/21 [History] Acetaminophen [Tylenol] 650 mg PO DAILY PRN 11/04/21 [History] QUEtiapine [SEROquel] 25 mg PO BID 11/04/21 [History] Sertraline [Zoloft] 25 mg PO DAILY 11/04/21 [History] Past Medical History HEENT History: Reports: Impaired Vision Respiratory History: Reports: Pneumonia, Recurrent Gastrointestinal History: Reports: Gastritis Musculoskeletal History: Reports: Fracture, Osteoarthritis Other Musculoskeletal History: ankle Psychiatric History: Reports: Depression Oncologic (Cancer) History: Reports: Other (See Below) 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CA - Infectious Disease History Infectious Disease History: Reports: Chicken Pox, Measles, Mumps - Past Surgical History Head Surgeries/Procedures: Reports: None HEENT Surgical History: Reports: Cataract Surgery GI Surgical History: Reports: Appendectomy, Cholecystectomy Male Surgical History: Reports: Other (See Below) Other Male Surgeries/Procedures: "penile CA" Oncologic Surgical History: Reports: Other (See Below) Other Oncologic Surgeries/Procedures: surgery on penis Social & Family History - Family History Family Medical History: No Pertinent Family History Neurological: Reports: Alzheimers Disease - Tobacco Use Tobacco Use Status *Q: Former Tobacco User Used Tobacco, but Quit: Yes Month/Year Tobacco Last Used: quit in 2000 - Caffeine Use Caffeine Use: Reports: Soda Other Caffeine Use: 2 sodas per day - Recreational Drug Use Recreational Drug Use: No - Living Situation & Occupation Living situation: Reports: (lives alone in [place], [place]. has two children, one Son Jayme lives close by.) Occupation: Retired ED ROS GENERAL - Review of Systems Review Of Systems: See Below Constitutional: Reports: No Symptoms HEENT: Reports: No Symptoms Respiratory: Reports: Shortness of Breath Cardiovascular: Reports: Dyspnea on Exertion GI/Abdominal: Reports: No Symptoms ED EXAM, GENERAL - Physical Exam Exam: See Below Free Text/Narrative:: I was able to measure his oxygen saturation at rest in the chair he fluctuated between 90 and 92% however ambulation across the room dropped his oxygen saturation to 85% the distance here was about 20 feet. With oxygen he was able to recover at 2 L within a minute back to the 92% range Exam Limited By: No Limitations General Appearance: Alert, WD/WN, No Apparent Distress Respiratory/Chest: No Respiratory Distress Course - Vital Signs Last Recorded V/S: Last Vital Signs Temp 97.5 F 11/04/21 12:30 Pulse 97 11/04/21 12:40 Resp 18 11/04/21 12:40 BP 105/62 11/04/21 12:40 Pulse Ox 89 L 11/04/21 12:40 - Orders/Labs/Meds Orders: Active Orders 24 hr Category Date Time Status Isolation [COMM] Stat Oth 11/04/21 12:21 Ordered Departure - Departure Time of Disposition: 12:58 Disposition: Home, Self-Care 01 Condition: Fair Clinical Impression: Hypoxia - Discharge Information Instructions: Hypoxemia Referrals: Meli Frankel MD [Primary Care Provider] - Additional Instructions: An order has been completed for [employer] [facility] [place] the direct customer service representative will contact you and set up home oxygen call or return to the emergency department worsening of symptoms please keep your follow-up appointment with your primary care Sepsis Event Note (ED) - Evaluation Sepsis Screening Result: No Definite Risk - Focused Exam Vital Signs: Vital Signs Temp Pulse Resp BP Pulse Ox 11/04/21 12:40 97 18 105/62 89 L 11/04/21 12:30 97.5 F 85 16 105/62 91 L - My Orders Last 24 Hours: My Active Orders 11/04/21 12:21 Isolation [COMM] Stat - Assessment/Plan Last 24 Hours: My Active Orders 11/04/21 12:21 Isolation [COMM] Stat Plan: Assessment Acuity = acute Site and laterality = hypoxia with exertion Etiology = probably related to COVID-19 Manifestations = none Location of injury = Home Lab values = O2 saturation 85% after 20 feet of ambulation Plan An order was completed for [facility] home oxygen, family will take this gentleman home then [facility] will contact them to set them up for oxygen. I think this gentleman will do fine as long as he is at rest in the amount of exertion he does become hypoxic This note was dictated using [employer] voice recognition software please call with any questions on syntax or grammar.
[2021-11-04 13:21] VITALS: BP 103/70; PULSE 88
== END 2021-11-04 15:30 | disposition home or self-care (01) ==
LOC: JP.ED 12:19
DX: R09.02 Hypoxemia (principal); Z88.1 Allergy status to other antibiotic agents; Z88.8 Allergy status to other drugs, medicaments and biological substances; Z79.899 Other long term (current) drug therapy; Z87.891 Personal history of nicotine dependence
CPT/HCPCS: 99284

== ENCOUNTER 2021-11-06 11:34 | Emergency (ER) | payer MEDICARE ==
[2021-11-06 11:53] VITALS: BP 125/71; PULSE 73
--- NOTE | 2021-11-06 12:04 | EDM.PDOC ---
ED HPI GENERAL MEDICAL PROBLEM - General Chief Complaint: Syncope Stated Complaint: [facility] Time Seen by Provider: 11/06/21 11:50 Source of Information: Reports: Patient, EMS History Limitations: Reports: No Limitations - History of Present Illness INITIAL COMMENTS - FREE TEXT/NARRATIVE: 85-year-old male who was just seen in the emergency room 2 days ago and set up for home oxygen was at home, when he was trying to get to the bathroom and his walker and suddenly everything started going black and he fainted. He did not get hurt, he woke up soon after somewhat diaphoretic and weak and became scared and called the ambulance. When they arrived his vitals were fine, he was wearing his oxygen, he was transported on cardiac monitoring and was in a normal sinus rhythm. He arrived stable, O2 sats 99% and vital stable, no evidence or complaints of injury. Onset: Sudden Duration: Hour(s): (Within the last hour) Associated Symptoms: Reports: Shortness of Breath (Is ongoing shortness of breath issues since being diagnosed with Covid, it is stable and improved with oxygen) - Related Data Allergies Allergy/AdvReac Type Severity Reaction Status Date / Time meropenem Allergy Swelling Verified 11/06/21 11:53 levofloxacin [From Levaquin] AdvReac Unknown Muscle Verified 11/06/21 11:53 Weakness propoxyphene napsylate AdvReac Nausea and Verified 11/06/21 11:53 [From Darvocet-N] Vomiting Home Meds: Home Meds Omeprazole 20 mg PO BIDAC 04/17/14 [History] Tamsulosin [Flomax] 0.4 mg PO BEDTIME 09/14/21 [History] Acetaminophen [Tylenol] 650 mg PO DAILY PRN 11/04/21 [History] QUEtiapine [SEROquel] 25 mg PO BID 11/04/21 [History] Sertraline [Zoloft] 25 mg PO DAILY 11/04/21 [History] Past Medical History HEENT History: Reports: Impaired Vision Respiratory History: Reports: Pneumonia, Recurrent Gastrointestinal History: Reports: Gastritis Musculoskeletal History: Reports: Fracture, Osteoarthritis Other Musculoskeletal History: ankle Psychiatric History: Reports: Depression Oncologic (Cancer) History: Reports: Other (See Below) 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CA - Infectious Disease History Infectious Disease History: Reports: Chicken Pox, Measles, Mumps, Novel Coronavirus - Past Surgical History Head Surgeries/Procedures: Reports: None HEENT Surgical History: Reports: Cataract Surgery GI Surgical History: Reports: Appendectomy, Cholecystectomy Male Surgical History: Reports: Other (See Below) Other Male Surgeries/Procedures: "penile CA" Oncologic Surgical History: Reports: Other (See Below) Other Oncologic Surgeries/Procedures: surgery on penis Social & Family History - Family History Family Medical History: No Pertinent Family History Neurological: Reports: Alzheimers Disease - Caffeine Use Caffeine Use: Reports: Soda Other Caffeine Use: 2 sodas per day - Living Situation & Occupation Living situation: Reports: (lives alone in [place], [place]. has two children, one Son Jayme lives close by.) Occupation: Retired [employer] - Review of Systems Review Of Systems: See Below Constitutional: Denies: Fever, Chills, Malaise HEENT: Denies: Throat Pain Respiratory: Reports: Shortness of Breath, Cough Cardiovascular: Denies: Chest Pain, Palpitations GI/Abdominal: Denies: Abdominal Pain, Diarrhea, Nausea, Vomiting : Reports: No Symptoms Skin: Reports: Diaphoresis (Was diaphoretic at home but that is resolved) Neurological: Reports: Syncope Psychiatric: Reports: No Symptoms - Physical Exam Exam: See Below Exam Limited By: No Limitations General Appearance: Alert, No Apparent Distress Eye Exam: Bilateral Eye: Normal Inspection Head Exam: Atraumatic Neck: Supple, Non-Tender Respiratory/Chest: Rhonchi (A few scattered bilateral rhonchi are heard but overall good air movement) Cardiovascular: Regular Rate, Rhythm, Extra Beats (Underlying regular rhythm with frequent extra beats) GI/Abdominal: Soft, Non-Tender Neuro Exam (Abbreviated): Alert, Oriented Extremities: Pedal Edema (Trace of symmetric ankle edema bilaterally) Psychiatric: Normal Affect, Normal Mood Course - Vital Signs Last Recorded V/S: Last Vital Signs Temp 96.8 F L 11/06/21 11:48 Pulse 73 11/06/21 11:48 Resp 28 H 11/06/21 11:48 BP 125/71 11/06/21 11:48 Pulse Ox 99 11/06/21 11:48 - Re-Assessments/Exams Free Text/Narrative Re-Assessment/Exam: 11/06/21 12:20 Patient was reassured that he probably had a vagal episode and is returned to baseline, he did not get hurt. He had a fairly large work-up just 2 days ago, the O2 at home is helping and he can just continue the treatment. He had not eaten yet this morning so was given a lunch and ate very well without issues. The problem is arranging a way for him to get home. 11/06/21 13:17 Son came to take the patient home. Continue with oxygen therapy and your regular medications. Departure - Departure Time of Disposition: 13:45 Disposition: Home, Self-Care 01 Clinical Impression: Vasovagal syncope - Discharge Information Instructions: Syncope, [id number] Referrals: PCP,None [Primary Care Provider] - Forms: ED Department Discharge Care Plan Goals: Continue oxygen as prescribed, medications as prescribed, and activity as tolerated. Return if worsening or other concerns. Sepsis Event Note (ED) - Evaluation Sepsis Screening Result: No Definite Risk - Focused Exam Vital Signs: Vital Signs Temp Pulse Resp BP Pulse Ox 11/06/21 11:48 96.8 F L 73 28 H 125/71 99
== END 2021-11-06 14:24 | disposition home or self-care (01) ==
LOC: JP.ED 11:34
DX: R55 Syncope and collapse (principal); M19.90 Unspecified osteoarthritis, unspecified site; Z88.1 Allergy status to other antibiotic agents; Z88.8 Allergy status to other drugs, medicaments and biological substances; Z79.899 Other long term (current) drug therapy
CPT/HCPCS: 99284